=== PATIENT | female | born 1950 | race Caucasian/White ===

== ENCOUNTER → 2016-04-17 | Outpatient (CLI) | payer OTHER ==
[~2016-04-17] MED LIST: AMLO-110 PO; ASPCH81X PO; ATOR-26 PO; CHOL400T PO; CLOP1TAB15 PO; CLR10 PO; FRS/40 PO; GEMF600T3 PO; GLC500 PO; ISOS120T5 PO; METO-551 PO; NITR0.4S UT; PARO30TA6 PO; POTA20TA16 PO; XNX25 PO; ZTA10 PO; [UNRECOGNIZED DRUG - OTHER] PO
[2016-04-17 13:01] LABS: HEMATOCRIT 36.9 % (37-47)
[2016-04-17 13:12] LABS: ALT/SGPT 14 U/L (12-78); BLOOD UREA NITROGEN 7 mg/dl (7-18); BUN/CREATININE RATIO 10.3 (10-20); CALCIUM 9.6 mg/dl (8.5-10.1); CARBON DIOXIDE 26 mmol/L (21-32); CHLORIDE 101 mmol/L (98-107); CHOLESTEROL 143 mg/dl (0-200); CREATININE 0.68 mg/dl (0.60-1.20); GLUCOSE 118 mg/dl (70-99); POTASSIUM 4.7 mmol/L (3.5-5.1); SODIUM 136 mmol/L (136-145); TRIGLYCERIDES 145 mg/dl (0-150); VERY LOW DENSITY LIPOPROT CALC 29 mg/dl
[2016-04-17 13:15] LABS: AST/SGOT 10 U/L (15-37); CHOLESTEROL/HDL RATIO 2.8; HDL CHOLESTEROL 52 mg/dl; LDL CHOLESTEROL CALCULATED 62 mg/dl
[2016-04-17 13:50] LABS: ESTIMATED AVERAGE GLUCOSE 146 mg/dl; HA1C FLAG Normal (Normal)
== END | disposition home or self-care (01) ==
LOC: C.LAB1850 11:44
PROVIDERS: ATTEND Internal Medicine
DX: E78.5 Hyperlipidemia, unspecified (principal); E11.9 Type 2 diabetes mellitus without complications; E55.9 Vitamin D deficiency, unspecified; D64.9 Anemia, unspecified

== ENCOUNTER → 2016-12-17 | Outpatient (CLI) | payer OTHER ==
[2016-12-17 10:17] LABS: BASO % 0.8 %; BASO ABS # 0.04 K/uL (0-0.2); COMPLETE YES; EOS % 3.4 %; HEMATOCRIT 38.8 % (37-47); IG% 0.2 %; LYMPH % 39.5 %; LYMPH ABS # 2.06 K/uL (1.2-3.4); MEAN CELL VOLUME 91.7 fL (80-100); MEAN CORPUSCULAR HGB CONC 33.8 g/dl (32-36); MEAN PLATELET VOLUME 9.8 fL (7.4-10.4); MONO % 8.4 %; NEUT % 47.7 %; PLATELET COUNT 223 K/uL (130-400); RED BLOOD COUNT 4.23 M/uL (4.2-5.4); WHITE BLOOD COUNT 5.22 K/uL (4.8-10.8)
[2016-12-17 10:32] LABS: ALT/SGPT 25 U/L (12-78); AST/SGOT 11 U/L (15-37); BLOOD UREA NITROGEN 8 mg/dl (7-18); BUN/CREATININE RATIO 13.4 (10-20); CALCIUM 9.5 mg/dl (8.5-10.1); CARBON DIOXIDE 25 mmol/L (21-32); CHLORIDE 102 mmol/L (98-107); CHOLESTEROL 99 mg/dl (0-200); CREATININE 0.59 mg/dl (0.60-1.20); GLUCOSE 156 mg/dl (70-99); POTASSIUM 4.3 mmol/L (3.5-5.1); SODIUM 135 mmol/L (136-145)
[2016-12-17 10:34] LABS: CREATININE RANDOM URINE < 13.0 mg/dl
[2016-12-17 10:37] LABS: CHOLESTEROL/HDL RATIO 2.4; HDL CHOLESTEROL 42 mg/dl; LDL CHOLESTEROL CALCULATED 26 mg/dl; TRIGLYCERIDES 155 mg/dl (0-150); VERY LOW DENSITY LIPOPROT CALC 31 mg/dl
== END | disposition home or self-care (01) ==
LOC: C.LAB1850 09:11
PROVIDERS: ATTEND Internal Medicine
DX: E78.1 Pure hyperglyceridemia (principal); D64.9 Anemia, unspecified; E11.9 Type 2 diabetes mellitus without complications; E78.5 Hyperlipidemia, unspecified

== ENCOUNTER → 2016-12-30 | Outpatient (CLI) | payer OTHER ==
[~2016-12-30] MED LIST changes: +REGADENOSON 0.4 MG/5 ML SYR ONE
--- NOTE | 2016-12-30 14:33 | MYOCARDIAL PERFUSION SCAN ---
ONE-DAY NUCLEAR MEDICINE TECHNETIUM-99M CARDIOLITE MYOCARDIAL PERFUSION SCAN CLINICAL HISTORY: The patient has known coronary artery disease having undergone bypass surgery and several intracoronary stents. She presents with a chest pain syndrome and exertional dyspnea. TECHNIQUE: For the stress portion of the study, 32.5 mCi of Technetium-99m Cardiolite IV was injected at 11:30 a.m. on 12/30/2016. Thirty minutes following the injection, imaging of the heart was performed in multiple projections. For the rest portion of the study, 10.8 mCi of Technetium-99m Cardiolite was injected IV at 9:45 a.m. One hour following the injection, imaging of the heart was performed in the same projections. For the stress portion of the study, 0.4 mg of Lexiscan was injected intravenously as per protocol. The patient did develop chest discomfort. Baseline EKG noted anterolateral ST and T-wave changes which became more pronounced with Lexiscan infusion. The patient's symptoms resolved after approximately 3 minutes. Following the study, the patient was hemodynamically stable without complaints. FINDINGS: The short axis, vertical long axis, and horizontal long axis images were reviewed in detail. There is a small fixed defect in the mid and distal anterior septum present at both stress and rest. This likely represents an old myocardial infarction versus breast attenuation. However, the gated images suggest akinesis in the same segment favoring a prior myocardial infarction. There is no evidence of stress induced myocardial ischemia. Left ventricle demonstrates normal systolic function with an ejection fraction of 60%. There is an area of akinesis involving the mid and distal anteroseptal. Other henriquez function normally. CONCLUSIONS: 1. Scintigraphic evidence of an old anteroseptal myocardial infarction. 2. No evidence of stress induced myocardial ischemia. 3. Lexiscan induced chest discomfort. 4. Normal left ventricular systolic function with an ejection fraction of 60%, but akinesis involving the mid and distal anteroseptal.
== END | disposition home or self-care (01) ==
LOC: C.NUCL 09:01
PROVIDERS: ATTEND Internal Medicine Cardiovascular Disease
DX: I25.10 Atherosclerotic heart disease of native coronary artery without angina pectoris (principal); I25.5 Ischemic cardiomyopathy; Z95.1 Presence of aortocoronary bypass graft; Z95.5 Presence of coronary angioplasty implant and graft; I25.2 Old myocardial infarction

== ENCOUNTER 2019-05-09 11:06 | Inpatient (IN) ==
[2019-05-09] MEDS ORDERED: SODIUM CHLORIDE 0.9% 1000ML 1,000 ML IV ONE ×2 (11:24→12:46)
[2019-05-09] MEDS ORDERED: METOPROLOL TARTRATE 1 MG/ML VIAL IV ONE (11:24)
[2019-05-09] MEDS ORDERED: METOPROLOL TARTRATE 1 MG/ML VIAL IV PRN (11:26)
[2019-05-09 11:43] LABS: Base Excess VBG -13.8 mEq/L; pH VBG 7.24 (7.36-7.41)
[2019-05-09 11:44] LABS: Hematocrit (blood only) 42.4 % (37-47); Hemoglobin 15.2 g/dL (12.0-16.0); Mean Corpuscular Hemoglobin 30.8 pg (25-34); Mean Corpuscular Hgb Conc 35.8 g/dL (32-36); Mean Corpuscular Volume 85.8 fL (80-100); Mean Platelet Volume 10.9 fL (7.4-10.4); Platelet Count 159 K/uL (130-400); RDW Coefficient of Variation 13.6 % (11.5-14.5); RDW Standard Deviation 42.9 fL (36.4-46.3); Red Blood Count 4.94 M/uL (4.2-5.4); White Blood Count 12.44 K/uL (4.8-10.8)
--- NOTE | 2019-05-09 11:45 | XRay Report ---
XR chest 1V portable CLINICAL HISTORY: SEPSIS dyspnea COMPARISON STUDY: 03/08/2016 FINDINGS: Parenchymal infiltrate right base. Lungs otherwise appear clear. Mild cardiomegaly post med morenita sternotomy. IMPRESSION: Infiltrate right base. ACT 112: Negative or not required by law. The above report was generated using voice recognition software. It may contain grammatical, syntax or spelling errors. Electronically signed by: Rosendo Regalado M.D. 05/09/2019 11:43 AM
[2019-05-09 11:56] LABS: INR 1.3 (0.9-1.1); Partial Thromboplastin Ratio 1.2; Partial Thromboplastin Time 32.6 Seconds (21.0-31.0); Prothrombin Time 13.2 Seconds (9.0-12.0)
--- NOTE | 2019-05-09 11:58 | CT Scan Report ---
CT head/brain wo con CLINICAL HISTORY: 68 years-old Female with syncope. Acute syncope TECHNIQUE: Multiple axial CT images of the head were obtained without contrast. A dose lowering tech nique was utilized adhering to the principles of ALARA. CT DOSE: 638.56 mGycm COMPARISON: None. FINDINGS: No acute intracranial hemorrhage, midline shift, intracranial mass, hydrocephalus, territorial ischem ia or abnormal extra-axial collection. Age-related involutional changes. Patchy white matter hypodens ities suggest chronic microvascular ischemic disease. Cerebral vascular calcifications are noted. The calvarium is intact. Mild mucosal thickening with aerated secretions of the right maxillary and sphenoid sinuses. Mild mucosal thickening of the left maxillary sinus also noted. The mastoid air jennifer ls and middle ear cavities are clear. There are least 4 subcutaneous lesions of the posterior scalp m easuring up to 1.3 cm, possibly reflective of complex sebaceous cyst. IMPRESSION: No acute intracranial abnormality or calvarial fracture. ACT 112: Negative or not required by law. The above report was generated using voice recognition software. It may contain grammatical, syntax o r spelling errors. Electronically signed by: Cruzito Mccurdy M.D. 05/09/2019 11:57 AM
[2019-05-09 12:03] LABS: Basophils # (auto) 0.08 K/uL (0-0.2); Basophils % (auto) 0.6 %; Immature Granulocytes # (auto) 0.06 K/uL (0.00-0.02); Immature Granulocytes % (auto) 0.5 %; Lymphocytes # (auto) 1.02 K/uL (1.2-3.4); Lymphocytes % (auto) 8.2 %; Monocytes # (auto) 1.71 K/uL (0.11-0.59); Monocytes % (auto) 13.7 %; Neutrophils # (auto) 9.57 K/uL (1.4-6.5)
[2019-05-09] MEDS ORDERED: PIPERACILL/TAZOBAC CONSULT ACTIVE PRN ×2 (12:04→15:11)
[2019-05-09] MEDS ORDERED: PIPERACILLIN/TAZOBACTAM 4.5 GM/120 ML BAG IV ONE (12:04)
[2019-05-09 12:11] LABS: Alanine Aminotransferase 15 U/L (12-78); Albumin Globulin Ratio 0.6 (0.9-2); Albumin Level 3.2 gm/dl (3.4-5.0); Alkaline Phosphatase 103 U/L (45-117); Aspartate Aminotransferase 15 U/L (15-37); BUN Creatinine Ratio 10.9 (10-20); Bilirubin,Total 0.8 mg/dl (0.2-1); Blood Urea Nitrogen 8 mg/dl (7-18); Calcium 9.4 mg/dl (8.5-10.1); Carbon Dioxide 13 mmol/L (21-32); Chloride 95 mmol/L (98-107); Creatinine Clr Calc Pharmacy 54.9 ml/min; Est GFR (African American) 95.6; Est GFR (Non-African American) 82.5; Globulin 5.4 gm/dl (2.5-4.0); Glucose 323 mg/dl (70-99); Magnesium 1.8 mg/dl (1.8-2.4); Sodium 129 mmol/L (136-145); Total Protein 8.6 gm/dl (6.4-8.2); Troponin I < 0.015 ng/ml (0-0.045)
[2019-05-09] MEDS ORDERED: LEVOFLOXACIN/D5W 750 MG/150 ML BAG IV SCH (12:15)
[2019-05-09] MEDS ORDERED: SODIUM CHLORIDE 0.9% 1000ML 2,000 ML IV ONE (12:24)
[2019-05-09] MEDS ORDERED: GLUCOSE 10 TABS/TUBE PO PRN (12:46)
[2019-05-09] MEDS ORDERED: GLUCOSE 40% GEL 15 GM TUBE PO PRN (12:46)
[2019-05-09] MEDS ORDERED: DKA GOAL RANGE 150-250 mg/dl ONE (12:46)
[2019-05-09] MEDS ORDERED: GLUCAGON FOR INJ 1 MG VIAL SQ PRN (12:46)
[2019-05-09] MEDS ORDERED: ED DKA INSULIN DRIP ONE (12:46)
[2019-05-09] MEDS ORDERED: CARBOHYDRATES FOR HYPOGLYCEMIA PO PRN (12:46)
[2019-05-09] MEDS ORDERED: NovoLIN-R BOLUS FROM BAG IV ONE (12:50)
[2019-05-09] MEDS ORDERED: LORazepam 1 MG/2 ML VIAL IV STA (12:55)
[2019-05-09] MEDS ORDERED: INSULIN REGULAR 250 UNITS in SODIUM CHLORIDE 0.9% 247.5 ML IV SCH ×2 (13:00→15:30)
--- NOTE | 2019-05-09 13:06 | History & Physical Report ---
Date of Service May 09, 2019 Assessment & Plan (1) Sepsis: Patient has an elevated lactic acid level and apparent right lower lobe infiltrate on chest x-ray. Patient will be admitted to the ICU. I will start broad-spectrum antibiotics. Patient was already given Levaquin in the emergency room, will change to Zosyn and vancomycin. Blood and sputum cultures as able. O2 support with BiPAP for now. I did briefly discuss CODE STATUS and the family would like the patient to be full code with intubation if necessary. Will track lactic acid levels. (2) Acute respiratory failure: As noted above, likely secondary to pneumonia. BiPAP support as ordered. I can try to titrate down FiO2 when able. (3) DKA (diabetic ketoacidoses): Will initiate a insulin drip. Monitor anion gap. Check acetone level. Hemoglobin A1c when improved. (4) Rapid atrial fibrillation: Patient currently hypotensive with pulse 179. Will initiate amiodarone drip. Patient is on her third liter of normal saline, can continue this for now. Will consult cardiology for further recommendations. If patient's blood pressure degrades further, consideration to emergent cardioversion. We will also need heparin drip for now. Will check 2D echo. History of Present Illness Primary Care Provider: Roscoe Cano MD This is a 68-year-old female with past medical history of coronary artery disease, type 2 diabetes, triglyceridemia, cardiomyopathy presents today with acute shortness of breath. Patient is an extremely poor historian. Granddaughter is at bedside is able to fill in some of the blanks. Patient apparently lives in a split-level house with some other people. Patient states that they take care of her but is unclear what that consists of. Granddaughter found that the patient had stopped her medication sometime ago. There may have been 1 or 2 events with the patient had lost consciousness and explained a seizure-like activity although the history on this is unclear. Patient herself presented to the emergency room after she woke up with significant shortness of breath earlier this morning at time of presentation to the emergency room, her blood pressure was elevated along with her heart rate into the 170s. She was given some Lopressor. She is respiratory distress with significant tachypnea. She was on oxygen as with sats in the low 90s. When I arrived, patient was at 87-88% on oxygen mask. She was more tachypneic and was complaining of anxiety. BiPAP was ordered at 12/18 at 70% FiO2. Repeat sats are at 95%. Patient seems to be more calm and comfortable with this. At this time, patient will be admitted to the ICU for further treatment of rapid atrial fibrillation along with possible diabetic ketoacidosis. Allergies Allergy/AdvReac Type Severity Reaction Status Date / Time GEORGE Inhibitors Allergy Mild COUGH TO Verified 05/09/19 11:38 LISINOPRIL losartan Allergy Unknown URTICARIA Verified 05/09/19 11:38 Home Medications Home Medications Medication Instructions Recorded Confirmed Type clopidogrel 75 mg tablet 75 mg PO DAILY 09/20/18 05/09/19 History metoprolol tartrate 50 mg tablet 50 mg PO BID #270 tab 09/20/18 05/09/19 History omeprazole 20 mg capsule,delayed 20 mg PO BID PRN #90 cap 10/22/18 05/09/19 Rx release albuterol sulfate 90 mcg/actuation 2 puffs INHALATION Q4H #1 gm 10/29/18 05/09/19 History aerosol inhaler blood sugar diagnostic #10 ea 10/29/18 12/20/18 History cholecalciferol (vitamin D3) 10 400 units PO DAILY 10/29/18 05/09/19 History mcg (400 unit) tablet ezetimibe 10 mg tablet 10 mg PO HS #90 tab 10/29/18 05/09/19 History lancets 33 gauge #100 ea 10/29/18 10/29/18 History loratadine 10 mg tablet 10 mg PO DAILY #90 tab 10/29/18 05/09/19 History nitroglycerin 0.4 mg sublingual 0.4 mg SL UD #25 tab 10/29/18 05/09/19 History tablet atorvastatin 80 mg tablet 80 mg PO QPM #90 tab 11/16/18 05/09/19 Rx gemfibrozil 600 mg tablet 600 mg PO BID #180 tab 11/23/18 05/09/19 Rx paroxetine HCl 30 mg tablet 30 mg PO BID #180 tab 12/07/18 05/09/19 Rx glimepiride 1 mg tablet 1 mg PO BID #180 tab 01/04/19 05/09/19 Rx amlodipine 5 mg tablet 5 mg PO BID #180 tab 01/11/19 05/09/19 Rx potassium chloride 20 mEq See Rx Instructions .ROUTE 02/08/19 05/09/19 Rx tablet,extended release(part/cryst) .COMPLEX #270 tablet alprazolam 0.25 mg tablet 0.25 mg PO TID PRN #90 tab 03/14/19 05/09/19 Rx furosemide 40 mg tablet 60 mg PO DAILY #135 tab 04/27/19 05/09/19 Rx isosorbide mononitrate 120 mg 120 mg PO DAILY #180 tab 04/27/19 05/09/19 Rx tablet,extended release 24 hr metformin 500 mg tablet 500 mg PO BID #180 tab 04/27/19 05/09/19 Rx aspirin [Aspir-81] 81 mg PO DAILY 05/09/19 05/09/19 History Past Med/Surg History Medical History Acid reflux (Acute) Anemia (Acute) Anxiety disorder (Acute) Arteriosclerosis of carotid artery (Acute) Arteriosclerotic cardiovascular disease (ASCVD) (Acute) CAD (coronary artery disease) (Acute) Cardiomyopathy, ischemic (Acute) Essential hypertriglyceridemia (Acute) Hyperlipidemia (Acute) Stenosis of right carotid artery (Acute) Type 2 diabetes mellitus (Acute) Vitamin D deficiency (Acute) Surgical History Hx of CABG S/P hysterectomy Family History Mother Coronary heart disease Social History marital status: / current occupational status: retired Feels Safe at Home: Yes Smoking Status: Current every day smoker Hx Alcohol Use: No Hx Substance Use: No Dental Care, Regularly: Yes Seatbelt Use: always Review of Systems Review of Systems: Unobtainable due to cognitive status Physical Exam Constitutional: cooperative and + in distress (Tachypneic) Very limited historian Neck: trachea midline, no thyromegaly Respiratory: + uses accessory muscles Auscultation: + crackles and + rales; no rhonchi and no wheezes Cardiovascular: Rate/Rhythm: + tachycardic and + irregularly irregular Heart Sounds: normal S1 and normal S2 Vessels: + JVD Gastrointestinal (Abdomen): Inspection/Auscultation: abdomen normal to inspection Percussion/Palpation: abdomen soft; abdomen nontender, no guarding, abdomen not rigid and no hepatosplenomegaly Skin: no rashes, warm and dry Results & Data Vital Signs (Past 12 Hours) Vital Signs Temp Pulse Pulse Resp BP BP Pulse Ox 05/09/19 12:41 174 H 38 H 95/77 L 87 L 05/09/19 12:31 137 H 118/44 L 93 05/09/19 12:30 133 H 91 05/09/19 12:24 157 H 135/96 92 05/09/19 12:20 163 H 92 05/09/19 12:10 146 H 27 H 124/77 92 05/09/19 12:00 159 H 33 H 92 05/09/19 11:56 168 H 30 H 93/65 L 93 05/09/19 11:40 31 H 142/100 H 05/09/19 11:33 85 L 05/09/19 11:32 36.7 C 122 H 29 H 93 05/09/19 11:31 142 H 33 H 164/108 H 93 05/09/19 11:30 169 H 30 H 147/85 H 93 05/09/19 11:28 173 H 147/85 H 05/09/19 11:22 194 H 147/85 H 93 05/09/19 11:21 172 H 86 L 05/09/19 11:19 182 H 136/65 85 L 05/09/19 11:07 36.7 C 175 H 28 H 93/57 L 86 L Laboratory Results White count of 12.4. Hemoglobin is normal. Platelets at 159. INR is 1.3. VBG is 7.24. Sodium is 129, potassium is 3, chloride is 95, carbon dioxide is 13. At this represents an anion gap of 21 per computer. Blood sugar is 348. Lactate is 3.2. Diagnostic Findings XR chest 1V portable CLINICAL HISTORY: SEPSIS dyspnea COMPARISON STUDY: 03/08/2016 FINDINGS: Parenchymal infiltrate right base. Lungs otherwise appear clear. Mild cardiomegaly post median sternotomy. IMPRESSION: Infiltrate right base. --- CT head/brain wo con CLINICAL HISTORY: 68 years-old Female with syncope. Acute syncope TECHNIQUE: Multiple axial CT images of the head were obtained without contrast. A dose lowering technique was utilized adhering to the principles of ALARA. CT DOSE: 638.56 mGycm COMPARISON: None. FINDINGS: No acute intracranial hemorrhage, midline shift, intracranial mass, hydrocephalus, territorial ischemia or abnormal extra-axial collection. Age- related involutional changes. Patchy white matter hypodensities suggest chronic microvascular ischemic disease. Cerebral vascular calcifications are noted. The calvarium is intact. Mild mucosal thickening with aerated secretions of the right maxillary and sphenoid sinuses. Mild mucosal thickening of the left maxillary sinus also noted. The mastoid air cells and middle ear cavities are c lear. There are least 4 subcutaneous lesions of the posterior scalp measuring up to 1.3 cm, possibly reflective of complex sebaceous cyst. IMPRESSION: No acute intracranial abnormality or calvarial fracture. PG Care Time/CCT Total # of Minutes Spent Total Time Spent with Patient: Total time spent is greater than 50% in coordination of care (as documented) at patient's floor/unit and/or counseling patient: Coding Level of Care Code 89409 Initial Inpt Care Lvl 3 Diagnoses Sepsis A41.9 Acute respiratory failure J96.00 DKA (diabetic ketoacidoses) E11.10 Rapid atrial fibrillation I48.91
[2019-05-09] MEDS ORDERED: POTASSIUM CHLORIDE 20 MEQ TABCR PO STA (13:07)
[2019-05-09] MEDS ORDERED: LACTATED RINGER'S 1,000 ML IV ONE (13:20)
[2019-05-09] MEDS: POTASSIUM CHLORIDE / WTR 10 MEQ/100 ML PLCT IV SCH ×4 (13:22→19:09)
[2019-05-09 13:23] LABS: Estimated Average Glucose 332 mg/dl; Hemoglobin A1C 13.2 % (4.5-5.6)
[2019-05-09] MEDS ORDERED: SUCCINYLCHOLINE CHLORIDE 20 MG/ML 10 ML VIAL IV ONE (14:00)
[2019-05-09] MEDS ORDERED: ETOMIDATE 2 MG/ML 20 ML VIAL IV ONE (14:00)
[2019-05-09 14:04] LABS: iSTAT Arterial Blood Gas HCO3 9 meg/L (19-24); iSTAT Arterial Blood Gas pCO2 32 mmHg (35-46); iSTAT Arterial Blood Gas pH 7.08 (7.35-7.45); iSTAT Arterial Blood Gas pO2 104 mmHg (80-95); iSTAT Carbon Dioxide 10 mmol/L (24-31); iSTAT Hematocrit 38 % (37-47); iSTAT Hemoglobin 12.9 g/dl (12.0-16.0); iSTAT Potassium 3.2 mmol/L (3.3-5.0); iSTAT Sodium 136 mmol/L (135-144)
[2019-05-09] MEDS ORDERED: RAPID SEQUENCE INDUCTION BAG ONE (14:05)
[2019-05-09] MEDS ORDERED: MIDAZOLAM HCL 1 MG/ML 2ML VIAL IV PRN (14:17)
[2019-05-09] MEDS ORDERED: STAT IV Infusion **Titration per Protocol STA ×4 (14:17→15:49)
[2019-05-09] MEDS: fentaNYL DRIP 1,250 MCG/250 ML BAG IV SCH (14:25)
--- NOTE | 2019-05-09 14:26 | XRay Report ---
XR chest 1V portable CLINICAL HISTORY: Respiratory failure COMPARISON STUDY: May 09, 2019 FINDINGS: There are postsurgical changes of a midline sternotomy. The heart is mildly enlarged. There is an endotracheal tube 3.5 cm above the jaime. There are progressive right lower lung zone airspac e opacity suspicious for pneumonia.[ IMPRESSION: 1. Interval placement of an endotracheal tube 3.5 cm above the jaime 2. Progressive right lower lung zone airspace opacities ACT 112: Negative or not required by law. Electronically signed by: Ciaran Gaffney M.D. 05/09/2019 2:25 PM
[2019-05-09] MEDS: MIDAZOLAM HCL 125 MG/250 ML BAG IV SCH (14:29)
[2019-05-09] MEDS ORDERED: SODIUM BICARBONATE 8.4% INJ 50 MEQ/50 ML VIAL IV STA (15:10)
[2019-05-09] MEDS ORDERED: SODIUM BICARB 8.4% INJ 50 MEQ/50 ML SYR ONE (15:10)
[2019-05-09] MEDS ORDERED: SODIUM BICARB 8.4% INJ 50 MEQ/50 ML SYR IV STA (15:10)
[2019-05-09] MEDS ORDERED: AMIODARONE IV BOLUS & DRIP IV STA ×2 (15:11→15:49)
[2019-05-09] MEDS ORDERED: NORMOSOL-R 1,000 ML IV SCH ×2 (15:11→15:30)
[2019-05-09] MEDS ORDERED: SODIUM CHLORIDE 0.9% 1000ML 1,000 ML IV SCH (15:11)
[2019-05-09] MEDS ORDERED: ICU PROTOCOL FOR HYPERGLYCEMIA PRN (15:11)
[2019-05-09] MEDS ORDERED: dilTIAZem HCl 5 MG/ML 5 ML VIAL IV STA (15:11)
[2019-05-09] MEDS ORDERED: VANCOMYCIN CONSULT ACTIVE PRN (15:11)
[2019-05-09] MEDS ORDERED: HEPARIN SODIUM/DEXTROSE 25,000 UNITS/500 ML BAG IV SCH (15:15)
[2019-05-09] MEDS ORDERED: DEXTROSE 5% IV STA (15:21)
[2019-05-09] MEDS ORDERED: VANCOMYCIN HCL IV STA (15:21)
[2019-05-09] MEDS: dilTIAZem HCL 125 MG in DEXTROSE 5% 100 ML IV SCH (15:40)
[2019-05-09] MEDS ORDERED: HEPARIN IV BOLUS 4,000 UNITS in SYRINGE 0 ML IV ONE (15:45)
[2019-05-09] MEDS: HEPARIN SODIUM/DEXTROSE 25,000 UNITS/500 ML BAG IV SCH (15:48)
[2019-05-09] MEDS ORDERED: VECURONIUM BROMIDE 10 MG VIAL ONE (16:06)
[2019-05-09] MEDS ORDERED: AMIODARONE / D5W 150 MG/100 ML BAG IV ONE (16:15)
[2019-05-09 16:27] LABS: Appearance Urine Clear (Clear); Bacteria Urine Automated Negative (Negative); Bilirubin Urine Negative (Negative); Blood Urine 1+ (Negative); Color Urine Yellow; Glucose Urine UA 3+ (Negative); Leukocyte Esterase Urine Negative (Negative); Nitrite Urine Negative (Negative); Protein Urine 2+ (Negative); RBC Urine Automated 0-4 /hpf (0-4); Specific Gravity Urine 1.028 (1.000-1.030); Urobilinogen Urine Negative (Negative)
[2019-05-09] MEDS ORDERED: INSULIN ASPART 100 UNITS/ML 3 ML PEN SC SCH ×3 (16:30)
[2019-05-09] MEDS ORDERED: AMIODARONE / D5W 360 MG/200 ML BAG IV SCH ×2 (16:30→22:30)
[2019-05-09 16:31] LABS: Ketones Urine 4+ (Negative)
--- NOTE | 2019-05-09 16:33 | Pharmacy Report ---
Pharmacy Abx Initial Consult - Date of Service May 09, 2019 - Pharmacy Dosing Scope Date of Consult: 05/09/19 Consultation requested by: Dr. Kunz Pharmacy is consulted to initiate Vancomycin IV dosing therapy and continue Zosyn, order appropriate labs and adjust drug dose/frequency. - Subjective The patient is a 68 year old F admitted on 05/09/19 13:28 Septic with respiratory failure and afib who required intubation in the ED. Dr. Kunz added Vancomycin to inital abx of Zosyn and Levquin given in the ED. Pharmacy will continue to dose and monitor both Zosyn and Vancomycin ordered by Dr. Kunz - Objective Height: 5 ft 1 in Weight: 52.2 kg Vital Signs (Past 12hrs): Vital Signs Temp Pulse Pulse Resp BP BP Pulse Ox 05/09/19 14:31 165 H 139/97 92 05/09/19 14:30 164 H 89 L 05/09/19 14:20 167 H 168/99 H 92 05/09/19 14:15 164 H 20 94 05/09/19 14:10 164 H 149/122 H 92 05/09/19 14:01 164 H 159/88 H 93 05/09/19 14:00 176 H 94 05/09/19 13:51 173 H 154/90 H 93 05/09/19 13:50 180 H 95 05/09/19 13:42 170 H 118/67 96 05/09/19 13:40 168 H 96 05/09/19 13:32 165 H 154/75 H 93 05/09/19 13:31 181 H 154/75 H 93 05/09/19 13:30 181 H 96 05/09/19 13:21 180 H 118/84 93 05/09/19 13:20 180 H 91 05/09/19 13:19 189 H 89/69 L 89 L 05/09/19 13:17 196 H 133/102 H 86 L 05/09/19 13:16 188 H 162/79 H 85 L 05/09/19 13:14 191 H 54/33 L 86 L 05/09/19 13:12 186 H 162/133 H 93 05/09/19 13:10 181 H 145/114 H 93 05/09/19 13:02 178 H 145/104 H 90 05/09/19 13:00 179 H 29 H 91 05/09/19 12:56 179 H 93 05/09/19 12:51 188 H 122/76 93 05/09/19 12:50 180 H 95 05/09/19 12:47 163 H 32 H 123/96 96 05/09/19 12:46 163 H 34 H 96 05/09/19 12:41 174 H 174 H 31 H 95/77 L 95/77 L 86 L 05/09/19 12:40 180 H 35 H 88 L 05/09/19 12:32 176 H 91 05/09/19 12:31 137 H 118/44 L 93 05/09/19 12:30 133 H 91 05/09/19 12:24 157 H 135/96 92 05/09/19 12:20 163 H 92 05/09/19 12:10 146 H 27 H 124/77 92 05/09/19 12:00 159 H 33 H 92 05/09/19 11:56 168 H 30 H 93/65 L 93 05/09/19 11:40 31 H 142/100 H 05/09/19 11:33 85 L 05/09/19 11:32 36.7 C 122 H 29 H 93 05/09/19 11:31 142 H 33 H 164/108 H 93 05/09/19 11:30 169 H 30 H 147/85 H 93 05/09/19 11:28 173 H 147/85 H 05/09/19 11:22 194 H 147/85 H 93 05/09/19 11:21 172 H 86 L 05/09/19 11:19 182 H 136/65 85 L 05/09/19 11:07 36.7 C 175 H 28 H 93/57 L 86 L Lab Results (24hrs): Laboratory Tests (24 Hours) 05/09/19 05/09/19 11:30 11:30 WBC 12.44 H Neut # (Auto) 9.57 H Creatinine 0.75 Est Cr Clr Drug Dosing 54.9 Micro Results: 05/09/19 12:17 Aerobic Blood Culture - Pending Blood Anaerobic Blood Culture - Pending 05/09/19 11:30 Aerobic Blood Culture - Pending Blood Anaerobic Blood Culture - Pending - Assessment & Plan Assessment 68 year old F with Sepsis/Pulm Source Plan Vancomycin IV * Estimated PK Parameters: Vd 0.70 L/kg, Darius 0.05 hr-1, t1/2 ~14 hr * Loading dose: 1250 mg (~24mg/kg) * Maintenance dose: 750 mg IV (14 mg/kg) every 16 hours * Goal trough level: 15 to 20 mcg/mL * Trough level ordered for prior to 1600 dose on 05/11/19 Piperacillin/tazobactam * 4.5 g bolus administered over 30 minutes, then 3.375 g IV extended infusion every 8 hours for CrCl greater than 20 mL/min Pharmacy will continue to follow and will adjust dose/frequency as necessary. Thank you.
--- NOTE | 2019-05-09 16:46 | Emergency Department Note ---
Entered by Emily Wasserman acting as a scribe for History of Present Illness General Chief complaint: Illness Stated complaint: dehydrated, seizures, no blood sugar meds x4 days Source: patient History of Present Illness Onset (ago): week(s) 1 Location: head (weakness) Pain Consistency: + other (worsening) Maximum Pain Intensity: 0 Quality: + other (weakness) Exacerbated By: + eating (drinking) Associated symptoms: + loss of appetite, + nausea/vomiting (Positive nausea. Negative vomiting.), + weakness and + other (Positive dizziness, heart racing, diarrhea. Negative abdominal pain. ) The patient is a 68 year old female presenting to the Emergency Department complaining of worsening weakness starting 1 week ago. The patient reports that she is nauseous and hasnt had an appetite for 1 week. She states that her nausea worsens when she drinks water and eats food so she hasnt been able to eat or drink much. She explains that she experienced 2 seizures 5 days ago and that she has no history of seizures. She notes that she has been experiencing 2 episodes of diarrhea per day for the past week. She adds that for the past 2 d ays she has been short of breath and has felt her heart racing. The patient reports that she is a diabetic and hasnt taken her Metformin for the past 4 days. She states that she sometimes gets dizzy and has bene experiencing this for the past 5 days. She explains that she doesnt normally use oxygen at home. 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 The patient denies abdominal pain and vomiting. Home Medications Home Medications Medication Instructions Recorded Confirmed Type clopidogrel 75 mg tablet 75 mg PO DAILY 09/20/18 05/09/19 History metoprolol tartrate 50 mg tablet 50 mg PO BID #270 tab 09/20/18 05/09/19 History omeprazole 20 mg capsule,delayed 20 mg PO BID PRN #90 cap 10/22/18 05/09/19 Rx release albuterol sulfate 90 mcg/actuation 2 puffs INHALATION Q4H #1 gm 10/29/18 0 History aerosol inhaler blood sugar diagnostic #10 ea 10/29/18 12/20/18 History cholecalciferol (vitamin D3) 10 400 units PO DAILY 10/29/18 05/09/19 History mcg (400 unit) tablet ezetimibe 10 mg tablet 10 mg PO HS #90 tab 10/29/18 05/09/19 History lancets 33 gauge #100 ea 10/29/18 10/29/18 History loratadine 10 mg tablet 10 mg PO DAILY #90 tab 10/29/18 05/09/19 History nitroglycerin 0.4 mg sublingual 0.4 mg SL UD #25 tab 10/29/18 05/09/19 History tablet atorvastatin 80 mg tablet 80 mg PO QPM #90 tab 11/16/18 05/09/19 Rx gemfibrozil 600 mg tablet 600 mg PO BID #180 tab 11/23/18 05/09/19 Rx paroxetine HCl 30 mg tablet 30 mg PO BID #180 tab 12/07/18 05/09/19 Rx glimepiride 1 mg tablet 1 mg PO BID #180 tab 01/04/19 05/09/19 Rx amlodipine 5 mg tablet 5 mg PO BID #180 tab 01/11/19 05/09/19 Rx potassium chloride 20 mEq See Rx Instructions .ROUTE 02/08/19 05/09/19 Rx tablet,extended release(part/cryst) .COMPLEX #270 tablet alprazolam 0.25 mg tablet 0.25 mg PO TID PRN #90 tab 03/14/19 05/09/19 Rx furosemide 40 mg tablet 60 mg PO DAILY #135 tab 04/27/19 05/09/19 Rx isosorbide mononitrate 120 mg 120 mg PO DAILY #180 tab 04/27/19 05/09/19 Rx tablet,extended release 24 hr metformin 500 mg tablet 500 mg PO BID #180 tab 04/27/19 05/09/19 Rx aspirin [Aspir-81] 81 mg PO DAILY 05/09/19 05/09/19 History Allergies Allergy/AdvReac Type Severity Reaction Status Date / Time GEORGE Inhibitors Allergy Mild COUGH TO Verified 05/09/19 11:38 LISINOPRIL losartan Allergy Unknown URTICARIA Verified 05/09/19 11:38 Past Med/Surg History Medical History Acid reflux (Acute) Anemia (Acute) Anxiety disorder (Acute) Arteriosclerosis of carotid artery (Acute) Arteriosclerotic cardiovascular disease (ASCVD) (Acute) CAD (coronary artery disease) (Acute) Cardiomyopathy, ischemic (Acute) Essential hypertriglyceridemia (Acute) Hyperlipidemia (Acute) Stenosis of right carotid artery (Acute) Type 2 diabetes mellitus (Acute) Vitamin D deficiency (Acute) Surgical History Hx of CABG S/P hysterectomy Family History Mother Coronary heart disease Social History Preferred Language: Bulgarian Communication Ability: Effective Kosher Dietary Service Manager Required: No Beliefs That Will Affect Care: None marital status: / Current Living Situation: Other Current Living Situation Comment: a non-related family lives in her basement current occupational status: retired Other Information That Helps Us Care for You: No Feels Safe at Home: Yes Safety Concerns: Feels Safe At This Time Smoking Status: Current every day smoker Tobacco Type: cigarettes ; Cigarettes Per Day: unknown ; Do You Dip or Chew Tobacco: No ; Second Hand Exposure: Yes ; Tobacco Cessation Education Requested by Patient: No Hx Alcohol Use: Yes (quit past few years) Hx Substance Use: No Dental Care, Regularly: Yes Seatbelt Use: always Review of Systems See HPI for pertinent positives & negatives. and A total of 10 systems reviewed and were otherwise negative Physical Exam Vital Signs Vital Signs - 24 hr 05/09/19 11:07 05/09/19 11:19 05/09/19 11:21 Temperature 36.7 C Temperature Source Oral Pulse Rate 175 H 182 H 172 H Pulse Rate [Right Finger] Pulse Rate from SpO2 Sensor 187 H 178 H Respiratory Rate 28 H Respiratory Effort / Characteristics Labored Respiratory Depth Normal Respiratory Pattern Blood Pressure 93/57 L 136/65 Blood Pressure [Right Arm] Blood Pressure Mean 69 85 Blood Pressure Mean [Right Arm] Pulse Oximetry 86 L 85 L 86 L Oxygen Delivery Method Room Air Room Air Room Air Oxygen Flow Rate Fraction of Inspired Oxygen Sepsis Recent Fever Within 48 Hours Yes Sepsis New/Unexplained Change in Mental Status No Sepsis Action Taken by Nursing No Action Required 05/09/19 11:22 05/09/19 11:28 05/09/19 11:30 Temperature Temperature Source Pulse Rate 194 H 173 H 169 H Pulse Rate [Right Finger] Pulse Rate from SpO2 Sensor 186 H 160 H Respiratory Rate 30 H Respiratory Effort / Characteristics Respiratory Depth Respiratory Pattern Blood Pressure 147/85 H 147/85 H 147/85 H Blood Pressure [Right Arm] Blood Pressure Mean 106 Blood Pressure Mean [Right Arm] Pulse Oximetry 93 93 Oxygen Delivery Method Non-rebreather Non-rebreather Oxygen Flow Rate 15 15 Fraction of Inspired Oxygen Sepsis Recent Fever Within 48 Hours Sepsis New/Unexplained Change in Mental Status Sepsis Action Taken by Nursing 05/09/19 11:31 05/09/19 11:32 05/09/19 11:33 Temperature 36.7 C Temperature Source Pulse Rate 142 H 122 H Pulse Rate [Right Finger] Pulse Rate from SpO2 Sensor 145 H 136 H Respiratory Rate 33 H 29 H Respiratory Effort / Characteristics Respiratory Depth Respiratory Pattern Blood Pressure 164/108 H Blood Pressure [Right Arm] Blood Pressure Mean 114 Blood Pressure Mean [Right Arm] Pulse Oximetry 93 93 85 L Oxygen Delivery Method Non-rebreather Oxymask Room Air Oxygen Flow Rate 15 15 Fraction of Inspired Oxygen Sepsis Recent Fever Within 48 Hours Sepsis New/Unexplained Change in Mental Status Sepsis Action Taken by Nursing 05/09/19 11:40 05/09/19 11:56 05/09/19 12:00 Temperature Temperature Source Pulse Rate 168 H 159 H Pulse Rate [Right Finger] Pulse Rate from SpO2 Sensor 151 H 136 H Respiratory Rate 31 H 30 H 33 H Respiratory Effort / Characteristics Respiratory Depth Respiratory Pattern Blood Pressure 142/100 H 93/65 L Blood Pressure [Right Arm] Blood Pressure Mean 114 75 Blood Pressure Mean [Right Arm] Pulse Oximetry 93 92 Oxygen Delivery Method Oxymask Oxymask Oxygen Flow Rate 15 15 Fraction of Inspired Oxygen Sepsis Recent Fever Within 48 Hours Sepsis New/Unexplained Change in Mental Status Sepsis Action Taken by Nursing 05/09/19 12:10 05/09/19 12:20 05/09/19 12:24 Temperature Temperature Source Pulse Rate 146 H 163 H 157 H Pulse Rate [Right Finger] Pulse Rate from SpO2 Sensor 148 H 165 H 157 H Respiratory Rate 27 H Respiratory Effort / Characteristics Respiratory Depth Respiratory Pattern Blood Pressure 124/77 135/96 Blood Pressure [Right Arm] Blood Pressure Mean 85 106 Blood Pressure Mean [Right Arm] Pulse Oximetry 92 92 92 Oxygen Delivery Method Oxymask Oxymask Oxymask Oxygen Flow Rate 15 15 15 Fraction of Inspired Oxygen Sepsis Recent Fever Within 48 Hours Sepsis New/Unexplained Change in Mental Status Sepsis Action Taken by Nursing 05/09/19 12:30 05/09/19 12:31 05/09/19 12:32 Temperature Temperature Source Pulse Rate 133 H 137 H 176 H Pulse Rate [Right Finger] Pulse Rate from SpO2 Sensor 141 H 154 H 175 H Respiratory Rate Respiratory Effort / Characteristics Respiratory Depth Respiratory Pattern Blood Pressure 118/44 L Blood Pressure [Right Arm] Blood Pressure Mean 50 Blood Pressure Mean [Right Arm] Pulse Oximetry 91 93 91 Oxygen Delivery Method Oxymask Oxymask Oxymask Oxygen Flow Rate 15 15 15 Fraction of Inspired Oxygen Sepsis Recent Fever Within 48 Hours Sepsis New/Unexplained Change in Mental Status Sepsis Action Taken by Nursing 05/09/19 12:40 05/09/19 12:41 05/09/19 12:46 Temperature Temperature Source Pulse Rate 180 H 174 H 163 H Pulse Rate [Right Finger] 174 H Pulse Rate from SpO2 Sensor 182 H 186 H Respiratory Rate 35 H 31 H 34 H Respiratory Effort / Characteristics Spontaneous Short of Breath Respiratory Depth Respiratory Pattern Tachypnea Blood Pressure 95/77 L Blood Pressure [Right Arm] 95/77 L Blood Pressure Mean 85 Blood Pressure Mean [Right Arm] 83 Pulse Oximetry 88 L 86 L 96 Oxygen Delivery Method Oxymask Oxymask Oxygen Flow Rate 15 15 Fraction of Inspired Oxygen 70 Sepsis Recent Fever Within 48 Hours Sepsis New/Unexplained Change in Mental Status Sepsis Action Taken by Nursing 05/09/19 12:47 05/09/19 12:50 05/09/19 12:51 Temperature Temperature Source Pulse Rate 163 H 180 H 188 H Pulse Rate [Right Finger] Pulse Rate from SpO2 Sensor 167 H 163 H 174 H Respiratory Rate 32 H Respiratory Effort / Characteristics Respiratory Depth Respiratory Pattern Blood Pressure 123/96 122/76 Blood Pressure [Right Arm] Blood Pressure Mean 109 101 Blood Pressure Mean [Right Arm] Pulse Oximetry 96 95 93 Oxygen Delivery Method BiPAP Oxygen Flow Rate Fraction of Inspired Oxygen Sepsis Recent Fever Within 48 Hours Sepsis New/Unexplained Change in Mental Status Sepsis Action Taken by Nursing 05/09/19 12:56 05/09/19 13:00 05/09/19 13:02 Temperature Temperature Source Pulse Rate 179 H 179 H 178 H Pulse Rate [Right Finger] Pulse Rate from SpO2 Sensor 186 H 185 H Respiratory Rate 29 H Respiratory Effort / Characteristics Respiratory Depth Respiratory Pattern Blood Pressure 145/104 H Blood Pressure [Right Arm] Blood Pressure Mean 119 Blood Pressure Mean [Right Arm] Pulse Oximetry 93 91 90 Oxygen Delivery Method BiPAP Oxygen Flow Rate Fraction of Inspired Oxygen 60 Sepsis Recent Fever Within 48 Hours Sepsis New/Unexplained Change in Mental Status Sepsis Action Taken by Nursing 05/09/19 13:10 05/09/19 13:12 05/09/19 13:14 Temperature Temperature Source Pulse Rate 181 H 186 H 191 H Pulse Rate [Right Finger] Pulse Rate from SpO2 Sensor 181 H 169 H 189 H Respiratory Rate Respiratory Effort / Characteristics Respiratory Depth Respiratory Pattern Blood Pressure 145/114 H 162/133 H 54/33 L Blood Pressure [Right Arm] Blood Pressure Mean 125 135 34 Blood Pressure Mean [Right Arm] Pulse Oximetry 93 93 86 L Oxygen Delivery Method BiPAP BiPAP Non-rebreather Oxygen Flow Rate 15 Fraction of Inspired Oxygen Sepsis Recent Fever Within 48 Hours Sepsis New/Unexplained Change in Mental Status Sepsis Action Taken by Nursing 05/09/19 13:16 05/09/19 13:17 05/09/19 13:19 Temperature Temperature Source Pulse Rate 188 H 196 H 189 H Pulse Rate [Right Finger] Pulse Rate from SpO2 Sensor 177 H 188 H 178 H Respiratory Rate Respiratory Effort / Characteristics Respiratory Depth Respiratory Pattern Blood Pressure 162/79 H 133/102 H 89/69 L Blood Pressure [Right Arm] Blood Pressure Mean 124 115 76 Blood Pressure Mean [Right Arm] Pulse Oximetry 85 L 86 L 89 L Oxygen Delivery Method Non-rebreather Non-rebreather Non-rebreather Oxygen Flow Rate 15 15 15 Fraction of Inspired Oxygen 100 Sepsis Recent Fever Within 48 Hours Sepsis New/Unexplained Change in Mental Status Sepsis Action Taken by Nursing 05/09/19 13:20 05/09/19 13:21 Temperature Temperature Source Pulse Rate 180 H 180 H Pulse Rate [Right Finger] Pulse Rate from SpO2 Sensor 150 H 166 H Respiratory Rate Respiratory Effort / Characteristics Respiratory Depth Respiratory Pattern Blood Pressure 118/84 Blood Pressure [Right Arm] Blood Pressure Mean 99 Blood Pressure Mean [Right Arm] Pulse Oximetry 91 93 Oxygen Delivery Method BiPAP BiPAP Oxygen Flow Rate Fraction of Inspired Oxygen Sepsis Recent Fever Within 48 Hours Sepsis New/Unexplained Change in Mental Status Sepsis Action Taken by Nursing GENERAL: Patient is ill appearing, lying on bed, disheveled. EYE EXAM: normal conjunctiva. OROPHARYNX: no exudate, no erythema, lips, buccal mucosa, and tongue normal and mucous membranes are moist NECK: supple, no nuchal rigidity, no adenopathy, non-tender LUNGS: Diminished breath sounds at the bases bilaterally. HEART: Tachycardic rate. Irregular rhythm. ABDOMEN: abdomen soft, non-tender, normo-active bowel sounds, no masses, no rebound or guarding. BACK: Back is symmetrical on inspection and there is no deformity, no midline tenderness, no CVA tenderness. SKIN: no rashes and no bruising UPPER EXTREMITIES: upper extremities are grossly normal. LOWER EXTREMITIES: Calves are equal bilaterally. No pitting edema. NEURO EXAM: Normal sensorium, cranial nerves II-XII grossly intact, normal spee ch, no gross weakness of arms, no gross weakness of legs. Procedures Intubation Time out performed: Yes sedative: Etomidate (Versed and Fentanyl) paralytic: Succinylcholine Laryngoscope: fiber optic video scope Assist Device Used: fiber optic device ET Tube Size: 7.5 ET Tube Uncuffed: Yes Tube Secured Depth (cm): 21 Tube Secured Location: lips Tube Placement Confirmation: visualized tube passing through cords, equal breath sounds bilaterally, no breath sounds over epigastrium and confirmation by capnometry Patient Tolerated Procedure: well Intubation Complications: none Course Course ED COURSE: Vital signs were reviewed and showed hypotension and tachycardia. The patients medical record was reviewed The above diagnostic studies were performed and reviewed. ED treatments and interventions as stated above. 1114: The patient was evaluated in room B1. A complete history and physical examination was performed. 1122: EMR reviewed. EF 45% 50% per cardiologists note. 1129: 5 mg Lopressor IV was administered. 1230: I discussed the patients case with Dr. Ze FOSS hospitalist. He will evaluate the patient for further management. 1250: The hospitalist is at the patients bedside and put the patient on Bi-PAP. 1255: The patients nurse reports that the patient is anxious at this time. She is requesting diazepam which she said she normally takes. 1305: I reevaluated the patient at this time who is still tachycardic. 1315: I reevaluated the patient at this time. The patient will be taken off Bi- PAP for a short period of time to administer potassium. Lopressor will be given. BP is stable. HR is back up to 180s. ICU will be paged. 1316: I discussed the patients case with Dr. Cuong FOSS Printed Circuit Board Drafter. He will come and evaluate the patient. 1320: The patients nurse sat the patient up and her blood pressure dropped into the 70s. 1326: I checked on the patient at this time. She is receiving fluids at this time. 1346: I checked on the patient at this time. IVC collapsed wall on inspiration. 1401: I reevaluated the patient. She has become more confused and is pulling at her IV lines. 1412: I intubated the patient at this time. See procedure note. 1430: Based on the patients age, coexisting illnesses, exam and lab findings the decision to treat as an inpatient was made. The patient remained stable while under my care. The patient will be evaluated for further management. Administered Medications Fentanyl Citrate (Fentanyl Drip) 1,250 mcg in 250 mls @ 20 mls/hr IV .[id number] JUSTIN; Protocol Stop: 05/23/19 14:29 Last Titration: 05/09/19 15:47 Dose: 100 mcg/hr, 20 mls/hr Documented by: [id number] Admin: 05/09/19 14:25 Dose: 25 mcg/hr, 5 mls/hr Documented by: [id number] Cosigned by: [id number] Midazolam HCl (Versed) 125 mg in 250 mls @ 6 mls/hr IV .Q24H JUSTIN; Protocol Stop: 06/08/19 14:29 Last Titration: 05/09/19 15:47 Dose: 3 mg/hr, 6 mls/hr Documented by: [id number] Admin: 05/09/19 14:29 Dose: 1 mg/hr, 2 mls/hr Documented by: [id number] Cosigned by: [id number] Heparin Sodium/Dextrose (Heparin Sodium/Dextrose) 25,000 units in 500 mls @ 18 mls/hr IV .Q24H JUSTIN; Protocol Stop: 06/08/19 15:10 Last Admin: 05/09/19 15:48 Dose: 900 units/hr, 18 mls/hr Documented by: [id number] Cosigned by: [id number] Vancomycin HCl 1,250 mg/ (Dextrose) 295 mls @ 125 mls/hr IV ONE STA; Protocol Stop: 05/09/19 17:42 Last Admin: 05/09/19 16:00 Dose: 125 mls/hr Documented by: [id number] Diltiazem HCl 125 mg/ Dextrose 125 mls @ 5 mls/hr IV .Q24H JUSTIN; Protocol Stop: 06/08/19 15:14 Last Admin: 05/09/19 15:40 Dose: 5 mg/hr, 5 mls/hr Documented by: [id number] Cosigned by: [id number] Metoprolol Tartrate (Lopressor) 5 mg IV Q5M PRN PRN Reason: Tachycardia Stop: 06/08/19 11:25 Last Admin: 05/09/19 11:28 Dose: 5 mg Documented by: [id number] Discontinued Medications Diltiazem HCl (Cardizem) 5 mg IV NOW STA Stop: 05/09/19 15:12 Last Admin: 05/09/19 15:55 Dose: 5 mg Documented by: [id number] Cosigned by: [id number] Sodium Chloride (Nss 1000ml) 1,000 mls @ 999 mls/hr IV .Q1H1M ONE Stop: 05/09/19 12:24 Last Infusion: 05/09/19 12:37 Dose: 0 mls/hr Documented by: [id number] Admin: 05/09/19 11:28 Dose: 999 mls/hr Documented by: [id number] Piperacillin Sod/Tazobactam Sod (Zosyn) 4.5 gm in 120 mls @ 240 mls/hr IV NOW ONE Stop: 05/09/19 12:33 Last Infusion: 05/09/19 12:52 Dose: 0 mls/hr Documented by: [id number] Admin: 05/09/19 12:13 Dose: 240 mls/hr Documented by: [id number] Levofloxacin/Dextrose (Levaquin/D5w) 750 mg in 150 mls @ 100 mls/hr IV Q24H JUSTIN Stop: 05/23/19 12:14 Last Infusion: 05/09/19 13:57 Dose: 0 mls/hr Documented by: [id number] Admin: 05/09/19 12:23 Dose: 100 mls/hr Documented by: [id number] Sodium Chloride (Nss 1000ml) 2,000 mls @ 999 mls/hr IV .Q2H1M ONE Stop: 05/09/19 14:24 Last Infusion: 05/09/19 15:30 Dose: 0 mls/hr Documented by: [id number] Admin: 05/09/19 12:37 Dose: 999 mls/hr Documented by: [id number] Sodium Chloride (Nss 1000ml) 1,000 mls @ 999 mls/hr IV .Q1H1M ONE Stop: 05/09/19 13:46 Last Admin: 05/09/19 13:46 Dose: Not Given Documented by: [id number] Lorazepam (Ativan) 1 mg in 2 mls @ 2 mls/min IV NOW STA Stop: 05/09/19 12:56 Last Admin: 05/09/19 13:01 Dose: 2 mls/min Documented by: [id number] Potassium Chloride (K Primitivo / Wtr) 10 meq in 100 mls @ 100 mls/hr IV Q1H JUSTIN Stop: 05/09/19 15:14 Last Infusion: 05/09/19 15:30 Dose: 0 mls/hr Documented by: [id number] Admin: 05/09/19 14:15 Dose: 100 mls/hr Documented by: [id number] Infusion: 05/09/19 14:14 Dose: 0 mls/hr Documented by: [id number] Admin: 05/09/19 13:22 Dose: 100 mls/hr Documented by: [id number] Lactated Ringer's (Lr) 1,000 mls @ 999 mls/hr IV .Q1H1M ONE Stop: 05/09/19 14:20 Last Infusion: 05/09/19 15:30 Dose: 0 mls/hr Documented by: [id number] Admin: 05/09/19 13:47 Dose: 999 mls/hr Documented by: [id number] Parenteral Electrolytes (Normosol-R) 1,000 mls @ 200 mls/hr IV .Q5H JUSTIN Stop: 06/08/19 15:10 Last Admin: 05/09/19 15:53 Dose: 200 mls/hr Documented by: [id number] Heparin Sodium (Porcine) 4,000 (units/ Syringe) 4 mls @ 10 mls/min IV NOW ONE Stop: 05/09/19 15:46 Last Admin: 05/09/19 16:36 Dose: 10 mls/min Documented by: [id number] Cosigned by: [id number] Metoprolol Tartrate (Lopressor) Confirm Administered Dose 5 mg IV .STK-MED ONE Stop: 05/09/19 11:25 Last Admin: 05/09/19 11:30 Dose: Not Given Documented by: [id number] Miscellaneous () Confirm Administered Dose 1 ea .ROUTE .STK-MED ONE Stop: 05/09/19 14:06 Last Admin: 05/09/19 14:19 Dose: 1 ea Documented by: [id number] Miscellaneous () 1 ea N/A NOW STA Stop: 05/09/19 14:18 Last Admin: 05/09/19 15:59 Dose: 1 ea Documented by: [id number] Potassium Chloride (Klor-Con M20) 40 meq PO NOW STA Stop: 05/09/19 13:08 Last Admin: 05/09/19 13:11 Dose: 40 meq Documented by: [id number] Sodium Bicarbonate (Sodium Bicarbonate 8.4%) Confirm Administered Dose 100 meq .ROUTE .STK-MED ONE Stop: 05/09/19 15:11 Last Admin: 05/09/19 15:20 Dose: 100 meq Documented by: [id number] Sodium Bicarbonate (Sodium Bicarbonate 8.4%) 50 meq IV ONCE STA Stop: 05/09/19 15:11 Last Admin: 05/09/19 15:22 Dose: Not Given Documented by: [id number] Sodium Bicarbonate (Sodium Bicarbonate 8.4%) 50 meq IV NOW STA Stop: 05/09/19 15:11 Last Admin: 05/09/19 15:22 Dose: Not Given Documented by: [id number] Vecuronium [place] (Norcuron) Confirm Administered Dose 10 mg .ROUTE .STK-MED ONE Stop: 05/09/19 16:07 Last Admin: 05/09/19 16:10 Dose: 5 mg Documented by: [id number] Cosigned by: [id number] Critical Care Time Critical Care Time: Yes Total Critical Care Time: 130 I have personally spent 130 minutes of critical care time in the direct management of this patient. This includes bedside care, interpretation of diagnostic studies, and testing, discussion with consultants, patient, and family members, and other required patient management activities. This 130 minutes is in excess of all separately billable procedures. Medical Decision Making Differential Diagnosis Differential diagnosis includes etiologies such as sepsis, UTI, pneumonia, metabolic, electrolyte abnormalities, cardiac sources, intracerebral event, toxicologic, neurologic, as well as others were entertained. Medical Records Attestation: I reviewed the patient's medical records. Home Medications Current Medication List: was personally reviewed by me Laboratory Data Attestation: I reviewed the patient's lab results. Result diagrams: 05/09/19 11:30 05/09/19 11:30 Lab Results 05/09/19 05/09/19 05/09/19 Range/Units 11:09 11:30 11:30 WBC 12.44 H (4.8-10.8) K/uL RBC 4.94 (4.2-5.4) M/uL Hgb 15.2 (12.0-16.0) g/dL Hct 42.4 (37-47) % MCV 85.8 (80-100) fL MCH 30.8 (25-34) pg MCHC 35.8 (32-36) g/dL RDW Std Deviation 42.9 (36.4-46.3) fL RDW Coeff of Kelly 13.6 (11.5-14.5) % Plt Count 159 (130-400) K/uL MPV 10.9 H (7.4-10.4) fL Immature Gran % (Auto) 0.5 % Neut % (Auto) 77.0 % Lymph % (Auto) 8.2 % [place] % (Auto) 13.7 % Eos % (Auto) 0.0 % Baso % (Auto) 0.6 % Immature Gran # (Auto) 0.06 H (0.00-0.02) K/uL Neut # (Auto) 9.57 H (1.4-6.5) K/uL Lymph # (Auto) 1.02 L (1.2-3.4) K/uL [place] # (Auto) 1.71 H (0.11-0.59) K/uL Eos # (Auto) 0.00 (0-0.5) K/uL Baso # (Auto) 0.08 (0-0.2) K/uL PT 13.2 H (9.0-12.0) Seconds INR 1.3 H (0.9-1.1) APTT 32.6 H (21.0-31.0) Seconds PTT Ratio 1.2 VBG pH (7.36-7.41) VBG pCO2 (38-50) mmHg VBG pO2 mmHg VBG HCO3 mmol/L VBG O2 Saturation % VBG Base Excess mEq/L Barometric Pressure mm/Hg Sodium (136-145) mmol/L Potassium (3.5-5.1) mmol/L Chloride (98-107) mmol/L Carbon Dioxide (21-32) mmol/L Anion Gap (3-11) BUN (7-18) mg/dl Creatinine (0.6-1.2) mg/dl Est Cr Clr Drug Dosing ml/min Est GFR ( Amer) Est GFR (Non-Af Amer) BUN/Creatinine Ratio (10-20) Glucose (70-99) mg/dl POC Glucose 348 H* (70-99) mg/dl Estimat Average Glucose mg/dl Hemoglobin A1c (4.5-5.6) % Lactate (0.4-2.0) mmol/L Calcium (8.5-10.1) mg/dl Magnesium (1.8-2.4) mg/dl Total Bilirubin (0.2-1) mg/dl AST (15-37) U/L ALT (12-78) U/L Alkaline Phosphatase (45-117) U/L Troponin I (0-0.045) ng/ml Total Protein (6.4-8.2) gm/dl Albumin (3.4-5.0) gm/dl Globulin (2.5-4.0) gm/dl Albumin/Globulin Ratio (0.9-2) Beta-Hydroxybutyric Acd (0.2-2.81) mg/dl Urine Color Urine Appearance (Clear) Urine pH (4.5-7.5) Ur Specific [place] (1.000-1.030) Urine Protein (Negative) Urine Glucose (UA) (Negative) Urine Ketones (Negative) Urine Blood (Negative) Urine Nitrite (Negative) Urine Bilirubin (Negative) Urine Urobilinogen (Negative) Ur Leukocyte Esterase (Negative) Urine WBC (Auto) (0-5) /hpf Urine RBC (Auto) (0-4) /hpf U Hyaline Cast (Auto) (0-5) /lpf U Epithel Cells (Auto) (0-5) /lpf Urine Bacteria (Auto) (Negative) Granular Casts (0) /lpf Urine Yeast (None Prsent) 05/09/19 05/09/19 05/09/19 Range/Units 11:30 11:30 11:30 WBC (4.8-10.8) K/uL RBC (4.2-5.4) M/uL Hgb (12.0-16.0) g/dL Hct (37-47) % MCV (80-100) fL MCH (25-34) pg MCHC (32-36) g/dL RDW Std Deviation (36.4-46.3) fL RDW Coeff of Kelly (11.5-14.5) % Plt Count (130-400) K/uL MPV (7.4-10.4) fL Immature Gran % (Auto) % Neut % (Auto) % Lymph % (Auto) % [place] % (Auto) % Eos % (Auto) % Baso % (Auto) % Immature Gran # (Auto) (0.00-0.02) K/uL Neut # (Auto) (1.4-6.5) K/uL Lymph # (Auto) (1.2-3.4) K/uL [place] # (Auto) (0.11-0.59) K/uL Eos # (Auto) (0-0.5) K/uL Baso # (Auto) (0-0.2) K/uL PT (9.0-12.0) Seconds INR (0.9-1.1) APTT (21.0-31.0) Seconds PTT Ratio VBG pH 7.24 L (7.36-7.41) VBG pCO2 28 L (38-50) mmHg VBG pO2 33 mmHg VBG HCO3 12 mmol/L VBG O2 Saturation 60.0 % VBG Base Excess -13.8 mEq/L Barometric Pressure 731.9 mm/Hg Sodium 129 L (136-145) mmol/L Potassium 3.0 L (3.5-5.1) mmol/L Chloride 95 L (98-107) mmol/L Carbon Dioxide 13 L (21-32) mmol/L Anion Gap 21.0 H (3-11) BUN 8 (7-18) mg/dl Creatinine 0.75 (0.6-1.2) mg/dl Est Cr Clr Drug Dosing 54.9 ml/min Est GFR ( Amer) 95.6 Est GFR (Non-Af Amer) 82.5 BUN/Creatinine Ratio 10.9 (10-20) Glucose 323 H* (70-99) mg/dl POC Glucose (70-99) mg/dl Estimat Average Glucose mg/dl Hemoglobin A1c (4.5-5.6) % Lactate 3.2 H* (0.4-2.0) mmol/L Calcium 9.4 (8.5-10.1) mg/dl Magnesium 1.8 (1.8-2.4) mg/dl Total Bilirubin 0.8 (0.2-1) mg/dl AST 15 (15-37) U/L ALT 15 (12-78) U/L Alkaline Phosphatase 103 (45-117) U/L Troponin I < 0.015 (0-0.045) ng/ml Total Protein 8.6 H (6.4-8.2) gm/dl Albumin 3.2 L (3.4-5.0) gm/dl Globulin 5.4 H (2.5-4.0) gm/dl Albumin/Globulin Ratio 0.6 L (0.9-2) Beta-Hydroxybutyric Acd (0.2-2.81) mg/dl Urine Color Urine Appearance (Clear) Urine pH (4.5-7.5) Ur Specific [place] (1.000-1.030) Urine Protein (Negative) Urine Glucose (UA) (Negative) Urine Ketones (Negative) Urine Blood (Negative) Urine Nitrite (Negative) Urine Bilirubin (Negative) Urine Urobilinogen (Negative) Ur Leukocyte Esterase (Negative) Urine WBC (Auto) (0-5) /hpf Urine RBC (Auto) (0-4) /hpf U Hyaline Cast (Auto) (0-5) /lpf U Epithel Cells (Auto) (0-5) /lpf Urine Bacteria (Auto) (Negative) Granular Casts (0) /lpf Urine Yeast (None Prsent) 05/09/19 05/09/19 Range/Units 11:30 13:25 WBC (4.8-10.8) K/uL RBC (4.2-5.4) M/uL Hgb (12.0-16.0) g/dL Hct (37-47) % MCV (80-100) fL MCH (25-34) pg MCHC (32-36) g/dL RDW Std Deviation (36.4-46.3) fL RDW Coeff of Kelly (11.5-14.5) % Plt Count (130-400) K/uL MPV (7.4-10.4) fL Immature Gran % (Auto) % Neut % (Auto) % Lymph % (Auto) % [place] % (Auto) % Eos % (Auto) % Baso % (Auto) % Immature Gran # (Auto) (0.00-0.02) K/uL Neut # (Auto) (1.4-6.5) K/uL Lymph # (Auto) (1.2-3.4) K/uL [place] # (Auto) (0.11-0.59) K/uL Eos # (Auto) (0-0.5) K/uL Baso # (Auto) (0-0.2) K/uL PT (9.0-12.0) Seconds INR (0.9-1.1) APTT (21.0-31.0) Seconds PTT Ratio VBG pH (7.36-7.41) VBG pCO2 (38-50) mmHg VBG pO2 mmHg VBG HCO3 mmol/L VBG O2 Saturation % VBG Base Excess mEq/L Barometric Pressure mm/Hg Sodium (136-145) mmol/L Potassium (3.5-5.1) mmol/L Chloride (98-107) mmol/L Carbon Dioxide (21-32) mmol/L Anion Gap (3-11) BUN (7-18) mg/dl Creatinine (0.6-1.2) mg/dl Est Cr Clr Drug Dosing ml/min Est GFR ( Amer) Est GFR (Non-Af Amer) BUN/Creatinine Ratio (10-20) Glucose (70-99) mg/dl POC Glucose (70-99) mg/dl Estimat Average Glucose 332 mg/dl Hemoglobin A1c 13.2 H (4.5-5.6) % Lactate (0.4-2.0) mmol/L Calcium (8.5-10.1) mg/dl Magnesium (1.8-2.4) mg/dl Total Bilirubin (0.2-1) mg/dl AST (15-37) U/L ALT (12-78) U/L Alkaline Phosphatase (45-117) U/L Troponin I (0-0.045) ng/ml Total Protein (6.4-8.2) gm/dl Albumin (3.4-5.0) gm/dl Globulin (2.5-4.0) gm/dl Albumin/Globulin Ratio (0.9-2) Beta-Hydroxybutyric Acd (0.2-2.81) mg/dl Urine Color Yellow Urine Appearance Clear (Clear) Urine pH 5.0 (4.5-7.5) Ur Specific [place] 1.028 (1.000-1.030) Urine Protein 2+ H (Negative) Urine Glucose (UA) 3+ H (Negative) Urine Ketones 4+ H (Negative) Urine Blood 1+ H (Negative) Urine Nitrite Negative (Negative) Urine Bilirubin Negative (Negative) Urine Urobilinogen Negative (Negative) Ur Leukocyte Esterase Negative (Negative) Urine WBC (Auto) 1-5 (0-5) /hpf Urine RBC (Auto) 0-4 (0-4) /hpf U Hyaline Cast (Auto) 1-5 (0-5) /lpf U Epithel Cells (Auto) 10-20 H (0-5) /lpf Urine Bacteria (Auto) Negative (Negative) Granular Casts 1-5 H (0) /lpf Urine Yeast Present A (None Prsent) Imaging Data Radiologist's Impression: Radiology results as stated below per my review and the radiologist's interpretation: CT head/brain wo con CLINICAL HISTORY: 68 years-old Female with syncope. Acute syncope TECHNIQUE: Multiple axial CT images of the head were obtained without contrast. A dose lowering technique was utilized adhering to the principles of ALARA. CT DOSE: 638.56 mGycm COMPARISON: None. FINDINGS: No acute intracranial hemorrhage, midline shift, intracranial mass, hydrocephalus, territorial ischemia or abnormal extra-axial collection. Age- related involutional changes. Patchy white matter hypodensities suggest chronic microvascular ischemic disease. Cerebral vascular calcifications are noted. The calvarium is intact. Mild mucosal thickening with aerated secretions of the right maxillary and sphenoid sinuses. Mild mucosal thickening of the left ma xillary sinus also noted. The mastoid air cells and middle ear cavities are clear. There are least 4 subcutaneous lesions of the posterior scalp measuring up to 1.3 cm, possibly reflective of complex sebaceous cyst. IMPRESSION: No acute intracranial abnormality or calvarial fracture. ACT 112: Negative or not required by law. The above report was generated using voice recognition software. It may contain grammatical, syntax or spelling errors. Electronically signed by: Cruzito Mccurdy M.D. 05/09/2019 11:57 AM XR chest 1V portable CLINICAL HISTORY: SEPSIS dyspnea COMPARISON STUDY: 03/08/2016 FINDINGS: Parenchymal infiltrate right base. Lungs otherwise appear clear. Mild cardiomegaly post median sternotomy. IMPRESSION: Infiltrate right base. ACT 112: Negative or not required by law. The above report was generated using voice recognition software. It may contain grammatical, syntax or spelling errors. Electronically signed by: Rosendo Regalado M.D. 05/09/2019 11:43 AM ECG Data Attestation: I personally reviewed and interpreted this ECG as follows: Indication: + weakness Rate (beats per minute): 180 Rhythm: + atrial fibrillation (A-fib with RVR) ECG [place]: + Normal ECG ST segments: + ST depression (ST depression in inferior leads. Old lateral S T depressions. ) ECG Findings: + PVCs Comparison ECG Date: from (03/08/16) Change: the following changes noted (PVC is new. ST depression inferiorly are new. Old lateral ST depression are worsened. ) Additional Comments: 1135: Repeat EKG per my interpretation: Atrial fibrillation with RVR at 151 bpm. Normal axis. Inferior Q waves. ST depression and TWI in anterior and lateral leads. 1228: Repeat EKG per my interpretation. Atrial fibrillation with RVR at 160 bpm. Normal axis. Inferior Q waves. Non-specific ST changes in the inferior leads. ST depressions in anterior and lateral leads. Blood Pressure Blood Pressure Findings: Low blood pressure Blood Pressure Disposition: further management by hospitalist VIRAL Narrative Patient is a 68-year-old female who presents the ER he was extremely difficult historian for weakness. I was called emergently to b1 as patient was tachycardic with a heart rate in the 200s and in triage was found to be hypotensive and hypoxic. Repeat blood pressure showed systolics in the 130s. Based on this, sepsis work-up was initiated while she was placed on the monitor and pads were placed. I initial planned to cardiovert her however with her blood pressure which improved to the 140s systolics on repeat, we held off and placed her on nonrebreather and obtain a chest x-ray which showed a right lower lobe infiltrate consistent with the sepsis. Family eventually presented and does note that she has had a cough for the past week as well as some syncopal episodes/seizures. Patient was afebrile but tachypneic. She was given a total of 2 L normal saline and 1 L of lactated Ringer's. After initial bolus, I did give her some Lopressor which slowed her down to the 130s. She maintained her blood pressures with this. Patient was switched to BiPAP but she became very anxious and requested benzos as she does take these. She was given a short dose of benzodiazepine. Labs were remarkable for leukocytosis 12,000. No significant anemia. INR was unremarkable. VBG with a pH initially of 7.2. BMP with a potassium of 3 and a CO2 of 13. Glucose was elevated at 323 with a gap and clear acidosis along with an elevated lactate. Based on this combination with a chest x-ray I do favor that she is septic secondary to pneumonia and that she has not been taking her blood sugar medications at home is also in DKA. Her heart rate trended back up to the 180s. She did drop her pressures with sitting up. Bedside ultrasound performed myself showed collapse of the IVC and consequently she was given the total of 3 L IV. Repeat ABG showed a pH of 7.0 which was trending down from the VBG and she did appear to be getting slightly more restless and confused. Discussed with family and they note that she is a full code. She was intubated and transferred to the ICU on a Versed and fentanyl drips. She did receive IV Levaquin and Zosyn while in the ER. Cardiac Monitoring: An order was placed for continuous cardiac monitoring. The monitor shows a rate of 130 with an irregular rhythm. Impression & Plan Sepsis, DKA (diabetic ketoacidoses), Pneumonia, Elevated lactic acid level, Acute respiratory failure, Rapid atrial fibrillation Discharge Plan Visit Data *Final* Discharge Date/Time: 05/09/19 15:37 Chief Complaint: Illness Stated Complaint: dehydrated, seizures, no blood sugar meds x4 days ED Provider: Vishal Stuart Discharge Problem: Sepsis, DKA (diabetic ketoacidoses), Pneumonia, Elevated lactic acid level, Acute respiratory failure, Rapid atrial fibrillation Patient Disposition: Admitted As Inpatient Discharge Instructions Interventions: ED Discharge Assessment Last Done: 05/09/19 15:37 Discharge Problem: Sepsis Qualifiers: Sepsis type: sepsis due to unspecified organism Sepsis acute organ dysfunction status: unspecified Qualified Code(s): A41.9 - Sepsis, unspecified organism DKA (diabetic ketoacidoses) Qualifiers: Diabetes mellitus type: other specified (including JOSESITO) Diabetes mellitus complication detail: without coma Qualified Code(s): E13.10 - Other specified diabetes mellitus with ketoacidosis without coma Pneumonia Qualifiers: Pneumonia type: due to unspecified organism Laterality: right Lung location: lower lobe of lung Qualified Code(s): J18.9 - Pneumonia, unspecified organism Acute respiratory failure Qualifiers: Respiratory failure complication: hypoxia Qualified Code(s): J96.01 - Acute respiratory failure with hypoxia The scribe's documentation has been prepared under my direction and personally reviewed by me in its entirety. I confirm that the note above accurately re flects all work, treatment, procedures, and medical decision making performed by me.
[2019-05-09] MEDS: INSULIN REGULAR 250 UNITS in SODIUM CHLORIDE 0.9% 247.5 ML IV SCH ×2 (16:58→21:22)
[2019-05-09 17:03] LABS: iSTAT Art Bld Gas pCO2 Correct 41 mmHg (35-46); iSTAT Art Bld Gas pH Corrected 7.159 (7.35-7.45); iSTAT Arterial Blood Gas HCO3 15 meg/L (19-24); iSTAT Arterial Blood Gas pCO2 41 mmHg (35-46); iSTAT Arterial Blood Gas pH 7.16 (7.35-7.45); iSTAT Arterial Blood Gas pO2 99 mmHg (80-95); iSTAT Arterial Blood Gas pO2 C 99; iSTAT Carbon Dioxide 16 mmol/L (24-31); iSTAT FiO2 100 %; iSTAT Hematocrit 37 % (37-47); iSTAT Hemoglobin 12.6 g/dl (12.0-16.0); iSTAT Site Art Line; iSTAT Sodium 137 mmol/L (135-144)
[2019-05-09 17:15] LABS: Magnesium 1.4 mg/dl (1.8-2.4); Phosphorus 3.1 mg/dl (2.5-4.9); Thyroid Stimulating Hormone 0.217 uIu/ml (0.300-4.500)
[2019-05-09 17:28] LABS: Beta-Hydroxybutyrate 50.32 mg/dl (0.2-2.81); T4 Free Thyroxine 1.52 ng/dl (0.8-1.6)
--- NOTE | 2019-05-09 17:28 | Procedure Note ---
Procedure Note Date of Service May 09, 2019 Note ARTERIAL LINE PROCEDURE NOTE: Procedure: Arterial Line Placement Attending: Dr. Fred Hutchins Provider: Jovana Skaggs MD PGY-1 Indication: Monitoring on Pressors Anesthesia: Lidocaine 1% Line placed emergently post intubation, patient unable to cognitively give consent, but POA (son) provided verbal and written. A time-out was performed. Patient's name, procedure, indication, site, and equipment were verified. Patient's left wrist was prepped and draped in the usual sterile fashion. Providers were sterile throughout procedure. Ultrasound guidance was used to aid needle placement. A 20g Arrow arterial line was introduced into the left radial artery. After a flash was observed, the catheter was threaded and the needle was removed with appropriate blood return. Good waveform was observed on monitor. The patient tolerated the procedure well. Blood Loss: Minimal Complications: None Procedural Ultrasound Guidance Procedure Date: 05/09/2019 Indication: Arterial line insertion Attending: Dr. Fred Hutchins Provider: Jovana Skaggs MD PGY-1 Artery Identified: Yes Line confirmed in Artery with ultrasound: Yes Complications: none Patient tolerated procedure: well Supervising Physician Co-Signing Physician Notes I was present and assisted with the entire procedure Coding Resident Activity Tracking Resident Involvement: Resident Care Provided Care Provided: Adult [facility] Medicine
[2019-05-09] MEDS: PIPERACILLIN/TAZOBACTAM 3.375 GM in DEXTROSE 5% 100 ML IV SCH ×2 (18:27→23:37)
[2019-05-09] MEDS ORDERED: POTASSIUM PHOS 3 MMOL/1 ML INFUSION IV STA (18:29)
[2019-05-09] MEDS ORDERED: FIBERSOURCE HN 1.2 CAL 1000 ML BAG OG SCH (18:30)
[2019-05-09] MEDS ORDERED: INSULIN ASPART 100 UNITS/ML 3 ML PEN SC ONE (18:30)
--- NOTE | 2019-05-09 18:35 | Billing Data ---
Date of Service May 09, 2019 Coding Level of Care Code Critical Care ea addt'l 30 min
[2019-05-09] MEDS ORDERED: POTASSIUM PHOSPHATE 30 MMOL in SODIUM CHLORIDE 0.9% 500 ML IV ONE (18:45)
--- NOTE | 2019-05-09 18:59 | Critical Care Consultation ---
Date of Consultation May 09, 2019 Assessment & Plan (1) Sepsis: Reason Critically Ill: 68 yo F with PMHx of type I diabetes and tobacco abuse admitted to hospital 05/09 with sepsis secondary to a pulmonary source, diabetic ketoacidosis and A-fib with RVR. Patient was intubated and placed on mechanical ventilation. Cardiac rhythm required 2 shocks via defibrillator, the first at 225 joules, the second at 350 joules with improvement in heart rate. Bedside thoracic US showing consolidation in R lower lung, concerning for malignancy Neuro: [facility] ICU: Negative -currently sedated on Fentnyl drip and Versed Cardiac: * A-fib with RVR - patient required electrical cardioversion x2. Rate improved at 110s. Rhythm still irregular. Currently on amiodarone and Cardizem drips. Metoprolol 5mg, IV ordered prn for additional rate control. - troponin negative * bilateral venous duplexes ordered; patient with likely need CT of Chest once medically stable. * Hx ASCVD - continue ASA and plavix Respiratory: * currently on mechanical ventilation. Vent on assist control. 22/450/12/100%. * suspected PNA: continue IV vancomyin and zosyn. GI: * liver enzymes WNL * NPO RENAL/LYTES: * Anion Gapped Lactic Metabolic Acidosis secondary to Diabetic Ketoacidosis. Respiratory Acidosis. Concomitant Metabolic Acidosis. * AG at 21 * K low at 3.0; IV replacement ordered; mag low at 1.4. check phos level. * Cr WNL : * Gallegos -strict Is/Os * UA +4 for ketones, no signs of infection; culture pending ENDO: * Hx of Type I diabetes mellitus, currently in DKA. Blood Sugar 300s. K low at 3.2. +4 ketones in urine. Beta hydroxybutyrate elevated to 50.32. will treated with IV hydration, IV K replacement, insulin drip. will continue regimen until gap closes. continue to trend with ABGs/CMPs. - A1c on admission at 13.2 * TSH 0.2 HEME: * hgb and platelets stable. continue to monitor ID: * Sepsis: patient meet SIRS criteria on admission, suspected pulmonary source. WBC mildly elevated at 12. Lactate elevated to 3.2, trending down. CXR showing infiltrate in R lower lobe. blood cultures pending. continue IV Vancomycin and Zosyn; deescalate as appropriate. no evidence of multi-organ dysfunction at present. * Nasal MRSA swab pending LINES/IV ACCESS: * L subclavian CVC * L radial Arterial line * Gallegos * OG tube * 3 PIVs CODE STATUS: Full DVT PROPHYLAXIS: heparin drip Thank you for allowing us to participate in the care of this patient. Please refer to my attending physician's documentation for any further recommendations. (2) DKA (diabetic ketoacidoses): (3) Pneumonia: (4) Elevated lactic acid level: (5) Rapid atrial fibrillation: Supervising Physician Co-Signing Physician Notes Dr. Skaggs was resident physician during care of patient. I separately evaluated patient for osborne portions of the history and the exam. I was present during the critical portion of medical decision making, and I discussed the case with the resident. I generally agree with the findings and plan. Patient critically ill due to presumptive pneumonia versus infiltrate (significant cancer history greater than 50+ pack years), DKA and atrial fibrillation with rapid ventricular response. When I saw the patient she was diffusely mottled and hypoperfusing with her heart rate greater than 160, we cardioverted the patient x2 to restore a better perfusing rhythm as she was clearly in extremis. She was started on a heparin infusion for possibility of pulmonary embolism as well as needing for paroxysmal atrial fibrillation. Patient had rather profound hypoxia and has obvious VQ mismatch. A bedside limited ultrasound did not demonstrate conclusive evidence for PE, will proceed with a formal venous duplex and obtain a CT scan of the chest once her acidosis is improved. I have personally spent 105 minutes of critical care time in the direct management of this patient. This is a life/limb threatening event. This includes time spent evaluating patient, direct bedside care, chart review, placing orders, interpretation of diagnostic studies, discussion with consultants, patient, and/or family members regarding treatment decisions, as well as other required patient management activities. This time is exclusive of all separately billable procedures, and teaching time and separate from and in addition to any other critical care service time. History of Present Illness Reason for Consultation: Patient is a 68 yo F with a PMHx of type I diabetes and tobacco abuse who was brought into the ED for evaluation of SOB. 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 On arrival to the ED she was febrile, tachycardic, and tachypneic in the 40s. EKG showed A-fib with RVR. She was given 3 liters of IV normal saline and 5mg of Lopressor without improvement in her heart rate. CXR showed R lower lobar infiltrate. WBC mildly elevated to 12. She was given one dose of IV Levaquin. Lactate was elevated to 3.2 and blood sugars in the 300s, +4 ketones in her urine, found to be in DKA. Insulin drip was delayed as her potassium was being repleted. Due to worsening respiratory status, patient was emergently intubated by ED provider. She was transferred to the ICU for mechanical ventilation. Attending Physician: Ochoa Kunz DO Allergies Allergy/AdvReac Type Severity Reaction Status Date / Time GEORGE Inhibitors Allergy Mild COUGH TO Verified 05/09/19 11:38 LISINOPRIL losartan Allergy Unknown URTICARIA Verified 05/09/19 11:38 Home Medications Home Medications Medication Instructions Recorded Confirmed Type clopidogrel 75 mg tablet 75 mg PO DAILY 09/20/18 05/09/19 History metoprolol tartrate 50 mg tablet 50 mg PO BID #270 tab 09/20/18 05/09/19 History omeprazole 20 mg capsule,delayed 20 mg PO BID PRN #90 cap 10/22/18 05/09/19 Rx release albuterol sulfate 90 mcg/actuation 2 puffs INHALATION Q4H #1 gm 10/29/18 05/09/19 History aerosol inhaler blood sugar diagnostic #10 ea 10/29/18 12/20/18 History cholecalciferol (vitamin D3) 10 400 units PO DAILY 10/29/18 05/09/19 History mcg (400 unit) tablet ezetimibe 10 mg tablet 10 mg PO HS #90 tab 10/29/18 05/09/19 History lancets 33 gauge #100 ea 10/29/18 10/29/18 History loratadine 10 mg tablet 10 mg PO DAILY #90 tab 10/29/18 05/09/19 History nitroglycerin 0.4 mg sublingual 0.4 mg SL UD #25 tab 10/29/18 05/09/19 History tablet atorvastatin 80 mg tablet 80 mg PO QPM #90 tab 11/16/18 05/09/19 Rx gemfibrozil 600 mg tablet 600 mg PO BID #180 tab 11/23/18 05/09/19 Rx paroxetine HCl 30 mg tablet 30 mg PO BID #180 tab 12/07/18 05/09/19 Rx glimepiride 1 mg tablet 1 mg PO BID #180 tab 01/04/19 05/09/19 Rx amlodipine 5 mg tablet 5 mg PO BID #180 tab 01/11/19 05/09/19 Rx potassium chloride 20 mEq See Rx Instructions .ROUTE 02/08/19 05/09/19 Rx tablet,extended release(part/cryst) .COMPLEX #270 tablet alprazolam 0.25 mg tablet 0.25 mg PO TID PRN #90 tab 03/14/19 05/09/19 Rx furosemide 40 mg tablet 60 mg PO DAILY #135 tab 04/27/19 05/09/19 Rx isosorbide mononitrate 120 mg 120 mg PO DAILY #180 tab 04/27/19 05/09/19 Rx tablet,extended release 24 hr metformin 500 mg tablet 500 mg PO BID #180 tab 04/27/19 05/09/19 Rx aspirin [Aspir-81] 81 mg PO DAILY 05/09/19 05/09/19 History Patient History Medical History Acid reflux (Acute) Anemia (Acute) Anxiety disorder (Acute) Arteriosclerosis of carotid artery (Acute) Arteriosclerotic cardiovascular disease (ASCVD) (Acute) CAD (coronary artery disease) (Acute) Cardiomyopathy, ischemic (Acute) Essential hypertriglyceridemia (Acute) Hyperlipidemia (Acute) Stenosis of right carotid artery (Acute) Type 2 diabetes mellitus (Acute) Vitamin D deficiency (Acute) Surgical History Hx of CABG S/P hysterectomy Family History Mother Coronary heart disease Social History Preferred Language: Thai Communication Ability: Effective 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 Beliefs That Will Affect Care: None marital status: / Current Living Situation: Other Current Living Situation Comment: a non-related family lives in her basement current occupational status: retired Other Information That Helps Us Care for You: No Feels Safe at Home: Yes Safety Concerns: Feels Safe At This Time Smoking Status: Current every day smoker Tobacco Type: cigarettes ; Cigarettes Per Day: unknown ; Do You Dip or Chew Tobacco: No ; Second Hand Exposure: Yes ; Tobacco Cessation Education Requested by Patient: No Hx Alcohol Use: Yes (quit past few years) Hx Substance Use: No Dental Care, Regularly: Yes Seatbelt Use: always Review of Systems Review of Systems: Unobtainable due to endotracheal tube Physical Exam Constitutional: WD/WN, vitals as above + mechanically ventilated Eyes: + anicteric sclerae ENMT: external ear and nose normal, oropharynx normal Neck: trachea midline Endotracheal tube placed Respiratory: + respiratory distress and + labored breathing Auscultation: + diminished lung sounds (R lower lobe) and + rhonchi (bilateral lung darby) Cardiovascular: Rate/Rhythm: regular rhythm and + tachycardic Heart Sounds: normal S1 and normal S2 Gastrointestinal (Abdomen): Percussion/Palpation: abdomen soft +belly breathing Skin: + mottling (torso and b/l lower extremities) Results & Data Vital Signs (Past 12 Hours) Vital Signs Temp Pulse Pulse Pulse Resp BP BP 05/09/19 18:10 109 H 05/09/19 18:00 114 H 05/09/19 17:53 111 H 123/75 05/09/19 17:50 109 H 05/09/19 17:48 108 H 21 05/09/19 17:40 115 H 05/09/19 17:30 110 H 05/09/19 17:20 116 H 05/09/19 17:10 116 H 05/09/19 17:00 117 H 05/09/19 16:53 118 H 118/68 05/09/19 16:50 120 H 05/09/19 16:43 117 H 22 126/67 05/09/19 16:40 125 H 17 05/09/19 16:32 116 H 20 126/75 05/09/19 16:30 121 H 21 05/09/19 16:23 115 H 22 138/71 05/09/19 16:20 123 H 16 05/09/19 16:13 121 H 20 165/88 H 05/09/19 16:10 97 H 29 H 05/09/19 16:03 108 H 29 H 129/63 05/09/19 16:00 108 H 29 H 05/09/19 15:53 107 H 30 H 126/63 05/09/19 15:51 110 H 30 H 128/62 05/09/19 15:50 113 H 29 H 05/09/19 15:49 37.8 C H 165 H 29 H 125/77 05/09/19 15:40 108 H 31 H 05/09/19 15:38 109 H 30 H 128/62 05/09/19 15:33 112 H 32 H 129/63 05/09/19 15:30 119 H 31 H 05/09/19 15:26 114 H 31 H 134/67 05/09/19 15:24 116 H 31 H 123/73 05/09/19 15:21 117 H 30 H 125/77 05/09/19 15:19 117 H 30 H 141/69 H 05/09/19 15:16 122 H 29 H 148/80 H 05/09/19 15:14 117 H 37 H 130/56 L 05/09/19 15:11 37.6 C H 118 H 178 H 30 H 128/83 05/09/19 15:09 118 H 29 H 119/68 05/09/19 14:32 163 H 05/09/19 14:31 165 H 139/97 05/09/19 14:30 164 H 05/09/19 14:20 167 H 168/99 H 05/09/19 14:15 164 H 20 05/09/19 14:10 164 H 149/122 H 05/09/19 14:01 164 H 159/88 H 05/09/19 14:00 176 H 05/09/19 13:51 173 H 154/90 H 05/09/19 13:50 180 H 05/09/19 13:42 170 H 118/67 05/09/19 13:40 168 H 05/09/19 13:32 165 H 154/75 H 05/09/19 13:31 181 H 154/75 H 05/09/19 13:30 181 H 05/09/19 13:21 180 H 118/84 05/09/19 13:20 180 H 05/09/19 13:19 189 H 89/69 L 05/09/19 13:17 196 H 133/102 H 05/09/19 13:16 188 H 162/79 H 05/09/19 13:14 191 H 54/33 L 05/09/19 13:12 186 H 162/133 H 05/09/19 13:10 181 H 145/114 H 05/09/19 13:02 178 H 145/104 H 05/09/19 13:00 179 H 29 H 05/09/19 12:56 179 H 05/09/19 12:51 188 H 122/76 05/09/19 12:50 180 H 05/09/19 12:47 163 H 32 H 123/96 05/09/19 12:46 163 H 34 H 05/09/19 12:41 174 H 174 H 31 H 95/77 L 95/77 L 05/09/19 12:40 180 H 35 H 05/09/19 12:32 176 H 05/09/19 12:31 137 H 118/44 L 05/09/19 12:30 133 H 05/09/19 12:24 157 H 135/96 05/09/19 12:20 163 H 05/09/19 12:10 146 H 27 H 124/77 05/09/19 12:00 159 H 33 H 05/09/19 11:56 168 H 30 H 93/65 L 05/09/19 11:40 31 H 142/100 H 05/09/19 11:33 05/09/19 11:32 36.7 C 122 H 29 H 05/09/19 11:31 142 H 33 H 164/108 H 05/09/19 11:30 169 H 30 H 147/85 H 05/09/19 11:28 173 H 147/85 H 05/09/19 11:22 194 H 147/85 H 05/09/19 11:21 172 H 05/09/19 11:19 182 H 136/65 05/09/19 11:07 36.7 C 175 H 28 H 93/57 L Pulse Ox 05/09/19 18:10 95 05/09/19 18:00 95 05/09/19 17:53 95 05/09/19 17:50 95 05/09/19 17:48 93 05/09/19 17:40 92 05/09/19 17:30 92 05/09/19 17:20 92 05/09/19 17:10 91 05/09/19 17:00 91 05/09/19 16:53 92 05/09/19 16:50 92 05/09/19 16:43 93 05/09/19 16:40 93 05/09/19 16:32 93 05/09/19 16:30 94 05/09/19 16:23 94 05/09/19 16:20 94 05/09/19 16:13 85 L 05/09/19 16:10 83 L 05/09/19 16:03 85 L 05/09/19 16:00 85 L 05/09/19 15:53 85 L 05/09/19 15:51 85 L 05/09/19 15:50 86 L 05/09/19 15:49 90 05/09/19 15:40 87 L 05/09/19 15:38 87 L 05/09/19 15:33 86 L 05/09/19 15:30 86 L 05/09/19 15:26 87 L 05/09/19 15:24 88 L 05/09/19 15:21 89 L 05/09/19 15:19 89 L 05/09/19 15:16 90 05/09/19 15:14 89 L 05/09/19 15:11 90 05/09/19 15:09 89 L 05/09/19 14:32 92 05/09/19 14:31 92 05/09/19 14:30 89 L 05/09/19 14:20 92 05/09/19 14:15 94 05/09/19 14:10 92 05/09/19 14:01 93 05/09/19 14:00 94 05/09/19 13:51 93 05/09/19 13:50 95 05/09/19 13:42 96 05/09/19 13:40 96 05/09/19 13:32 93 05/09/19 13:31 93 05/09/19 13:30 96 05/09/19 13:21 93 05/09/19 13:20 91 05/09/19 13:19 89 L 05/09/19 13:17 86 L 05/09/19 13:16 85 L 05/09/19 13:14 86 L 05/09/19 13:12 93 05/09/19 13:10 93 05/09/19 13:02 90 05/09/19 13:00 91 05/09/19 12:56 93 05/09/19 12:51 93 05/09/19 12:50 95 05/09/19 12:47 96 05/09/19 12:46 96 05/09/19 12:41 86 L 05/09/19 12:40 88 L 05/09/19 12:32 91 05/09/19 12:31 93 05/09/19 12:30 91 05/09/19 12:24 92 05/09/19 12:20 92 05/09/19 12:10 92 05/09/19 12:00 92 05/09/19 11:56 93 05/09/19 11:40 05/09/19 11:33 85 L 05/09/19 11:32 93 05/09/19 11:31 93 05/09/19 11:30 93 05/09/19 11:28 05/09/19 11:22 93 05/09/19 11:21 86 L 05/09/19 11:19 85 L 05/09/19 11:07 86 L Resident Activity Tracking Resident Involvement: Resident Care Provided Care Provided: Adult Hospital Medicine (1) DKA (diabetic ketoacidoses) Diabetes mellitus complication detail: without coma Diabetes mellitus type: other specified (including JOSESITO) Qualified Code(s): E13.10 - Other specified diabetes mellitus with ketoacidosis without coma (2) Sepsis Sepsis acute organ dysfunction status: unspecified Sepsis type: sepsis due to unspecified organism Qualified Code(s): A41.9 - Sepsis, unspecified organism (3) Pneumonia Laterality: right Lung location: lower lobe of lung Pneumonia type: due to unspecified organism Qualified Code(s): J18.9 - Pneumonia, unspecified organism
--- NOTE | 2019-05-09 19:06 | XRay Report ---
XR chest 1V portable HISTORY: central line placed COMPARISON: Chest 05/09/2019. FINDINGS: Endotracheal tube terminates 2.7 cm from the jaime. Nasogastric tube terminates below the diaphragm. The tip is not included on this study. Right jugular central venous catheter terminates at the expected location of the proximal SVC. No pneumothorax. No pleural effusions. The left lung is c lear. Right mid to lower lung zone airspace opacity persists. IMPRESSION: 1. Satisfactory support line placement. 2. No pneumothorax. 3. Right mid to lower lung zone airspace opacity, unchanged. ACT 112: Negative or not required by law. Electronically signed by: Bhavesh Veras M.D. 05/09/2019 7:05 PM
[2019-05-09] MEDS: POTASSIUM CHLORIDE 20 MEQ/15 ML UDC PO SCH (19:36)
[2019-05-09] MEDS: MAGNESIUM SULFATE / D5W 1 GM/100 ML BAG IV SCH ×2 (20:06→20:58)
[2019-05-09 20:27] LABS: BUN Creatinine Ratio 17.8 (10-20); Calcium 8.1 mg/dl (8.5-10.1); Creatinine Clr Calc Pharmacy 86.1 ml/min; Est GFR (African American) 115.3; Est GFR (Non-African American) 99.5; Magnesium 1.6 mg/dl (1.8-2.4); Potassium 3.4 mmol/L (3.5-5.1)
[2019-05-09] MEDS: MAGNESIUM OXIDE 400 MG TAB PO SCH (20:27)
--- NOTE | 2019-05-09 21:26 | Ultrasound Report ---
BILATERAL LOWER EXTREMITY VENOUS DOPPLER CLINICAL HISTORY: Syncope. Evaluate for deep venous thrombus. COMPARISON STUDY: No previous studies for comparison. TECHNIQUE: Sonography of the deep venous system of the bilateral lower extremities was performed. Co mpression and augmentation were evaluated. FINDINGS: The bilateral common femoral, superficial femoral and popliteal veins were compressible. A ugmentation was normal. Flow was shown within the deep calf vessels. IMPRESSION: No evidence of deep venous thrombus within the bilateral lower extremities. ACT 112: Negative or not required by law. Electronically signed by: Gabriele Britton M.D. 05/09/2019 9:25 PM
[2019-05-09 21:30] LABS: Beta-Hydroxybutyrate 51.32 mg/dl (0.2-2.81)
[2019-05-09 23:23] LABS: Base Excess ABG -10.3 mEq/L (-9-1.8); HCO3 ABG 15 mmol/L (19-24); Oxygen Saturation ABG 95.3 % (90-95); PCO2 ABG 30 mmHg (35-46); PO2 ABG 76 mmHg (80-95); pH ABG 7.31 (7.35-7.45)
[2019-05-09 23:24] LABS: Allen Test POS (Pos)
[2019-05-09 23:37] LABS: Partial Thromboplastin Ratio 3.1
[2019-05-09 23:40] LABS: Partial Thromboplastin Time 84.8 Seconds (21.0-31.0)
[2019-05-10 00:49] LABS: BUN Creatinine Ratio 13.4 (10-20); Blood Urea Nitrogen 9 mg/dl (7-18); Calcium 7.7 mg/dl (8.5-10.1); Chloride 111 mmol/L (98-107); Creatinine Clr Calc Pharmacy 68.6 ml/min; Est GFR (Non-African American) 92.3; Glucose 268 mg/dl (70-99); Magnesium 2.4 mg/dl (1.8-2.4); Phosphorus 2.5 mg/dl (2.5-4.9); Potassium 4.3 mmol/L (3.5-5.1); Sodium 139 mmol/L (136-145)
[2019-05-10] MEDS: NORMOSOL-R 1,000 ML IV SCH ×3 (01:53→16:53)
[2019-05-10 03:35] LABS: Hemoglobin 12.2 g/dL (12.0-16.0); Mean Corpuscular Hemoglobin 30.1 pg (25-34); Mean Corpuscular Hgb Conc 35.9 g/dL (32-36); Mean Platelet Volume 9.9 fL (7.4-10.4); Platelet Count 138 K/uL (130-400); RDW Coefficient of Variation 13.8 % (11.5-14.5); RDW Standard Deviation 42.6 fL (36.4-46.3); Red Blood Count 4.05 M/uL (4.2-5.4); White Blood Count 6.74 K/uL (4.8-10.8)
[2019-05-10 03:40] LABS: Base Excess ABG -4.7 mEq/L (-9-1.8); HCO3 ABG 19 mmol/L (19-24); Oxygen Saturation ABG 96.2 % (90-95); PCO2 ABG 32 mmHg (35-46); PO2 ABG 79 mmHg (80-95)
[2019-05-10 03:41] LABS: Allen Test Pos (Pos)
[2019-05-10] MEDS: dilTIAZem HCL 125 MG in DEXTROSE 5% 100 ML IV SCH (03:44)
[2019-05-10 03:49] LABS: BUN Creatinine Ratio 13.3 (10-20); Basophils # (auto) 0.06 K/uL (0-0.2); Basophils % (auto) 0.9 %; Calcium 7.5 mg/dl (8.5-10.1); Creatinine Clr Calc Pharmacy 59.3 ml/min; Echinocytes 1+; Est GFR (African American) 97.2; Est GFR (Non-African American) 83.8; Immature Granulocytes # (auto) 0.02 K/uL (0.00-0.02); Immature Granulocytes % (auto) 0.3 %; Lymphocytes # (auto) 1.22 K/uL (1.2-3.4); Lymphocytes % (auto) 18.1 %; Magnesium 2.4 mg/dl (1.8-2.4); Monocytes # (auto) 0.93 K/uL (0.11-0.59); Monocytes % (auto) 13.8 %; Neutrophils # (auto) 4.51 K/uL (1.4-6.5); Neutrophils % (auto) 66.9 %; Potassium 3.7 mmol/L (3.5-5.1)
[2019-05-10 03:52] LABS: Phosphorus 1.6 mg/dl (2.5-4.9)
[2019-05-10] MEDS ORDERED: POTASSIUM PHOS 3 MMOL/1 ML INFUSION IV STA ×2 (04:03→14:20)
[2019-05-10] MEDS ORDERED: OPTIRAY 320 125ml IV PRN (04:53)
[2019-05-10] MEDS ORDERED: POTASSIUM PHOSPHATE 21 MMOL in SODIUM CHLORIDE 0.9% 500 ML IV ONE (05:00)
[2019-05-10] MEDS: fentaNYL DRIP 1,250 MCG/250 ML BAG IV SCH (05:00)
[2019-05-10 05:06] LABS: Appearance Urine Turbid (Clear); Blood Urine 1+ (Negative); Color Urine Yellow; Glucose Urine UA Negative (Negative); Ketones Urine Trace (Negative); Leukocyte Esterase Urine Negative (Negative); Nitrite Urine Negative (Negative); Protein Urine 2+ (Negative); Specific Gravity Urine >= 1.030 (1.000-1.030); Urobilinogen Urine Negative (Negative); pH Urine 5.5 (4.5-7.5)
[2019-05-10 05:16] LABS: Bilirubin Urine Negative (Negative); Ictotest Urine Negative (Negative)
[2019-05-10 05:19] LABS: Bacteria Urine 4+ (Negative); RBC Urine 0-4 /hpf (0-4); Uric Acid Crystals Urine Present (None Prsent)
--- NOTE | 2019-05-10 06:19 | Critical Care Progress Note ---
Date of Service May 10, 2019 Assessment & Plan (1) Sepsis: Reason Critically Ill: 68 yo F with PMHx of type I diabetes and tobacco abuse admitted to hospital 05/09 with sepsis secondary to a pulmonary source, diabetic ketoacidosis and A-fib with RVR. Patient was intubated and placed on m echanical ventilation. Cardiac rhythm required 2 shocks via defibrillator, the first at 225 joules, the second at 350 joules with improvement in heart rate but not rhythm conversion. Bedside thoracic US showing consolidation in R lower lung, concerning for malignancy. 24 hour events: Bedside bronchoscopy on 05/09 revealed healthy-appearing airways. Converted to sinus rhythm at 11pm last night on Cardizem drip, rates 80-90s. Breathing has improved, allowing for lower of FiO2 and PEEP. Chest CTA showed no evidence of pulmonary embolism, but confirmed consolidation consistent with multifocal PNA. Bilateral venous duplex showing no evidence of DVT. 1 of 2 blood cultures obtained on admission grew gram + cocci in clusters. Blood sugars have improved with insulin drip, anion gap has closed. Neuro: [facility] ICU: Negative -currently sedated on Fentanyl drip 50mcg/hr and Versed 4mg/hr Cardiac: * A-fib with RVR - patient required electrical cardioversion x2, which resulted in rate improvement but not rhythm conversion. Converted to sinus rhythm overnight while on Cardizem drip; Rate currently in the 80s. will d/c drip at this time. Amiodarone drip was ordered on 05/09 but we held off on admini stration; d/c now that patient has returned to sinus. We will restart home Metoprolol Tartrate 50mg PO BID for continued rate control. - troponin negative on admission * Chest CTA negative for PE; bilateral venous duplexes ordered negative for DVT. * Hx ASCVD - continue ASA and plavix Respiratory: * currently on mechanical ventilation. Vent on assist control. 22/450/10/70%. Patient with significant V/Q mismatch, P/F ratio at 132 today * Bilateral lung consolidation: CXR on admission showing infiltrate in R lower lobe. Chest CTA 05/10 showing consolidation of right lower and middle lobes, and left lower lobe. Differential consists of multi-focal PNA vs malignancy (possible given history of significant tobacco abuse). will treat for possible PNA with IV vancomycin and zosyn. - Lactate trending down. WBC elevated on admission, now normal. Patient afebrile. will check procal today. - Repeat bronchoscopy with brush today. GI: * liver enzymes WNL * NPO; tube feeds currently at 10cc/hr; will increase today. RENAL/LYTES: * maintenance fluids with Normosol 125mls/hr * AG now normal * K normal at 3.7; mag normal at 2.4. Phos low at 1.6. calcium corrects to 8.1. IV replacement ordered. continue to monitor. * Cr WNL : * Gallegos -strict Is/Os. >375ml output overnight. * UA on admission +4 for ketones, repeat UA showing reduction in ketones; urine culture pending. ENDO: * Hx of Type I diabetes mellitus, in DKA on admission. Anion gap has closed. Patient currently on insulin drip at 2.5 - continue until 05/10 - A1c on admission at 13.2 * TSH 0.2 HEME: * hgb and platelets stable. continue to monitor ID: * Sepsis: patient meet SIRS criteria on admission, suspected pulmonary source. no evidence of multi-organ dysfunction at present. - WBC mildly elevated at 12 on admission, normal today. Lactate elevated to 3.2, reduced to 2.9. continue to trend. will check procal today. CXR on admission showing infiltrate in R lower lobe. Chest CTA 05/10 showing consolidation of right lower and middle lobes, and left lower lobe. Differential consists of multi-focal PNA vs malignancy - 2 of 2 blood cultures showing gram + cocci in clusters. will order surveillance cultures today. - continue IV Vancomycin and Zosyn; deescalate/esclate as appropriate. * Nasal MRSA swab negative LINES/IV ACCESS: * L subclavian CVC * L radial Arterial line * Gallegos * OG tube * 3 PIVs CODE STATUS: Full DVT PROPHYLAXIS: heparin drip Thank you for allowing us to participate in the care of this patient. Please refer to my attending physician's documentation for any further recommendations. (2) Pneumonia: (3) Elevated lactic acid level: (4) Rapid atrial fibrillation: Admission and Anticipated Discharge Date Admission Date: May 09, 2019 Supervising Physician Co-Signing Physician Notes Dr. Skaggs was resident physician during care of patient. I separately evaluated patient for osborne portions of the history and the exam. I was present during the critical portion of medical decision making, and I discussed the case with the resident. I generally agree with the findings and plan. Patient critically ill due to presumptive pneumonia, obtained brushings today, there was evidence of purulence. Reports of staph aureus unclear if this is MRSA or MSSA. Continue mechanical ventilation as there is still seems to be fairly significant VQ mismatch and higher oxygenation requirements. There is a lifelong smoking history and the patient does appear to have significant tracheomalacia and excessive dynamic airway collapse. Subjective Patient in ICU. Sedated on mechanical ventilation Review of Systems Review of Systems: Unobtainable due to endotracheal tube Physical Exam Constitutional: WD/WN, vitals as above + mechanically ventilated ENMT: external ear and nose normal, oropharynx normal Neck: trachea midline Respiratory: Auscultation: + diminished lung sounds (R lower lobe) and + rhonchi (bilateral lung darby) Cardiovascular: Rate/Rhythm: regular rhythm and + tachycardic Heart Sounds: normal S1 and normal S2 Extremities: no pedal edema Gastrointestinal (Abdomen): Inspection/Auscultation: normal bowel sounds Pe rcussion/Palpation: abdomen soft Skin: no rashes, warm and dry + mottling (torso and b/l lower extremities) no longer with mottled appearance Genitourinary: Gallegos catheter in place draining pale yellow colored urine without visible blood clots Results & Data ([facility]) Vital Signs (Past 12 Hours) Vital Signs Temp Pulse Pulse Resp BP BP Pulse Ox 05/10/19 06:00 81 22 96/55 L 95 05/10/19 05:42 81 99/55 L 95 05/10/19 05:30 82 94 05/10/19 05:00 80 99/55 L 93 05/10/19 04:00 37.2 C 87 22 107/51 L 94 05/10/19 03:30 92 H 93 05/10/19 03:00 87 22 101/63 94 05/10/19 02:10 93 H 22 95 05/10/19 02:00 93 H 22 111/59 L 95 05/10/19 01:00 93 H 22 100/63 94 05/10/19 00:55 22 05/10/19 00:00 37.6 C H 94 H 105/55 L 93 05/09/19 23:30 93 H 93 05/09/19 23:23 93 H 22 94 05/09/19 23:00 94 H 104/59 L 94 05/09/19 22:30 97 H 104/61 93 05/09/19 22:00 99 H 93 05/09/19 21:30 98 H 92 05/09/19 21:00 101 H 121/66 92 05/09/19 20:31 100 H 22 94 05/09/19 20:30 97 H 95 05/09/19 20:00 37.7 C H 112 H 126/69 94 05/09/19 19:30 109 H 93 05/09/19 19:00 119 H 132/66 93 Critical Care Time Critical Care Time: Yes Total Critical Care Time: 50 I have personally spent 50 minutes of critical care time in the direct management of this patient. This is a life/limb threatening event. This includes time spent evaluating patient, direct bedside care, chart review, placing orders, interpretation of diagnostic studies, discussion with consultants, patient, and/or family members regarding treatment decisions, as well as other required patient management activities. This time is exclusive of all separately billable procedures, and teaching time and separate from and in addition to any other critical care service time. Resident Activity Tracking Resident Involvement: Resident Care Provided Care Provided: Adult Hospital Medicine (1) Sepsis Sepsis acute organ dysfunction status: unspecified Sepsis type: sepsis due to unspecified organism Qualified Code(s): A41.9 - Sepsis, unspecified organism (2) Pneumonia Laterality: right Lung location: lower lobe of lung Pneumonia type: due to unspecified organism Qualified Code(s): J18.9 - Pneumonia, unspecified organism
[2019-05-10 06:58] LABS: Partial Thromboplastin Ratio 2.3
[2019-05-10 07:01] LABS: Partial Thromboplastin Time 62.6 Seconds (21.0-31.0)
--- NOTE | 2019-05-10 07:01 | XRay Report ---
XR chest 1V portable CLINICAL HISTORY: f/u dyspnea COMPARISON STUDY: 05/09/2019 FINDINGS: Endotracheal tube 2.5 cm above the jaime. Mild improvement of a right basilar parenchymal infiltrate. Unchanged small left perihilar parenchymal infiltrate. Pulmonary apices are clear. IMPRESSION: 1. Improving right basilar parenchymal infiltrate. Otherwise unchanged exam. ACT 112: Negative or not required by law. The above report was generated using voice recognition software. It may contain grammatical, syntax or spelling errors. Electronically signed by: Rosendo Regalado M.D. 05/10/2019 7:00 AM
--- NOTE | 2019-05-10 07:27 | CT Scan Report ---
CHEST CTA for PULMONARY ARTERIES CT DOSE: 498.31 mGycm HISTORY: Hypoxia. Assess for pulmonary embolus. TECHNIQUE: Multiaxial CT images of the chest were performed following the intravenous administration of contrast to evaluate the pulmonary arteries. Maximal intensity projection images were also obtaine d. A dose lowering technique was utilized adhering to the principles of ALARA. COMPARISON STUDY: Chest CTA 03/08/2016. FINDINGS: Endotracheal tube terminates 2.5 cm from the jaime. The nasogastric tube terminates below the diaphragm. The tip is not included on this study. The visualized liver and spleen are unremarkabl e. Periportal and. Adrenal fat stranding/edema is partially visualized on this study. Trace right ple ural effusion. Mediastinal and bilateral hilar lymphadenopathy. Dominant subcarinal lymph node measur es 1.6 cm. A few mildly enlarged AP window lymph nodes are noted. Dominant right hilar lymph node joo sures 1.3 cm. No pericardial effusion. The heart is normal in size. Moderate atherosclerotic plaque w ithin the normal caliber thoracic aorta. No evidence for an aortic dissection. No filling defects wit hin the pulmonary arteries to suggest pulmonary embolus. No pneumothorax. A few patchy groundglass an d nodular airspace opacities within the bilateral upper lobes and right middle lobe. Dense consolidat ion involving the majority of the right lower lobe with associated air bronchograms. Small focus of d ense consolidation within the left lower lobe posteriorly. IMPRESSION: 1. No evidence for pulmonary embolus. 2. Satisfactory support line placement. 3. Bilateral airspace opacities with dense consolidation within the right lower lobe with associated air bronchograms. This likely represents a multifocal pneumonia. 4. Mediastinal and bilateral hilar lymphadenopathy. This may be reactive. 5. Trace right pleural effusion. ACT 112: Negative or not required by law. Electronically signed by: Bhavesh Veras M.D. 05/10/2019 7:26 AM
[2019-05-10] MEDS ORDERED: PNEUMOCOCCAL ADMINISTRATION CHARGE ONE (08:00)
[2019-05-10] MEDS ORDERED: INFLUENZA VACCINE HIGH DOSE 65+ 0.5 ML SYR IM ONE (08:00)
[2019-05-10] MEDS ORDERED: PNEUMOCOCCAL POLYSACCHARIDES 25 MCG/0.5 ML VIAL/SYR IM ONE (08:00)
[2019-05-10] MEDS ORDERED: INFLUENZA ADMINISTRATION CHARGE ONE (08:00)
[2019-05-10] MEDS: VANCOMYCIN HCL 750 MG in SODIUM CHLORIDE 0.9% 250 ML IV SCH ×2 (08:05→23:56)
[2019-05-10] MEDS: PIPERACILLIN/TAZOBACTAM 3.375 GM in DEXTROSE 5% 100 ML IV SCH ×3 (08:06→23:55)
[2019-05-10] MEDS: CLOPIDOGREL BISULFATE 75 MG TAB PO SCH (08:07)
[2019-05-10] MEDS: POTASSIUM CHLORIDE 20 MEQ/15 ML UDC PO SCH (08:07)
[2019-05-10 08:50] LABS: Base Excess ABG -7.9 mEq/L (-9-1.8); HCO3 ABG 16 mmol/L (19-24); Oxygen Saturation ABG 97.2 % (90-95); PCO2 ABG 29 mmHg (35-46); PO2 ABG 93 mmHg (80-95); pH ABG 7.36 (7.35-7.45)
[2019-05-10 08:51] LABS: Allen Test Pos (Pos)
[2019-05-10] MEDS ORDERED: ASPIRIN 81 MG ECTAB PO SCH (09:00)
[2019-05-10 09:30] LABS: BUN Creatinine Ratio 15.4 (10-20); Calcium 7.6 mg/dl (8.5-10.1); Creatinine Clr Calc Pharmacy 66.6 ml/min; Est GFR (African American) 106.5; Est GFR (Non-African American) 91.9; Magnesium 2.2 mg/dl (1.8-2.4); Phosphorus 3.3 mg/dl (2.5-4.9); Potassium 5.2 mmol/L (3.5-5.1)
[2019-05-10] MEDS ORDERED: PHARMACY GLYCEMIC MGMT CONSULT PRN (09:53)
[2019-05-10] MEDS ORDERED: INSULIN GLARGINE SOLOSTAR 100 UNITS/ML 3 ML PEN SC ONE ×2 (10:30→21:00)
[2019-05-10 10:45] LABS: iSTAT Hematocrit 38 % (37-47); iSTAT Hemoglobin 12.9 g/dl (12.0-16.0); iSTAT Potassium 3.5 mmol/L (3.3-5.0); iSTAT Sodium 138 mmol/L (135-144)
[2019-05-10 10:46] LABS: iSTAT Arterial Blood Gas HCO3 13 meg/L (19-24); iSTAT Arterial Blood Gas pCO2 36 mmHg (35-46); iSTAT Arterial Blood Gas pH 7.18 (7.35-7.45); iSTAT Arterial Blood Gas pO2 89 mmHg (80-95); iSTAT Carbon Dioxide 14 mmol/L (24-31)
[2019-05-10] MEDS: FAMOTIDINE 20 MG in SYRINGE 3 ML IV SCH ×2 (10:46→23:50)
[2019-05-10] MEDS: METOPROLOL TARTRATE 50 MG TAB PO SCH ×2 (10:46→19:46)
[2019-05-10 10:47] LABS: Patient Temperature 37.9; iSTAT Allen Test Not Performed; iSTAT Sample Type Arterial
[2019-05-10] MEDS: IMPACT LIQD 1.0 CAL 1,000 ML BAG OG SCH (10:56)
--- NOTE | 2019-05-10 11:18 | Pharmacy Report ---
Glycemic Control Consultation - Date of Service May 10, 2019 - Scope Scope: Glycemic Pharmacist consulted by Dr Hutchins on 05/10/2019 for glycemic control and to write orders per [facility] inpatient glycemic control protocol - Objective Weight: 57.3 kg Accuchecks BSG (last 24hrs): 05/09/19 05/09/19 05/09/19 11:09 11:30 13:36 Glucose 323 H* POC Glucose 348 H* 317 H* 05/09/19 05/09/19 05/09/19 15:57 19:16 19:23 Glucose 315 H* POC Glucose 346 H* 323 H* 05/09/19 05/09/19 05/09/19 19:24 22:35 23:05 Glucose 268 H POC Glucose 343 H* 277 H 05/09/19 05/10/19 05/10/19 23:59 01:01 01:54 Glucose POC Glucose 216 H 179 H 160 H 05/10/19 05/10/19 05/10/19 03:02 03:23 04:04 Glucose 148 H POC Glucose 155 H 140 H 05/10/19 05/10/19 05/10/19 05:07 06:06 07:03 Glucose POC Glucose 115 H 135 H 208 H 05/10/19 05/10/19 05/10/19 08:02 08:41 08:56 Glucose 228 H POC Glucose 245 H 237 H 05/10/19 10:01 Glucose POC Glucose 223 H Laboratory Data (last 24hrs): 05/09/19 05/09/19 05/09/19 11:30 15:23 19:16 Potassium 3.0 L 3.4 L Carbon Dioxide 13 L 15 L Anion Gap 21.0 H 15.0 H Creatinine 0.75 0.51 L Est Cr Clr Drug Dosing 54.9 86.1 Beta-Hydroxybutyric Acd 50.32 H 51.32 H 05/09/19 05/10/19 05/10/19 23:05 03:23 08:41 Potassium 4.3 D 3.7 5.2 H D Carbon Dioxide TNP 23 17 L Anion Gap Not Reportable 5.0 10.0 Creatinine 0.64 0.74 0.65 Est Cr Clr Drug Dosing 68.6 59.3 66.6 Beta-Hydroxybutyric Acd HbA1c: Hemoglobin A1c 13.2 % (4.5-5.6) H 05/09/19 11:30 - Recent Pertinent Medications Outpatient Anti-diabetic Regimen: * glimepiride 1 mg BID, metformin 500 mg BID * A1c = 13.2 % 05/10/2019 The patient is currently receiving: * Insulin infusion @ 2.5 ml/hr Risk Factors for Insulin Resistance: * Infection: Vanc/Zosyn, 3/4 Blood cultures GPC in clusters * IVF: Normosol @125 * Diet: NPO, TF @ 10 ml/hr, recently switched to Impact 1.0 @15 ml/hr, will be titrating up * Mechanical Ventilation: 05/09/2019 - Assessment & Plan Assessment & Plan: ASSESSMENT: * Ms. Delaney is a 68 yo female with past medical history including type II diabetes, CAD w/ history of CABG, HLD, hypertriglyceridemia, anxiety * Presented with DKA, anion gap 21, CO2 13, ABG 7.159, A. Fib with RVR and septic. Patient was intubated and transferred to ICU. Insulin gtt was delayed until potassium repleted. * Patient is currently intubated, amiodarone/diltiazem drips turned off this morning, continuing on heparin gtt @ 16 ml/hr, currently in normal sinus, blood cultures growing GPC in clusters, possible pulmonary source being treated with vancomycin/zosyn * Insulin gtt @ 2.5 units/hr, gap has closed, CO2 23, ABG 7.40, BSGs in the low 200s after drip hold period. TF to be initiated and titrated up. Per physician will start to transition off of insulin drip. PLAN FOR INPATIENT GLYCEMIC CONTROL: * Continue IV insulin infusion, will begin to transition off, however may be complicated due to TF uptitration, adjust goal range to 140-180 mg/dL * Will give one time lantus dose of 20 units, this is full day stress of 2, insulin drip currently running @ 2.5 units/hr, conservative with initial dose as uncertain patient will tolerate tube feed, will set scale for this evening. * Plan to discontinue insulin infusion when 2 consecutive BSGs within goal range and drip rate running < 1.5 units/hr * Novolog scheduled q4 to cover tube feeds with carb ratio of 1 unit per 10 grams of CHO (~weight based stress of 3). * If patient able to be transitioned off of drip, add correction factor, would start with weight based stress of 3 parameters 30 mg/dl/unit. * Holding outpatient oral diabetes medications * Please note that the plan above was derived based on current level of insulin resistance and hospital stress. These recommendations are appropriate for inpatient admission only. Plan of care upon discharge will need to be reassessed to avoid potential outpatient hypo/hyperglycemia. Thank you.
[2019-05-10] MEDS: INSULIN ASPART 100 UNITS/ML 3 ML PEN SC SCH ×3 (11:53→19:50)
--- NOTE | 2019-05-10 12:53 | Billing Data ---
Date of Service May 09, 2019 Arterial line: Left sided procedure GC modifier, no procedural ultrasound coding Coding Level of Care Code Critical Care 04 14- mins
--- NOTE | 2019-05-10 12:55 | Procedure Note ---
Procedure Note Date of Service May 09, 2019 Procedure date: Noted above Procedure: Central venous access Pre-procedure indication: Need for aggressive electrolyte repletion in the setting of DKA Post-procedure Diagnosis: same as above Prior to Procedure: Informed Consent: The risks, benefits, indications, potential complications, and alternatives were explained to the patient's family and informed consent obtained. Attending Staff: Luke Hutchins DO Resident/APC: Giles Skin Prep: Chlorhexidine Anesthesia: 4 mL 1% lidocaine without epinephrine The identity of the patient was confirmed and a bedside time out was performed. Description of Procedure: After sterile prep and sterile drape utilizing standard sterile technique the superficial skin of the right internal jugular area was anesthetized. The target vessel was identified and entered with an 18- gauge needle. Dark venous blood return was noted. A guidewire was inserted through the needle and into the vessel. The needle was withdrawn and a skin claus was made. A tissue dilator was advanced via Seldinger technique and removed. A triple lumen catheter was inserted via Seldinger technique and the guidewire removed. All ports brittney and flushed easily. A Biopatch was placed, and the catheter was secured via silk suture. A sterile dressing was then applied. Complications: None Estimated blood loss: Trace Patient tolerated the procedure well. Procedure Date: Noted Above Procedure: Procedural Ultrasound Indication: Central venous access Attending: Luke Hutchins DO Resident/Physician Horticulture Teacher: Giles Artery visualized: Yes Vein visualized: Yes Compressible Vein: Yes Vein patent: Yes Guidewire or Short Catheter seen in vein prior to dilation: Yes Line confirmed in Vein with ultrasound: Yes Lung Sliding on side of attempt (if applicable): NA If no lung sliding or not obtained has CXR been ordered: Yes Impression: Successful central venous access placement Images obtained are saved for permanent record Coding CPT Codes Tubes, Drains, and Vasc Access - Tubes, Drains, and Vasc Access: [id number] Ultrasound Guidance For Vascular ([id number]) Tubes, Drains, and Vasc Access - Tubes, Drains, and Vasc Access: [id number] Insertion Tunneled Catheter w/o port or pump 5 Yrs> ([id number]) [facility] [place] Codes (Charges) Tubes, Drains, and Vasc Access Procedure 1: Tubes, Drains, and Vasc Access: [id number] Ultrasound Guidance For Vascular Procedure 2: Tubes, Drains, and Vasc Access: [id number] Insertion Tunneled Catheter w/o port or pump 5 Yrs>
--- NOTE | 2019-05-10 12:58 | Procedure Note ---
Procedure Note: Bronchoscopy Procedure Procedure date: Noted above Procedure: fiberoptic bronchoscopy Pre-procedure indication: Pulmonary infiltrate with extensive smoking history Post-procedure Diagnosis: same as above Prior to Procedure: Informed Consent: The risks, benefits, indications, potential complications, and alternatives were explained to the patient's family and informed consent obtained. Attending Staff: Luke Hutchins DO Resident/APC: Not applicable Skin Prep: Not applicable Anesthesia: Continuous infusion The identity of the patient was confirmed and a bedside time out was performed. Description of Procedure: Fiberoptic bronchoscopy was performed via endotracheal tube. Bronchioalveolar brushings for cytology of the right lower lobe as well as brushings for microbiology of the right lower lobe was performed. Findings included: Significant excessive dynamic airway collapse greater than 80%, trace thick white mucopurulent secretions in the right lower and right middle lobes as well as trace secretions in the right lower lobes these were lavaged and suctioned out as well. Complications: None Specimens: Bronchial washings sent for culture and Gram stain, cytology, fungal elements, and AFB stain and culture, cytology Estimated blood loss: Zero
[2019-05-10 12:59] LABS: Base Excess ABG -6.4 mEq/L (-9-1.8); HCO3 ABG 18 mmol/L (19-24); Oxygen Saturation ABG 96.1 % (90-95); PCO2 ABG 32 mmHg (35-46); PO2 ABG 80 mmHg (80-95); pH ABG 7.37 (7.35-7.45)
--- NOTE | 2019-05-10 13:06 | Billing Data ---
Date of Service May 09, 2019 Coding Level of Care Code Critical Care ea addt'l 30 min Time Spent (min) 105 Comment I have personally spent 105 minutes of critical care time in the direct management of this patient. This is a life/limb threatening event. This includes time spent evaluating patient, direct bedside care, chart review, placing orders, interpretation of diagnostic studies, discussion with consultants, patient, and/or family members regarding treatment decisions, as well as other required patient management activities. This time is exclusive of all separately billable procedures, and teaching time and separate from and in addition to any other critical care service time.
--- NOTE | 2019-05-10 13:09 | Procedure Note ---
Procedure Note Date of Service May 09, 2019 Procedure Date: Noted above Critical Care Medicine Point of Care Bedside Ultrasound Procedure: Limited Bedside Lung Ultrasound Indication: Hypoxic respiratory failure Attending: Luke Hutchins DO Resident/Physician Sales Account Specialist: Giles Organs Examined: Lung BLUE point (upper), BLUE point (lower), Phrenic Point (axillary), PLAPS point (posterior) A lines visualized: Absent, Hemithorax: Bilateral B lines visualized: Present, Hemithorax: B1 lines and first blue point Lung Sliding: Present, Hemithorax: Bilateral Tissue-like Sign: Present, Hemithorax: Right lower lobe Shred Sign: Absent, Hemithorax: Bilateral Quad Sign: Absent, Hemithorax: Bilateral Sinusoid Sign: Absent, Hemithorax: Bilateral Type of effusions: No appearance of significant effusion, Hemithorax: Not applicable Interpleural distance: Not applicable Impression: Dense consolidation in the right lower lobe area, B-1 lines bilaterally in the first blue point. Images obtained are saved for permanent record Coding CPT Codes Pulmonary/Thoracic - Pulmonary and Thoracic: 24462 US, Chest, real time with imaging documentation ([id number]) [facility] [place] Procedure Codes (Charges) Pulmonary/Thoracic Procedure 1: Pulmonary and Thoracic: [id number] US, Chest, real time with imaging documentation (26 modifier)
--- NOTE | 2019-05-10 13:11 | Procedure Note ---
Procedure Note Date of Service May 09, 2019 Procedure Date: Noted above Critical Care Medicine Point of Care Bedside Ultrasound Procedure: Limited Bedside Venous Duplex Indication: Concern for deep venous thrombosis, hypoxia, greater than 50-year pack history Attending: Luke Hutchins DO Resident/Physician Manager Statistics: Giles Organs Examined: Femoral vein, tibial vein Right femoral vein compressible: Yes Right tibial vein compressible: Yes Thrombus present: No Left femoral vein compressible: Yes Left tibial vein compressible: Yes Thrombus present: No Impression: Normal limited lower extremity two-point compression venous duplex Images obtained are saved for permanent record Coding CPT Codes Tubes, Drains, and Vasc Access - Tubes, Drains, and Vasc Access: [id number] Ultrasound Guidance For Vascular ([id number]) [facility] Procedure Codes (Charges) Tubes, Drains, and Vasc Access Procedure 1: Tubes, Drains, and Vasc Access: [id number] Ultrasound Guidance For Vascular (Limited venous duplex: 26 modifier)
--- NOTE | 2019-05-10 13:13 | Billing Data ---
Date of Service May 10, 2019 Coding Level of Care Code Critical Care 1st - mins
[2019-05-10 13:49] LABS: Allen Test Pos (Pos)
[2019-05-10 13:50] LABS: BUN Creatinine Ratio 13.8 (10-20); Calcium 7.8 mg/dl (8.5-10.1); Creatinine Clr Calc Pharmacy 62.7 ml/min; Est GFR (African American) 104.4; Est GFR (Non-African American) 90.1; Magnesium 2.4 mg/dl (1.8-2.4); Phosphorus 2.2 mg/dl (2.5-4.9)
--- NOTE | 2019-05-10 14:25 | Electrocardiogram Report ---
Test Reason : Blood Pressure : / mmHG Vent. Rate : 151 BPM Atrial Rate : 163 BPM P-R Int : 140 ms QRS Dur : 090 ms QT Int : 318 ms P-R-T Axes : 074 056 264 degrees QTc Int : 504 ms SVT, likley atrial flutter. 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
--- NOTE | 2019-05-10 14:27 | Electrocardiogram Report ---
Test Reason : Blood Pressure : / mmHG Vent. 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
--- NOTE | 2019-05-10 14:29 | Electrocardiogram Report ---
Test Reason : Blood Pressure : / mmHG Vent. 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
--- NOTE | 2019-05-10 14:37 | Electrocardiogram Report ---
Test Reason : Blood Pressure : / mmHG Vent. 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
[2019-05-10] MEDS ORDERED: POTASSIUM PHOSPHATE 9 MMOL in SODIUM CHLORIDE 0.9% 250 ML IV ONE (14:45)
[2019-05-10] MEDS: HEPARIN SODIUM/DEXTROSE 25,000 UNITS/500 ML BAG IV SCH (15:58)
[2019-05-10] MEDS: MIDAZOLAM HCL 125 MG/250 ML BAG IV SCH (16:08)
--- NOTE | 2019-05-10 19:08 | Hospitalist Progress Note ---
Date of Service May 10, 2019 Assessment & Plan (1) Sepsis: Patient has an elevated lactic acid level and apparent right lower lobe infiltrate on chest x-ray. 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 Ventilator management as per pulverizer mill operator (3) DKA (diabetic ketoacidoses): Severely acidotic upon admission which has now resolved Anion gap is closed Was on insulin drip and stop and titrated off to basal bolus insulin Electrolytes will continue to be checked and repleted as needed Hemoglobin A1c up to 13.2% from previous of 8.1% last year (4) Rapid atrial fibrillation: Patient presented hypotensive with pulse 179 and rapid atrial fibrillation. She received copious IV fluids and was DC cardioverted in the ICU Now remains in sinus rhythm Is receiving metoprolol 50 mg twice daily through OG tube -Is on heparin drip Echocardiogram with mildly reduced EF at 45-50%, mild LVH, positive wall motion abnormalities which are stable from previous with hypokinesis in the inferior wall from base to the mid ventricle (5) Pneumonia: Dense consolidation right lower lobe as above Had bronchoscopy on 05/10 -Follow cultures (6) Elevated lactic acid level: As above Improving (7) Dyslipidemia: Holding home gemfibrozil and Zetia Holding home atorvastatin (8) Acid reflux: -Continue Pepcid 20 mg IV twice daily -On tube feeds -Holding home Prilosec (9) CAD (coronary artery disease): With a history of CABG -Continue home aspirin, Plavix, metoprolol -Holding lipid drugs as above -Holding home isosorbide (10) Cardiomyopathy, ischemic: As noted in echo above (11) Stenosis of right carotid artery: With known moderate stenosis Follow as an outpatient On antiplatelet and statin as an outpatient (12) Type 2 diabetes mellitus: Uncontrolled as above Holding home metformin and glimepiride -Should continue on insulin after discharge given severely uncontrolled hemoglobin A1c (13) Chronic obstructive pulmonary disease: With long history of smoking -Currently on the ventilator and oxygenating well Holding home albuterol (14) Bacteremia: As above, growing gram-positive cocci in clusters -Follow repeat blood cultures -Continue on vancomycin (15) Hypophosphatemia: Replaced in the ICU -Follow phosphorus levels in the morning, BMP (16) DVT prophylaxis: Heparin drip Disposition-remain in the ICU Full code Lines: Right IJ, right peripheral IV, left radial arterial line, Gallegos catheter, OG tube Admission and Anticipated Discharge Date Admission Date: May 09, 2019 Subjective Patient remains sedated and intubated. She remains in sinus rhythm today after being DC cardioverted urgently last night for hypotension and hypoperfusion. She had a bronchoscopy today with cultures collected. Remains off vasopressors. Is started on trickle tube feeds today. No bowel movement noted today. Review of Systems Review of Systems: All systems reviewed & are unremarkable except as noted in HPI & below Physical Exam Constitutional: average body habitus; no acute distress (Sedated, unresponsive) ENMT: external ear and nose normal, oropharynx normal (ET tube in place) Neck: trachea midline, no thyromegaly Respiratory: normal respiratory effort (On ventilator) Auscultation: + rhonchi (Right lower lung field); no wheezes Cardiovascular: RRR, no murmur, no edema Chest (Breasts): Chest: normal inspection of chest Gastrointestinal (Abdomen): normal bowel sounds, soft, nontender, no hepatosp lenomegaly Musculoskeletal: Extremities: extremities normal to inspection; no cyanosis and no clubbing Skin: no rashes, warm and dry Genitourinary: Gallegos catheter in place draining clear yellow urine Results & Data ([facility]) Vital Signs (Past 12 Hours) Vital Signs Temp Pulse Pulse Resp BP BP BP 05/10/19 18:00 81 05/10/19 17:51 85 22 05/10/19 17:44 83 05/10/19 17:43 80 128/70 05/10/19 17:30 87 05/10/19 17:00 84 05/10/19 16:43 90 134/64 05/10/19 16:30 86 05/10/19 16:20 05/10/19 16:00 37.8 C H 86 76 22 05/10/19 15:43 77 119/57 L 05/10/19 15:30 79 05/10/19 15:00 75 22 05/10/19 14:43 75 125/64 05/10/19 14:30 76 05/10/19 14:00 37.6 C H 73 05/10/19 13:51 73 120/61 05/10/19 13:43 74 05/10/19 13:30 74 05/10/19 13:00 71 05/10/19 12:47 73 24 05/10/19 12:42 79 103/59 L 05/10/19 12:30 79 05/10/19 12:00 37.2 C 68 05/10/19 11:43 68 93/55 L 05/10/19 11:30 69 05/10/19 11:24 05/10/19 11:00 90 05/10/19 10:42 90 124/73 05/10/19 10:30 88 05/10/19 10:00 37.4 C 85 05/10/19 09:42 84 109/62 05/10/19 09:30 82 05/10/19 09:00 82 05/10/19 08:42 81 113/55 L 05/10/19 08:31 83 22 05/10/19 08:30 84 05/10/19 08:00 37.4 C 85 88 22 155/57 H 119/61 05/10/19 07:43 86 121/59 L 05/10/19 07:32 88 154/67 H 05/10/19 07:30 93 H Pulse Ox Pulse Ox 05/10/19 18:00 94 05/10/19 17:51 97 05/10/19 17:44 96 05/10/19 17:43 96 05/10/19 17:30 96 05/10/19 17:00 96 05/10/19 16:43 95 05/10/19 16:30 96 05/10/19 16:20 97 05/10/19 16:00 97 97 05/10/19 15:43 96 05/10/19 15:30 97 05/10/19 15:00 98 05/10/19 14:43 98 05/10/19 14:30 98 05/10/19 14:00 97 05/10/19 13:51 97 05/10/19 13:43 96 05/10/19 13:30 96 0225/20 13:00 94 05/10/19 12:47 95 05/10/19 12:42 96 05/10/19 12:30 98 05/10/19 12:00 98 05/10/19 11:43 98 05/10/19 11:30 97 05/10/19 11:24 97 05/10/19 11:00 98 05/10/19 10:42 98 05/10/19 10:30 98 05/10/19 10:00 98 05/10/19 09:42 97 05/10/19 09:30 97 05/10/19 09:00 95 05/10/19 08:42 95 05/10/19 08:31 95 05/10/19 08:30 94 05/10/19 08:00 95 05/10/19 07:43 94 05/10/19 07:32 95 05/10/19 07:30 93 Laboratory Results 05/10/19 05/10/19 05/10/19 Range/Units 19:43 15:56 15:00 WBC (4.8-10.8) K/uL RBC (4.2-5.4) M/uL Hgb (12.0-16.0) g/dL POC Hgb (12.0-16.0) g/dl Hct (37-47) % POC Hct (37-47) % MCV (80-100) fL MCH (25-34) pg MCHC (32-36) g/dL RDW Std Deviation (36.4-46.3) fL RDW Coeff of Kelly (11.5-14.5) % Plt Count (130-400) K/uL MPV (7.4-10.4) fL Immature Gran % (Auto) % Neut % (Auto) % Lymph % (Auto) % [place] % (Auto) % Eos % (Auto) % Baso % (Auto) % Immature Gran # (Auto) (0.00-0.02) K/uL Neut # (Auto) (1.4-6.5) K/uL Lymph # (Auto) (1.2-3.4) K/uL [place] # (Auto) (0.11-0.59) K/uL Eos # (Auto) (0-0.5) K/uL Baso # (Auto) (0-0.2) K/uL Echinocytes APTT (21.0-31.0) Seconds PTT Ratio Specimen Type Patient Temperature POC pH (7.35-7.45) POC pCO2 (35-46) mmHg POC pO2 (80-95) mmHg POC HCO3 (19-24) akira/L POC Total CO2 (24-31) mmol/L POC Base Excess (-9-1.8) akira/L ABG pH (7.35-7.45) ABG pCO2 (35-46) mmHg ABG pO2 (80-95) mmHg ABG HCO3 (19-24) mmol/L ABG O2 Saturation (90-95) % ABG Base Excess (-9-1.8) mEq/L Jero Test VBG pH (7.36-7.41) Barometric Pressure mm/Hg Oxygen Given O2 Delivery Device POC O2 Rate Minute Ventilation Tidal Volume PEEP POC Sodium (135-144) mmol/L Sodium (136-145) mmol/L POC Potassium (3.3-5.0) mmol/L Potassium (3.5-5.1) mmol/L Chloride (98-107) mmol/L Carbon Dioxide (21-32) mmol/L Anion Gap (3-11) BUN (7-18) mg/dl Creatinine (0.6-1.2) mg/dl Est Cr Clr Drug Dosing ml/min Est GFR ( Amer) Est GFR (Non-Af Amer) BUN/Creatinine Ratio (10-20) Glucose (70-99) mg/dl POC Glucose 224 H 167 H 143 H (70-99) mg/dl Lactate (0.4-2.0) mmol/L Calcium (8.5-10.1) mg/dl Phosphorus (2.5-4.9) mg/dl Magnesium (1.8-2.4) mg/dl Beta-Hydroxybutyric Acd (0.2-2.81) mg/dl Procalcitonin (0-0.5) ng/ml Urine Color Urine Appearance (Clear) Urine pH (4.5-7.5) Ur Specific [place] (1.000-1.030) Urine Protein (Negative) Urine Glucose (UA) (Negative) Urine Ketones (Negative) Urine Blood (Negative) Urine Nitrite (Negative) Urine Bilirubin (Negative) Urine Urobilinogen (Negative) Ur Leukocyte Esterase (Negative) Urine RBC (0-4) /hpf Urine WBC (0-5) /hpf Ur Epithelial Cells (0-5) /lpf Uric Acid Crystals (None Prsent) Urine Bacteria (Negative) Granular Casts (0) /lpf 05/10/19 05/10/19 05/10/19 Range/Units 13:53 12:46 12:46 WBC (4.8-10.8) K/uL RBC (4.2-5.4) M/uL Hgb (12.0-16.0) g/dL POC Hgb (12.0-16.0) g/dl Hct (37-47) % POC Hct (37-47) % MCV (80-100) fL MCH (25-34) pg MCHC (32-36) g/dL RDW Std Deviation (36.4-46.3) fL RDW Coeff of Kelly (11.5-14.5) % Plt Count (130-400) K/uL MPV (7.4-10.4) fL Immature Gran % (Auto) % Neut % (Auto) % Lymph % (Auto) % [place] % (Auto) % Eos % (Auto) % Baso % (Auto) % Immature Gran # (Auto) (0.00-0.02) K/uL Neut # (Auto) (1.4-6.5) K/uL Lymph # (Auto) (1.2-3.4) K/uL [place] # (Auto) (0.11-0.59) K/uL Eos # (Auto) (0-0.5) K/uL Baso # (Auto) (0-0.2) K/uL Echinocytes APTT (21.0-31.0) Seconds PTT Ratio Specimen Type Patient Temperature POC pH (7.35-7.45) POC pCO2 (35-46) mmHg POC pO2 (80-95) mmHg POC HCO3 (19-24) akira/L POC Total CO2 (24-31) mmol/L POC Base Excess (-9-1.8) akira/L ABG pH 7.37 (7.35-7.45) ABG pCO2 32 L (35-46) mmHg ABG pO2 80 (80-95) mmHg ABG HCO3 18 L (19-24) mmol/L ABG O2 Saturation 96.1 H (90-95) % ABG Base Excess -6.4 (-9-1.8) mEq/L Jero Test Pos VBG pH (7.36-7.41) Barometric Pressure 726.6 mm/Hg Oxygen Given 15 O2 Delivery Device POC O2 Rate Minute Ventilation Tidal Volume PEEP POC Sodium (135-144) mmol/L Sodium 139 (136-145) mmol/L POC Potassium (3.3-5.0) mmol/L Potassium 4.0 D (3.5-5.1) mmol/L Chloride 114 H (98-107) mmol/L Carbon Dioxide 18 L (21-32) mmol/L Anion Gap 7.0 (3-11) BUN 10 (7-18) mg/dl Creatinine 0.69 (0.6-1.2) mg/dl Est Cr Clr Drug Dosing 62.7 ml/min Est GFR ( Amer) 104.4 Est GFR (Non-Af Amer) 90.1 BUN/Creatinine Ratio 13.8 (10-20) Glucose 177 H (70-99) mg/dl POC Glucose 150 H (70-99) mg/dl Lactate (0.4-2.0) mmol/L Calcium 7.8 L (8.5-10.1) mg/dl Phosphorus 2.2 L D (2.5-4.9) mg/dl Magnesium 2.4 (1.8-2.4) mg/dl Beta-Hydroxybutyric Acd (0.2-2.81) mg/dl Procalcitonin (0-0.5) ng/ml Urine Color Urine Appearance (Clear) Urine pH (4.5-7.5) Ur Specific [place] (1.000-1.030) Urine Protein (Negative) Urine Glucose (UA) (Negative) Urine Ketones (Negative) Urine Blood (Negative) Urine Nitrite (Negative) Urine Bilirubin (Negative) Urine Urobilinogen (Negative) Ur Leukocyte Esterase (Negative) Urine RBC (0-4) /hpf Urine WBC (0-5) /hpf Ur Epithelial Cells (0-5) /lpf Uric Acid Crystals (None Prsent) Urine Bacteria (Negative) Granular Casts (0) /lpf 05/10/19 05/10/19 05/10/19 Range/Units 11:50 10:01 10:00 WBC (4.8-10.8) K/uL RBC (4.2-5.4) M/uL Hgb (12.0-16.0) g/dL POC Hgb (12.0-16.0) g/dl Hct (37-47) % POC Hct (37-47) % MCV (80-100) fL MCH (25-34) pg MCHC (32-36) g/dL RDW Std Deviation (36.4-46.3) fL RDW Coeff of Kelly (11.5-14.5) % Plt Count (130-400) K/uL MPV (7.4-10.4) fL Immature Gran % (Auto) % Neut % (Auto) % Lymph % (Auto) % [place] % (Auto) % Eos % (Auto) % Baso % (Auto) % Immature Gran # (Auto) (0.00-0.02) K/uL Neut # (Auto) (1.4-6.5) K/uL Lymph # (Auto) (1.2-3.4) K/uL [place] # (Auto) (0.11-0.59) K/uL Eos # (Auto) (0-0.5) K/uL Baso # (Auto) (0-0.2) K/uL Echinocytes APTT (21.0-31.0) Seconds PTT Ratio Specimen Type Patient Temperature POC pH (7.35-7.45) POC pCO2 (35-46) mmHg POC pO2 (80-95) mmHg POC HCO3 (19-24) akira/L POC Total CO2 (24-31) mmol/L POC Base Excess (-9-1.8) akira/L ABG pH (7.35-7.45) ABG pCO2 (35-46) mmHg ABG pO2 (80-95) mmHg ABG HCO3 (19-24) mmol/L ABG O2 Saturation (90-95) % ABG Base Excess (-9-1.8) mEq/L Ejro Test VBG pH (7.36-7.41) Barometric Pressure mm/Hg Oxygen Given O2 Delivery Device POC O2 Rate Minute Ventilation Tidal Volume PEEP POC Sodium (135-144) mmol/L Sodium (136-145) mmol/L POC Potassium (3.3-5.0) mmol/L Potassium (3.5-5.1) mmol/L Chloride (98-107) mmol/L Carbon Dioxide (21-32) mmol/L Anion Gap (3-11) BUN (7-18) mg/dl Creatinine (0.6-1.2) mg/dl Est Cr Clr Drug Dosing ml/min Est GFR ( Amer) Est GFR (Non-Af Amer) BUN/Creatinine Ratio (10-20) Glucose (70-99) mg/dl POC Glucose 219 H 223 H (70-99) mg/dl Lactate 2.2 H* (0.4-2.0) mmol/L Calcium (8.5-10.1) mg/dl Phosphorus (2.5-4.9) mg/dl Magnesium (1.8-2.4) mg/dl Beta-Hydroxybutyric Acd (0.2-2.81) mg/dl Procalcitonin (0-0.5) ng/ml Urine Color Urine Appearance (Clear) Urine pH (4.5-7.5) Ur Specific [place] (1.000-1.030) Urine Protein (Negative) Urine Glucose (UA) (Negative) Urine Ketones (Negative) Urine Blood (Negative) Urine Nitrite (Negative) Urine Bilirubin (Negative) Urine Urobilinogen (Negative) Ur Leukocyte Esterase (Negative) Urine RBC (0-4) /hpf Urine WBC (0-5) /hpf Ur Epithelial Cells (0-5) /lpf Uric Acid Crystals (None Prsent) Urine Bacteria (Negative) Granular Casts (0) /lpf 05/10/19 05/10/19 05/10/19 Range/Units 08:56 08:41 08:41 WBC (4.8-10.8) K/uL RBC (4.2-5.4) M/uL Hgb (12.0-16.0) g/dL POC Hgb (12.0-16.0) g/dl Hct (37-47) % POC Hct (37-47) % MCV (80-100) fL MCH (25-34) pg MCHC (32-36) g/dL RDW Std Deviation (36.4-46.3) fL RDW Coeff of Kelly (11.5-14.5) % Plt Count (130-400) K/uL MPV (7.4-10.4) fL Immature Gran % (Auto) % Neut % (Auto) % Lymph % (Auto) % [place] % (Auto) % Eos % (Auto) % Baso % (Auto) % Immature Gran # (Auto) (0.00-0.02) K/uL Neut # (Auto) (1.4-6.5) K/uL Lymph # (Auto) (1.2-3.4) K/uL [place] # (Auto) (0.11-0.59) K/uL Eos # (Auto) (0-0.5) K/uL Baso # (Auto) (0-0.2) K/uL Echinocytes APTT (21.0-31.0) Seconds PTT Ratio Specimen Type Patient Temperature POC pH (7.35-7.45) POC pCO2 (35-46) mmHg POC pO2 (80-95) mmHg POC HCO3 (19-24) akira/L POC Total CO2 (24-31) mmol/L POC Base Excess (-9-1.8) akira/L ABG pH 7.36 (7.35-7.45) ABG pCO2 29 L (35-46) mmHg ABG pO2 93 (80-95) mmHg ABG HCO3 16 L (19-24) mmol/L ABG O2 Saturation 97.2 H (90-95) % ABG Base Excess -7.9 (-9-1.8) mEq/L Jero Test Pos VBG pH (7.36-7.41) Barometric Pressure 727.3 mm/Hg Oxygen Given 15L O2 Delivery Device POC O2 Rate Minute Ventilation Tidal Volume PEEP POC Sodium (135-144) mmol/L Sodium 139 (136-145) mmol/L POC Potassium (3.3-5.0) mmol/L Potassium 5.2 H D (3.5-5.1) mmol/L Chloride 112 H (98-107) mmol/L Carbon Dioxide 17 L (21-32) mmol/L Anion Gap 10.0 (3-11) BUN 10 (7-18) mg/dl Creatinine 0.65 (0.6-1.2) mg/dl Est Cr Clr Drug Dosing 66.6 ml/min Est GFR ( Amer) 106.5 Est GFR (Non-Af Amer) 91.9 BUN/Creatinine Ratio 15.4 (10-20) Glucose 228 H (70-99) mg/dl POC Glucose 237 H (70-99) mg/dl Lactate (0.4-2.0) mmol/L Calcium 7.6 L (8.5-10.1) mg/dl Phosphorus 3.3 D (2.5-4.9) mg/dl Magnesium 2.2 (1.8-2.4) mg/dl Beta-Hydroxybutyric Acd (0.2-2.81) mg/dl Procalcitonin (0-0.5) ng/ml Urine Color Urine Appearance (Clear) Urine pH (4.5-7.5) Ur Specific [place] (1.000-1.030) Urine Protein (Negative) Urine Glucose (UA) (Negative) Urine Ketones (Negative) Urine Blood (Negative) Urine Nitrite (Negative) Urine Bilirubin (Negative) Urine Urobilinogen (Negative) Ur Leukocyte Esterase (Negative) Urine RBC (0-4) /hpf Urine WBC (0-5) /hpf Ur Epithelial Cells (0-5) /lpf Uric Acid Crystals (None Prsent) Urine Bacteria (Negative) Granular Casts (0) /lpf 05/10/19 05/10/19 05/10/19 Range/Units 08:37 08:02 07:03 WBC (4.8-10.8) K/uL RBC (4.2-5.4) M/uL Hgb (12.0-16.0) g/dL POC Hgb (12.0-16.0) g/dl Hct (37-47) % POC Hct (37-47) % MCV (80-100) fL MCH (25-34) pg MCHC (32-36) g/dL RDW Std Deviation (36.4-46.3) fL RDW Coeff of Kelly (11.5-14.5) % Plt Count (130-400) K/uL MPV (7.4-10.4) fL Immature Gran % (Auto) % Neut % (Auto) % Lymph % (Auto) % [place] % (Auto) % Eos % (Auto) % Baso % (Auto) % Immature Gran # (Auto) (0.00-0.02) K/uL Neut # (Auto) (1.4-6.5) K/uL Lymph # (Auto) (1.2-3.4) K/uL [place] # (Auto) (0.11-0.59) K/uL Eos # (Auto) (0-0.5) K/uL Baso # (Auto) (0-0.2) K/uL Echinocytes APTT (21.0-31.0) Seconds PTT Ratio Specimen Type Patient Temperature POC pH (7.35-7.45) POC pCO2 (35-46) mmHg POC pO2 (80-95) mmHg POC HCO3 (19-24) akira/L POC Total CO2 (24-31) mmol/L POC Base Excess (-9-1.8) akira/L ABG pH (7.35-7.45) ABG pCO2 (35-46) mmHg ABG pO2 (80-95) mmHg ABG HCO3 (19-24) mmol/L ABG O2 Saturation (90-95) % ABG Base Excess (-9-1.8) mEq/L Jero Test VBG pH (7.36-7.41) Barometric Pressure mm/Hg Oxygen Given O2 Delivery Device POC O2 Rate Minute Ventilation Tidal Volume PEEP POC Sodium (135-144) mmol/L Sodium (136-145) mmol/L POC Potassium (3.3-5.0) mmol/L Potassium (3.5-5.1) mmol/L Chloride (98-107) mmol/L Carbon Dioxide (21-32) mmol/L Anion Gap (3-11) BUN (7-18) mg/dl Creatinine (0.6-1.2) mg/dl Est Cr Clr Drug Dosing ml/min Est GFR ( Amer) Est GFR (Non-Af Amer) BUN/Creatinine Ratio (10-20) Glucose (70-99) mg/dl POC Glucose 245 H 208 H (70-99) mg/dl Lactate (0.4-2.0) mmol/L Calcium (8.5-10.1) mg/dl Phosphorus (2.5-4.9) mg/dl Magnesium (1.8-2.4) mg/dl Beta-Hydroxybutyric Acd (0.2-2.81) mg/dl Procalcitonin 6.72 H (0-0.5) ng/ml Urine Color Urine Appearance (Clear) Urine pH (4.5-7.5) Ur Specific [place] (1.000-1.030) Urine Protein (Negative) Urine Glucose (UA) (Negative) Urine Ketones (Negative) Urine Blood (Negative) Urine Nitrite (Negative) Urine Bilirubin (Negative) Urine Urobilinogen (Negative) Ur Leukocyte Esterase (Negative) Urine RBC (0-4) /hpf Urine WBC (0-5) /hpf Ur Epithelial Cells (0-5) /lpf Uric Acid Crystals (None Prsent) Urine Bacteria (Negative) Granular Casts (0) /lpf 05/10/19 05/10/19 05/10/19 Range/Units 06:22 06:06 05:07 WBC (4.8-10.8) K/uL RBC (4.2-5.4) M/uL Hgb (12.0-16.0) g/dL POC Hgb (12.0-16.0) g/dl Hct (37-47) % POC Hct (37-47) % MCV (80-100) fL MCH (25-34) pg MCHC (32-36) g/dL RDW Std Deviation (36.4-46.3) fL RDW Coeff of Kelly (11.5-14.5) % Plt Count (130-400) K/uL MPV (7.4-10.4) fL Immature Gran % (Auto) % Neut % (Auto) % Lymph % (Auto) % [place] % (Auto) % Eos % (Auto) % Baso % (Auto) % Immature Gran # (Auto) (0.00-0.02) K/uL Neut # (Auto) (1.4-6.5) K/uL Lymph # (Auto) (1.2-3.4) K/uL [place] # (Auto) (0.11-0.59) K/uL Eos # (Auto) (0-0.5) K/uL Baso # (Auto) (0-0.2) K/uL Echinocytes APTT 62.6 H* (21.0-31.0) Seconds PTT Ratio 2.3 Specimen Type Patient Temperature POC pH (7.35-7.45) POC pCO2 (35-46) mmHg POC pO2 (80-95) mmHg POC HCO3 (19-24) akira/L POC Total CO2 (24-31) mmol/L POC Base Excess (-9-1.8) akira/L ABG pH (7.35-7.45) ABG pCO2 (35-46) mmHg ABG pO2 (80-95) mmHg ABG HCO3 (19-24) mmol/L ABG O2 Saturation (90-95) % ABG Base Excess (-9-1.8) mEq/L Jero Test VBG pH (7.36-7.41) Barometric Pressure mm/Hg Oxygen Given O2 Delivery Device POC O2 Rate Minute Ventilation Tidal Volume PEEP POC Sodium (135-144) mmol/L Sodium (136-145) mmol/L POC Potassium (3.3-5.0) mmol/L Potassium (3.5-5.1) mmol/L Chloride (98-107) mmol/L Carbon Dioxide (21-32) mmol/L Anion Gap (3-11) BUN (7-18) mg/dl Creatinine (0.6-1.2) mg/dl Est Cr Clr Drug Dosing ml/min Est GFR ( Amer) Est GFR (Non-Af Amer) BUN/Creatinine Ratio (10-20) Glucose (70-99) mg/dl POC Glucose 135 H 115 H (70-99) mg/dl Lactate (0.4-2.0) mmol/L Calcium (8.5-10.1) mg/dl Phosphorus (2.5-4.9) mg/dl Magnesium (1.8-2.4) mg/dl Beta-Hydroxybutyric Acd (0.2-2.81) mg/dl Procalcitonin (0-0.5) ng/ml Urine Color Urine Appearance (Clear) Urine pH (4.5-7.5) Ur Specific [place] (1.000-1.030) Urine Protein (Negative) Urine Glucose (UA) (Negative) Urine Ketones (Negative) Urine Blood (Negative) Urine Nitrite (Negative) Urine Bilirubin (Negative) Urine Urobilinogen (Negative) Ur Leukocyte Esterase (Negative) Urine RBC (0-4) /hpf Urine WBC (0-5) /hpf Ur Epithelial Cells (0-5) /lpf Uric Acid Crystals (None Prsent) Urine Bacteria (Negative) Granular Casts (0) /lpf 05/10/19 05/10/19 05/10/19 Range/Units 04:04 04:00 03:23 WBC (4.8-10.8) K/uL RBC (4.2-5.4) M/uL Hgb (12.0-16.0) g/dL POC Hgb (12.0-16.0) g/dl Hct (37-47) % POC Hct (37-47) % MCV (80-100) fL MCH (25-34) pg MCHC (32-36) g/dL RDW Std Deviation (36.4-46.3) fL RDW Coeff of Kelly (11.5-14.5) % Plt Count (130-400) K/uL MPV (7.4-10.4) fL Immature Gran % (Auto) % Neut % (Auto) % Lymph % (Auto) % [place] % (Auto) % Eos % (Auto) % Baso % (Auto) % Immature Gran # (Auto) (0.00-0.02) K/uL Neut # (Auto) (1.4-6.5) K/uL Lymph # (Auto) (1.2-3.4) K/uL [place] # (Auto) (0.11-0.59) K/uL Eos # (Auto) (0-0.5) K/uL Baso # (Auto) (0-0.2) K/uL Echinocytes APTT (21.0-31.0) Seconds PTT Ratio Specimen Type Patient Temperature POC pH (7.35-7.45) POC pCO2 (35-46) mmHg POC pO2 (80-95) mmHg POC HCO3 (19-24) akira/L POC Total CO2 (24-31) mmol/L POC Base Excess (-9-1.8) akira/L ABG pH 7.40 (7.35-7.45) ABG pCO2 32 L (35-46) mmHg ABG pO2 79 L (80-95) mmHg ABG HCO3 19 (19-24) mmol/L ABG O2 Saturation 96.2 H (90-95) % ABG Base Excess -4.7 (-9-1.8) mEq/L Jero Test Pos VBG pH (7.36-7.41) Barometric Pressure mm/Hg Oxygen Given 70% O2 Delivery Device POC O2 Rate Minute Ventilation Tidal Volume PEEP POC Sodium (135-144) mmol/L Sodium (136-145) mmol/L POC Potassium (3.3-5.0) mmol/L Potassium (3.5-5.1) mmol/L Chloride (98-107) mmol/L Carbon Dioxide (21-32) mmol/L Anion Gap (3-11) BUN (7-18) mg/dl Creatinine (0.6-1.2) mg/dl Est Cr Clr Drug Dosing ml/min Est GFR ( Amer) Est GFR (Non-Af Amer) BUN/Creatinine Ratio (10-20) Glucose (70-99) mg/dl POC Glucose 140 H (70-99) mg/dl Lactate (0.4-2.0) mmol/L Calcium (8.5-10.1) mg/dl Phosphorus (2.5-4.9) mg/dl Magnesium (1.8-2.4) mg/dl Beta-Hydroxybutyric Acd (0.2-2.81) mg/dl Procalcitonin (0-0.5) ng/ml Urine Color Yellow Urine Appearance Turbid A (Clear) Urine pH 5.5 (4.5-7.5) Ur Specific [place] >= 1.030 (1.000-1.030) Urine Protein 2+ H (Negative) Urine Glucose (UA) Negative (Negative) Urine Ketones Trace H (Negative) Urine Blood 1+ H (Negative) Urine Nitrite Negative (Negative) Urine Bilirubin Negative (Negative) Urine Urobilinogen Negative (Negative) Ur Leukocyte Esterase Negative (Negative) Urine RBC 0-4 (0-4) /hpf Urine WBC 5-10 H (0-5) /hpf Ur Epithelial Cells 5-10 H (0-5) /lpf Uric Acid Crystals Present A (None Prsent) Urine Bacteria 4+ H (Negative) Granular Casts 1-5 H (0) /lpf 05/10/19 05/10/19 05/10/19 Range/Units 03:23 03:23 03:02 WBC 6.74 (4.8-10.8) K/uL RBC 4.05 L (4.2-5.4) M/uL Hgb 12.2 D (12.0-16.0) g/dL POC Hgb (12.0-16.0) g/dl Hct 34.0 L (37-47) % POC Hct (37-47) % MCV 84.0 (80-100) fL MCH 30.1 (25-34) pg MCHC 35.9 (32-36) g/dL RDW Std Deviation 42.6 (36.4-46.3) fL RDW Coeff of Kelly 13.8 (11.5-14.5) % Plt Count 138 (130-400) K/uL MPV 9.9 (7.4-10.4) fL Immature Gran % (Auto) 0.3 % Neut % (Auto) 66.9 % Lymph % (Auto) 18.1 % [place] % (Auto) 13.8 % Eos % (Auto) 0.0 % Baso % (Auto) 0.9 % Immature Gran # (Auto) 0.02 (0.00-0.02) K/uL Neut # (Auto) 4.51 (1.4-6.5) K/uL Lymph # (Auto) 1.22 (1.2-3.4) K/uL [place] # (Auto) 0.93 H (0.11-0.59) K/uL Eos # (Auto) 0.00 (0-0.5) K/uL Baso # (Auto) 0.06 (0-0.2) K/uL Echinocytes 1+ APTT (21.0-31.0) Seconds PTT Ratio Specimen Type Patient Temperature POC pH (7.35-7.45) POC pCO2 (35-46) mmHg POC pO2 (80-95) mmHg POC HCO3 (19-24) akira/L POC Total CO2 (24-31) mmol/L POC Base Excess (-9-1.8) akira/L ABG pH (7.35-7.45) ABG pCO2 (35-46) mmHg ABG pO2 (80-95) mmHg ABG HCO3 (19-24) mmol/L ABG O2 Saturation (90-95) % ABG Base Excess (-9-1.8) mEq/L Jero Test VBG pH (7.36-7.41) Barometric Pressure mm/Hg Oxygen Given O2 Delivery Device POC O2 Rate Minute Ventilation Tidal Volume PEEP POC Sodium (135-144) mmol/L Sodium 140 (136-145) mmol/L POC Potassium (3.3-5.0) mmol/L Potassium 3.7 (3.5-5.1) mmol/L Chloride 112 H (98-107) mmol/L Carbon Dioxide 23 (21-32) mmol/L Anion Gap 5.0 (3-11) BUN 10 (7-18) mg/dl Creatinine 0.74 (0.6-1.2) mg/dl Est Cr Clr Drug Dosing 59.3 ml/min Est GFR ( Amer) 97.2 Est GFR (Non-Af Amer) 83.8 BUN/Creatinine Ratio 13.3 (10-20) Glucose 148 H (70-99) mg/dl POC Glucose 155 H (70-99) mg/dl Lactate (0.4-2.0) mmol/L Calcium 7.5 L (8.5-10.1) mg/dl Phosphorus 1.6 L (2.5-4.9) mg/dl Magnesium 2.4 (1.8-2.4) mg/dl Beta-Hydroxybutyric Acd (0.2-2.81) mg/dl Procalcitonin (0-0.5) ng/ml Urine Color Urine Appearance (Clear) Urine pH (4.5-7.5) Ur Specific [place] (1.000-1.030) Urine Protein (Negative) Urine Glucose (UA) (Negative) Urine Ketones (Negative) Urine Blood (Negative) Urine Nitrite (Negative) Urine Bilirubin (Negative) Urine Urobilinogen (Negative) Ur Leukocyte Esterase (Negative) Urine RBC (0-4) /hpf Urine WBC (0-5) /hpf Ur Epithelial Cells (0-5) /lpf Uric Acid Crystals (None Prsent) Urine Bacteria (Negative) Granular Casts (0) /lpf 05/10/19 05/10/19 05/09/19 Range/Units 01:54 01:01 23:59 WBC (4.8-10.8) K/uL RBC (4.2-5.4) M/uL Hgb (12.0-16.0) g/dL POC Hgb (12.0-16.0) g/dl Hct (37-47) % POC Hct (37-47) % MCV (80-100) fL MCH (25-34) pg MCHC (32-36) g/dL RDW Std Deviation (36.4-46.3) fL RDW Coeff of Kelly (11.5-14.5) % Plt Count (130-400) K/uL MPV (7.4-10.4) fL Immature Gran % (Auto) % Neut % (Auto) % Lymph % (Auto) % [place] % (Auto) % Eos % (Auto) % Baso % (Auto) % Immature Gran # (Auto) (0.00-0.02) K/uL Neut # (Auto) (1.4-6.5) K/uL Lymph # (Auto) (1.2-3.4) K/uL [place] # (Auto) (0.11-0.59) K/uL Eos # (Auto) (0-0.5) K/uL Baso # (Auto) (0-0.2) K/uL Echinocytes APTT (21.0-31.0) Seconds PTT Ratio Specimen Type Patient Temperature POC pH (7.35-7.45) POC pCO2 (35-46) mmHg POC pO2 (80-95) mmHg POC HCO3 (19-24) akira/L POC Total CO2 (24-31) mmol/L POC Base Excess (-9-1.8) akira/L ABG pH (7.35-7.45) ABG pCO2 (35-46) mmHg ABG pO2 (80-95) mmHg ABG HCO3 (19-24) mmol/L ABG O2 Saturation (90-95) % ABG Base Excess (-9-1.8) mEq/L Jero Test VBG pH (7.36-7.41) Barometric Pressure mm/Hg Oxygen Given O2 Delivery Device POC O2 Rate Minute Ventilation Tidal Volume PEEP POC Sodium (135-144) mmol/L Sodium (136-145) mmol/L POC Potassium (3.3-5.0) mmol/L Potassium (3.5-5.1) mmol/L Chloride (98-107) mmol/L Carbon Dioxide (21-32) mmol/L Anion Gap (3-11) BUN (7-18) mg/dl Creatinine (0.6-1.2) mg/dl Est Cr Clr Drug Dosing ml/min Est GFR ( Amer) Est GFR (Non-Af Amer) BUN/Creatinine Ratio (10-20) Glucose (70-99) mg/dl POC Glucose 160 H 179 H 216 H (70-99) mg/dl Lactate (0.4-2.0) mmol/L Calcium (8.5-10.1) mg/dl Phosphorus (2.5-4.9) mg/dl Magnesium (1.8-2.4) mg/dl Beta-Hydroxybutyric Acd (0.2-2.81) mg/dl Procalcitonin (0-0.5) ng/ml Urine Color Urine Appearance (Clear) Urine pH (4.5-7.5) Ur Specific [place] (1.000-1.030) Urine Protein (Negative) Urine Glucose (UA) (Negative) Urine Ketones (Negative) Urine Blood (Negative) Urine Nitrite (Negative) Urine Bilirubin (Negative) Urine Urobilinogen (Negative) Ur Leukocyte Esterase (Negative) Urine RBC (0-4) /hpf Urine WBC (0-5) /hpf Ur Epithelial Cells (0-5) /lpf Uric Acid Crystals (None Prsent) Urine Bacteria (Negative) Granular Casts (0) /lpf 05/09/19 05/09/19 05/09/19 Range/Units 23:05 23:05 23:05 WBC (4.8-10.8) K/uL RBC (4.2-5.4) M/uL Hgb (12.0-16.0) g/dL POC Hgb (12.0-16.0) g/dl Hct (37-47) % POC Hct (37-47) % MCV (80-100) fL MCH (25-34) pg MCHC (32-36) g/dL RDW Std Deviation (36.4-46.3) fL RDW Coeff of Kelly (11.5-14.5) % Plt Count (130-400) K/uL MPV (7.4-10.4) fL Immature Gran % (Auto) % Neut % (Auto) % Lymph % (Auto) % [place] % (Auto) % Eos % (Auto) % Baso % (Auto) % Immature Gran # (Auto) (0.00-0.02) K/uL Neut # (Auto) (1.4-6.5) K/uL Lymph # (Auto) (1.2-3.4) K/uL [place] # (Auto) (0.11-0.59) K/uL Eos # (Auto) (0-0.5) K/uL Baso # (Auto) (0-0.2) K/uL Echinocytes APTT 84.8 H* (21.0-31.0) Seconds PTT Ratio 3.1 Specimen Type Patient Temperature POC pH (7.35-7.45) POC pCO2 (35-46) mmHg POC pO2 (80-95) mmHg POC HCO3 (19-24) akira/L POC Total CO2 (24-31) mmol/L POC Base Excess (-9-1.8) akira/L ABG pH 7.31 L (7.35-7.45) ABG pCO2 30 L (35-46) mmHg ABG pO2 76 L (80-95) mmHg ABG HCO3 15 L (19-24) mmol/L ABG O2 Saturation 95.3 H (90-95) % ABG Base Excess -10.3 L (-9-1.8) mEq/L Jero Test POS VBG pH (7.36-7.41) Barometric Pressure 728.0 mm/Hg Oxygen Given 80% O2 Delivery Device POC O2 Rate Minute Ventilation Tidal Volume PEEP POC Sodium (135-144) mmol/L Sodium 139 (136-145) mmol/L POC Potassium (3.3-5.0) mmol/L Potassium 4.3 D (3.5-5.1) mmol/L Chloride 111 H (98-107) mmol/L Carbon Dioxide TNP (21-32) mmol/L Anion Gap Not Reportable (3-11) BUN 9 (7-18) mg/dl Creatinine 0.64 (0.6-1.2) mg/dl Est Cr Clr Drug Dosing 68.6 ml/min Est GFR ( Amer) 107.0 Est GFR (Non-Af Amer) 92.3 BUN/Creatinine Ratio 13.4 (10-20) Glucose 268 H (70-99) mg/dl POC Glucose (70-99) mg/dl Lactate (0.4-2.0) mmol/L Calcium 7.7 L (8.5-10.1) mg/dl Phosphorus 2.5 (2.5-4.9) mg/dl Magnesium 2.4 (1.8-2.4) mg/dl Beta-Hydroxybutyric Acd (0.2-2.81) mg/dl Procalcitonin (0-0.5) ng/ml Urine Color Urine Appearance (Clear) Urine pH (4.5-7.5) Ur Specific [place] (1.000-1.030) Urine Protein (Negative) Urine Glucose (UA) (Negative) Urine Ketones (Negative) Urine Blood (Negative) Urine Nitrite (Negative) Urine Bilirubin (Negative) Urine Urobilinogen (Negative) Ur Leukocyte Esterase (Negative) Urine RBC (0-4) /hpf Urine WBC (0-5) /hpf Ur Epithelial Cells (0-5) /lpf Uric Acid Crystals (None Prsent) Urine Bacteria (Negative) Granular Casts (0) /lpf 05/09/19 05/09/19 05/09/19 Range/Units 22:35 19:16 19:16 WBC (4.8-10.8) K/uL RBC (4.2-5.4) M/uL Hgb (12.0-16.0) g/dL POC Hgb (12.0-16.0) g/dl Hct (37-47) % POC Hct (37-47) % MCV (80-100) fL MCH (25-34) pg MCHC (32-36) g/dL RDW Std Deviation (36.4-46.3) fL RDW Coeff of Kelly (11.5-14.5) % Plt Count (130-400) K/uL MPV (7.4-10.4) fL Immature Gran % (Auto) % Neut % (Auto) % Lymph % (Auto) % [place] % (Auto) % Eos % (Auto) % Baso % (Auto) % Immature Gran # (Auto) (0.00-0.02) K/uL Neut # (Auto) (1.4-6.5) K/uL Lymph # (Auto) (1.2-3.4) K/uL [place] # (Auto) (0.11-0.59) K/uL Eos # (Auto) (0-0.5) K/uL Baso # (Auto) (0-0.2) K/uL Echinocytes APTT (21.0-31.0) Seconds PTT Ratio Specimen Type Patient Temperature POC pH (7.35-7.45) POC pCO2 (35-46) mmHg POC pO2 (80-95) mmHg POC HCO3 (19-24) akira/L POC Total CO2 (24-31) mmol/L POC Base Excess (-9-1.8) akira/L ABG pH (7.35-7.45) ABG pCO2 (35-46) mmHg ABG pO2 (80-95) mmHg ABG HCO3 (19-24) mmol/L ABG O2 Saturation (90-95) % ABG Base Excess (-9-1.8) mEq/L Jero Test VBG pH 7.23 L (7.36-7.41) Barometric Pressure mm/Hg Oxygen Given O2 Delivery Device POC O2 Rate Minute Ventilation Tidal Volume PEEP POC Sodium (135-144) mmol/L Sodium 138 D (136-145) mmol/L POC Potassium (3.3-5.0) mmol/L Potassium 3.4 L (3.5-5.1) mmol/L Chloride 108 H (98-107) mmol/L Carbon Dioxide 15 L (21-32) mmol/L Anion Gap 15.0 H (3-11) BUN 9 (7-18) mg/dl Creatinine 0.51 L (0.6-1.2) mg/dl Est Cr Clr Drug Dosing 86.1 ml/min Est GFR ( Amer) 115.3 Est GFR (Non-Af Amer) 99.5 BUN/Creatinine Ratio 17.8 (10-20) Glucose 315 H* (70-99) mg/dl POC Glucose 277 H (70-99) mg/dl Lactate (0.4-2.0) mmol/L Calcium 8.1 L (8.5-10.1) mg/dl Phosphorus 2.0 L D (2.5-4.9) mg/dl Magnesium 1.6 L (1.8-2.4) mg/dl Beta-Hydroxybutyric Acd 51.32 H (0.2-2.81) mg/dl Procalcitonin (0-0.5) ng/ml Urine Color Urine Appearance (Clear) Urine pH (4.5-7.5) Ur Specific [place] (1.000-1.030) Urine Protein (Negative) Urine Glucose (UA) (Negative) Urine Ketones (Negative) Urine Blood (Negative) Urine Nitrite (Negative) Urine Bilirubin (Negative) Urine Urobilinogen (Negative) Ur Leukocyte Esterase (Negative) Urine RBC (0-4) /hpf Urine WBC (0-5) /hpf Ur Epithelial Cells (0-5) /lpf Uric Acid Crystals (None Prsent) Urine Bacteria (Negative) Granular Casts (0) /lpf 05/09/19 Range/Units 19:03 WBC (4.8-10.8) K/uL RBC (4.2-5.4) M/uL Hgb (12.0-16.0) g/dL POC Hgb 12.9 (12.0-16.0) g/dl Hct (37-47) % POC Hct 38 (37-47) % MCV (80-100) fL MCH (25-34) pg MCHC (32-36) g/dL RDW Std Deviation (36.4-46.3) fL RDW Coeff of Kelly (11.5-14.5) % Plt Count (130-400) K/uL MPV (7.4-10.4) fL Immature Gran % (Auto) % Neut % (Auto) % Lymph % (Auto) % [place] % (Auto) % Eos % (Auto) % Baso % (Auto) % Immature Gran # (Auto) (0.00-0.02) K/uL Neut # (Auto) (1.4-6.5) K/uL Lymph # (Auto) (1.2-3.4) K/uL [place] # (Auto) (0.11-0.59) K/uL Eos # (Auto) (0-0.5) K/uL Baso # (Auto) (0-0.2) K/uL Echinocytes APTT (21.0-31.0) Seconds PTT Ratio Specimen Type Arterial Patient Temperature 37.9 POC pH 7.18 L* (7.35-7.45) POC pCO2 36 (35-46) mmHg POC pO2 89 (80-95) mmHg POC HCO3 13 L (19-24) akira/L POC Total CO2 14 L (24-31) mmol/L POC Base Excess -15.0 L (-9-1.8) akira/L ABG pH (7.35-7.45) ABG pCO2 (35-46) mmHg ABG pO2 (80-95) mmHg ABG HCO3 (19-24) mmol/L ABG O2 Saturation (90-95) % ABG Base Excess (-9-1.8) mEq/L Jero Test Not Performed VBG pH (7.36-7.41) Barometric Pressure mm/Hg Oxygen Given O2 Delivery Device Ventilator POC O2 Rate 22 Minute Ventilation 10.1 Tidal Volume 450 PEEP 12 POC Sodium 138 (135-144) mmol/L Sodium (136-145) mmol/L POC Potassium 3.5 (3.3-5.0) mmol/L Potassium (3.5-5.1) mmol/L Chloride (98-107) mmol/L Carbon Dioxide (21-32) mmol/L Anion Gap (3-11) BUN (7-18) mg/dl Creatinine (0.6-1.2) mg/dl Est Cr Clr Drug Dosing ml/min Est GFR ( Amer) Est GFR (Non-Af Amer) BUN/Creatinine Ratio (10-20) Glucose (70-99) mg/dl POC Glucose (70-99) mg/dl Lactate (0.4-2.0) mmol/L Calcium (8.5-10.1) mg/dl Phosphorus (2.5-4.9) mg/dl Magnesium (1.8-2.4) mg/dl Beta-Hydroxybutyric Acd (0.2-2.81) mg/dl Procalcitonin (0-0.5) ng/ml Urine Color Urine Appearance (Clear) Urine pH (4.5-7.5) Ur Specific [place] (1.000-1.030) Urine Protein (Negative) Urine Glucose (UA) (Negative) Urine Ketones (Negative) Urine Blood (Negative) Urine Nitrite (Negative) Urine Bilirubin (Negative) Urine Urobilinogen (Negative) Ur Leukocyte Esterase (Negative) Urine RBC (0-4) /hpf Urine WBC (0-5) /hpf Ur Epithelial Cells (0-5) /lpf Uric Acid Crystals (None Prsent) Urine Bacteria (Negative) Granular Casts (0) /lpf PG Care Time/CCT Total # of Minutes Spent Total Time Spent with Patient: Total time spent is greater than 50% in coordination of care (as documented) at patient's floor/unit and/or counseling patient: Coding Level of Care Code 00548 Subseq Hosp Care Lvl 3 Diagnoses Sepsis A41.9 Acute respiratory failure J96.01 Respiratory failure complication: hypoxia DKA (diabetic ketoacidoses) E11.10 Rapid atrial fibrillation I48.91 Pneumonia J18.9 Laterality: right Lung location: lower lobe of lung Pneumonia type: due to unspecified organism Elevated lactic acid level R79.89 Dyslipidemia E78.5 Acid reflux K21.9 CAD (coronary artery disease) I25.10 Cardiomyopathy, ischemic I25.5 Stenosis of right carotid artery I65.21 Type 2 diabetes mellitus E11.9 Chronic obstructive pulmonary disease J44.9 Bacteremia R78.81 Hypophosphatemia E83.39 DVT prophylaxis Z29.9 (1) Acute respiratory failure Respiratory failure complication: hypoxia Qualified Code(s): J96.01 - Acute respiratory failure with hypoxia (2) Pneumonia Laterality: right Lung location: lower lobe of lung Pneumonia type: due to unspecified organism Qualified Code(s): J18.9 - Pneumonia, unspecified organism
[2019-05-10] MEDS: MAGNESIUM OXIDE 400 MG TAB PO SCH (19:46)
[2019-05-11 04:24] LABS: Base Excess ABG -4.5 mEq/L (-9-1.8); HCO3 ABG 18 mmol/L (19-24); Oxygen Saturation ABG 97.2 % (90-95); PCO2 ABG 23 mmHg (35-46); PO2 ABG 85 mmHg (80-95)
[2019-05-11 04:26] LABS: Allen Test Pos (Pos)
[2019-05-11 04:27] LABS: pH ABG 7.51 (7.35-7.45)
[2019-05-11] MEDS: INSULIN ASPART 100 UNITS/ML 3 ML PEN SC SCH ×6 (04:32→20:12)
[2019-05-11 05:14] LABS: Hematocrit (blood only) 32.1 % (37-47); Hemoglobin 11.2 g/dL (12.0-16.0); Mean Corpuscular Hemoglobin 29.6 pg (25-34); Mean Corpuscular Volume 84.7 fL (80-100); Mean Platelet Volume 10.4 fL (7.4-10.4); Platelet Count 185 K/uL (130-400); RDW Coefficient of Variation 14.3 % (11.5-14.5); RDW Standard Deviation 44.4 fL (36.4-46.3); Red Blood Count 3.79 M/uL (4.2-5.4); White Blood Count 6.79 K/uL (4.8-10.8)
[2019-05-11 05:18] LABS: Mean Corpuscular Hgb Conc 34.9 g/dL (32-36)
[2019-05-11 05:36] LABS: Basophils # (auto) 0.04 K/uL (0-0.2); Basophils % (auto) 0.6 %; Dohle Bodies 1+; Echinocytes 2+; Immature Granulocytes # (auto) 0.03 K/uL (0.00-0.02); Immature Granulocytes % (auto) 0.4 %; Lymphocytes # (auto) 1.49 K/uL (1.2-3.4); Lymphocytes % (auto) 21.9 %; Monocytes # (auto) 0.91 K/uL (0.11-0.59); Monocytes % (auto) 13.4 %; Neutrophils # (auto) 4.32 K/uL (1.4-6.5); Neutrophils % (auto) 63.7 %; Toxic Granulation 1+
[2019-05-11 05:37] LABS: Partial Thromboplastin Time 54.4 Seconds (21.0-31.0)
[2019-05-11 05:39] LABS: Albumin Level 1.5 gm/dl (3.4-5.0); Bilirubin Direct 0.2 mg/dl (0-0.2); Bilirubin,Total 0.4 mg/dl (0.2-1); Calcium 7.6 mg/dl (8.5-10.1); Creatinine Clr Calc Pharmacy 62.7 ml/min; Est GFR (African American) 104.4; Est GFR (Non-African American) 90.1; Magnesium 2.2 mg/dl (1.8-2.4); Phosphorus 1.6 mg/dl (2.5-4.9); Potassium 3.4 mmol/L (3.5-5.1); Total Protein 5.4 gm/dl (6.4-8.2)
--- NOTE | 2019-05-11 06:04 | Critical Care Progress Note ---
Date of Service May 11, 2019 Assessment & Plan (1) Sepsis: Reason Critically Ill: 68 yo F with PMHx of type I diabetes and tobacco abuse admitted to hospital 05/09 with sepsis secondary to a pulmonary source, diabetic ketoacidosis and A-fib with RVR. Patient was intubated and placed on m echanical ventilation. Required electrical cardioversion x 2. Bedside thoracic US showing consolidation in R lower lung, concerning for malignancy vs. PNA 24 hour events: Patient continues to be sedated while on mechanical ventilation. Anion gap has closed. Insulin drip turned off, transitioned to Lantus and NovoLog. Sugars in 200s. Maintenance fluids discontinued. Remains in sinus rhythm in the 70s on home metoprolol. 04/17 initial blood cultures + for gram positive cocci in clusters. Surveillance cultures drawn 05/10 showing no growth to date. Bronch cultures obtained 05/10 pending, gram stain showing few gram + cocci. Neuro: [facility] ICU: Negative -currently sedated on Fentanyl drip 50mcg/hr and Versed 5 mg/hr Cardiac: * A-fib with RVR - resolved, converted back to sinus rhythm, rate currently in the 70s. Patient required electrical cardioversion x2 on admission which resulted in rate improvement but not rhythm conversion. Rhythm conversion achieved with Cardizem drip, which has since been d/c. currently on home Metoprolol Tartrate 50mg PO BID for continued rate control. - troponin negative on admission - EHCO 05/09 showed mild reduced systolic function and various wall motion ab normalities, without significant change from study in 2013 - Heparin drip was started on admission with concern for PE. Chest CTA and bilateral venous duplexes were both negative. will continue drip in setting of recent A-fib. * Hx ASCVD - continue ASA and plavix Respiratory: * currently on mechanical ventilation. Vent on assist control. 22/450/10/40%. Patient with significant V/Q mismatch, P/F ratio slightly improved at 212 today * Bilateral lung consolidation: CXR on admission showing infiltrate in R lower lobe. Chest CTA 05/10 showing consolidation of right lower and middle lobes, and left lower lobe. Differential consists of multi-focal PNA vs malignancy (possible given history of significant tobacco abuse). will treat for possible PNA with IV vancomycin and zosyn, currently on day 3. - Lactate trending down. Procal trending down. WBC elevated on admission, now normal. Patient afebrile. - Repeat bronchoscopy with brush 05/10. Cultures pending. Gram stain showing few gram + cocci. Fungal smear neg, culture pending. AFB pending. continue to follow cultures. GI: * liver enzymes WNL * NPO; tube feeds currently at rate of 35; goal is 65. will increase today. RENAL/LYTES: * Acute Respiratory Alkalosis. * K low at 3.4; mag normal at 2.2. Phos low at 1.6. calcium corrects to 9.6. IV replacement ordered. continue to monitor. * Cr WNL : * Gallegos -strict Is/Os. >1.3 ml output in past 24 hrs. * UA on admission +4 for ketones, repeat UA showing reduction in ketones; urine culture with pin-point growth, re-incubating. Low suspicion for infection ENDO: * Hx of Type I diabetes mellitus, in DKA on admission. Anion gap has closed. Insulin drip d/c transitioned to Lantus and Novolog. Sugars running in the 200s. - A1c on admission at 13.2 * TSH 0.2 HEME: * hgb slightly low today at 11.2, platelets stable. continue to monitor ID: * Sepsis: patient meet SIRS criteria on admission, suspected pulmonary source. no evidence of multi-organ dysfunction at present. - WBC mildly elevated at 12 on admission, has been normal since. Lactate elevated to 3.2, reduced to 2.2. procal elevated to 6.7 on admission, down to 3.2. CXR on admission showing infiltrate in R lower lobe. Chest CTA 05/10 showing consolidation of right lower and middle lobes, and left lower lobe. Differential consists of multi-focal PNA vs malignancy - 2 of 2 blood cultures showing gram + cocci in clusters. surveillance cultures drawn 05/10 showing no growth to date - continue IV Vancomycin (day 3) and Zosyn (day 3); deescalate/escalate as appropriate. * Nasal MRSA swab negative LINES/IV ACCESS: * L subclavian CVC * L radial Arterial line * Gallegos * OG tube * 3 PIVs CODE STATUS: Full DVT PROPHYLAXIS: heparin drip Thank you for allowing us to participate in the care of this patient. Please refer to my attending physician's documentation for any further recommendations. (2) Pneumonia: (3) Elevated lactic acid level: (4) Rapid atrial fibrillation: Admission and Anticipated Discharge Date Admission Date: May 09, 2019 Supervising Physician Co-Signing Physician Notes Dr. Skaggs was resident physician during care of patient. I separately evaluated patient for osborne portions of the history and the exam. I was present during the critical portion of medical decision making, and I discussed the case with the resident. I generally agree with the findings and plan. Patient critically ill due to influenza B and con commitment staph aureus pneumonia and associated bacteremia. Patient still has significant infiltrates and secretion burden, not candidate for extubation at this time. Repeat blood cultures remain negative, 4 days of prednisone for severe pneumonia. Vancomycin trough pending. Patient was discussed on multidisciplinary rounds. Subjective Patient in ICU. Sedated and mechanically ventilated. Review of Systems Review of Systems: Unobtainable due to endotracheal tube Physical Exam Constitutional: WD/WN, vitals as above + mechanically ventilated ENMT: external ear and nose normal, oropharynx normal ETT and OG tubes in place Neck: normal visual inspection and trachea midline Respiratory: Auscultation: + diminished lung sounds (R lower lobe) and + rhonchi (bilateral lung darby) Cardiovascular: Rate/Rhythm: regular rhythm and + tachycardic Heart Sounds: normal S1 and normal S2 Extremities: no pedal edema Gastrointestinal (Abdomen): Inspection/Auscultation: normal bowel sounds Percussion/Palpation: abdomen soft Skin: no rashes, warm and dry Genitourinary: Gallegos in place draining pale yellow colored urine without visible clots Results & Data ([facility]) Vital Signs (Past 12 Hours) Vital Signs Temp Pulse Pulse Resp BP BP Pulse Ox 05/11/19 05:24 76 22 90 05/11/19 05:00 76 22 132/56 L 92 05/11/19 04:00 36.9 C 66 22 116/53 L 95 05/11/19 03:33 71 22 95 05/11/19 03:00 70 120/49 L 95 05/11/19 02:30 70 95 05/11/19 02:00 72 127/61 95 05/11/19 01:00 74 22 121/59 L 96 05/11/19 00:01 72 22 95 05/11/19 00:00 37.2 C 70 22 125/63 95 05/10/19 23:00 71 22 116/58 L 95 05/10/19 22:00 70 22 121/57 L 95 05/10/19 21:30 67 95 05/10/19 21:00 69 101/52 L 95 05/10/19 20:30 72 95 05/10/19 20:10 82 22 90 05/10/19 20:00 37 C 80 108/54 L 92 05/10/19 19:30 85 94 05/10/19 19:00 93 H 95 Critical Care Time Critical Care Time: Yes Total Critical Care Time: 40 I have personally spent 40 minutes of critical care time in the direct management of this patient. This is a life/limb threatening event. This includes time spent evaluating patient, direct bedside care, chart review, placing orders, interpretation of diagnostic studies, discussion with consultants, patient, and/or family members regarding treatment decisions, as well as other required patient management activities. This time is exclusive of all separately billable procedures, and teaching time and separate from and in addition to any other critical care service time. Resident Activity Tracking Resident Involvement: Resident Care Provided Care Provided: Adult Hospital Medicine (1) Sepsis Sepsis acute organ dysfunction status: unspecified Sepsis type: sepsis due to unspecified organism Qualified Code(s): A41.9 - Sepsis, unspecified organism (2) Pneumonia Laterality: right Lung location: lower lobe of lung Pneumonia type: due to unspecified organism Qualified Code(s): J18.9 - Pneumonia, unspecified organism
--- NOTE | 2019-05-11 07:09 | XRay Report ---
XR chest 1V portable HISTORY: 68 years-old Female f/u acute respiratory failure COMPARISON: Chest radiograph and CTA chest 05/10/2019 TECHNIQUE: Portable AP view of the chest FINDINGS: Cardiac silhouette is enlarged. Prior median sternotomy. Endotracheal tube overlies the midline, 2.9 cm superior to the jaime. Enteric tube courses below the diaphragm distal tip outside the field-of-v iew. Right IJ central venous catheter is unchanged. Calcified plaque of the thoracic aorta. Coronary arterial stent is noted. Operative changes suggestive of prior CABG. No pneumothorax. Trace right ple ural effusion. Progressively worsened right basilar consolidation. Minimal consolidation of the left lung base redemonstrated. Unchanged ill-defined alveolar opacities of the right greater than left upp er lung zones. Bones appear grossly intact. IMPRESSION: 1. Progressively worsened right lung base consolidation. 2. Lines and tubes as above. 3. Cardiomegaly without overt pulmonary edema. 4. Trace right pleural effusion. ACT 112: Negative or not required by law. The above report was generated using voice recognition software. It may contain grammatical, syntax o r spelling errors. Electronically signed by: Cruzito Mccurdy M.D. 05/11/2019 7:08 AM
[2019-05-11] MEDS ORDERED: INSULIN GLARGINE SOLOSTAR 100 UNITS/ML 3 ML PEN SC ONE ×2 (08:00→21:00)
[2019-05-11] MEDS: PIPERACILLIN/TAZOBACTAM 3.375 GM in DEXTROSE 5% 100 ML IV SCH ×2 (08:37→16:25)
[2019-05-11] MEDS: FAMOTIDINE 20 MG in SYRINGE 3 ML IV SCH ×2 (08:37→21:11)
[2019-05-11] MEDS: CLOPIDOGREL BISULFATE 75 MG TAB PO SCH (08:38)
[2019-05-11] MEDS: METOPROLOL TARTRATE 50 MG TAB PO SCH ×2 (08:38→21:11)
[2019-05-11] MEDS: ASPIRIN 81 MG CHEW PO SCH (10:39)
[2019-05-11] MEDS ORDERED: POTASSIUM PHOSPHATE 30 MMOL in SODIUM CHLORIDE 0.9% 500 ML IV ONE (11:00)
[2019-05-11] MEDS ORDERED: POTASSIUM CHLORIDE 20 MEQ/15 ML UDC PO ONE (11:00)
[2019-05-11] MEDS ORDERED: NovoLIN-N (NPH) PER UNIT CHARGE SQ SCH (12:15)
[2019-05-11] MEDS: predniSONE 20 MG TAB PO SCH (12:21)
--- NOTE | 2019-05-11 13:23 | Pharmacy Report ---
Pharmacy Glycemic Short Note 2 - Date of Service May 11, 2019 - Glycemic Short BSG Results (Last 24 hours): 05/10/19 05/10/19 05/10/19 12:46 13:53 15:00 Glucose 177 H POC Glucose 150 H 143 H 05/10/19 05/10/19 05/10/19 15:56 19:43 23:48 Glucose POC Glucose 167 H 224 H 240 H 05/11/19 05/11/19 05/11/19 04:11 04:12 04:59 Glucose Cancelled 273 H POC Glucose 247 H 05/11/19 05/11/19 08:29 12:11 Glucose POC Glucose 306 H* 209 H OUTPATIENT ANTIDIABETIC REGIMEN: * glimepiride 1 mg BID, metformin 500 mg BID * A1c 13.2% 05/09 ASSESSMENT: * Successfully transitioned off of insulin infusion yesterday, however BSGs trending back up with tube feed increase * Uncertain plan for extubation today/tube feed holds, therefore tightened carb ratio and increased AM lantus dose * Per discussion at rounds, will wean towards extubation today, although anticipating tomorrow, plan to start insulin infusion if lunch BSG was >250. 209 at lunch with adjusted parameters, therefore will continue to utilize basal/bolus * Lantus scale for up to 8 additional units this evening (maximum overall 20% increase in basal from yesterday) * Starting prednisone 40 mg daily x 4 days, NPH insulin is used to counteract the hyperglycemic effect of intermediate acting steroids. The rationale for this approach is that the pharmacodynamics profile of NPH mirrors the pharmacodynamics of steroids. NPH should be dosed at the same time that prednisone is given but will give it now since BSGs critical high. * The dose of NPH given is dependent on the steroid dose given * For doses of prednisone 40mg/day equivalent or above NPH dose should be 0.4 units/kg (in this case utilized ~.3 units/kg) * NPH dosing above is given in addition to patients basal insulin needs * Typically, patients will also need rapid-acting insulin with meals Will continue to reassess need to restart insulin infusion. PLAN FOR INPATIENT GLYCEMIC CONTROL: * Hold outpatient oral diabetes medications * Basal insulin * Lantus 25 units sq x 1 this morning * 0/4/8 this evening per scale * Bolus insulin * NovoLog per scale ACHS or Q6hrs while NPO * Goal Range: Low 120 mg/dL - High 160 mg/dL * Correction Factor: 25 mg/dL/unit * Nutritional / Prandial insulin per carb ratio of 1 unit per 8 grams CHO consumed
[2019-05-11 13:53] LABS: Influenza A virus by PCR Neg for Influ A (Neg)
--- NOTE | 2019-05-11 14:35 | Billing Data ---
Date of Service May 11, 2019 Coding Level of Care Code Critical Care 1st - mins
[2019-05-11] MEDS: ACETAMINOPHEN SOLN 500 MG/15.62 ML UDP PO PRN (14:52)
[2019-05-11] MEDS: fentaNYL DRIP 1,250 MCG/250 ML BAG IV SCH (15:00)
[2019-05-11] MEDS: MIDAZOLAM HCL 125 MG/250 ML BAG IV SCH ×2 (15:00→16:15)
[2019-05-11] MEDS ORDERED: VANCOMYCIN TROUGH ONE (15:30)
[2019-05-11] MEDS: OSELTAMIVIR PHOSPHATE SUSP 75 MG/12.5 ML UDP PO SCH ×2 (16:20→21:11)
[2019-05-11] MEDS: HEPARIN SODIUM/DEXTROSE 25,000 UNITS/500 ML BAG IV SCH (16:22)
[2019-05-11] MEDS: VANCOMYCIN HCL 750 MG in SODIUM CHLORIDE 0.9% 250 ML IV SCH (16:25)
--- NOTE | 2019-05-11 17:31 | Pharmacy Report ---
Pharmacy Abx Dose Short Note - Date of Service May 11, 2019 - Assessment & Plan Assessment 68 year old F receiving vancomycin and Zosyn for treatment of sepsis secondary to pulmonary source Day # 3 of antimicrobial therapy. Blood cultures (05/09): S. aureus (awaiting susceptibilities) Bronch brush (05/10): S. aureus (awaiting susceptibilities) Plan Vancomycin * Trough level of 6.2 mcg/mL is subtherapeutic * Change to 1000 mg IV every 12 hours * Goal trough level for bacteremia/pneumonia : 15 to 20 mcg/mL * Trough level ordered for: 05/13/19 Zosyn * 3.375 g IV q8h appropriate at this time Pharmacy will continue to follow and will adjust dose/frequency as necessary. Thank you.
[2019-05-11 17:36] LABS: iSTAT Art Bld Gas pCO2 Correct 25 mmHg (35-46); iSTAT Art Bld Gas pH Corrected 7.472 (7.35-7.45); iSTAT Arterial Blood Gas HCO3 18 meg/L (19-24); iSTAT Arterial Blood Gas pCO2 24 mmHg (35-46); iSTAT Arterial Blood Gas pH 7.48 (7.35-7.45); iSTAT Arterial Blood Gas pO2 82 mmHg (80-95); iSTAT Arterial Blood Gas pO2 C 84; iSTAT Carbon Dioxide 19 mmol/L (24-31); iSTAT Hematocrit 27 % (37-47); iSTAT Hemoglobin 9.2 g/dl (12.0-16.0); iSTAT Potassium 4.8 mmol/L (3.3-5.0); iSTAT Site Art Line; iSTAT Sodium 138 mmol/L (135-144)
--- NOTE | 2019-05-11 17:43 | CT Scan Report ---
CT head/brain wo con CT DOSE: 1637.46 mGy.cm HISTORY: Mental status change decreased responsivness, theraputic on heparin dri TECHNIQUE: Multiaxial CT images of the head were performed without the use of intravenous contrast. A dose lowering technique was utilized adhering to the principles of ALARA. Comparison: 05/09/2019 Findings: The paranasal sinuses and mastoid air cells are clear. The calvarium and skull base are int act. The ventricles and sulci are within normal limits. There is no mass, hematoma, midline shift, or acute infarct. No acute process. Age-related chronic small vessel change. Impression: No acute intracranial abnormality. No change from the prior study. ACT 112: Negative or not required by law. The above report was generated using voice recognition software. It may contain grammatical, syntax or spelling errors. Electronically signed by: Rosendo Regalado M.D. 05/11/2019 5:41 PM
[2019-05-11] MEDS ORDERED: VANCOMYCIN HCL 250 MG in SODIUM CHLORIDE 0.9% 50 ML IV ONE (18:30)
[2019-05-11] MEDS ORDERED: OSELTAMIVIR PHOSPHATE SUSP 75 MG/12.5 ML UDP PO SCH (21:00)
[2019-05-11] MEDS: MAGNESIUM OXIDE 400 MG TAB PO SCH (21:11)
[2019-05-11] MEDS: fentaNYL citrate 100 MCG/2 ML VIAL IV PRN (22:40)
[2019-05-12] MEDS: INSULIN REGULAR 250 UNITS in SODIUM CHLORIDE 0.9% 247.5 ML IV SCH (00:22)
[2019-05-12] MEDS: INSULIN ASPART 100 UNITS/ML 3 ML PEN SC SCH ×6 (00:42→17:18)
[2019-05-12] MEDS: PIPERACILLIN/TAZOBACTAM 3.375 GM in DEXTROSE 5% 100 ML IV SCH ×2 (00:44→08:15)
[2019-05-12] MEDS: fentaNYL citrate 100 MCG/2 ML VIAL IV PRN ×8 (02:49→23:00)
[2019-05-12] MEDS ORDERED: VANCOMYCIN HCL 1,000 MG in SODIUM CHLORIDE 0.9% 250 ML IV SCH (05:00)
[2019-05-12 05:10] LABS: Basophils # (auto) 0.03 K/uL (0-0.2); Basophils % (auto) 0.3 %; Hemoglobin 11.2 g/dL (12.0-16.0); Immature Granulocytes # (auto) 0.07 K/uL (0.00-0.02); Immature Granulocytes % (auto) 0.8 %; Lymphocytes # (auto) 1.32 K/uL (1.2-3.4); Lymphocytes % (auto) 15.2 %; Mean Corpuscular Hemoglobin 29.7 pg (25-34); Mean Corpuscular Volume 84.9 fL (80-100); Mean Platelet Volume 10.3 fL (7.4-10.4); Monocytes # (auto) 1.27 K/uL (0.11-0.59); Monocytes % (auto) 14.6 %; Neutrophils # (auto) 6.01 K/uL (1.4-6.5); Neutrophils % (auto) 69.1 %; Platelet Count 243 K/uL (130-400); RDW Coefficient of Variation 14.6 % (11.5-14.5); RDW Standard Deviation 45.5 fL (36.4-46.3); Red Blood Count 3.77 M/uL (4.2-5.4)
[2019-05-12 05:15] LABS: Allen Test Pos (Pos); Base Excess ABG -2.4 mEq/L (-9-1.8); HCO3 ABG 20 mmol/L (19-24); Oxygen Saturation ABG 93.7 % (90-95); PCO2 ABG 26 mmHg (35-46); PO2 ABG 67 mmHg (80-95)
[2019-05-12 05:18] LABS: Partial Thromboplastin Ratio 1.6; Partial Thromboplastin Time 42.9 Seconds (21.0-31.0)
[2019-05-12 06:03] LABS: Albumin Level 1.5 gm/dl (3.4-5.0); BUN Creatinine Ratio 28.5 (10-20); Bilirubin Direct 0.2 mg/dl (0-0.2); Bilirubin,Total 0.4 mg/dl (0.2-1); Calcium 7.6 mg/dl (8.5-10.1); Est GFR (African American) 108.1; Est GFR (Non-African American) 93.3; Magnesium 2.2 mg/dl (1.8-2.4); Phosphorus 2.7 mg/dl (2.5-4.9); Potassium 3.8 mmol/L (3.5-5.1); Total Protein 5.9 gm/dl (6.4-8.2)
--- NOTE | 2019-05-12 06:10 | Critical Care Progress Note ---
Date of Service May 12, 2019 Assessment & Plan (1) Sepsis: Reason Critically Ill: 68 yo F with PMHx of type I diabetes and tobacco abuse admitted to hospital 05/09 with sepsis secondary to a pulmonary source, diabetic ketoacidosis and A-fib with RVR. Patient was intubated and placed on m echanical ventilation. Required electrical cardioversion x 2. Bedside thoracic US showing consolidation in R lower lung, concerning for malignancy vs. PNA 24 hour events: Patient on mechanical ventilation, unresponsive despite being totally weaned off sedation. Head CT was obtained showing no hemorrhage or acute intracranial abnormality. Ammonia level only mildly elevated to 38. Will obtain brain MRI today. Patient tested positive for influenza B, started on Tamiflu. Bronch cultures obtained 05/10 growing staph aureas. 04/17 initial blood cultures growing staph aureas. Surveillance cultures drawn 05/10 showing no growth to date. Due to increasing blood sugars, insulin drip was restarted. Remains in sinus rhythm in the 70-80s on home metoprolol. Will consider SBT pending mental status evaluation after patient returns form MRI. Neuro: * unresponsiveness - despite sedation being totally weaned by > 14 hours. [place]co score 10, RAAS -3, CAM not applicable (patient does not follow commands) - Head CT 05/11 negative for intracranial bleed - ammonia level mildly elevated to 38 - will obtain brain MRI today. Cardiac: * A-fib with RVR - resolved, converted back to sinus rhythm. Patient required electrical cardioversion x2 on admission which resulted in rate improvement, ultimately converting back to sinus rhythm on Cardizem drip. - Cardizem Drip which has since been d/c. currently on home Metoprolol Tartrate 50mg PO BID for continued rate control. - troponin negative on admission - EHCO 05/09 showed mild reduced systolic function and various wall motion abnormalities, without significant change from study in 2013 - Heparin drip was started on admission with concern for PE. Chest CTA and bilateral venous duplexes were both negative. will continue drip in setting of recent A-fib. * Hx ASCVD - continue ASA and plavix Respiratory: * currently on mechanical ventilation. Vent on PRVC. 16/450/8/40%. Patient continues to have significant V/Q mismatch, P/F ratio at 167.5. * Influenza B with superimposed bacterial PNA - CXR on admission showing infiltrate in R lower lobe. Chest CTA 05/10 showing consolidation of right lower and middle lobes, and left lower lobe. - Differential consists of multi-focal PNA vs malignancy (possible given history of significant tobacco abuse) vs. multifactorial. - will treat for possible PNA with IV vancomycin and zosyn, currently on day 4. - Lactate trending down. Procal trending down. WBC elevated on admission, now normal. Patient afebrile. - Repeat bronchoscopy with brush 05/10. Cultures growing staph aureas. Fungal smear neg, culture pending. AFB pending. continue to follow cultures. Pathology showing atypical epithelial cells, which may be reactive atypia in the setting of inflammation versus a non-small cell carcinoma. Consider repeat imaging after infectious course is completed and/or lung biopsy to differentiate. - positive for flu B on 05/11, currently on day 2 of tamiflu - currently on day 2/ of Prednisone 40mg. GI: * liver enzymes WNL; ammonia level mildly elevated at 38 * NPO; tube feeds at goal rate 65. RENAL/LYTES: * Respiratory Alkalosis. * electrolytes within normal limits * Cr WNL : * Gallegos -strict Is/Os. >1.3 ml output in past 24 hrs. * UA on admission +4 for ketones, repeat UA showing reduction in ketones; urine culture with pin-point growth, re-incubating. Low suspicion for infection ENDO: * Hx of Type I diabetes mellitus, in DKA on admission. Anion gap has closed. Beta-hydroxybutyric acid > 50 on admission, down to 0.59. Insulin drip restarted due to sugars ranging in 300s; currently at rate of 5.9. - tube feed rate was increased on 05/11 and steroids were ordered. continue to follow sugars. - A1c on admission at 13.2. Prior to being intubated patient reported non- compliance with meds * TSH 0.2 HEME: * hgb stable at 11. platelets stable. ID: * Sepsis: patient meet SIRS criteria on admission, suspected Influenza B with superimposed MRSA pneumonia and bacteremia. no evidence of multi-organ dysfunction at present. - WBC mildly elevated at 12 on admission, has been normal since. Lactate elevated to 3.2, reduced to 2.2. procal elevated to 6.7 on admission, down to 3.2. - CXR on admission showing infiltrate in R lower lobe. Chest CTA 05/10 showing consolidation of right lower and middle lobes, and left lower lobe. Differential consists of multi-focal PNA vs malignancy - 2 of 2 blood cultures showing gram + cocci in clusters. surveillance cultures drawn 05/10 showing no growth to date - bronch cultures 05/10 growing staph aureas - continue IV Vancomycin (day 4) and Zosyn (day 4); deescalate/escalate as appropriate. - continue Tamiflu (day 2 of 5) * Nasal MRSA swab negative LINES/IV ACCESS: * L subclavian CVC * L radial Arterial line * Gallegos * OG tube * 3 PIVs CODE STATUS: Full DVT PROPHYLAXIS: heparin drip Thank you for allowing us to participate in the care of this patient. Please refer to my attending physician's documentation for any further recommendations. (2) Pneumonia: (3) Elevated lactic acid level: (4) Rapid atrial fibrillation: Admission and Anticipated Discharge Date Admission Date: May 09, 2019 Supervising Physician Co-Signing Physician Notes Dr. Skaggs was resident physician during care of patient. I separately evaluated patient for osborne portions of the history and the exam. I was present during the critical portion of medical decision making, and I discussed the case with the resident. I generally agree with the findings and plan. Patient critically ill due to influenza B and con commitment staph aureus pneumonia and associated bacteremia. Patient still has significant infiltrates and secretion burden, not candidate for extubation at this time. Repeat blood cultures remain negative, 4 days of prednisone for severe pneumonia. Patient was discussed on multidisciplinary rounds. Subjective Patient in ICU. Sedated and mechanically ventilated. Review of Systems Review of Systems: Unobtainable due to endotracheal tube Physical Exam Constitutional: WD/WN, vitals as above + mechanically ventilated ENMT: external ear and nose normal, oropharynx normal Neck: normal visual inspection and trachea midline Respiratory: Auscultation: + rhonchi (bilateral lung darby); no crackles, no rales and no pleural rub Increased breath sounds appreciated on exam today relative to 05/11 Cardiovascular: Rate/Rhythm: regular rhythm and + tachycardic Heart Sounds: normal S1 and normal S2 Extremities: no pedal edema Gastrointestinal (Abdomen): Inspection/Auscultation: normal bowel sounds Percussion/Palpation: abdomen soft Skin: no rashes, warm and dry Neurologic: Some purposeful movements. When aroused patient will open eye but does not tract examiner. does not follow 1 step commands. Genitourinary: Gallegos catheter in place draining pale yellow colored urine without visible blood clots Results & Data ([facility]) Vital Signs (Past 12 Hours) Vital Signs Temp Pulse Resp BP Pulse Ox 05/12/19 05:53 101 H 30 H 93 05/12/19 04:45 87 24 120/74 93 05/12/19 03:45 82 24 125/69 93 05/12/19 02:45 112 H 16 94 05/12/19 02:40 111 H 35 H 161/112 H 94 05/12/19 01:43 98 H 26 H 138/83 95 05/12/19 01:00 86 05/12/19 00:44 37.4 C 93 H 136/81 95 05/12/19 00:00 100 H 158/94 H 05/11/19 23:43 78 102/63 94 05/11/19 23:28 80 24 92 05/11/19 22:43 90 142/93 H 96 05/11/19 21:43 102 H 156/106 H 97 05/11/19 20:44 110 H 137/99 96 05/11/19 20:19 101 H 27 H 96 05/11/19 20:00 82 111/56 L 05/11/19 19:43 37.5 C 78 122/69 94 05/11/19 19:39 93 H 147/107 H 95 05/11/19 19:36 93 H 170/109 H 96 05/11/19 19:32 93 H 167/105 H 96 05/11/19 18:17 90 102/66 Critical Care Time Critical Care Time: Yes Total Critical Care Time: 40 I have personally spent 40 minutes of critical care time in the direct management of this patient. This is a life/limb threatening event. This includes time spent evaluating patient, direct bedside care, chart review, placing orders, interpretation of diagnostic studies, discussion with consultants, patient, and/or family members regarding treatment decisions, as well as other required patient management activities. This time is exclusive of all separately billable procedures, and teaching time and separate from and in addition to any other critical care service time. Resident Activity Tracking Resident Involvement: Resident Care Provided Care Provided: Adult [facility] Medicine (1) Sepsis Sepsis acute organ dysfunction status: unspecified Sepsis type: sepsis due to unspecified organism Qualified Code(s): A41.9 - Sepsis, unspecified organism (2) Pneumonia Laterality: right Lung location: lower lobe of lung Pneumonia type: due to unspecified organism Qualified Code(s): J18.9 - Pneumonia, unspecified organism
[2019-05-12] MEDS ORDERED: HEPARIN IV BOLUS 2,000 UNITS in SYRINGE 0 ML IV ONE (06:15)
--- NOTE | 2019-05-12 06:16 | Hospitalist Progress Note ---
Date of Service May 11, 2019 Assessment & Plan (1) Sepsis: Patient has an elevated lactic acid level and apparent right lower lobe infiltrate on chest x-ray. She was admitted to the ICU and intubated-remains on the ventilator after having significant respiratory distress with tachypnea, hypotension Management as per instructional design specialist Treating for pneumonia as below Growing Staphylococcus aureus, sensitivities pending in 2 out of 2 blood cultures and in bronchoalveolar lavage culture Repeat blood cultures no growth to date Influenza B positive on 05/11-added Tamiflu -Continue Zosyn and vancomycin -Continue to follow blood and sputum cultures from bronchoscopy -Received copious IV fluids which have now been discontinued Blood pressures are stable and did not require vasopressors after DC cardioversion for rapid atrial fibrillation (2) Influenza B: With influenza B, sepsis, and Staphylococcus aureus pneumonia and septicemia -Added Tamiflu 75 mg twice daily on 05/11 for 5-day course (3) Acute respiratory failure: As noted above, secondary to pneumonia and DKA. Ventilator management as per instructional design specialist (4) DKA (diabetic ketoacidoses): Severely acidotic upon admission which has now resolved Anion gap is closed Was on insulin drip and stop and titrated off to basal bolus insulin Electrolytes will continue to be checked and repleted as needed Hemoglobin A1c up to 13.2% from previous of 8.1% last year (5) Rapid atrial fibrillation: Patient presented hypotensive with pulse 179 and rapid atrial fibrillat ion. She received copious IV fluids and was DC cardioverted in the ICU Now remains in sinus rhythm Is receiving metoprolol 50 mg twice daily through OG tube -Is on heparin drip Echocardiogram with mildly reduced EF at 45-50%, mild LVH, positive wall motion abnormalities which are stable from previous with hypokinesis in the inferior wall from base to the mid ventricle (6) Pneumonia: Dense consolidation right lower lobe as above Had bronchoscopy on 05/10 Chest x-ray on 05/11 with persistent dense consolidation Procalcitonin is trending downward from 6 down to 3.2 today On ventilator as above -Follow cultures-growing Staphylococcus aureus, sensitivities pending -Continue antibiotics as above (7) Elevated lactic acid level: As above Improving (8) Dyslipidemia: Holding home gemfibrozil and Zetia Holding home atorvastatin -Continue aspirin 81 mg daily (9) Acid reflux: -Continue Pepcid 20 mg IV twice daily -On tube feeds -Holding home Prilosec (10) CAD (coronary artery disease): With a history of CABG -Continue home aspirin, Plavix, metoprolol -Holding lipid drugs as above -Holding home isosorbide (11) Cardiomyopathy, ischemic: As noted in echo above -Continues on metoprolol tartrate 50 mg twice daily (12) Stenosis of right carotid artery: With known moderate stenosis Follow as an outpatient On antiplatelet and statin as an outpatient (13) Type 2 diabetes mellitus: Uncontrolled as above Holding home metformin and glimepiride -Should continue on insulin after discharge given severely uncontrolled hemoglobin A1c (14) Chronic obstructive pulmonary disease: With long history of smoking -Currently on the ventilator and oxygenating well Holding home albuterol -Started on prednisone by instructional design specialist (15) Bacteremia: As above, growing Staphylococcus aureus, sensitivities pending -Follow repeat blood cultures -Continue on vancomycin (16) Hypophosphatemia: Replaced in the ICU -Follow phosphorus levels in the morning, BMP (17) DVT prophylaxis: Heparin drip Disposition-remain in the ICU Full code Lines: Right IJ, right peripheral IV, left radial arterial line, Gallegos catheter, OG tube Admission and Anticipated Discharge Date Admission Date: May 09, 2019 Subjective Patient remains mechanically ventilated and sedated. She is off sedation when I saw her in the evening and did briefly open her eyes and move her left arm but and fall back asleep. Tested positive for influenza B today Otherwise no events overnight. Was not ready for extubation today. Review of Systems Review of Systems: Unobtainable due to endotracheal tube and Unobtainable due to reduced consciousness Physical Exam Constitutional: average body habitus; no acute distress (Sedated) ENMT: external ear and nose normal, oropharynx normal (ET tube in place) Neck: trachea midline, no thyromegaly Respiratory: normal respiratory effort (On ventilator) Auscultation: + rhonchi (Right lower lung field); no wheezes Cardiovascular: RRR, no murmur, no edema Chest (Breasts): Chest: normal inspection of chest Gastrointestinal (Abdomen): normal bowel sounds, soft, nontender, no hepatosplenomegaly Musculoskeletal: Extremities: extremities normal to inspection; no cyanosis and no clubbing Skin: no rashes, warm and dry Genitourinary: normal external appearance (With Gallegos catheter in place draining clear yellow urine) Lymphatic: no lymphedema Results & Data ([facility]) Vital Signs (Past 12 Hours) Vital Signs Temp Pulse Resp BP Pulse Ox 05/12/19 05:53 101 H 30 H 93 05/12/19 04:45 87 24 120/74 93 05/12/19 03:45 82 24 125/69 93 05/12/19 02:45 112 H 16 94 05/12/19 02:40 111 H 35 H 161/112 H 94 05/12/19 01:43 98 H 26 H 138/83 95 05/12/19 01:00 86 05/12/19 00:44 37.4 C 93 H 136/81 95 05/12/19 00:00 100 H 158/94 H 05/11/19 23:43 78 102/63 94 05/11/19 23:28 80 24 92 05/11/19 22:43 90 142/93 H 96 05/11/19 21:43 102 H 156/106 H 97 05/11/19 20:44 110 H 137/99 96 05/11/19 20:19 101 H 27 H 96 05/11/19 20:00 82 111/56 L 05/11/19 19:43 37.5 C 78 122/69 94 05/11/19 19:39 93 H 147/107 H 95 05/11/19 19:36 93 H 170/109 H 96 05/11/19 19:32 93 H 167/105 H 96 05/11/19 18:17 90 102/66 Laboratory Results Labs reviewed Influenza B positive Blood cultures with Staphylococcus aureus, sensitivities pending Urine culture with pinpoint growth Cytology from bronchoscopy pending Procalcitonin down to 3.25 Diagnostic Findings Chest x-ray image personally reviewed and agree with increased right lower lobe opacity PG Care Time/CCT Total # of Minutes Spent Total Time Spent with Patient: Total time spent is greater than 50% in coordination of care (as documented) at patient's floor/unit and/or counseling patient: Coding Level of Care Code 29961 Subseq Hosp Care Lvl 2 Diagnoses Sepsis A41.9 Influenza B J10.1 Acute respiratory failure J96.01 Respiratory failure complication: hypoxia DKA (diabetic ketoacidoses) E11.10 Rapid atrial fibrillation I48.91 Pneumonia J18.9 Laterality: right Lung location: lower lobe of lung Pneumonia type: due to unspecified organism Elevated lactic acid level R79.89 Dyslipidemia E78.5 Acid reflux K21.9 CAD (coronary artery disease) I25.10 Cardiomyopathy, ischemic I25.5 Stenosis of right carotid artery I65.21 Type 2 diabetes mellitus E11.9 Chronic obstructive pulmonary disease J44.9 Bacteremia R78.81 Hypophosphatemia E83.39 DVT prophylaxis Z29.9 (1) Acute respiratory failure Respiratory failure complication: hypoxia Qualified Code(s): J96.01 - Acute respiratory failure with hypoxia (2) Pneumonia Laterality: right Lung location: lower lobe of lung Pneumonia type: due to unspecified organism Qualified Code(s): J18.9 - Pneumonia, unspecified organism
[2019-05-12 06:18] LABS: Beta-Hydroxybutyrate 0.59 mg/dl (0.2-2.81)
--- NOTE | 2019-05-12 07:34 | XRay Report ---
XR chest 1V portable HISTORY: Acute respiratory failure. Abnormal chest x-ray. Follow-up. COMPARISON: Chest 05/11/2019. FINDINGS: The endotracheal tube terminates 2.6 cm from the jaime. Nasogastric tube terminates below the diaphragm. The tip is not included on this study. Right jugular central venous catheter terminate s at the proximal SVC. No pneumothorax. Right lung base airspace opacity has slightly improved. There may be a trace right pleural effusion. The heart is borderline enlarged. There is mild central pulmo nary vascular congestion without overt edema. IMPRESSION: 1. Satisfactory support line placement. 2. Slight improved aeration within the right lung base consolidation. 3. Trace right pleural effusion persists. 4. Mild central pulmonary vascular congestion without overt edema. ACT 112: Negative or not required by law. Electronically signed by: Bhavesh Veras M.D. 05/12/2019 7:33 AM
[2019-05-12] MEDS: predniSONE 20 MG TAB PO SCH (08:12)
[2019-05-12] MEDS: METOPROLOL TARTRATE 50 MG TAB PO SCH ×2 (08:12→20:50)
[2019-05-12] MEDS: CLOPIDOGREL BISULFATE 75 MG TAB PO SCH (08:13)
[2019-05-12] MEDS: OSELTAMIVIR PHOSPHATE SUSP 75 MG/12.5 ML UDP PO SCH ×2 (08:15→20:50)
[2019-05-12] MEDS: FAMOTIDINE 20 MG in SYRINGE 3 ML IV SCH ×2 (08:15→20:51)
[2019-05-12] MEDS: ASPIRIN 81 MG CHEW PO SCH (08:23)
[2019-05-12] MEDS ORDERED: NovoLIN-N (NPH) PER UNIT CHARGE SQ SCH (09:00)
[2019-05-12] MEDS ORDERED: INSULIN GLARGINE SOLOSTAR 100 UNITS/ML 3 ML PEN SC ONE (11:15)
[2019-05-12 13:00] LABS: Partial Thromboplastin Ratio 1.6; Partial Thromboplastin Time 43.6 Seconds (21.0-31.0)
[2019-05-12] MEDS ORDERED: HEPARIN IV BOLUS 2,000 UNITS in SYRINGE 0 ML IV STA (13:43)
--- NOTE | 2019-05-12 14:51 | Pharmacy Report ---
Pharmacy Glycemic Short Note 2 - Date of Service May 12, 2019 - Glycemic Short BSG Results (Last 24 hours): 05/11/19 05/11/19 05/11/19 16:35 20:09 21:05 Glucose POC Glucose 262 H 292 H 258 H 05/11/19 05/11/19 05/12/19 23:53 23:54 01:15 Glucose POC Glucose 371 H* 412 H* 362 H* 05/12/19 05/12/19 05/12/19 02:06 03:41 04:42 Glucose POC Glucose 303 H* 314 H* 308 H* 05/12/19 05/12/19 05/12/19 04:56 05:49 06:45 Glucose 312 H* POC Glucose 300 H 264 H 05/12/19 05/12/19 05/12/19 08:07 09:03 10:02 Glucose POC Glucose 234 H 229 H 238 H 05/12/19 05/12/19 05/12/19 11:23 12:14 13:29 Glucose POC Glucose 204 H 200 H 218 H 05/12/19 14:16 Glucose POC Glucose 210 H OUTPATIENT ANTIDIABETIC REGIMEN: * glimepiride 1 mg BID, metformin 500 mg BID * A1c 13.2% 05/09 ASSESSMENT: 05/12 * Patient restarted on insulin infusion overnight as BSGs went back into the 300s, currently running at 8.5 units/hr, with BSGs in low 200s * Gave 25 units of NPH with prednisone today, tube feeds up to goal, will tighten CR, continues on heparin gtt * Plan to keep patient on insulin infusion today, will give supplemental lantus dose without intention of turning drip off * S. aureus identified as MSSA- antibiotics changed to ceftriaxone 05/11 * Successfully transitioned off of insulin infusion yesterday, however BSGs trending back up with tube feed increase * Uncertain plan for extubation today/tube feed holds, therefore tightened carb ratio and increased AM lantus dose * Per discussion at rounds, will wean towards extubation today, although anticipating tomorrow, plan to start insulin infusion if lunch BSG was >250. 209 at lunch with adjusted parameters, therefore will continue to utilize ba rubi/bolus * Lantus scale for up to 8 additional units this evening (maximum overall 20% increase in basal from yesterday) * Starting prednisone 40 mg daily x 4 days, NPH insulin is used to counteract th e hyperglycemic effect of intermediate acting steroids. The rationale for this approach is that the pharmacodynamics profile of NPH mirrors the pharmacodynamics of steroids. NPH should be dosed at the same time that prednisone is given but will give it now since BSGs critical high. * The dose of NPH given is dependent on the steroid dose given * For doses of prednisone 40mg/day equivalent or above NPH dose should be 0.4 units/kg (in this case utilized ~.3 units/kg) * NPH dosing above is given in addition to patients basal insulin needs * Typically, patients will also need rapid-acting insulin with meals Will continue to reassess need to restart insulin infusion. PLAN FOR INPATIENT GLYCEMIC CONTROL: * Hold outpatient oral diabetes medications * Insulin infusion currently @8.5 units/hr- continue today * Basal insulin * NPH 25 units x 1, * 20 units x 1 * Bolus insulin * NovoLog per scale ACHS or Q6hrs while NPO * Goal Range: Low 110 mg/dL - High 180 mg/dL * Nutritional / Prandial insulin per carb ratio of 1 unit per 5 grams CHO consumed
[2019-05-12] MEDS ORDERED: METOPROLOL TARTRATE 1 MG/ML VIAL IV ONE ×2 (16:03→16:11)
[2019-05-12] MEDS: ACETAMINOPHEN SOLN 500 MG/15.62 ML UDP PO PRN (17:27)
[2019-05-12] MEDS ORDERED: METOPROLOL TARTRATE 1 MG/ML VIAL IV STA ×2 (18:13→18:14)
[2019-05-12] MEDS: cefTRIAXone SODIUM 2,000 MG in DEXTROSE 5% 50 ML IV SCH (18:46)
--- NOTE | 2019-05-12 19:44 | Hospitalist Progress Note ---
Date of Service May 12, 2019 Assessment & Plan (1) Sepsis: Sepsis and septicemia secondary to Staphylococcus aureus pneumonia and influenza B Patient has an elevated lactic acid level and with right lower lobe infiltrate on chest imaging She was admitted to the ICU and intubated-remains on the ventilator after having significant respiratory distress with tachypnea, hypotension Management as per salon/spa manager Treating for pneumonia as below Growing Staphylococcus aureus, MSSA 2 out of 2 blood cultures and in bronchoalveolar lavage culture Repeat blood cultures no growth to date Influenza B positive on 05/11-added Tamiflu -Changed Zosyn and vancomycin to ceftriaxone only on 05/12 -Continue to follow blood cultures -Received copious IV fluids which have now been discontinued Blood pressures are stable and did not require vasopressors after DC cardioversion for rapid atrial fibrillation (2) Influenza B: With influenza B, sepsis, and Staphylococcus aureus pneumonia and septicemia -Added Tamiflu 75 mg twice daily on 05/11 for 5-day course (3) Acute respiratory failure: As noted above, secondary to pneumonia and DKA. Ventilator management as per salon/spa manager-remains on the ventilator, not ready for extubation yet, no purposeful movement when sedation removed -Going for brain MRI (4) DKA (diabetic ketoacidoses): Severely acidotic upon admission which has now resolved Anion gap is closed but having continued hyperglycemia Now back on insulin drip Electrolytes will continue to be checked and repleted as needed Hemoglobin A1c up to 13.2% from previous of 8.1% last year (5) Rapid atrial fibrillation: Patient presented hypotensive with pulse 179 and rapid atrial fibrillation. She received copious IV fluids and was DC cardioverted in the ICU Now remains in sinus rhythm with some sinus tachycardia Is receiving metoprolol 50 mg twice daily through OG tube and was given IV Lopressor today for tachycardia in the 130s -Remains on heparin drip Echocardiogram with mildly reduced EF at 45-50%, mild LVH, positive wall motion abnormalities which are stable from previous with hypokinesis in the inferior wall from base to the mid ventricle (6) Pneumonia: Staph aureus Pneumonia Dense consolidation right lower lobe as above Had bronchoscopy on 05/10 Chest x-ray on 05/11 with persistent dense consolidation Procalcitonin is trending downward from 6 down to 3.2 On ventilator as above -Follow cultures-growing methicillin sensitive Staphylococcus aureus -Continue antibiotics as above (7) Elevated lactic acid level: As above Improving (8) Dyslipidemia: Holding home gemfibrozil and Zetia Holding home atorvastatin -Continue aspirin 81 mg daily and Plavix (9) Acid reflux: -Continue Pepcid 20 mg IV twice daily -On tube feeds -Holding home Prilosec (10) CAD (coronary artery disease): With a history of CABG -Continue home aspirin, Plavix, metoprolol -Holding lipid drugs as above -Holding home isosorbide (11) Cardiomyopathy, ischemic: As noted in echo above with wall motion abnormalities -Continues on metoprolol tartrate 50 mg twice daily (12) Stenosis of right carotid artery: With known moderate stenosis Follow as an outpatient On antiplatelet and statin as an outpatient (13) Type 2 diabetes mellitus: Uncontrolled as above Holding home metformin and glimepiride -Should continue on insulin after discharge given severely uncontrolled hemogl obin A1c (14) Chronic obstructive pulmonary disease: With long history of smoking -Currently on the ventilator and oxygenating well Holding home albuterol -Started on prednisone by salon/spa manager-continue burst for 5 to 7 days (15) Bacteremia: As above, growing MSSA -Follow repeat blood cultures -Converted now to ceftriaxone only (16) Hypophosphatemia: Replaced in the ICU -Follow phosphorus levels in the morning, BMP (17) Fever: Started having fevers again on 05/12 Could be secondary to medications, atelectasis Management as per salon/spa manager No evidence of skin infections or rashes -Consider repeat UA with culture, blood cultures (18) Encephalopathy: Was off sedation most of the day and did not have any purposeful movement CT of the head negative on 05/11 Suspect secondary to continued illness and being on fentanyl and Versed drips for several days -Checking brain MRI (19) DVT prophylaxis: Heparin drip Disposition-remain in the ICU Full code Lines: Right IJ, right peripheral IV, left radial arterial line, Gallegos catheter, OG tube Admission and Anticipated Discharge Date Admission Date: May 09, 2019 Subjective Patient remains sedated and intubated. She was off sedation all day and had very minimal purposeful movement as per nursing. A brain MRI is now pending. For me, she was back on a later sedation and would not wake up. She remains off pressors, she has been febrile today. Review of Systems Review of Systems: Unobtainable due to endotracheal tube and Unobtainable due to reduced consciousness Physical Exam Constitutional: average body habitus; no acute distress (Sedated) Eyes: + anicteric sclerae and PERRL; no anisocoria and normal pupil size (Bilateral pupils 2 mm) ENMT: external ear and nose normal, oropharynx normal (ET tube in place) Neck: trachea midline, no thyromegaly Respiratory: normal respiratory effort, lungs clear to auscultation normal respiratory effort (On ventilator) Auscultation: no wheezes Cardiovascular: Rate/Rhythm: regular rate and regular rhythm Extremities: normal capillary refill and + edema (Trace pitting edema of the feet and distal legs bilaterally) Chest (Breasts): Chest: normal inspection of chest Gastrointestinal (Abdomen): normal bowel sounds, soft, nontender, no hepatosplenomegaly Musculoskeletal: Extremities: extremities normal to inspection; no cyanosis and no clubbing Skin: no rashes, warm and dry Genitourinary: normal external appearance (With Gallegos catheter in place draining clear orange-yellow urine) Lymphatic: no lymphedema Results & Data ([facility]) Vital Signs (Past 12 Hours) Vital Signs Pulse Resp BP Pulse Ox 05/12/19 18:47 150 H 05/12/19 16:30 16 05/12/19 15:55 135 H 34 H 91 05/12/19 13:45 87 19 93 05/12/19 13:44 88 107/70 94 05/12/19 13:00 125 H 84 L 05/12/19 12:44 139 H 176/122 H 91 05/12/19 11:43 98 H 146/91 H 85 L 05/12/19 11:18 78 22 95 05/12/19 10:43 77 122/59 L 92 05/12/19 09:44 74 113/67 93 05/12/19 09:00 77 05/12/19 08:44 105 H 154/106 H 92 05/12/19 08:25 134 H 36 H 93 Laboratory Results Labs reviewed Diagnostic Findings Chest x-ray reviewed PG Care Time/CCT Total # of Minutes Spent Total Time Spent with Patient: Total time spent is greater than 50% in coordinat ion of care (as documented) at patient's floor/unit and/or counseling patient: Coding Level of Care Code 05884 Subseq Hosp Care Lvl 2 Diagnoses Sepsis A41.9 Influenza B J10.1 Acute respiratory failure J96.01 Respiratory failure complication: hypoxia DKA (diabetic ketoacidoses) E11.10 Rapid atrial fibrillation I48.91 Pneumonia J18.9 Laterality: right Lung location: lower lobe of lung Pneumonia type: due to unspecified organism Elevated lactic acid level R79.89 Dyslipidemia E78.5 Acid reflux K21.9 CAD (coronary artery disease) I25.10 Cardiomyopathy, ischemic I25.5 Stenosis of right carotid artery I65.21 Type 2 diabetes mellitus E11.9 Chronic obstructive pulmonary disease J44.9 Bacteremia R78.81 Hypophosphatemia E83.39 Fever R50.9 Encephalopathy G93.40 DVT prophylaxis Z29.9 (1) Acute respiratory failure Respiratory failure complication: hypoxia Qualified Code(s): J96.01 - Acute respiratory failure with hypoxia (2) Pneumonia Laterality: right Lung location: lower lobe of lung Pneumonia type: due to unspecified organism Qualified Code(s): J18.9 - Pneumonia, unspecified organism
[2019-05-12 20:08] LABS: Partial Thromboplastin Ratio 1.8
[2019-05-12 20:30] LABS: Partial Thromboplastin Time 48.7 Seconds (21.0-31.0)
[2019-05-12] MEDS: MAGNESIUM OXIDE 400 MG TAB PO SCH (20:50)
[2019-05-12] MEDS: ATORVASTATIN 40 MG TAB PO SCH (20:50)
[2019-05-12] MEDS: HEPARIN SODIUM/DEXTROSE 25,000 UNITS/500 ML BAG IV SCH (21:02)
[2019-05-12] MEDS ORDERED: GADOBUTROL 65ML VIAL IV PRN (22:22)
--- NOTE | 2019-05-12 22:33 | Magnetic Resonance Report ---
MR angio head wo con HISTORY: 68 years-old Female altered mental status acutely altered mental status COMPARISON: Brain MRI of same day, head CT 05/11/2019 TECHNIQUE: MRA of the head was obtained without the use of IV contrast utilizing 3-D [id number] s equencing. 3-D coronal and sagittal MIPS were obtained from the axial data set and submitted for revi ew. All measurements were obtained according to NASCET criteria. FINDINGS: The imaged bilateral internal carotid arteries are patent. The middle and anterior cerebral arteries also appear unremarkable and are widely patent. Dominant right vertebral artery. Vertebral arteries, basilar and posterior cerebral arteries also appear patent. There is no aneurysm, dissection, high-gr hailey stenosis or proximal branch occlusion identified. Mucosal thickening of the right maxillary sinus incidentally noted. IMPRESSION: Unremarkable MRA of the head. ACT 112: Negative or not required by law. The above report was generated using voice recognition software. It may contain grammatical, syntax o r spelling errors. Electronically signed by: Cruzito Mccurdy M.D. 05/12/2019 10:32 PM
--- NOTE | 2019-05-12 23:07 | Magnetic Resonance Report ---
MR brain wo/w con HISTORY: 68 years-old Female altered mental status acutely altered mental status COMPARISON: MRA of the head of same day, CT head 05/11/2019 TECHNIQUE: Multiplanar multisequence MRI of the brain was obtained both with and without the use of 6 .0 mL Gadavist FINDINGS: Gang Miner localizer images demonstrate no gross extracranial abnormality. There is no restricted diffusio n to suggest acute or subacute infarct. Midline structures including the corpus callosum, brainstem, optic chiasm, pituitary and pineal glands appear unremarkable. Degenerative changes of the cervical s pine. Study is motion degraded. Age-related involutional changes. Moderate T2/FLAIR hyperintensities about the white matter are nonsp ecific however suggest chronic microvascular ischemic disease. No acute intracranial hemorrhage, midl ine shift, abnormal extra axial collection, hydrocephalus or intracranial mass. Multiple punctate rem ote lacunar infarctions of the cerebellum. No pathologic blooming artifact on the T2 star series. The re is no abnormal intra-axial or extra-axial intracranial enhancement. There are multiple complex subcutaneous lesions of the scalp measuring up to approximately 1.4 cm sug gestive of probable sebaceous cysts. The major flow voids appear patent and unremarkable. Moderate le ft and large right mastoid effusions. Moderate to severe mucosal thickening of the right maxillary si nus with aerated secretions. Additional mucosal thickening of the right sphenoid sinus. Skull and orb its are unremarkable. Endotracheal tube is partially imaged. IMPRESSION: 1. Motion degraded exam without acute intracranial abnormality. Specifically, there is no evidence of acute or subacute infarct. 2. Age-related involutional changes with moderate degree of nonspecific T2/FLAIR hyperintensities thr oughout the white matter suggestive of probable chronic microvascular ischemic disease. 3. Paranasal sinus disease as above. 4. No abnormal enhancement. ACT 112: Negative or not required by law. The above report was generated using voice recognition software. It may contain grammatical, syntax o r spelling errors. Electronically signed by: Cruzito Mccurdy M.D. 05/12/2019 11:06 PM
[2019-05-13] MEDS ORDERED: FENTANYL BOLUS FROM BAG IV ONE (01:38)
[2019-05-13] MEDS ORDERED: VANCOMYCIN TROUGH ONE (04:30)
[2019-05-13 04:33] LABS: Hemoglobin 10.5 g/dL (12.0-16.0); Mean Corpuscular Hemoglobin 30.1 pg (25-34); Platelet Count 276 K/uL (130-400); RDW Coefficient of Variation 14.8 % (11.5-14.5); RDW Standard Deviation 46.5 fL (36.4-46.3); Red Blood Count 3.49 M/uL (4.2-5.4); White Blood Count 12.62 K/uL (4.8-10.8)
[2019-05-13 04:43] LABS: Partial Thromboplastin Ratio 1.6; Partial Thromboplastin Time 42.7 Seconds (21.0-31.0)
[2019-05-13 04:53] LABS: Basophils # (auto) 0.03 K/uL (0-0.2); Basophils % (auto) 0.2 %; Echinocytes 1+; Immature Granulocytes # (auto) 0.11 K/uL (0.00-0.02); Immature Granulocytes % (auto) 0.9 %; Lymphocytes # (auto) 2.43 K/uL (1.2-3.4); Lymphocytes % (auto) 19.3 %; Monocytes # (auto) 1.88 K/uL (0.11-0.59); Monocytes % (auto) 14.9 %; Neutrophils # (auto) 8.17 K/uL (1.4-6.5); Neutrophils % (auto) 64.7 %; Toxic Granulation 2+
[2019-05-13 04:56] LABS: Albumin Level 1.4 gm/dl (3.4-5.0); BUN Creatinine Ratio 36.6 (10-20); Calcium 7.4 mg/dl (8.5-10.1); Creatinine Clr Calc Pharmacy 98.4 ml/min; Est GFR (African American) 119.3; Est GFR (Non-African American) 102.9; Magnesium 1.9 mg/dl (1.8-2.4); Phosphorus 2.2 mg/dl (2.5-4.9); Potassium 3.4 mmol/L (3.5-5.1)
[2019-05-13 04:58] LABS: Albumin Globulin Ratio 0.3 (0.9-2); Bilirubin,Total 0.4 mg/dl (0.2-1); Globulin 4.1 gm/dl (2.5-4.0); Total Protein 5.5 gm/dl (6.4-8.2)
[2019-05-13 05:29] LABS: iSTAT Art Bld Gas pCO2 Correct 30 mmHg (35-46); iSTAT Art Bld Gas pH Corrected 7.452 (7.35-7.45); iSTAT Arterial Blood Gas HCO3 21 meg/L (19-24); iSTAT Arterial Blood Gas pCO2 30 mmHg (35-46); iSTAT Arterial Blood Gas pH 7.45 (7.35-7.45); iSTAT Arterial Blood Gas pO2 67 mmHg (80-95); iSTAT Arterial Blood Gas pO2 C 66; iSTAT Carbon Dioxide 22 mmol/L (24-31); iSTAT Hematocrit 28 % (37-47); iSTAT Hemoglobin 9.5 g/dl (12.0-16.0); iSTAT Potassium 3.4 mmol/L (3.3-5.0); iSTAT Site Art Line; iSTAT Sodium 142 mmol/L (135-144)
[2019-05-13] MEDS: INSULIN ASPART 100 UNITS/ML 3 ML PEN SC SCH ×4 (05:39→16:59)
[2019-05-13] MEDS ORDERED: HEPARIN IV BOLUS 2,000 UNITS in SYRINGE 0 ML IV STA (05:41)
[2019-05-13] MEDS ORDERED: POTASSIUM PHOS 3 MMOL/1 ML INFUSION IV STA (05:56)
--- NOTE | 2019-05-13 06:16 | Critical Care Progress Note ---
Date of Service May 13, 2019 Assessment & Plan (1) Sepsis: Reason Critically Ill: 68 yo F with PMHx of type I diabetes and tobacco abuse admitted to hospital 05/09 with sepsis secondary to a pulmonary source, diabetic ketoacidosis and A-fib with RVR. Patient was intubated and placed on m echanical ventilation. Required electrical cardioversion x 2. Bedside thoracic US showing consolidation in R lower lung, concerning for malignancy vs. PNA 24 hour events: Continues on mechanical ventilation. With trials off sedation, patient becomes tachycardiac, tachypneic, hypertensive. She is unresponsive, does not follow commands or respond to painful stimuli. SBT not attempted given unresponsiveness. Brain MRI, head and neck MRA showing no signs of acute or subacute ischemic stroke. Bronchoscopy performed today with washings. Insulin drip and heparin drip are continued. Patient did slip into A-fib with RVR last night, but was able to be converted via IV metoprolol. Currently in sinus rhythm in the 70-80s. blood culture sensitivities return as + for MSSA. Antibiotics deescalated to Rocephin. Neuro: * unresponsiveness - Elli score 10, RAAS -3, CAM not applicable (patient does not follow commands). Etiology does not seem to be intracerebral per recent imaging. likely etiology is ICU delirium vs. metabolic encephalopathy. - Head CT 05/11 negative for intracranial bleed - ammonia level mildly elevated to 38 - brain MRI and Head and Neck CTAs negative for acute or subacute ischemic stroke - currently sedated on versed 1 and fentanyl 100. Cardiac: * A-fib with RVR - resolved, converted back to sinus rhythm. Patient required electrical cardioversion x2 on admission which resulted in rate improvement, ultimately converting back to sinus rhythm on Cardizem drip. Recurrent episode on 05/12 converted with IV metoprolol. - troponin negative on admission - EHCO 05/09 showed mild reduced systolic function and various wall motion abnormalities, without significant change from study in 2012 - continue home dose Metoprolol 50mg BID - Heparin drip was started on admission with concern for PE. Chest CTA and bilateral venous duplexes were both negative. will continue drip in setting of recent A-fib. * Hx ASCVD - continue ASA, plavix and statin Respiratory: * currently on mechanical ventilation. Vent on PRVC. 16/450/10/50%. Patient continues to have significant V/Q mismatch * Influenza B with superimposed bacterial PNA - CXR on admission showing infiltrate in R lower lobe. Chest CTA 05/10 showing consolidation of right lower and middle lobes, and left lower lobe. - Differential consists of multi-focal PNA vs malignancy (possible given history of significant tobacco abuse) vs. multifactorial. - will treat for possible PNA: patient received 4 days of IV vancomycin, deescalated to IV Rocephin 05/12. currently on day 5 of IV zosyn. - Lactate trending down. Procal trending down. WBC elevated on admission, now normal. Patient febrile on admission, defervesced, now febrile to 39.5. - Repeat bronchoscopy with brush 05/10. Cultures growing staph aureas, sensitives resulted. Fungal smear neg, culture neg. AFB culture pending. continue to follow cultures. Pathology showing atypical epithelial cells, which may be reactive atypia in the setting of inflammation versus a non-small cell carcinoma. Consider repeat imaging after infectious course is completed and/or lung biopsy to differentiate. - patient bronched again today 05/13 with washings. - positive for flu B on 05/11, currently on day 3 of tamiflu - currently on day 3/4 of Prednisone 40mg. GI: * liver enzymes WNL; ammonia level mildly elevated at 38 * NPO; tube feeds at goal rate 65. RENAL/LYTES: * Respiratory Alkalosis. * potassium low at 3.4, phos low at 2.2. Calcium corrects to 9.5. replacement ordered * Cr WNL : * Gallegos -strict Is/Os. >1.3 ml output in past 24 hrs. * UA on admission +4 for ketones, repeat UA showing reduction in ketones; urine culture with pin-point growth, re-incubating. Low suspicion for infection ENDO: * Hx of Type I diabetes mellitus, in DKA on admission. Anion gap has closed. Beta-hydroxybutyric acid > 50 on admission, down to 0.59. Insulin drip restarted, currently at 3.7 - sugars 150s-200 continue to follow sugars. - A1c on admission at 13.2. Prior to being intubated patient reported non- compliance with meds * TSH 0.2 HEME: * hgb stable at 11. platelets stable. ID: * Sepsis: patient meet SIRS criteria on admission, suspected Influenza B with superimposed MRSA pneumonia and MSSA bacteremia. no evidence of multi-organ dysfunction at present. - WBC mildly elevated at 12 on admission, has been normal since. Lactate elevated to 3.2, reduced to 2.2. procal elevated to 6.7 on admission, down to 3.2. - CXR on admission showing infiltrate in R lower lobe. Chest CTA 05/10 showing consolidation of right lower and middle lobes, and left lower lobe. Differential consists of multi-focal PNA vs malignancy - 2 of 2 blood cultures showing gram + cocci in clusters. surveillance cultures drawn 05/10 showing no growth to date - bronch cultures 05/10 growing staph aureas. - continue IV Vancomycin (day 4) and Zosyn (day 4); deescalate/escalate as appropriate. - continue Tamiflu (day ) * Nasal MRSA swab negative LINES/IV ACCESS: * L subclavian CVC * L radial Arterial line * Gallegos * OG tube * 3 PIVs CODE STATUS: Full DVT PROPHYLAXIS: heparin drip Thank you for allowing us to participate in the care of this patient. Please refer to my attending physician's documentation for any further recommendations. (2) Pneumonia: (3) Elevated lactic acid level: (4) Rapid atrial fibrillation: Admission and Anticipated Discharge Date Admission Date: May 09, 2019 Supervising Physician Co-Signing Physician Notes Dr. Skaggs was resident physician during care of patient. I separately evaluated patient for osborne portions of the history and the exam. I was present during the critical portion of medical decision making, and I discussed the case with the resident. I generally agree with the findings and plan. Patient critically ill due to influenza B and con commitment staph aureus pneumonia and associated bacteremia. Patient still has significant infiltrates and secretion burden, completed bronchoscopy for re-clearance of airways. Reviewed MRI results as well as CT scan results continued dense encephalopathy, difficulty finding right sedation combination as patient becomes very tachypneic and hypertensive and agitated however I believe some of the encephalopathy is medication induced. Patient remains critically ill, she was discussed in multidisciplinary rounds Subjective Patient in ICU. Review of Systems Review of Systems: Unobtainable due to endotracheal tube Physical Exam Constitutional: WD/WN, vitals as above + mechanically ventilated Eyes: + anicteric sclerae ENMT: external ear and nose normal, oropharynx normal Neck: normal visual inspection and trachea midline Respiratory: Auscultation: + diminished lung sounds (bilateral lower lobes) and + rhonchi Cardiovascular: Rate/Rhythm: regular rhythm and + tachycardic Heart Sounds: normal S1 and normal S2 Extremities: no pedal edema Gastrointestinal (Abdomen): Inspection/Auscultation: normal bowel sounds Percussion/Palpation: abdomen soft Skin: no rashes, warm and dry Psychiatric: A+Ox3, euthymic affect Results & Data ([facility]) Vital Signs (Past 12 Hours) Vital Signs Temp Pulse Resp BP Pulse Ox Pulse Ox 05/13/19 06:00 36.8 C 112 H 93 05/13/19 05:44 78 116/67 94 05/13/19 05:05 84 19 93 05/13/19 05:00 88 94 05/13/19 04:43 88 115/77 95 05/13/19 04:00 37.2 C 81 93 05/13/19 03:44 85 113/72 91 05/13/19 03:00 103 H 91 05/13/19 02:43 87 118/73 91 05/13/19 02:00 37 C 95 H 92 05/13/19 01:47 89 19 93 05/13/19 01:44 85 115/74 94 05/13/19 01:02 106 H 149/103 H 88 L 05/13/19 01:00 109 H 89 L 05/13/19 00:44 103 H 143/90 H 89 L 05/13/19 00:00 37.3 C 86 89 L 05/12/19 23:43 86 107/65 88 L 05/12/19 23:28 91 H 124/77 85 L 05/12/19 23:16 125 H 22 90 05/12/19 21:00 83 94 05/12/19 20:43 87 121/77 94 05/12/19 20:15 90 20 95 05/12/19 20:13 95 05/12/19 20:00 90 95 05/12/19 19:43 91 H 119/80 96 05/12/19 19:00 90 96 05/12/19 18:47 150 H 05/12/19 18:43 94 H 129/87 96 Critical Care Time Critical Care Time: Yes Total Critical Care Time: 40 I have personally spent 40 minutes of critical care time in the direct management of this patient. This is a life/limb threatening event. This includes time spent evaluating patient, direct bedside care, chart review, placing orders, interpretation of diagnostic studies, discussion with consultants, patient, and/or family members regarding treatment decisions, as well as other required patient management activities. This time is exclusive of all separately billable procedures, and teaching time and separate from and in addition to any other critical care service time. Resident Activity Tracking Resident Involvement: Resident Care Provided Care Provided: Adult Hospital Medicine (1) Sepsis Sepsis acute organ dysfunction status: unspecified Sepsis type: sepsis due to unspecified organism Qualified Code(s): A41.9 - Sepsis, unspecified organism (2) Pneumonia Laterality: right Lung location: lower lobe of lung Pneumonia type: due to unspecified organism Qualified Code(s): J18.9 - Pneumonia, unspecified organism
[2019-05-13] MEDS ORDERED: POTASSIUM PHOSPHATE 21 MMOL in SODIUM CHLORIDE 0.9% 500 ML IV ONE (06:30)
--- NOTE | 2019-05-13 06:47 | Magnetic Resonance Report ---
NECK MRA HISTORY: Possible stroke altered mental status TECHNIQUE: [id number] and gadolinium-enhanced MRA of the neck was performed both before and after the intravenous administration of contrast. All measurements were calculated based on NASCET criteri a. The patient received 6 cc of intravenous Gadavist COMPARISON STUDY: None. FINDINGS: The aortic arch and proximal great vessels are widely patent. There is a 60% diameter sten osis of the right internal carotid origin. There is no evidence of hemodynamically significant left i nternal carotid artery stenosis. There is no evidence of vertebral artery stenosis. The study is somewhat limited from a technical standpoint. There is mild dilatation of the main pulmonary artery trunk. IMPRESSION: 60% diameter stenosis of the right internal carotid artery origin. ACT 112: Negative or not required by law. Electronically signed by: Ciaran Gaffney M.D. 05/13/2019 6:45 AM
[2019-05-13] MEDS: fentaNYL DRIP 1,250 MCG/250 ML BAG IV SCH ×2 (07:12→23:29)
--- NOTE | 2019-05-13 07:33 | XRay Report ---
XR chest 1V portable CLINICAL HISTORY: Respiratory failure COMPARISON STUDY: 05/12/2019 FINDINGS: There are postsurgical changes of a midline sternotomy. There is an endotracheal tube 26 mm above the jaime. There is a right internal jugular central venous catheter. There is a nasogastric tube which passes into the stomach. There are progressive bilateral pulmonary airspace opacities, mos t pronounced within the right lower lung zone.[Small right pleural effusion is suspected. IMPRESSION: 1. Progressive bilateral pulmonary airspace opacities, likely representing worsening congestive failu re/fluid overload. In addition there is a more focal airspace opacity within the right lower lung zon e likely representing a pneumonia. ACT 112: Negative or not required by law. Electronically signed by: Ciaran Gaffney M.D. 05/13/2019 7:31 AM
[2019-05-13] MEDS: OSELTAMIVIR PHOSPHATE SUSP 75 MG/12.5 ML UDP PO SCH (08:45)
[2019-05-13] MEDS: FAMOTIDINE 20 MG in SYRINGE 3 ML IV SCH (08:45)
[2019-05-13] MEDS: METOPROLOL TARTRATE 50 MG TAB PO SCH (08:45)
[2019-05-13] MEDS: CLOPIDOGREL BISULFATE 75 MG TAB PO SCH (08:46)
[2019-05-13] MEDS: ASPIRIN 81 MG CHEW PO SCH (08:47)
[2019-05-13] MEDS ORDERED: STAT IV Infusion **Titration per Protocol STA (09:10)
--- NOTE | 2019-05-13 09:24 | Billing Data ---
Date of Service May 12, 2019 Coding Level of Care Code Critical Care 1st - mins
--- NOTE | 2019-05-13 09:28 | Billing Data ---
Date of Service May 13, 2019 Coding Level of Care Code Critical Care 1st - mins
[2019-05-13] MEDS: DEXMEDETOMIDINE HCL 200 MCG in SODIUM CHLORIDE 0.9% 48 ML IV SCH ×4 (09:45→20:39)
[2019-05-13] MEDS ORDERED: NovoLIN-N (NPH) PER UNIT CHARGE SQ ONE (10:15)
[2019-05-13] MEDS ORDERED: INSULIN GLARGINE SOLOSTAR 100 UNITS/ML 3 ML PEN SC ONE (10:15)
[2019-05-13] MEDS: predniSONE 20 MG TAB PO SCH (10:36)
[2019-05-13 12:05] LABS: Partial Thromboplastin Ratio 1.9
[2019-05-13 12:06] LABS: Partial Thromboplastin Time 50.4 Seconds (21.0-31.0)
[2019-05-13] MEDS: ACETAMINOPHEN SOLN 160 MG/5 ML BTL PO PRN (13:08)
--- NOTE | 2019-05-13 14:32 | Pharmacy Report ---
Pharmacy Glycemic Short Note 2 - Date of Service May 13, 2019 - Glycemic Short BSG Results (Last 24 hours): 05/12/19 05/12/19 05/12/19 15:26 16:16 17:20 Glucose POC Glucose 161 H 258 H 200 H 05/12/19 05/12/19 05/12/19 18:36 19:04 20:03 Glucose POC Glucose 139 H 99 114 H 05/12/19 05/12/19 05/12/19 20:36 21:12 23:16 Glucose POC Glucose 130 H 146 H 182 H 05/13/19 05/13/19 05/13/19 00:28 02:18 03:14 Glucose POC Glucose 122 H 118 H 123 H 05/13/19 05/13/19 05/13/19 04:18 04:51 05:53 Glucose 109 H POC Glucose 127 H 157 H 05/13/19 05/13/19 05/13/19 07:57 09:53 11:00 Glucose POC Glucose 152 H 200 H 195 H 05/13/19 05/13/19 05/13/19 11:47 12:55 13:55 Glucose POC Glucose 190 H 199 H 213 H OUTPATIENT ANTIDIABETIC REGIMEN: * glimepiride 1 mg BID, metformin 500 mg BID * A1c 13.2% 05/09 ASSESSMENT: 05/13 * Patient continues to be ventilated, adjusting sedation to precedex, with hopeful extubation later today * Per discussion with provider, will attempt to transition off of insulin drip today, running @ 1.8 units/hr steadily overnight * 25 units of NPH (.4 units/kg) given with prednisone dose today, additional 30 units of lantus to transition off * Will give additional dose of lantus this evening if drip not able to be transitioned off * If transitioned off, would start novolog parameters 02/08 05/12 * Patient restarted on insulin infusion overnight as BSGs went back into the 300s, currently running at 8.5 units/hr, with BSGs in low 200s * Gave 25 units of NPH with prednisone today, tube feeds up to goal, will tighten CR, continues on heparin gtt * Plan to keep patient on insulin infusion today, will give supplemental lantus dose without intention of turning drip off * S. aureus identified as MSSA- antibiotics changed to ceftriaxone 05/11 * Successfully transitioned off of insulin infusion yesterday, however BSGs trending back up with tube feed increase * Uncertain plan for extubation today/tube feed holds, therefore tightened carb ratio and increased AM lantus dose * Per discussion at rounds, will wean towards extubation today, although anticipating tomorrow, plan to start insulin infusion if lunch BSG was >250. 209 at lunch with adjusted parameters, therefore will continue to utilize basal/bolus * Lantus scale for up to 8 additional units this evening (maximum overall 20% increase in basal from yesterday) * Starting prednisone 40 mg daily x 4 days, NPH insulin is used to counteract the hyperglycemic effect of intermediate acting steroids. The rationale for this approach is that the pharmacodynamics profile of NPH mirrors the pharmacodynamics of steroids. NPH should be dosed at the same time that prednisone is given but will give it now since BSGs critical high. * The dose of NPH given is dependent on the steroid dose given * For doses of prednisone 40mg/day equivalent or above NPH dose should be 0.4 units/kg (in this case utilized ~.3 units/kg) * NPH dosing above is given in addition to patients basal insulin needs * Typically, patients will also need rapid-acting insulin with meals Will continue to reassess need to restart insulin infusion. PLAN FOR INPATIENT GLYCEMIC CONTROL: * Hold outpatient oral diabetes medications * Insulin infusion currently @3.1 units/hr- transitioning * Basal insulin * NPH 25 units x 1, * 30 units x 1 * Bolus insulin * NovoLog per scale ACHS or Q6hrs while NPO * Goal Range: Low 110 mg/dL - High 180 mg/dL * Nutritional / Prandial insulin per carb ratio of 1 unit per 5 grams CHO consumed
[2019-05-13] MEDS: cefTRIAXone SODIUM 2,000 MG in DEXTROSE 5% 50 ML IV SCH (15:01)
[2019-05-13] MEDS ORDERED: ACETAMINOPHEN 1,000 MG/100 ML VIAL IV STA (15:35)
--- NOTE | 2019-05-13 16:06 | Procedure Note ---
Procedure Note: Bronchoscopy Procedure Procedure date: May 13, 2019 Procedure: fiberoptic bronchoscopy Pre-procedure indication: Pulmonary infiltrate Post-procedure Diagnosis: same as above Prior to Procedure: Informed Consent: The risks, benefits, indications, potential complications, and alternatives were explained to the patient's family and informed consent obtained. Attending Staff: Luke Hutchins DO Resident/APC: Not applicable Skin Prep: Not applicable Anesthesia: Continuous infusion The identity of the patient was confirmed and a bedside time out was performed. Description of Procedure: Fiberoptic bronchoscopy was performed via endotracheal tube. Bronchioalveolar lavage of the right lower lobe was performed. Findings included: Significant excessive dynamic airway collapse is again noted. There is slightly decreased in purulent secretions, they do appear slightly thinner in consistency. These were suctioned from the right lower lobe, the rest of the airways appeared slightly hyperemic and mildly inflamed, this is decreased compared to previous bronchoscopy performed by myself. Complications: None Specimens: None Estimated blood loss: Zero
[2019-05-13] MEDS: HEPARIN SODIUM/DEXTROSE 25,000 UNITS/500 ML BAG IV SCH (17:42)
--- NOTE | 2019-05-13 18:23 | Electrocardiogram Report ---
Test Reason : Blood Pressure : / mmHG Vent. 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
--- NOTE | 2019-05-13 18:32 | Hospitalist Progress Note ---
Date of Service May 13, 2019 Assessment & Plan (1) Sepsis: Sepsis and septicemia secondary to Staphylococcus aureus pneumonia and influenza B Patient has an elevated lactic acid level and with right lower lobe infiltrate on chest imaging She was admitted to the ICU and intubated-remains on the ventilator after having significant respiratory distress with tachypnea, hypotension Management as per ambulance driver paramedic Treating for pneumonia as below Growing Staphylococcus aureus, MSSA 2 out of 2 blood cultures and in bronchoalveolar lavage culture Repeat blood cultures no growth to date Influenza B positive on 05/11-added Tamiflu Changed Zosyn and vancomycin to ceftriaxone only on 05/12 -Continue to follow blood cultures -Received copious IV fluids which have now been discontinued Blood pressures are stable and did not require vasopressors after DC cardioversion for rapid atrial fibrillation Developed fevers again on 05/12, no clear source (2) Influenza B: With influenza B, sepsis, and Staphylococcus aureus pneumonia and septicemia -Added Tamiflu 75 mg twice daily on 05/11 for 5-day course (3) Acute respiratory failure: As noted above, secondary to pneumonia and DKA. Ventilator management as per ambulance driver paramedic-remains on the ventilator, not ready for extubation yet, no purposeful movement when sedation removed but becomes agitated s/p bronchoscopy x 2 now Continues with PNA (4) DKA (diabetic ketoacidoses): Severely acidotic upon admission which has now resolved Anion gap is closed but having continued hyperglycemia Now back on insulin drip Electrolytes will continue to be checked and repleted as needed Hemoglobin A1c up to 13.2% from previous of 8.1% last year (5) Rapid atrial fibrillation: Patient presented hypotensive with pulse 179 and rapid atrial fibrillation. She received copious IV fluids and was DC cardioverted in the ICU Now remains in sinus rhythm with some sinus tachycardia Is receiving metoprolol 50 mg twice daily through OG tube -Remains on heparin drip Echocardiogram with mildly reduced EF at 45-50%, mild LVH, positive wall motion abnormalities which are stable from previous with hypokinesis in the inferior wall from base to the mid ventricle (6) Pneumonia: Staph aureus Pneumonia Dense consolidation right lower lobe as above Had bronchoscopy on 05/10 and again 05/13 Chest x-ray on 05/11 with persistent dense consolidation, 05/13 CXR slightly progressed infiltrate and vol overload Procalcitonin is trending downward from 6 down to 3.2 On ventilator as above -Follow cultures-growing methicillin sensitive Staphylococcus aureus -Continue antibiotics as above (7) Elevated lactic acid level: As above Improving (8) Dyslipidemia: Holding home gemfibrozil and Zetia Holding home atorvastatin -Continue aspirin 81 mg daily and Plavix (9) Acid reflux: -Continue Pepcid 20 mg IV twice daily -On tube feeds -Holding home Prilosec (10) CAD (coronary artery disease): With a history of CABG -Continue home aspirin, Plavix, metoprolol -Holding lipid drugs as above -Holding home isosorbide (11) Cardiomyopathy, ischemic: As noted in echo above with wall motion abnormalities -Continues on metoprolol tartrate 50 mg twice daily (12) Stenosis of right carotid artery: With known moderate stenosis Follow as an outpatient On antiplatelet and statin as an outpatient (13) Type 2 diabetes mellitus: Uncontrolled as above Holding home metformin and glimepiride -Should continue on insulin after discharge given severely uncontrolled hemoglobin A1c (14) Chronic obstructive pulmonary disease: With long history of smoking -Currently on the ventilator and oxygenating well Holding home albuterol -Started on prednisone by ambulance driver paramedic-continue burst for 5 to 7 days (15) Bacteremia: As above, growing MSSA -Follow repeat blood cultures -Converted now to ceftriaxone only (16) Hypophosphatemia: Replaced in the ICU -Follow phosphorus levels in the morning, BMP (17) Fever: Started having fevers again on 05/12 Could be secondary to medications, atelectasis Management as per ambulance driver paramedic No evidence of skin infections or rashes -Consider repeat UA with culture, blood cultures (18) Encephalopathy: continues to get agitated off sedation but slight improvement today CT of the head negative on 05/11 MRI/MRA brain/Head negative 05/12 Suspect secondary to continued illness and being on fentanyl and Versed drips for several days Now on Precedex gtt (19) DVT prophylaxis: Heparin drip Disposition-remain in the ICU Full code Lines: Right IJ, right peripheral IV, left radial arterial line, Gallegos catheter, OG tube Admission and Anticipated Discharge Date Admission Date: May 09, 2019 Subjective Pt remains sedated and on vent. Discussed case with Composition Floor Setter today. She was off sedation and became agitated again. Was switched to Precedex for sedation and had brain MRI which was negative for stroke. Had fever again today Also had repeat bronchoscopy today Review of Systems Review of Systems: Unobtainable due to endotracheal tube and Unobtainable due to reduced consciousness Physical Exam Constitutional: average body habitus; no acute distress (Sedated) ENMT: external ear and nose normal, oropharynx normal (ET tube in place) Neck: trachea midline, no thyromegaly Respiratory: normal respiratory effort, lungs clear to auscultation normal respiratory effort (On ventilator) Auscultation: no wheezes Cardiovascular: Rate/Rhythm: regular rate and regular rhythm Extremities: normal capillary refill and + edema (Trace pitting edema of the feet and distal legs bilaterally) Chest (Breasts): Chest: normal inspection of chest Gastrointestinal (Abdomen): normal bowel sounds, soft, nontender, no hepatosplenomegaly Musculoskeletal: Extremities: extremities normal to inspection; no cyanosis and no clubbing Skin: no rashes, warm and dry Genitourinary: normal external appearance (With Gallegos catheter in place draining clear orange-yellow urine) Lymphatic: no lymphedema Results & Data ([facility]) Vital Signs (Past 12 Hours) Vital Signs Pulse Resp BP Pulse Ox 05/13/19 17:30 68 22 97 05/13/19 16:00 77 95 05/13/19 15:44 79 125/70 96 05/13/19 15:00 116 H 95 05/13/19 14:44 75 140/75 96 05/13/19 14:23 80 95/57 L 93 05/13/19 14:00 75 91 05/13/19 13:50 76 30 H 92 05/13/19 13:44 73 95/57 L 90 05/13/19 13:31 74 101/56 L 88 L 05/13/19 13:00 83 90 05/13/19 12:46 114 H 94 05/13/19 12:45 119 H 156/107 H 94 05/13/19 12:00 85 156/107 H 88 L 05/13/19 11:46 114 H 91 05/13/19 11:45 121 H 187/127 H 91 05/13/19 11:00 104 H 90 05/13/19 10:44 93 H 144/90 H 89 L 05/13/19 10:30 108 H 28 H 90 05/13/19 10:00 71 91 05/13/19 09:44 75 114/60 88 L 05/13/19 09:00 118 H 94 05/13/19 08:44 81 110/70 94 05/13/19 08:00 83 94 05/13/19 07:44 83 118/69 92 05/13/19 07:10 82 18 94 05/13/19 07:00 83 94 05/13/19 06:44 81 121/74 96 Laboratory Results 05/13/19 05/13/19 05/13/19 Range/Units 17:47 17:05 15:49 WBC (4.8-10.8) K/uL RBC (4.2-5.4) M/uL Hgb (12.0-16.0) g/dL POC Hgb (12.0-16.0) g/dl Hct (37-47) % POC Hct (37-47) % MCV (80-100) fL MCH (25-34) pg MCHC (32-36) g/dL RDW Std Deviation (36.4-46.3) fL RDW Coeff of Kelly (11.5-14.5) % Plt Count (130-400) K/uL MPV (7.4-10.4) fL Immature Gran % (Auto) % Neut % (Auto) % Lymph % (Auto) % Green % (Auto) % Eos % (Auto) % Baso % (Auto) % Immature Gran # (Auto) (0.00-0.02) K/uL Neut # (Auto) (1.4-6.5) K/uL Lymph # (Auto) (1.2-3.4) K/uL Green # (Auto) (0.11-0.59) K/uL Eos # (Auto) (0-0.5) K/uL Baso # (Auto) (0-0.2) K/uL Toxic Granulation Echinocytes APTT (21.0-31.0) Seconds PTT Ratio Sample Site POC pH (7.35-7.45) POC pCO2 (35-46) mmHg POC pO2 (80-95) mmHg POC HCO3 (19-24) akira/L POC Total CO2 (24-31) mmol/L POC Base Excess (-9-1.8) akira/L ABG pH (Temp Correct) (7.35-7.45) ABG pCO2 (Temp Corrct (35-46) mmHg POC ABG pO2 at Pt Temp Jero Test O2 Delivery Device POC O2 Rate Minute Ventilation Tidal Volume PEEP POC Sodium (135-144) mmol/L Sodium (136-145) mmol/L POC Potassium (3.3-5.0) mmol/L Potassium (3.5-5.1) mmol/L Chloride (98-107) mmol/L Carbon Dioxide (21-32) mmol/L Anion Gap (3-11) BUN (7-18) mg/dl Creatinine (0.6-1.2) mg/dl Est Cr Clr Drug Dosing ml/min Est GFR ( Amer) Est GFR (Non-Af Amer) BUN/Creatinine Ratio (10-20) Glucose (70-99) mg/dl POC Glucose 142 H 170 H 204 H (70-99) mg/dl Calcium (8.5-10.1) mg/dl Phosphorus (2.5-4.9) mg/dl Magnesium (1.8-2.4) mg/dl Total Bilirubin (0.2-1) mg/dl AST (15-37) U/L ALT (12-78) U/L Alkaline Phosphatase (45-117) U/L Total Protein (6.4-8.2) gm/dl Albumin (3.4-5.0) gm/dl Globulin (2.5-4.0) gm/dl Albumin/Globulin Ratio (0.9-2) 05/13/19 05/13/19 05/13/19 Range/Units 14:49 13:55 12:55 WBC (4.8-10.8) K/uL RBC (4.2-5.4) M/uL Hgb (12.0-16.0) g/dL POC Hgb (12.0-16.0) g/dl Hct (37-47) % POC Hct (37-47) % MCV (80-100) fL MCH (25-34) pg MCHC (32-36) g/dL RDW Std Deviation (36.4-46.3) fL RDW Coeff of Kelly (11.5-14.5) % Plt Count (130-400) K/uL MPV (7.4-10.4) fL Immature Gran % (Auto) % Neut % (Auto) % Lymph % (Auto) % Green % (Auto) % Eos % (Auto) % Baso % (Auto) % Immature Gran # (Auto) (0.00-0.02) K/uL Neut # (Auto) (1.4-6.5) K/uL Lymph # (Auto) (1.2-3.4) K/uL Green # (Auto) (0.11-0.59) K/uL Eos # (Auto) (0-0.5) K/uL Baso # (Auto) (0-0.2) K/uL Toxic Granulation Echinocytes APTT (21.0-31.0) Seconds PTT Ratio Sample Site POC pH (7.35-7.45) POC pCO2 (35-46) mmHg POC pO2 (80-95) mmHg POC HCO3 (19-24) akira/L POC Total CO2 (24-31) mmol/L POC Base Excess (-9-1.8) akira/L ABG pH (Temp Correct) (7.35-7.45) ABG pCO2 (Temp Corrct (35-46) mmHg POC ABG pO2 at Pt Temp Jero Test O2 Delivery Device POC O2 Rate Minute Ventilation Tidal Volume PEEP POC Sodium (135-144) mmol/L Sodium (136-145) mmol/L POC Potassium (3.3-5.0) mmol/L Potassium (3.5-5.1) mmol/L Chloride (98-107) mmol/L Carbon Dioxide (21-32) mmol/L Anion Gap (3-11) BUN (7-18) mg/dl Creatinine (0.6-1.2) mg/dl Est Cr Clr Drug Dosing ml/min Est GFR ( Amer) Est GFR (Non-Af Amer) BUN/Creatinine Ratio (10-20) Glucose (70-99) mg/dl POC Glucose 187 H 213 H 199 H (70-99) mg/dl Calcium (8.5-10.1) mg/dl Phosphorus (2.5-4.9) mg/dl Magnesium (1.8-2.4) mg/dl Total Bilirubin (0.2-1) mg/dl AST (15-37) U/L ALT (12-78) U/L Alkaline Phosphatase (45-117) U/L Total Protein (6.4-8.2) gm/dl Albumin (3.4-5.0) gm/dl Globulin (2.5-4.0) gm/dl Albumin/Globulin Ratio (0.9-2) 05/13/19 05/13/19 05/13/19 Range/Units 11:47 11:29 11:00 WBC (4.8-10.8) K/uL RBC (4.2-5.4) M/uL Hgb (12.0-16.0) g/dL POC Hgb (12.0-16.0) g/dl Hct (37-47) % POC Hct (37-47) % MCV (80-100) fL MCH (25-34) pg MCHC (32-36) g/dL RDW Std Deviation (36.4-46.3) fL RDW Coeff of Kelly (11.5-14.5) % Plt Count (130-400) K/uL MPV (7.4-10.4) fL Immature Gran % (Auto) % Neut % (Auto) % Lymph % (Auto) % Green % (Auto) % Eos % (Auto) % Baso % (Auto) % Immature Gran # (Auto) (0.00-0.02) K/uL Neut # (Auto) (1.4-6.5) K/uL Lymph # (Auto) (1.2-3.4) K/uL Green # (Auto) (0.11-0.59) K/uL Eos # (Auto) (0-0.5) K/uL Baso # (Auto) (0-0.2) K/uL Toxic Granulation Echinocytes APTT 50.4 H* (21.0-31.0) Seconds PTT Ratio 1.9 Sample Site POC pH (7.35-7.45) POC pCO2 (35-46) mmHg POC pO2 (80-95) mmHg POC HCO3 (19-24) akira/L POC Total CO2 (24-31) mmol/L POC Base Excess (-9-1.8) akira/L ABG pH (Temp Correct) (7.35-7.45) ABG pCO2 (Temp Corrct (35-46) mmHg POC ABG pO2 at Pt Temp Jero Test O2 Delivery Device POC O2 Rate Minute Ventilation Tidal Volume PEEP POC Sodium (135-144) mmol/L Sodium (136-145) mmol/L POC Potassium (3.3-5.0) mmol/L Potassium (3.5-5.1) mmol/L Chloride (98-107) mmol/L Carbon Dioxide (21-32) mmol/L Anion Gap (3-11) BUN (7-18) mg/dl Creatinine (0.6-1.2) mg/dl Est Cr Clr Drug Dosing ml/min Est GFR ( Amer) Est GFR (Non-Af Amer) BUN/Creatinine Ratio (10-20) Glucose (70-99) mg/dl POC Glucose 190 H 195 H (70-99) mg/dl Calcium (8.5-10.1) mg/dl Phosphorus (2.5-4.9) mg/dl Magnesium (1.8-2.4) mg/dl Total Bilirubin (0.2-1) mg/dl AST (15-37) U/L ALT (12-78) U/L Alkaline Phosphatase (45-117) U/L Total Protein (6.4-8.2) gm/dl Albumin (3.4-5.0) gm/dl Globulin (2.5-4.0) gm/dl Albumin/Globulin Ratio (0.9-2) 05/13/19 05/13/19 05/13/19 Range/Units 09:53 07:57 05:53 WBC (4.8-10.8) K/uL RBC (4.2-5.4) M/uL Hgb (12.0-16.0) g/dL POC Hgb (12.0-16.0) g/dl Hct (37-47) % POC Hct (37-47) % MCV (80-100) fL MCH (25-34) pg MCHC (32-36) g/dL RDW Std Deviation (36.4-46.3) fL RDW Coeff of Kelly (11.5-14.5) % Plt Count (130-400) K/uL MPV (7.4-10.4) fL Immature Gran % (Auto) % Neut % (Auto) % Lymph % (Auto) % Green % (Auto) % Eos % (Auto) % Baso % (Auto) % Immature Gran # (Auto) (0.00-0.02) K/uL Neut # (Auto) (1.4-6.5) K/uL Lymph # (Auto) (1.2-3.4) K/uL Green # (Auto) (0.11-0.59) K/uL Eos # (Auto) (0-0.5) K/uL Baso # (Auto) (0-0.2) K/uL Toxic Granulation Echinocytes APTT (21.0-31.0) Seconds PTT Ratio Sample Site POC pH (7.35-7.45) POC pCO2 (35-46) mmHg POC pO2 (80-95) mmHg POC HCO3 (19-24) akira/L POC Total CO2 (24-31) mmol/L POC Base Excess (-9-1.8) akira/L ABG pH (Temp Correct) (7.35-7.45) ABG pCO2 (Temp Corrct (35-46) mmHg POC ABG pO2 at Pt Temp Jero Test O2 Delivery Device POC O2 Rate Minute Ventilation Tidal Volume PEEP POC Sodium (135-144) mmol/L Sodium (136-145) mmol/L POC Potassium (3.3-5.0) mmol/L Potassium (3.5-5.1) mmol/L Chloride (98-107) mmol/L Carbon Dioxide (21-32) mmol/L Anion Gap (3-11) BUN (7-18) mg/dl Creatinine (0.6-1.2) mg/dl Est Cr Clr Drug Dosing ml/min Est GFR ( Amer) Est GFR (Non-Af Amer) BUN/Creatinine Ratio (10-20) Glucose (70-99) mg/dl POC Glucose 200 H 152 H 157 H (70-99) mg/dl Calcium (8.5-10.1) mg/dl Phosphorus (2.5-4.9) mg/dl Magnesium (1.8-2.4) mg/dl Total Bilirubin (0.2-1) mg/dl AST (15-37) U/L ALT (12-78) U/L Alkaline Phosphatase (45-117) U/L Total Protein (6.4-8.2) gm/dl Albumin (3.4-5.0) gm/dl Globulin (2.5-4.0) gm/dl Albumin/Globulin Ratio (0.9-2) 05/13/19 05/13/19 05/13/19 Range/Units 05:14 04:51 04:18 WBC 12.62 H (4.8-10.8) K/uL RBC 3.49 L (4.2-5.4) M/uL Hgb 10.5 L (12.0-16.0) g/dL POC Hgb 9.5 L (12.0-16.0) g/dl Hct 30.0 L (37-47) % POC Hct 28 L (37-47) % MCV 86.0 (80-100) fL MCH 30.1 (25-34) pg MCHC 35.0 (32-36) g/dL RDW Std Deviation 46.5 H (36.4-46.3) fL RDW Coeff of Kelly 14.8 H (11.5-14.5) % Plt Count 276 (130-400) K/uL MPV 10.0 (7.4-10.4) fL Immature Gran % (Auto) 0.9 % Neut % (Auto) 64.7 % Lymph % (Auto) 19.3 % Green % (Auto) 14.9 % Eos % (Auto) 0.0 % Baso % (Auto) 0.2 % Immature Gran # (Auto) 0.11 H (0.00-0.02) K/uL Neut # (Auto) 8.17 H (1.4-6.5) K/uL Lymph # (Auto) 2.43 (1.2-3.4) K/uL Green # (Auto) 1.88 H (0.11-0.59) K/uL Eos # (Auto) 0.00 (0-0.5) K/uL Baso # (Auto) 0.03 (0-0.2) K/uL Toxic Granulation 2+ Echinocytes 1+ APTT (21.0-31.0) Seconds PTT Ratio Sample Site Art Line POC pH 7.45 (7.35-7.45) POC pCO2 30 L (35-46) mmHg POC pO2 67 L (80-95) mmHg POC HCO3 21 (19-24) akira/L POC Total CO2 22 L (24-31) mmol/L POC Base Excess -3.0 (-9-1.8) akira/L ABG pH (Temp Correct) 7.452 H (7.35-7.45) ABG pCO2 (Temp Corrct 30 L (35-46) mmHg POC ABG pO2 at Pt Temp 66 Jero Test NA O2 Delivery Device Ventilator POC O2 Rate 16 Minute Ventilation 9.6 Tidal Volume 450 PEEP 8 POC Sodium 142 (135-144) mmol/L Sodium (136-145) mmol/L POC Potassium 3.4 (3.3-5.0) mmol/L Potassium (3.5-5.1) mmol/L Chloride (98-107) mmol/L Carbon Dioxide (21-32) mmol/L Anion Gap (3-11) BUN (7-18) mg/dl Creatinine (0.6-1.2) mg/dl Est Cr Clr Drug Dosing ml/min Est GFR ( Amer) Est GFR (Non-Af Amer) BUN/Creatinine Ratio (10-20) Glucose (70-99) mg/dl POC Glucose 127 H (70-99) mg/dl Calcium (8.5-10.1) mg/dl Phosphorus (2.5-4.9) mg/dl Magnesium (1.8-2.4) mg/dl Total Bilirubin (0.2-1) mg/dl AST (15-37) U/L ALT (12-78) U/L Alkaline Phosphatase (45-117) U/L Total Protein (6.4-8.2) gm/dl Albumin (3.4-5.0) gm/dl Globulin (2.5-4.0) gm/dl Albumin/Globulin Ratio (0.9-2) 05/13/19 05/13/19 05/13/19 Range/Units 04:18 04:18 03:14 WBC (4.8-10.8) K/uL RBC (4.2-5.4) M/uL Hgb (12.0-16.0) g/dL POC Hgb (12.0-16.0) g/dl Hct (37-47) % POC Hct (37-47) % MCV (80-100) fL MCH (25-34) pg MCHC (32-36) g/dL RDW Std Deviation (36.4-46.3) fL RDW Coeff of Kelly (11.5-14.5) % Plt Count (130-400) K/uL MPV (7.4-10.4) fL Immature Gran % (Auto) % Neut % (Auto) % Lymph % (Auto) % Green % (Auto) % Eos % (Auto) % Baso % (Auto) % Immature Gran # (Auto) (0.00-0.02) K/uL Neut # (Auto) (1.4-6.5) K/uL Lymph # (Auto) (1.2-3.4) K/uL Green # (Auto) (0.11-0.59) K/uL Eos # (Auto) (0-0.5) K/uL Baso # (Auto) (0-0.2) K/uL Toxic Granulation Echinocytes APTT 42.7 H (21.0-31.0) Seconds PTT Ratio 1.6 Sample Site POC pH (7.35-7.45) POC pCO2 (35-46) mmHg POC pO2 (80-95) mmHg POC HCO3 (19-24) akira/L POC Total CO2 (24-31) mmol/L POC Base Excess (-9-1.8) akira/L ABG pH (Temp Correct) (7.35-7.45) ABG pCO2 (Temp Corrct (35-46) mmHg POC ABG pO2 at Pt Temp Jero Test O2 Delivery Device POC O2 Rate Minute Ventilation Tidal Volume PEEP POC Sodium (135-144) mmol/L Sodium 142 (136-145) mmol/L POC Potassium (3.3-5.0) mmol/L Potassium 3.4 L (3.5-5.1) mmol/L Chloride 114 H (98-107) mmol/L Carbon Dioxide 24 (21-32) mmol/L Anion Gap 4.0 (3-11) BUN 17 (7-18) mg/dl Creatinine 0.46 L (0.6-1.2) mg/dl Est Cr Clr Drug Dosing 98.4 ml/min Est GFR ( Amer) 119.3 Est GFR (Non-Af Amer) 102.9 BUN/Creatinine Ratio 36.6 H (10-20) Glucose 109 H (70-99) mg/dl POC Glucose 123 H (70-99) mg/dl Calcium 7.4 L (8.5-10.1) mg/dl Phosphorus 2.2 L (2.5-4.9) mg/dl Magnesium 1.9 (1.8-2.4) mg/dl Total Bilirubin 0.4 (0.2-1) mg/dl AST 28 (15-37) U/L ALT 31 (12-78) U/L Alkaline Phosphatase 197 H (45-117) U/L Total Protein 5.5 L (6.4-8.2) gm/dl Albumin 1.4 L (3.4-5.0) gm/dl Globulin 4.1 H (2.5-4.0) gm/dl Albumin/Globulin Ratio 0.3 L (0.9-2) 05/13/19 05/13/19 05/12/19 Range/Units 02:18 00:28 23:16 WBC (4.8-10.8) K/uL RBC (4.2-5.4) M/uL Hgb (12.0-16.0) g/dL POC Hgb (12.0-16.0) g/dl Hct (37-47) % POC Hct (37-47) % MCV (80-100) fL MCH (25-34) pg MCHC (32-36) g/dL RDW Std Deviation (36.4-46.3) fL RDW Coeff of Kelly (11.5-14.5) % Plt Count (130-400) K/uL MPV (7.4-10.4) fL Immature Gran % (Auto) % Neut % (Auto) % Lymph % (Auto) % Green % (Auto) % Eos % (Auto) % Baso % (Auto) % Immature Gran # (Auto) (0.00-0.02) K/uL Neut # (Auto) (1.4-6.5) K/uL Lymph # (Auto) (1.2-3.4) K/uL Green # (Auto) (0.11-0.59) K/uL Eos # (Auto) (0-0.5) K/uL Baso # (Auto) (0-0.2) K/uL Toxic Granulation Echinocytes APTT (21.0-31.0) Seconds PTT Ratio Sample Site POC pH (7.35-7.45) POC pCO2 (35-46) mmHg POC pO2 (80-95) mmHg POC HCO3 (19-24) akira/L POC Total CO2 (24-31) mmol/L POC Base Excess (-9-1.8) akira/L ABG pH (Temp Correct) (7.35-7.45) ABG pCO2 (Temp Corrct (35-46) mmHg POC ABG pO2 at Pt Temp Jero Test O2 Delivery Device POC O2 Rate Minute Ventilation Tidal Volume PEEP POC Sodium (135-144) mmol/L Sodium (136-145) mmol/L POC Potassium (3.3-5.0) mmol/L Potassium (3.5-5.1) mmol/L Chloride (98-107) mmol/L Carbon Dioxide (21-32) mmol/L Anion Gap (3-11) BUN (7-18) mg/dl Creatinine (0.6-1.2) mg/dl Est Cr Clr Drug Dosing ml/min Est GFR ( Amer) Est GFR (Non-Af Amer) BUN/Creatinine Ratio (10-20) Glucose (70-99) mg/dl POC Glucose 118 H 122 H 182 H (70-99) mg/dl Calcium (8.5-10.1) mg/dl Phosphorus (2.5-4.9) mg/dl Magnesium (1.8-2.4) mg/dl Total Bilirubin (0.2-1) mg/dl AST (15-37) U/L ALT (12-78) U/L Alkaline Phosphatase (45-117) U/L Total Protein (6.4-8.2) gm/dl Albumin (3.4-5.0) gm/dl Globulin (2.5-4.0) gm/dl Albumin/Globulin Ratio (0.9-2) 05/12/19 05/12/19 05/12/19 Range/Units 21:12 20:36 20:03 WBC (4.8-10.8) K/uL RBC (4.2-5.4) M/uL Hgb (12.0-16.0) g/dL POC Hgb (12.0-16.0) g/dl Hct (37-47) % POC Hct (37-47) % MCV (80-100) fL MCH (25-34) pg MCHC (32-36) g/dL RDW Std Deviation (36.4-46.3) fL RDW Coeff of Kelly (11.5-14.5) % Plt Count (130-400) K/uL MPV (7.4-10.4) fL Immature Gran % (Auto) % Neut % (Auto) % Lymph % (Auto) % Green % (Auto) % Eos % (Auto) % Baso % (Auto) % Immature Gran # (Auto) (0.00-0.02) K/uL Neut # (Auto) (1.4-6.5) K/uL Lymph # (Auto) (1.2-3.4) K/uL Green # (Auto) (0.11-0.59) K/uL Eos # (Auto) (0-0.5) K/uL Baso # (Auto) (0-0.2) K/uL Toxic Granulation Echinocytes APTT (21.0-31.0) Seconds PTT Ratio Sample Site POC pH (7.35-7.45) POC pCO2 (35-46) mmHg POC pO2 (80-95) mmHg POC HCO3 (19-24) akira/L POC Total CO2 (24-31) mmol/L POC Base Excess (-9-1.8) akira/L ABG pH (Temp Correct) (7.35-7.45) ABG pCO2 (Temp Corrct (35-46) mmHg POC ABG pO2 at Pt Temp Jero Test O2 Delivery Device POC O2 Rate Minute Ventilation Tidal Volume PEEP POC Sodium (135-144) mmol/L Sodium (136-145) mmol/L POC Potassium (3.3-5.0) mmol/L Potassium (3.5-5.1) mmol/L Chloride (98-107) mmol/L Carbon Dioxide (21-32) mmol/L Anion Gap (3-11) BUN (7-18) mg/dl Creatinine (0.6-1.2) mg/dl Est Cr Clr Drug Dosing ml/min Est GFR ( Amer) Est GFR (Non-Af Amer) BUN/Creatinine Ratio (10-20) Glucose (70-99) mg/dl POC Glucose 146 H 130 H 114 H (70-99) mg/dl Calcium (8.5-10.1) mg/dl Phosphorus (2.5-4.9) mg/dl Magnesium (1.8-2.4) mg/dl Total Bilirubin (0.2-1) mg/dl AST (15-37) U/L ALT (12-78) U/L Alkaline Phosphatase (45-117) U/L Total Protein (6.4-8.2) gm/dl Albumin (3.4-5.0) gm/dl Globulin (2.5-4.0) gm/dl Albumin/Globulin Ratio (0.9-2) 05/12/19 Range/Units 19:40 WBC (4.8-10.8) K/uL RBC (4.2-5.4) M/uL Hgb (12.0-16.0) g/dL POC Hgb (12.0-16.0) g/dl Hct (37-47) % POC Hct (37-47) % MCV (80-100) fL MCH (25-34) pg MCHC (32-36) g/dL RDW Std Deviation (36.4-46.3) fL RDW Coeff of Kelly (11.5-14.5) % Plt Count (130-400) K/uL MPV (7.4-10.4) fL Immature Gran % (Auto) % Neut % (Auto) % Lymph % (Auto) % Green % (Auto) % Eos % (Auto) % Baso % (Auto) % Immature Gran # (Auto) (0.00-0.02) K/uL Neut # (Auto) (1.4-6.5) K/uL Lymph # (Auto) (1.2-3.4) K/uL Green # (Auto) (0.11-0.59) K/uL Eos # (Auto) (0-0.5) K/uL Baso # (Auto) (0-0.2) K/uL Toxic Granulation Echinocytes APTT 48.7 H* (21.0-31.0) Seconds PTT Ratio 1.8 Sample Site POC pH (7.35-7.45) POC pCO2 (35-46) mmHg POC pO2 (80-95) mmHg POC HCO3 (19-24) akira/L POC Total CO2 (24-31) mmol/L POC Base Excess (-9-1.8) akira/L ABG pH (Temp Correct) (7.35-7.45) ABG pCO2 (Temp Corrct (35-46) mmHg POC ABG pO2 at Pt Temp Jero Test O2 Delivery Device POC O2 Rate Minute Ventilation Tidal Volume PEEP POC Sodium (135-144) mmol/L Sodium (136-145) mmol/L POC Potassium (3.3-5.0) mmol/L Potassium (3.5-5.1) mmol/L Chloride (98-107) mmol/L Carbon Dioxide (21-32) mmol/L Anion Gap (3-11) BUN (7-18) mg/dl Creatinine (0.6-1.2) mg/dl Est Cr Clr Drug Dosing ml/min Est GFR ( Amer) Est GFR (Non-Af Amer) BUN/Creatinine Ratio (10-20) Glucose (70-99) mg/dl POC Glucose (70-99) mg/dl Calcium (8.5-10.1) mg/dl Phosphorus (2.5-4.9) mg/dl Magnesium (1.8-2.4) mg/dl Total Bilirubin (0.2-1) mg/dl AST (15-37) U/L ALT (12-78) U/L Alkaline Phosphatase (45-117) U/L Total Protein (6.4-8.2) gm/dl Albumin (3.4-5.0) gm/dl Globulin (2.5-4.0) gm/dl Albumin/Globulin Ratio (0.9-2) PG Care Time/CCT Total # of Minutes Spent Total Time Spent with Patient: Total time spent is greater than 50% in coordination of care (as documented) at patient's floor/unit and/or counseling patient: Coding Level of Care Code 45203 Subseq Hosp Care Lvl 1 Diagnoses Sepsis A41.9 Influenza B J10.1 Acute respiratory failure J96.01 Respiratory failure complication: hypoxia DKA (diabetic ketoacidoses) E11.10 Rapid atrial fibrillation I48.91 Pneumonia J18.9 Laterality: right Lung location: lower lobe of lung Pneumonia type: due to unspecified organism Elevated lactic acid level R79.89 Dyslipidemia E78.5 Acid reflux K21.9 CAD (coronary artery disease) I25.10 Cardiomyopathy, ischemic I25.5 Stenosis of right carotid artery I65.21 Type 2 diabetes mellitus E11.9 Chronic obstructive pulmonary disease J44.9 Bacteremia R78.81 Hypophosphatemia E83.39 Fever R50.9 Encephalopathy G93.40 DVT prophylaxis Z29.9 (1) Acute respiratory failure Respiratory failure complication: hypoxia Qualified Code(s): J96.01 - Acute respiratory failure with hypoxia (2) Pneumonia Laterality: right Lung location: lower lobe of lung Pneumonia type: due to unspecified organism Qualified Code(s): J18.9 - Pneumonia, unspecified organism
[2019-05-14] MEDS: INSULIN ASPART 100 UNITS/ML 3 ML PEN SC SCH ×8 (00:03→20:31)
[2019-05-14] MEDS: DEXMEDETOMIDINE HCL 200 MCG in SODIUM CHLORIDE 0.9% 48 ML IV SCH ×3 (00:08→18:57)
[2019-05-14] MEDS ORDERED: FENTANYL BOLUS FROM BAG IV STA (02:27)
[2019-05-14] MEDS ORDERED: DEXMEDETOMIDINE HCL 400 MCG in SODIUM CHLORIDE 0.9% 96 ML IV SCH (03:00)
[2019-05-14] MEDS ORDERED: LABETALOL HCL IV 5 MG/ML 20ML IV STA (03:02)
[2019-05-14] MEDS: METOPROLOL TARTRATE 50 MG TAB PO SCH ×2 (03:06→08:07)
[2019-05-14] MEDS: MAGNESIUM OXIDE 400 MG TAB PO SCH ×2 (03:07→20:22)
[2019-05-14] MEDS: FAMOTIDINE 20 MG in SYRINGE 3 ML IV SCH ×3 (03:08→20:31)
[2019-05-14] MEDS: ATORVASTATIN 40 MG TAB PO SCH ×2 (03:18→03:20)
[2019-05-14] MEDS: OSELTAMIVIR PHOSPHATE SUSP 75 MG/12.5 ML UDP PO SCH ×2 (03:47→08:09)
[2019-05-14 04:21] LABS: Hematocrit (blood only) 30.1 % (37-47); Hemoglobin 10.3 g/dL (12.0-16.0); Mean Corpuscular Hemoglobin 29.6 pg (25-34); Mean Corpuscular Hgb Conc 34.2 g/dL (32-36); Mean Corpuscular Volume 86.5 fL (80-100); Mean Platelet Volume 10.2 fL (7.4-10.4); Platelet Count 260 K/uL (130-400); RDW Coefficient of Variation 14.7 % (11.5-14.5); RDW Standard Deviation 46.4 fL (36.4-46.3); Red Blood Count 3.48 M/uL (4.2-5.4); White Blood Count 11.19 K/uL (4.8-10.8)
[2019-05-14] MEDS ORDERED: HydrALAZINE HCL 20 MG/ML VIAL IV ONE (04:24)
[2019-05-14 04:25] LABS: Base Excess ABG -0.3 mEq/L (-9-1.8); HCO3 ABG 22 mmol/L (19-24); Oxygen Saturation ABG 97.6 % (90-95); PCO2 ABG 27 mmHg (35-46); PO2 ABG 87 mmHg (80-95)
[2019-05-14 04:27] LABS: Allen Test Pos (Pos)
[2019-05-14 04:28] LABS: pH ABG 7.53 (7.35-7.45)
[2019-05-14 04:32] LABS: Partial Thromboplastin Ratio 1.6; Partial Thromboplastin Time 44.7 Seconds (21.0-31.0)
[2019-05-14 04:39] LABS: Albumin Level 1.4 gm/dl (3.4-5.0); BUN Creatinine Ratio 50.5 (10-20); Calcium 7.7 mg/dl (8.5-10.1); Est GFR (Non-African American) 105.2; Magnesium 1.9 mg/dl (1.8-2.4); Potassium 3.5 mmol/L (3.5-5.1)
[2019-05-14 04:42] LABS: Albumin Globulin Ratio 0.3 (0.9-2); Bilirubin,Total 0.3 mg/dl (0.2-1); Globulin 4.3 gm/dl (2.5-4.0); Phosphorus 2.6 mg/dl (2.5-4.9); Total Protein 5.7 gm/dl (6.4-8.2)
[2019-05-14 04:54] LABS: Basophils # (auto) 0.03 K/uL (0-0.2); Basophils % (auto) 0.3 %; Echinocytes 1+; Immature Granulocytes # (auto) 0.14 K/uL (0.00-0.02); Immature Granulocytes % (auto) 1.3 %; Lymphocytes # (auto) 1.97 K/uL (1.2-3.4); Lymphocytes % (auto) 17.6 %; Monocytes # (auto) 1.59 K/uL (0.11-0.59); Monocytes % (auto) 14.2 %; Neutrophils # (auto) 7.46 K/uL (1.4-6.5); Neutrophils % (auto) 66.6 %; Toxic Granulation 1+
[2019-05-14] MEDS ORDERED: STAT IV Infusion **Titration per Protocol STA (05:05)
[2019-05-14] MEDS ORDERED: PROPOFOL IV EMULSION 10 MG/ML 100 ML VIAL IV ONE (05:07)
[2019-05-14] MEDS ORDERED: propofoL 1,000 MG/100 ML VIAL IV SCH (05:15)
[2019-05-14] MEDS ORDERED: POTASSIUM CHLORIDE / WTR 20 MEQ/100 ML PLCT IV ONE (06:05)
[2019-05-14] MEDS ORDERED: HEPARIN IV BOLUS 2,000 UNITS in SYRINGE 0 ML IV ONE (08:00)
[2019-05-14] MEDS: CLOPIDOGREL BISULFATE 75 MG TAB PO SCH (08:07)
[2019-05-14] MEDS: predniSONE 20 MG TAB PO SCH (08:07)
[2019-05-14] MEDS: ASPIRIN 81 MG CHEW PO SCH (08:09)
[2019-05-14] MEDS ORDERED: NovoLIN-N (NPH) PER UNIT CHARGE SQ SCH (09:00)
[2019-05-14] MEDS ORDERED: INSULIN GLARGINE SOLOSTAR 100 UNITS/ML 3 ML PEN SC ONE (09:00)
--- NOTE | 2019-05-14 09:26 | XRay Report ---
SINGLE VIEW CHEST CLINICAL HISTORY: Respiratory failure. FINDINGS: An AP, portable, upright chest radiograph is compared to study dated 05/13/2019 and correlat ed with chest CT dated 05/10/2019. The examination is degraded by portable technique and patient rotat ion. An endotracheal tube, an enteric tube, and the right internal jugular central venous catheter ar e unchanged in position. The patient is status post midline sternotomy. The heart is enlarged noting atherosclerotic calcification of the thoracic aorta. There is pulmonary vascular congestion. Bibasila r airspace consolidation is unchanged, right greater than left. Trace pleural effusions are noted. No pneumothorax is seen. The bony thorax is grossly intact. IMPRESSION: 1. Stable lines and tubes. 2. Right greater than left bibasilar airspace consolidation is unchanged and typical in appearance fo r pneumonia. 3. Cardiomegaly with pulmonary vascular congestion. 4. Trace pleural effusions. ACT 112: Negative or not required by law. Electronically signed by: Tucker Lantigua M.D. 05/14/2019 9:25 AM
--- NOTE | 2019-05-14 09:37 | Pharmacy Report ---
Pharmacy Glycemic Short Note 2 - Date of Service May 14, 2019 - Glycemic Short BSG Results (Last 24 hours): 05/13/19 05/13/19 05/13/19 09:53 11:00 11:47 Glucose POC Glucose 200 H 195 H 190 H 05/13/19 05/13/19 05/13/19 12:55 13:55 14:49 Glucose POC Glucose 199 H 213 H 187 H 05/13/19 05/13/19 05/13/19 15:49 17:05 17:47 Glucose POC Glucose 204 H 170 H 142 H 05/13/19 05/13/19 05/13/19 18:45 19:59 21:02 Glucose POC Glucose 164 H 141 H 124 H 05/13/19 05/13/19 05/14/19 22:09 23:07 00:04 Glucose POC Glucose 137 H 132 H 117 H 05/14/19 05/14/19 05/14/19 01:03 02:01 03:15 Glucose POC Glucose 132 H 155 H 184 H 05/14/19 05/14/19 05/14/19 04:06 04:14 05:05 Glucose 161 H POC Glucose 168 H 154 H 05/14/19 05/14/19 05/14/19 06:08 06:10 07:16 Glucose POC Glucose 202 H 172 H 197 H 05/14/19 05/14/19 08:00 08:55 Glucose POC Glucose 184 H 177 H OUTPATIENT ANTIDIABETIC REGIMEN: * glimepiride 1 mg BID, metformin 500 mg BID * A1c 13.2% 05/09 ASSESSMENT: * Insulin drip continued throughout the night - at 4.3 units/hr this AM * Continues to be ventilated and on tube feeds as of this AM -> extubated ~ 10 this AM so tube feeds have since been discontinued * Last dose of prednisone 40 mg today * Gave higher dose of Lantus this AM since drip rates had increased overnight. The same dose of NPH was also given to cover the 40 mg of prednisone. * Since extubation and tube feed discontinuation, BSGs have continued to drop. They seem to have leveled off now (105, 97, 91) and I have been following up with nurse re: each BSG check. * Patient unlikely to eat today s/p 5 days on vent. Will need to pass swallow eval first. 05/13 * Patient continues to be ventilated, adjusting sedation to precedex, with hopeful extubation later today * Per discussion with provider, will attempt to transition off of insulin drip today, running @ 1.8 units/hr steadily overnight * 25 units of NPH (.4 units/kg) given with prednisone dose today, additional 30 units of lantus to transition off * Will give additional dose of lantus this evening if drip not able to be transitioned off * If transitioned off, would start novolog parameters 02/08 05/12 * Patient restarted on insulin infusion overnight as BSGs went back into the 300s, currently running at 8.5 units/hr, with BSGs in low 200s * Gave 25 units of NPH with prednisone today, tube feeds up to goal, will tighten CR, continues on heparin gtt * Plan to keep patient on insulin infusion today, will give supplemental lantus dose without intention of turning drip off * S. aureus identified as MSSA- antibiotics changed to ceftriaxone 05/11 * Successfully transitioned off of insulin infusion yesterday, however BSGs trending back up with tube feed increase * Uncertain plan for extubation today/tube feed holds, therefore tightened carb ratio and increased AM lantus dose * Per discussion at rounds, will wean towards extubation today, although anticipating tomorrow, plan to start insulin infusion if lunch BSG was >250. 209 at lunch with adjusted parameters, therefore will continue to utilize basal/bolus * Lantus scale for up to 8 additional units this evening (maximum overall 20% increase in basal from yesterday) * Starting prednisone 40 mg daily x 4 days, NPH insulin is used to counteract the hyperglycemic effect of intermediate acting steroids. The rationale for this approach is that the pharmacodynamics profile of NPH mirrors the pharmacodynamics of steroids. NPH should be dosed at the same time that prednisone is given but will give it now since BSGs critical high. * The dose of NPH given is dependent on the steroid dose given * For doses of prednisone 40mg/day equivalent or above NPH dose should be 0.4 units/kg (in this case utilized ~.3 units/kg) * NPH dosing above is given in addition to patients basal insulin needs * Typically, patients will also need rapid-acting insulin with meals Will continue to reassess need to restart insulin infusion. PLAN FOR INPATIENT GLYCEMIC CONTROL: * Continue to hold outpatient oral diabetes medications * Discontinued insulin drip ~ 11 am * Basal insulin * NPH 25 units this AM (to cover once daily prednisone) * Lantus 40 units this AM * Will reassess basal doses tomorrow * Bolus insulin * NovoLog per scale change to ACHS + overnight checks in case BSG still running low * Goal Range: Low 110 mg/dL - High 140 mg/dL (120-160 mg/dL overnight) * Correctional insulin: 35 mg/dL/unit * Nutritional / Prandial insulin per carb ratio of 1 unit per 10 grams CHO consumed * If BSGs continue to drop and patient still unable to take PO, may need to consider dextrose IVF at a low rate to run overnight
[2019-05-14] MEDS ORDERED: HydrALAZINE HCL 20 MG/ML VIAL IV STA (11:33)
[2019-05-14 13:39] LABS: Partial Thromboplastin Ratio 1.9
[2019-05-14 13:45] LABS: Partial Thromboplastin Time 51.3 Seconds (21.0-31.0)
--- NOTE | 2019-05-14 14:59 | Critical Care Progress Note ---
Date of Service May 14, 2019 Assessment & Plan (1) Sepsis: Reason Critically Ill: 68 yo F with influenza pneumonia complicated by secondary bacterial infection: MSSA with MSSA bacteremia 24 hour events: Improved mental status, extubated today 05/14/2019 Neuro: * Encephalopathy: Improved to nearly resolved - Head CT 05/11 negative for intracranial bleed - brain MRI and Head and Neck CTAs negative for acute or subacute ischemic stroke -Sedation discontinued Cardiac: * A-fib with RVR - resolved, converted back to sinus rhythm. Patient required electrical cardioversion x2 on admission which resulted in rate improvement, ultimately converting back to sinus rhythm on - troponin negative on admission - EHCO 05/09 showed mild reduced systolic function and various wall motion abnormalities, without significant change from study in 2012 - continue home dose Metoprolol 50mg BID - Heparin drip for A-fib. * Hx ASCVD - continue ASA, plavix and statin Respiratory: * Patient extubated 05/14/2019 * Influenza B with superimposed bacterial PNA: Improving - CXR improving - Discontinuing Tamiflu given lack of oral access at this time -Reinstituting last doses of Tamiflu as she passed her swallow study -Ceftriaxone for MSSA -Bronchoscopy completed on to re-clear airways -Day 06/17 of prednisone burst GI: * Discontinuing tube feeds * Speech therapy ordered -Passed bedside swallow study will allow sips with meds * Hypoalbuminemia RENAL/LYTES: * Hyperchloremia -Patient has positive fluid balance is still receiving heparin and IV medications, holding additional IV fluids at this time : * Gallegos -strict Is/Os. >1.3 ml output in past 24 hrs. ENDO: * Hx of Type I diabetes mellitus, in DKA on admission -Transition to sliding scale * TSH 0.2 HEME: * Heparin infusion for atrial fibrillation ID: * Sepsis: patient meet SIRS criteria on admission, suspected Influenza B with superimposed MRSA pneumonia and MSSA bacteremia. no evidence of multi-organ dysfunction at present. * MSSA bacteremia -Patient has had persistent fevers until today, fevers can be attributed to bronchoscopy with lavage -Repeat blood cultures remain negative will add additional blood cultures for tomorrow morning -White count largely unreliable as she is on a steroid burst -We will discontinue all lines to minimize potential sources for infection LINES/IV ACCESS: * L subclavian CVC discontinue 05/14/2019 * L radial Arterial line discontinue 05/14/2019 * Gallegos, discontinue 05/14/2019 convert to pure wick * OG tube discontinue 05/14/2019 * 3 PIVs CODE STATUS: Full DVT PROPHYLAXIS: heparin drip (2) Pneumonia: (3) Elevated lactic acid level: (4) Rapid atrial fibrillation: (5) MSSA (methicillin susceptible Staphylococcus aureus) septicemia: (6) MSSA (methicillin susceptible Staphylococcus aureus) pneumonia: Subjective Patient following two-step commands, significant improvement in mental status Review of Systems Review of Systems: Unobtainable due to endotracheal tube Physical Exam Physical Exam: General: Alert. nontoxic. Following two-step commands Skin: Warm, dry, Head: Atraumatic Ears, nose, mouth and throat: airway patent, obscured by endotracheal tube Cardiovascular: Normal peripheral perfusion Respiratory: no respiratory distress, coarse sounds right greater than left Gastrointestinal: Non distended Musculoskeletal: No deformity Results & Data ([facility]) Vital Signs (Past 12 Hours) Vital Signs Temp Pulse Resp BP Pulse Ox 05/14/19 13:00 88 95 05/14/19 12:45 91 H 163/103 H 96 05/14/19 12:00 92 H 110/84 96 05/14/19 11:00 93 H 94 05/14/19 10:00 101 H 95 05/14/19 09:45 102 H 187/101 H 96 05/14/19 09:25 87 19 97 05/14/19 09:00 63 94 05/14/19 08:59 87 05/14/19 08:44 73 148/91 H 97 05/14/19 08:00 73 96 05/14/19 07:44 77 173/96 H 96 05/14/19 07:28 81 18 95 05/14/19 07:00 76 95 05/14/19 06:44 69 142/78 H 95 05/14/19 06:00 72 94 05/14/19 05:44 77 142/85 H 94 05/14/19 05:06 96 H 36 H 92 05/14/19 05:00 37.9 C H 114 H 92 05/14/19 04:44 76 169/100 H 96 05/14/19 04:00 37.9 C H 74 95 05/14/19 03:45 79 155/90 H 95 05/14/19 03:00 37.6 C H 86 93 Coding Level of Care Code Critical Care ea addt'l 30 min Diagnoses Sepsis A41.9 Sepsis acute organ dysfunction status: unspecified Sepsis type: sepsis due to unspecified organism Pneumonia J18.9 Laterality: right Lung location: lower lobe of lung Pneumonia type: due to unspecified organism Elevated lactic acid level R79.89 Rapid atrial fibrillation I48.91 MSSA (methicillin susceptible Staphylococcus aureus) septicemia A41.01 MSSA (methicillin susceptible Staphylococcus aureus) pneumonia J15.211 Time Spent (min) 85 Comment I have personally spent 85 minutes of critical care time in the direct management of this patient. This is a life/limb threatening event. This includes time spent evaluating patient, direct bedside care, chart review, placing orders, interpretation of diagnostic studies, discussion with consultants, patient, and/or family members regarding treatment decisions, as well as other required patient management activities. This time is exclusive of all separately billable procedures, and teaching time and separate from and in addition to any other critical care service time. (1) Sepsis Sepsis acute organ dysfunction status: unspecified Sepsis type: sepsis due to unspecified organism Qualified Code(s): A41.9 - Sepsis, unspecified organism (2) Pneumonia Laterality: right Lung location: lower lobe of lung Pneumonia type: due to unspecified organism Qualified Code(s): J18.9 - Pneumonia, unspecified organism
[2019-05-14] MEDS: cefTRIAXone SODIUM 2,000 MG in DEXTROSE 5% 50 ML IV SCH (15:39)
[2019-05-14] MEDS: METOPROLOL TARTRATE 1 MG/ML VIAL IV SCH ×3 (15:40→23:37)
[2019-05-14] MEDS: HEPARIN SODIUM/DEXTROSE 25,000 UNITS/500 ML BAG IV SCH ×2 (15:42→19:24)
[2019-05-14] MEDS: DEXTROSE 50% 50 ML SYRINGE IV PRN ×3 (16:10→23:34)
[2019-05-14] MEDS: fentaNYL DRIP 1,250 MCG/250 ML BAG IV SCH ×2 (16:21→18:58)
[2019-05-14] MEDS: MIDAZOLAM HCL 125 MG/250 ML BAG IV SCH (18:56)
[2019-05-14] MEDS: INSULIN REGULAR 250 UNITS in SODIUM CHLORIDE 0.9% 247.5 ML IV SCH ×2 (19:42→19:46)
[2019-05-14] MEDS ORDERED: LORazepam 1 MG TAB PO PRN (19:44)
--- NOTE | 2019-05-14 20:14 | Hospitalist Progress Note ---
Date of Service May 14, 2019 Assessment & Plan (1) Sepsis: Sepsis and septicemia secondary to Staphylococcus aureus pneumonia and influenza B Patient has an elevated lactic acid level and with right lower lobe infiltrate on chest imaging She was admitted to the ICU and intubated after having significant respiratory distress with tachypnea, hypotension immediately after admission Management as per jewel hole finish opener-extubated on Continue treating for pneumonia as below Growing Staphylococcus aureus, MSSA 2 out of 2 blood cultures and in bronchoalveolar lavage culture Repeat blood cultures no growth to date Influenza B positive on 05/11-added Tamiflu and will complete a course on 05/14 Changed Zosyn and vancomycin to ceftriaxone only on 05/12 and would complete a 14 day course on 05/22/19 -Continue to follow repeat blood cultures -Received copious IV fluids which have now been discontinued Blood pressures are stable and did not require vasopressors after DC cardioversion for rapid atrial fibrillation Developed fevers again on 05/12, no clear source. Fevers now resolved (2) Influenza B: With influenza B, sepsis, and Staphylococcus aureus pneumonia and septicemia -started Tamiflu 75 mg twice daily on 05/11 for 5-day course as above (3) Acute respiratory failure: As noted above, secondary to pneumonia and DKA. Also with COPD Ventilator management as per jewel hole finish opener-now extubated on s/p bronchoscopy x 2 now Improved, now on OxyMask -wean off O2 as able to -BAL cytology with atypical cells could be reactive but possibly malignant? Follow Chest imaging to resolution (4) DKA (diabetic ketoacidoses): Severely acidotic upon admission which has now resolved Anion gap is closed , glucose now controlled after many days on insulin gtt Now started on basal/bolus insulin as per Pharmacy Electrolytes will continue to be checked and repleted as needed Hemoglobin A1c up to 13.2% from previous of 8.1% last year (5) Rapid atrial fibrillation: Patient presented hypotensive with pulse 179 and rapid atrial fibrillation. This is a new diagnosis for her She received copious IV fluids and was DC cardioverted in the ICU x 2 Now remains in sinus rhythm with some sinus tachycardia at times -continue metoprolol 50 mg twice daily -now change to po after being extubated -Remains on heparin drip-will now need to consider converting to po anticoagulation as she is extubated--> would be good candidate for Xarelto or Eliquis Echocardiogram with mildly reduced EF at 45-50%, mild LVH, positive wall motion abnormalities which are stable from previous with hypokinesis in the inferior wall from base to the mid ventricle -follow on tele (6) Pneumonia: Staph aureus Pneumonia Dense consolidation right lower lobe as above Had bronchoscopy on 05/10 and again 05/13 to clear airways while on vent Chest x-ray on 05/11 with persistent dense consolidation, 05/13 CXR slightly progressed infiltrate and vol overload CXR with R>L lower lobe infiltrates, trace pleural effusions bilat Procalcitonin trended downward from 6 down to 3.2 Now extubated after 5 days on vent -Follow cultures-growing methicillin sensitive Staphylococcus aureus -Continue antibiotics as above with ceftriaxone -completed a 4 day burst of prednisone 40mg daily (7) Bacteremia: As above, growing MSSA -Follow repeat blood cultures -Converted now to ceftriaxone only and will need total of 14 days of IV therapy as above ECHO without valvular vegetation (8) Elevated lactic acid level: resolved, related to severe sepsis (9) Dyslipidemia: Holding home gemfibrozil and Zetia Holding home atorvastatin -Continue aspirin 81 mg daily and Plavix (10) Acid reflux: -Continue Pepcid 20 mg IV twice daily -was on tube feeds while intubated, now stopped Passed swallow study and has diet -Holding home Prilosec but can restart likely tomorrow (11) CAD (coronary artery disease): With a history of CABG, severe CAD with stents in the past also Follows with Dr. Richards of [facility] -Continue home aspirin, Plavix, metoprolol -Holding lipid drugs as above -Holding home isosorbide (12) Cardiomyopathy, ischemic: As noted in echo above with stable wall motion abnormalities, EF 45% -Continues on metoprolol tartrate but increased to 75mg bid today by ICU (13) Stenosis of right carotid artery: With known moderate stenosis Follow as an outpatient On antiplatelet and statin as an outpatient (14) Type 2 diabetes mellitus: Uncontrolled as above Holding home metformin and glimepiride -Should continue on insulin after discharge given severely uncontrolled hemoglobin A1c (15) Chronic obstructive pulmonary disease: With long history of smoking -now extubated and on OxyMask Holding home albuterol--> would recommend restarting prn albuterol nebs now that is off ventilator -completed prednisone burst 40mg daily x 4 days as per ICU (16) Hypophosphatemia: Replaced in the ICU -Follow phosphorus levels in the morning, BMP (17) Fever: Started having fevers again on 05/12 Could be secondary to medications, atelectasis Management as per jewel hole finish opener No evidence of skin infections or rashes -Consider repeat UA with culture, blood cultures if spikes again but now seems to be resolved (18) Encephalopathy: Was very agitated when off sedation but now improved on Precedex gtt and now extubated CT of the head negative on 05/11 MRI/MRA brain/Head negative 05/12 Pt reports a h/o anxiety and states she takes alprazolam at home-PDMP confirms she gets regular Rxs for alprazolam 0.25mg po tid -continue ativan prn for now that is off versed gtt, watch for benzo withdrawal (19) DVT prophylaxis: Heparin drip Disposition-remain in the ICU but now extubated and will likely transfer out to PCU tomorrow Full code Will need PT/OT consults Admission and Anticipated Discharge Date Admission Date: May 09, 2019 Subjective Pt was extubated today and passed her swallow eval, starting to take sips with pills. She is confused but awake and alert. Knows she is in the hospital but when asked the name of the hospital, she says "yeah, [place]." Still coughing and feels "gurgling" in her chest. Denies abd pain or nausea. Had her IJ and A_line removed, Gallegos removed Review of Systems Review of Systems: All systems reviewed & are unremarkable except as noted in HPI & below Physical Exam Constitutional: average body habitus; no acute distress Eyes: + anicteric sclerae Neck: trachea midline, no thyromegaly + abnormal visual inspection (rt neck with dressing in place c/d/i over RIJ site) Respiratory: normal respiratory effort (w/ OxyMask in place) Cardiovascular: Rate/Rhythm: regular rate and regular rhythm Extremities: normal capillary refill and + edema (Trace pitting edema of the feet and distal legs bilaterally) Chest (Breasts): Chest: normal inspection of chest Gastrointestinal (Abdomen): normal bowel sounds, soft, nontender, no hepatosplenomegaly Musculoskeletal: Extremities: extremities normal to inspection; no cyanosis and no clubbing Skin: no rashes, warm and dry Neurologic: moves all extremities and awake; no focal motor deficits Lymphatic: no lymphedema Results & Data ([facility]) Vital Signs (Past 12 Hours) Vital Signs Pulse Resp BP Pulse Ox 05/14/19 18:00 98 H 25 H 95 05/14/19 17:44 96 H 24 116/84 92 05/14/19 17:00 112 H 26 H 94 05/14/19 16:44 94 H 26 H 161/88 H 95 05/14/19 16:01 91 H 28 H 96 05/14/19 16:00 98 H 05/14/19 15:59 85 22 155/79 H 95 05/14/19 15:54 82 19 164/97 H 96 05/14/19 15:44 90 165/95 H 96 05/14/19 15:40 88 05/14/19 15:00 100 H 95 05/14/19 14:45 92 H 159/114 H 96 05/14/19 14:00 93 H 95 05/14/19 13:45 95 H 161/80 H 95 05/14/19 13:00 88 95 05/14/19 12:45 91 H 163/103 H 96 05/14/19 12:00 92 H 110/84 96 05/14/19 11:00 93 H 94 05/14/19 10:00 101 H 95 05/14/19 09:45 102 H 187/101 H 96 05/14/19 09:25 87 19 97 05/14/19 09:00 63 94 05/14/19 08:59 87 05/14/19 08:44 73 148/91 H 97 Laboratory Results 05/14/19 05/14/19 05/14/19 Range/Units 16:25 16:03 14:17 WBC (4.8-10.8) K/uL RBC (4.2-5.4) M/uL Hgb (12.0-16.0) g/dL Hct (37-47) % MCV (80-100) fL MCH (25-34) pg MCHC (32-36) g/dL RDW Std Deviation (36.4-46.3) fL RDW Coeff of Kelly (11.5-14.5) % Plt Count (130-400) K/uL MPV (7.4-10.4) fL Immature Gran % (Auto) % Neut % (Auto) % Lymph % (Auto) % [place] % (Auto) % Eos % (Auto) % Baso % (Auto) % Immature Gran # (Auto) (0.00-0.02) K/uL Neut # (Auto) (1.4-6.5) K/uL Lymph # (Auto) (1.2-3.4) K/uL [place] # (Auto) (0.11-0.59) K/uL Eos # (Auto) (0-0.5) K/uL Baso # (Auto) (0-0.2) K/uL Toxic Granulation Echinocytes APTT (21.0-31.0) Seconds PTT Ratio ABG pH (7.35-7.45) ABG pCO2 (35-46) mmHg ABG pO2 (80-95) mmHg ABG HCO3 (19-24) mmol/L ABG O2 Saturation (90-95) % ABG Base Excess (-9-1.8) mEq/L Jero Test (Pos) Oxygen Given Sodium (136-145) mmol/L Potassium (3.5-5.1) mmol/L Chloride (98-107) mmol/L Carbon Dioxide (21-32) mmol/L Anion Gap (3-11) BUN (7-18) mg/dl Creatinine (0.6-1.2) mg/dl Est Cr Clr Drug Dosing ml/min Est GFR ( Amer) Est GFR (Non-Af Amer) BUN/Creatinine Ratio (10-20) Glucose (70-99) mg/dl POC Glucose 128 H 65 L* 91 (70-99) mg/dl Calcium (8.5-10.1) mg/dl Phosphorus (2.5-4.9) mg/dl Magnesium (1.8-2.4) mg/dl Total Bilirubin (0.2-1) mg/dl AST (15-37) U/L ALT (12-78) U/L Alkaline Phosphatase (45-117) U/L Total Protein (6.4-8.2) gm/dl Albumin (3.4-5.0) gm/dl Globulin (2.5-4.0) gm/dl Albumin/Globulin Ratio (0.9-2) 05/14/19 05/14/19 05/14/19 Range/Units 13:09 12:50 11:52 WBC (4.8-10.8) K/uL RBC (4.2-5.4) M/uL Hgb (12.0-16.0) g/dL Hct (37-47) % MCV (80-100) fL MCH (25-34) pg MCHC (32-36) g/dL RDW Std Deviation (36.4-46.3) fL RDW Coeff of Kelly (11.5-14.5) % Plt Count (130-400) K/uL MPV (7.4-10.4) fL Immature Gran % (Auto) % Neut % (Auto) % Lymph % (Auto) % [place] % (Auto) % Eos % (Auto) % Baso % (Auto) % Immature Gran # (Auto) (0.00-0.02) K/uL Neut # (Auto) (1.4-6.5) K/uL Lymph # (Auto) (1.2-3.4) K/uL [place] # (Auto) (0.11-0.59) K/uL Eos # (Auto) (0-0.5) K/uL Baso # (Auto) (0-0.2) K/uL Toxic Granulation Echinocytes APTT 51.3 H* (21.0-31.0) Seconds PTT Ratio 1.9 ABG pH (7.35-7.45) ABG pCO2 (35-46) mmHg ABG pO2 (80-95) mmHg ABG HCO3 (19-24) mmol/L ABG O2 Saturation (90-95) % ABG Base Excess (-9-1.8) mEq/L Jero Test (Pos) Oxygen Given Sodium (136-145) mmol/L Potassium (3.5-5.1) mmol/L Chloride (98-107) mmol/L Carbon Dioxide (21-32) mmol/L Anion Gap (3-11) BUN (7-18) mg/dl Creatinine (0.6-1.2) mg/dl Est Cr Clr Drug Dosing ml/min Est GFR ( Amer) Est GFR (Non-Af Amer) BUN/Creatinine Ratio (10-20) Glucose (70-99) mg/dl POC Glucose 97 105 H (70-99) mg/dl Calcium (8.5-10.1) mg/dl Phosphorus (2.5-4.9) mg/dl Magnesium (1.8-2.4) mg/dl Total Bilirubin (0.2-1) mg/dl AST (15-37) U/L ALT (12-78) U/L Alkaline Phosphatase (45-117) U/L Total Protein (6.4-8.2) gm/dl Albumin (3.4-5.0) gm/dl Globulin (2.5-4.0) gm/dl Albumin/Globulin Ratio (0.9-2) 05/14/19 05/14/19 05/14/19 Range/Units 10:53 10:01 08:55 WBC (4.8-10.8) K/uL RBC (4.2-5.4) M/uL Hgb (12.0-16.0) g/dL Hct (37-47) % MCV (80-100) fL MCH (25-34) pg MCHC (32-36) g/dL RDW Std Deviation (36.4-46.3) fL RDW Coeff of Kelly (11.5-14.5) % Plt Count (130-400) K/uL MPV (7.4-10.4) fL Immature Gran % (Auto) % Neut % (Auto) % Lymph % (Auto) % [place] % (Auto) % Eos % (Auto) % Baso % (Auto) % Immature Gran # (Auto) (0.00-0.02) K/uL Neut # (Auto) (1.4-6.5) K/uL Lymph # (Auto) (1.2-3.4) K/uL [place] # (Auto) (0.11-0.59) K/uL Eos # (Auto) (0-0.5) K/uL Baso # (Auto) (0-0.2) K/uL Toxic Granulation Echinocytes APTT (21.0-31.0) Seconds PTT Ratio ABG pH (7.35-7.45) ABG pCO2 (35-46) mmHg ABG pO2 (80-95) mmHg ABG HCO3 (19-24) mmol/L ABG O2 Saturation (90-95) % ABG Base Excess (-9-1.8) mEq/L Jero Test (Pos) Oxygen Given Sodium (136-145) mmol/L Potassium (3.5-5.1) mmol/L Chloride (98-107) mmol/L Carbon Dioxide (21-32) mmol/L Anion Gap (3-11) BUN (7-18) mg/dl Creatinine (0.6-1.2) mg/dl Est Cr Clr Drug Dosing ml/min Est GFR ( Amer) Est GFR (Non-Af Amer) BUN/Creatinine Ratio (10-20) Glucose (70-99) mg/dl POC Glucose 139 H 183 H 177 H (70-99) mg/dl Calcium (8.5-10.1) mg/dl Phosphorus (2.5-4.9) mg/dl Magnesium (1.8-2.4) mg/dl Total Bilirubin (0.2-1) mg/dl AST (15-37) U/L ALT (12-78) U/L Alkaline Phosphatase (45-117) U/L Total Protein (6.4-8.2) gm/dl Albumin (3.4-5.0) gm/dl Globulin (2.5-4.0) gm/dl Albumin/Globulin Ratio (0.9-2) 05/14/19 05/14/19 05/14/19 Range/Units 08:00 07:16 06:10 WBC (4.8-10.8) K/uL RBC (4.2-5.4) M/uL Hgb (12.0-16.0) g/dL Hct (37-47) % MCV (80-100) fL MCH (25-34) pg MCHC (32-36) g/dL RDW Std Deviation (36.4-46.3) fL RDW Coeff of Kelly (11.5-14.5) % Plt Count (130-400) K/uL MPV (7.4-10.4) fL Immature Gran % (Auto) % Neut % (Auto) % Lymph % (Auto) % [place] % (Auto) % Eos % (Auto) % Baso % (Auto) % Immature Gran # (Auto) (0.00-0.02) K/uL Neut # (Auto) (1.4-6.5) K/uL Lymph # (Auto) (1.2-3.4) K/uL [place] # (Auto) (0.11-0.59) K/uL Eos # (Auto) (0-0.5) K/uL Baso # (Auto) (0-0.2) K/uL Toxic Granulation Echinocytes APTT (21.0-31.0) Seconds PTT Ratio ABG pH (7.35-7.45) ABG pCO2 (35-46) mmHg ABG pO2 (80-95) mmHg ABG HCO3 (19-24) mmol/L ABG O2 Saturation (90-95) % ABG Base Excess (-9-1.8) mEq/L Jero Test (Pos) Oxygen Given Sodium (136-145) mmol/L Potassium (3.5-5.1) mmol/L Chloride (98-107) mmol/L Carbon Dioxide (21-32) mmol/L Anion Gap (3-11) BUN (7-18) mg/dl Creatinine (0.6-1.2) mg/dl Est Cr Clr Drug Dosing ml/min Est GFR ( Amer) Est GFR (Non-Af Amer) BUN/Creatinine Ratio (10-20) Glucose (70-99) mg/dl POC Glucose 184 H 197 H 172 H (70-99) mg/dl Calcium (8.5-10.1) mg/dl Phosphorus (2.5-4.9) mg/dl Magnesium (1.8-2.4) mg/dl Total Bilirubin (0.2-1) mg/dl AST (15-37) U/L ALT (12-78) U/L Alkaline Phosphatase (45-117) U/L Total Protein (6.4-8.2) gm/dl Albumin (3.4-5.0) gm/dl Globulin (2.5-4.0) gm/dl Albumin/Globulin Ratio (0.9-2) 05/14/19 05/14/19 05/14/19 Range/Units 06:08 05:05 04:14 WBC (4.8-10.8) K/uL RBC (4.2-5.4) M/uL Hgb (12.0-16.0) g/dL Hct (37-47) % MCV (80-100) fL MCH (25-34) pg MCHC (32-36) g/dL RDW Std Deviation (36.4-46.3) fL RDW Coeff of Kelly (11.5-14.5) % Plt Count (130-400) K/uL MPV (7.4-10.4) fL Immature Gran % (Auto) % Neut % (Auto) % Lymph % (Auto) % [place] % (Auto) % Eos % (Auto) % Baso % (Auto) % Immature Gran # (Auto) (0.00-0.02) K/uL Neut # (Auto) (1.4-6.5) K/uL Lymph # (Auto) (1.2-3.4) K/uL [place] # (Auto) (0.11-0.59) K/uL Eos # (Auto) (0-0.5) K/uL Baso # (Auto) (0-0.2) K/uL Toxic Granulation Echinocytes APTT (21.0-31.0) Seconds PTT Ratio ABG pH (7.35-7.45) ABG pCO2 (35-46) mmHg ABG pO2 (80-95) mmHg ABG HCO3 (19-24) mmol/L ABG O2 Saturation (90-95) % ABG Base Excess (-9-1.8) mEq/L Jero Test (Pos) Oxygen Given Sodium (136-145) mmol/L Potassium (3.5-5.1) mmol/L Chloride (98-107) mmol/L Carbon Dioxide (21-32) mmol/L Anion Gap (3-11) BUN (7-18) mg/dl Creatinine (0.6-1.2) mg/dl Est Cr Clr Drug Dosing ml/min Est GFR ( Amer) Est GFR (Non-Af Amer) BUN/Creatinine Ratio (10-20) Glucose (70-99) mg/dl POC Glucose 202 H 154 H 168 H (70-99) mg/dl Calcium (8.5-10.1) mg/dl Phosphorus (2.5-4.9) mg/dl Magnesium (1.8-2.4) mg/dl Total Bilirubin (0.2-1) mg/dl AST (15-37) U/L ALT (12-78) U/L Alkaline Phosphatase (45-117) U/L Total Protein (6.4-8.2) gm/dl Albumin (3.4-5.0) gm/dl Globulin (2.5-4.0) gm/dl Albumin/Globulin Ratio (0.9-2) 05/14/19 05/14/19 05/14/19 Range/Units 04:12 04:06 04:06 WBC (4.8-10.8) K/uL RBC (4.2-5.4) M/uL Hgb (12.0-16.0) g/dL Hct (37-47) % MCV (80-100) fL MCH (25-34) pg MCHC (32-36) g/dL RDW Std Deviation (36.4-46.3) fL RDW Coeff of Kelly (11.5-14.5) % Plt Count (130-400) K/uL MPV (7.4-10.4) fL Immature Gran % (Auto) % Neut % (Auto) % Lymph % (Auto) % [place] % (Auto) % Eos % (Auto) % Baso % (Auto) % Immature Gran # (Auto) (0.00-0.02) K/uL Neut # (Auto) (1.4-6.5) K/uL Lymph # (Auto) (1.2-3.4) K/uL [place] # (Auto) (0.11-0.59) K/uL Eos # (Auto) (0-0.5) K/uL Baso # (Auto) (0-0.2) K/uL Toxic Granulation Echinocytes APTT 44.7 H (21.0-31.0) Seconds PTT Ratio 1.6 ABG pH 7.53 H* (7.35-7.45) ABG pCO2 27 L (35-46) mmHg ABG pO2 87 (80-95) mmHg ABG HCO3 22 (19-24) mmol/L ABG O2 Saturation 97.6 H (90-95) % ABG Base Excess -0.3 (-9-1.8) mEq/L Jero Test Pos (Pos) Oxygen Given 40% Sodium 140 (136-145) mmol/L Potassium 3.5 (3.5-5.1) mmol/L Chloride 113 H (98-107) mmol/L Carbon Dioxide 21 (21-32) mmol/L Anion Gap 6.0 (3-11) BUN 21 H (7-18) mg/dl Creatinine 0.43 L (0.6-1.2) mg/dl Est Cr Clr Drug Dosing 108.0 ml/min Est GFR ( Amer) 122.0 Est GFR (Non-Af Amer) 105.2 BUN/Creatinine Ratio 50.5 H (10-20) Glucose 161 H (70-99) mg/dl POC Glucose (70-99) mg/dl Calcium 7.7 L (8.5-10.1) mg/dl Phosphorus 2.6 (2.5-4.9) mg/dl Magnesium 1.9 (1.8-2.4) mg/dl Total Bilirubin 0.3 (0.2-1) mg/dl AST 22 (15-37) U/L ALT 29 (12-78) U/L Alkaline Phosphatase 181 H (45-117) U/L Total Protein 5.7 L (6.4-8.2) gm/dl Albumin 1.4 L (3.4-5.0) gm/dl Globulin 4.3 H (2.5-4.0) gm/dl Albumin/Globulin Ratio 0.3 L (0.9-2) 05/14/19 05/14/19 05/14/19 Range/Units 04:06 03:15 02:01 WBC 11.19 H (4.8-10.8) K/uL RBC 3.48 L (4.2-5.4) M/uL Hgb 10.3 L (12.0-16.0) g/dL Hct 30.1 L (37-47) % MCV 86.5 (80-100) fL MCH 29.6 (25-34) pg MCHC 34.2 (32-36) g/dL RDW Std Deviation 46.4 H (36.4-46.3) fL RDW Coeff of Kelly 14.7 H (11.5-14.5) % Plt Count 260 (130-400) K/uL MPV 10.2 (7.4-10.4) fL Immature Gran % (Auto) 1.3 % Neut % (Auto) 66.6 % Lymph % (Auto) 17.6 % [place] % (Auto) 14.2 % Eos % (Auto) 0.0 % Baso % (Auto) 0.3 % Immature Gran # (Auto) 0.14 H (0.00-0.02) K/uL Neut # (Auto) 7.46 H (1.4-6.5) K/uL Lymph # (Auto) 1.97 (1.2-3.4) K/uL [place] # (Auto) 1.59 H (0.11-0.59) K/uL Eos # (Auto) 0.00 (0-0.5) K/uL Baso # (Auto) 0.03 (0-0.2) K/uL Toxic Granulation 1+ Echinocytes 1+ APTT (21.0-31.0) Seconds PTT Ratio ABG pH (7.35-7.45) ABG pCO2 (35-46) mmHg ABG pO2 (80-95) mmHg ABG HCO3 (19-24) mmol/L ABG O2 Saturation (90-95) % ABG Base Excess (-9-1.8) mEq/L Jero Test (Pos) Oxygen Given Sodium (136-145) mmol/L Potassium (3.5-5.1) mmol/L Chloride (98-107) mmol/L Carbon Dioxide (21-32) mmol/L Anion Gap (3-11) BUN (7-18) mg/dl Creatinine (0.6-1.2) mg/dl Est Cr Clr Drug Dosing ml/min Est GFR ( Amer) Est GFR (Non-Af Amer) BUN/Creatinine Ratio (10-20) Glucose (70-99) mg/dl POC Glucose 184 H 155 H (70-99) mg/dl Calcium (8.5-10.1) mg/dl Phosphorus (2.5-4.9) mg/dl Magnesium (1.8-2.4) mg/dl Total Bilirubin (0.2-1) mg/dl AST (15-37) U/L ALT (12-78) U/L Alkaline Phosphatase (45-117) U/L Total Protein (6.4-8.2) gm/dl Albumin (3.4-5.0) gm/dl Globulin (2.5-4.0) gm/dl Albumin/Globulin Ratio (0.9-2) 05/14/19 05/14/19 05/13/19 Range/Units 01:03 00:04 23:07 WBC (4.8-10.8) K/uL RBC (4.2-5.4) M/uL Hgb (12.0-16.0) g/dL Hct (37-47) % MCV (80-100) fL MCH (25-34) pg MCHC (32-36) g/dL RDW Std Deviation (36.4-46.3) fL RDW Coeff of Kelly (11.5-14.5) % Plt Count (130-400) K/uL MPV (7.4-10.4) fL Immature Gran % (Auto) % Neut % (Auto) % Lymph % (Auto) % [place] % (Auto) % Eos % (Auto) % Baso % (Auto) % Immature Gran # (Auto) (0.00-0.02) K/uL Neut # (Auto) (1.4-6.5) K/uL Lymph # (Auto) (1.2-3.4) K/uL [place] # (Auto) (0.11-0.59) K/uL Eos # (Auto) (0-0.5) K/uL Baso # (Auto) (0-0.2) K/uL Toxic Granulation Echinocytes APTT (21.0-31.0) Seconds PTT Ratio ABG pH (7.35-7.45) ABG pCO2 (35-46) mmHg ABG pO2 (80-95) mmHg ABG HCO3 (19-24) mmol/L ABG O2 Saturation (90-95) % ABG Base Excess (-9-1.8) mEq/L Jreo Test (Pos) Oxygen Given Sodium (136-145) mmol/L Potassium (3.5-5.1) mmol/L Chloride (98-107) mmol/L Carbon Dioxide (21-32) mmol/L Anion Gap (3-11) BUN (7-18) mg/dl Creatinine (0.6-1.2) mg/dl Est Cr Clr Drug Dosing ml/min Est GFR ( Amer) Est GFR (Non-Af Amer) BUN/Creatinine Ratio (10-20) Glucose (70-99) mg/dl POC Glucose 132 H 117 H 132 H (70-99) mg/dl Calcium (8.5-10.1) mg/dl Phosphorus (2.5-4.9) mg/dl Magnesium (1.8-2.4) mg/dl Total Bilirubin (0.2-1) mg/dl AST (15-37) U/L ALT (12-78) U/L Alkaline Phosphatase (45-117) U/L Total Protein (6.4-8.2) gm/dl Albumin (3.4-5.0) gm/dl Globulin (2.5-4.0) gm/dl Albumin/Globulin Ratio (0.9-2) 05/13/19 05/13/19 Range/Units 22:09 21:02 WBC (4.8-10.8) K/uL RBC (4.2-5.4) M/uL Hgb (12.0-16.0) g/dL Hct (37-47) % MCV (80-100) fL MCH (25-34) pg MCHC (32-36) g/dL RDW Std Deviation (36.4-46.3) fL RDW Coeff of Kelly (11.5-14.5) % Plt Count (130-400) K/uL MPV (7.4-10.4) fL Immature Gran % (Auto) % Neut % (Auto) % Lymph % (Auto) % [place] % (Auto) % Eos % (Auto) % Baso % (Auto) % Immature Gran # (Auto) (0.00-0.02) K/uL Neut # (Auto) (1.4-6.5) K/uL Lymph # (Auto) (1.2-3.4) K/uL [place] # (Auto) (0.11-0.59) K/uL Eos # (Auto) (0-0.5) K/uL Baso # (Auto) (0-0.2) K/uL Toxic Granulation Echinocytes APTT (21.0-31.0) Seconds PTT Ratio ABG pH (7.35-7.45) ABG pCO2 (35-46) mmHg ABG pO2 (80-95) mmHg ABG HCO3 (19-24) mmol/L ABG O2 Saturation (90-95) % ABG Base Excess (-9-1.8) mEq/L Jero Test (Pos) Oxygen Given Sodium (136-145) mmol/L Potassium (3.5-5.1) mmol/L Chloride (98-107) mmol/L Carbon Dioxide (21-32) mmol/L Anion Gap (3-11) BUN (7-18) mg/dl Creatinine (0.6-1.2) mg/dl Est Cr Clr Drug Dosing ml/min Est GFR ( Amer) Est GFR (Non-Af Amer) BUN/Creatinine Ratio (10-20) Glucose (70-99) mg/dl POC Glucose 137 H 124 H (70-99) mg/dl Calcium (8.5-10.1) mg/dl Phosphorus (2.5-4.9) mg/dl Magnesium (1.8-2.4) mg/dl Total Bilirubin (0.2-1) mg/dl AST (15-37) U/L ALT (12-78) U/L Alkaline Phosphatase (45-117) U/L Total Protein (6.4-8.2) gm/dl Albumin (3.4-5.0) gm/dl Globulin (2.5-4.0) gm/dl Albumin/Globulin Ratio (0.9-2) PG Care Time/CCT Total # of Minutes Spent Total Time Spent with Patient: Total time spent is greater than 50% in coordination of care (as documented) at patient's floor/unit and/or counseling patient: Coding Level of Care Code 13708 Subseq Hosp Care Lvl 3 Diagnoses Sepsis A41.9 Influenza B J10.1 Acute respiratory failure J96.01 Respiratory failure complication: hypoxia DKA (diabetic ketoacidoses) E11.10 Rapid atrial fibrillation I48.91 Pneumonia J18.9 Laterality: right Lung location: lower lobe of lung Pneumonia type: due to unspecified organism Bacteremia R78.81 Elevated lactic acid level R79.89 Dyslipidemia E78.5 Acid reflux K21.9 CAD (coronary artery disease) I25.10 Cardiomyopathy, ischemic I25.5 Stenosis of right carotid artery I65.21 Type 2 diabetes mellitus E11.9 Chronic obstructive pulmonary disease J44.9 Hypophosphatemia E83.39 Fever R50.9 Encephalopathy G93.40 DVT prophylaxis Z29.9 (1) Acute respiratory failure Respiratory failure complication: hypoxia Qualified Code(s): J96.01 - Acute respiratory failure with hypoxia (2) Pneumonia Laterality: right Lung location: lower lobe of lung Pneumonia type: due to unspecified organism Qualified Code(s): J18.9 - Pneumonia, unspecified organism
[2019-05-14] MEDS: OSELTAMIVIR PHOSPHATE 75 MG CAP PO SCH (20:21)
[2019-05-14] MEDS: METOPROLOL TARTRATE 25 MG TAB PO SCH (20:22)
[2019-05-15] MEDS: DEXTROSE 10% 1,000 ML IV SCH ×2 (00:15→11:29)
[2019-05-15] MEDS: INSULIN ASPART 100 UNITS/ML 3 ML PEN SC SCH ×5 (00:28→21:35)
[2019-05-15] MEDS ORDERED: LORazepam 1 MG/2 ML VIAL IV STA (03:40)
[2019-05-15] MEDS ORDERED: LORazepam 2 MG/4 ML VIAL ONE (03:42)
[2019-05-15] MEDS: METOPROLOL TARTRATE 1 MG/ML VIAL IV SCH ×5 (04:00→20:34)
[2019-05-15] MEDS ORDERED: RAPID SEQUENCE INDUCTION BAG ONE (04:11)
[2019-05-15] MEDS ORDERED: PROPOFOL IV EMULSION 10 MG/ML 100 ML VIAL IV ONE (04:22)
[2019-05-15 04:23] LABS: iSTAT Art Bld Gas pCO2 Correct 24 mmHg (35-46); iSTAT Arterial Blood Gas HCO3 17 meg/L (19-24); iSTAT Arterial Blood Gas pCO2 24 mmHg (35-46); iSTAT Arterial Blood Gas pH 7.47 (7.35-7.45); iSTAT Arterial Blood Gas pO2 58 mmHg (80-95); iSTAT Arterial Blood Gas pO2 C 58; iSTAT Carbon Dioxide 18 mmol/L (24-31); iSTAT FiO2 100 %; iSTAT Hematocrit 31 % (37-47); iSTAT Hemoglobin 10.5 g/dl (12.0-16.0); iSTAT Potassium 3.2 mmol/L (3.3-5.0); iSTAT Site L Brachial; iSTAT Sodium 136 mmol/L (135-144)
[2019-05-15] MEDS ORDERED: STAT IV Infusion **Titration per Protocol STA ×2 (04:28→07:14)
[2019-05-15] MEDS: propofoL 1,000 MG/100 ML VIAL IV SCH ×5 (04:30→23:04)
--- NOTE | 2019-05-15 04:34 | Emergency Department Note ---
ED Visit Note Endotracheal Intubation Indication: Impending Respiratory Failure Arrived to room 108 to find patient severely tachypneic, tachycardic and agitated on High Flow NC. Sats Ok though patient clearly impending respiratory failure. Lungs diffuse crackles and wet. Review recent CXR with diffuse pulmonary infiltrates. Extubated yesterday s/p influenza/pna treatment. Labs with normal K. It was felt patient required emergent intubation. Suction, airway equipment, RSI drugs, respiratory equipment, and appropriate personnel were prepared prior to the initiation of the procedure. A time out was taken. Induction was performed with Etomidate and Succinylcholine. After observing the clinical benefit of the medications, the airway was easily visualized utilizing a #4 Glidescope. A 7.0 size ETT tube was placed atraumatically to 21 cm using standard technique. The cuff inflated without signs of malfunction. There were bilateral breath sounds, positive colormetric change, no gastric sounds, a good capnography waveform, and post procedure pulse oximetry was 95%. Post intubation sedation and paralysis was administered using Propofol. There were no complications. Signed off to ICU staff for further management. Vince Whiteside MD : Sepsis Qualifiers: Sepsis type: sepsis due to unspecified organism Sepsis acute organ dysfunction status: unspecified Qualified Code(s): A41.9 - Sepsis, unspecified organism Pneumonia Qualifiers: Pneumonia type: due to unspecified organism Laterality: right Lung location: lower lobe of lung Qualified Code(s): J18.9 - Pneumonia, unspecified organism Acute respiratory failure Qualifiers: Respiratory failure complication: hypoxia Qualified Code(s): J96.01 - Acute respiratory failure with hypoxia
[2019-05-15 04:56] LABS: Hematocrit (blood only) 34.2 % (37-47); Hemoglobin 11.7 g/dL (12.0-16.0); Mean Corpuscular Hemoglobin 30.1 pg (25-34); Mean Corpuscular Hgb Conc 34.2 g/dL (32-36); Mean Corpuscular Volume 87.9 fL (80-100); Mean Platelet Volume 10.4 fL (7.4-10.4); Nucleated RBC # (auto) 0.03 K/uL (0-0); Nucleated RBC % (auto) 0.2 %; Platelet Count 373 K/uL (130-400); RDW Coefficient of Variation 14.7 % (11.5-14.5); RDW Standard Deviation 46.8 fL (36.4-46.3); Red Blood Count 3.89 M/uL (4.2-5.4); White Blood Count 16.87 K/uL (4.8-10.8)
[2019-05-15] MEDS ORDERED: OPTIRAY 320 125ml IV PRN (04:58)
--- NOTE | 2019-05-15 04:58 | Communication Note ---
Date of Service: May 15, 2019 At approximately 4 AM patient became very restless and tachycardic. At the time we are unable to read pulse ox as patient was very anxious and moving const antly. Patient was on high flow nasal cannula after being extubated yesterday and been maintaining sats with mild tachypnea throughout the night. Patient respiratory rate in the 40s and heart rate in the 160s. 5 IV metoprolol was administered and heart rate did somewhat improve patient remained tachypneic. EKG showed tachycardia with some ST segment depression, consistent with demand ischemia. ABG was obtained and patient's PO2 on on percent FiO2 with 40 L flow was 58 and was alkalotic. Emergency department physician was contacted for assistance with intubation. See Dr. Whiteside's note for procedural details. Patient now hemodynamically stable while intubated on ventilator with sedation. CTA chest ordered for PE rule out. Chest x-ray obtained to confirm tube placement and patient appears to have worsened bilateral infiltrates compared to previous study. Will reobtain ABG following intubation and adjust ventilator settings appropriately. I have personally spent 35 minutes of critical care time in the direct management of this patient. This is a life/limb threatening event. This includes time spent evaluating patient, direct bedside care, chart review, placing orders, interpretation of diagnostic studies, discussion with consultants, patient, and family members, as well as other required patient management activities. This time is exclusive of all separately billable procedures, and teaching time and separate from and in addition to any other critical care service time. Thank you for allowing us to participate in the care of this patient. Please refer to my attending physician's documentation for any further recommendations. Coding Level of Care Code Critical Care 1st 30-74 mins
[2019-05-15 05:07] LABS: Partial Thromboplastin Ratio 1.6; Partial Thromboplastin Time 42.4 Seconds (21.0-31.0)
[2019-05-15 05:20] LABS: Albumin Globulin Ratio 0.4 (0.9-2); Albumin Level 1.8 gm/dl (3.4-5.0); BUN Creatinine Ratio 15.1 (10-20); Bilirubin,Total 0.6 mg/dl (0.2-1); Calcium 7.9 mg/dl (8.5-10.1); Creatinine Clr Calc Pharmacy 70.6 ml/min; Est GFR (African American) 105.4; Globulin 5.1 gm/dl (2.5-4.0); Magnesium 1.7 mg/dl (1.8-2.4); Phosphorus 3.5 mg/dl (2.5-4.9); Potassium 3.3 mmol/L (3.5-5.1); Total Protein 6.9 gm/dl (6.4-8.2)
[2019-05-15 05:36] LABS: Basophils # (auto) 0.02 K/uL (0-0.2); Basophils % (auto) 0.1 %; Echinocytes 1+; Immature Granulocytes % (auto) 1.2 %; Lymphocytes # (auto) 2.36 K/uL (1.2-3.4); Monocytes # (auto) 1.13 K/uL (0.11-0.59); Monocytes % (auto) 6.7 %; Neutrophils # (auto) 13.16 K/uL (1.4-6.5)
[2019-05-15] MEDS ORDERED: POTASSIUM CHLORIDE 20 MEQ/15 ML UDC PO STA (06:03)
[2019-05-15] MEDS ORDERED: fentaNYL citrate 100 MCG/2 ML VIAL IV PRN ×2 (06:04→07:14)
[2019-05-15] MEDS ORDERED: HEPARIN IV BOLUS 2,000 UNITS in SYRINGE 0 ML IV STA (06:12)
[2019-05-15] MEDS ORDERED: FUROSEMIDE 40 MG in SYRINGE 0 ML IV ONE (06:20)
[2019-05-15] MEDS: MAGNESIUM SULFATE / D5W 1 GM/100 ML BAG IV SCH ×2 (06:24→07:33)
[2019-05-15 07:19] LABS: iSTAT Allen Test Pass; iSTAT Art Bld Gas pCO2 Correct 30 mmHg (35-46); iSTAT Arterial Blood Gas HCO3 24 meg/L (19-24); iSTAT Arterial Blood Gas pCO2 30 mmHg (35-46); iSTAT Arterial Blood Gas pH 7.52 (7.35-7.45); iSTAT Arterial Blood Gas pO2 100 mmHg (80-95); iSTAT Arterial Blood Gas pO2 C 100; iSTAT Carbon Dioxide 25 mmol/L (24-31); iSTAT FiO2 96 %; iSTAT Hematocrit 28 % (37-47); iSTAT Hemoglobin 9.5 g/dl (12.0-16.0); iSTAT Potassium 3.1 mmol/L (3.3-5.0); iSTAT Site L Radial; iSTAT Sodium 137 mmol/L (135-144)
--- NOTE | 2019-05-15 07:22 | XRay Report ---
XR chest 1V portable HISTORY: 68 years-old Female desaturation acute shortness of breath COMPARISON: Chest radiograph 05/14/2019, CTA of the chest 05/15/2019 TECHNIQUE: Portable AP view of the chest FINDINGS: Status post extubation. Enteric tube and right IJ central venous catheter has also been removed. Card iac silhouette is enlarged. Prior median sternotomy and CABG. Calcified plaque of the thoracic aortic arch. Multiple telemetry leads are noted coiling about the chest. The bones appear grossly intact. P rogressively worsened bilateral mixed interstitial and alveolar opacities. The left costophrenic angl e is excluded from the vengt-zx-dliu. Probable trace left pleural effusion. Unchanged right pleural e ffusion. IMPRESSION: 1. Interval extubation along with removal of the enteric tube and right IJ central venous catheter. 2. Cardiomegaly with progressively worsened mixed interstitial and alveolar opacities. 3. Small pleural effusions. ACT 112: Negative or not required by law. The above report was generated using voice recognition software. It may contain grammatical, syntax o r spelling errors. Electronically signed by: Cruzito Mccurdy M.D. 05/15/2019 7:20 AM
--- NOTE | 2019-05-15 07:27 | XRay Report ---
XR chest 1V portable HISTORY: 68 years-old Female intubation acute respiratory failure COMPARISON: CTA of the chest of same day, chest radiograph 05/15/2019 4:05 AM TECHNIQUE: Portable AP view of the chest FINDINGS: Endotracheal tube has been placed, 2.9 cm superior to the jaime. Enteric tube courses below the diap hragm, distal tip outside the zonyf-un-ohsh. Cardiomegaly with prior median sternotomy and CABG. The left lower lateral chest is excluded from the ieccu-sx-tstr. No pneumothorax. Extensive mixed bilater al interstitial and alveolar opacities with right pleural effusion and dense right lung base consolid ation. Bones appear grossly intact. IMPRESSION: 1. Endotracheal tube terminates 2.9 cm superior to the jaime. 2. Enteric tube courses below the diaphragm outside the voxtl-sy-otuv. 3. Extensive consolidation with right pleural effusion redemonstrated. 4. Cardiomegaly. ACT 112: Negative or not required by law. The above report was generated using voice recognition software. It may contain grammatical, syntax o r spelling errors. Electronically signed by: Cruzito Mccurdy M.D. 05/15/2019 7:25 AM
[2019-05-15] MEDS: fentaNYL DRIP 1,250 MCG/250 ML BAG IV SCH (07:31)
--- NOTE | 2019-05-15 08:46 | CT Scan Report ---
CT angio chest PE protocol CT DOSE: 397.94 mGy.cm HISTORY: 68 years-old Female with PE. Acute respiratory failure with pulmonary opacities TECHNIQUE: Multiple CTA images of the chest were obtained after the intravenous administration of 119 ml Optiray 320. Coronal and sagittal MIPS were obtained from the axial data set and were submitted for review. All measurements were obtained according to NASCET criteria. A dose lowering technique w as utilized adhering to the principles of ALARA. COMPARISON: Chest radiograph of same day, CTA chest 05/10/2019 FINDINGS: CTA: Moderate cardiomegaly. No pericardial effusion. Prior median sternotomy and CABG. Extensive [place] co ronary arterial calcifications. No thoracic aortic aneurysm or dissection. Extensive mixed plaque of the thoracic aorta with patency of the imaged great vessels. Dilated pulmonary artery measuring up to 3.7 cm suggests pulmonary arterial hypertension. Pulmonary artery is opacified to level of the subse gmental branches. Study is limited secondary to respiratory motion and upper extremity positioning. N o filling defects identified to suggest pulmonary thromboembolic disease. CT CHEST: Heterogeneous thyroid with left lobe calcifications. Mildly enlarged paratracheal and subcarinal lymp h nodes, likely reactive. Endotracheal tube terminates 2.7 cm superior to the jaime. Enteric tube co urses into the stomach, distal tip outside the rhany-pe-yxtr. Small bilateral pleural effusions have mildly increased in size from comparison. Respiratory motion a rtifact limits evaluation of the lung parenchyma. Intralobular septal thickening with multifocal grou ndglass and consolidative opacities, progressively worsened from the 05/10/2019 exam. Dense consolidat ion of the right lower lobe and to lesser extent within the dependent left lower lobe with air bronch ograms. Nonspecific bilateral perinephric stranding. Body wall edema of the bilateral flanks suggests volume overload. Bones appear intact. No acute fracture identified. IMPRESSION: 1. Limited exam secondary to respiratory motion and upper extremity positioning. Within the limitatio ns of the exam, there is no evidence of pulmonary thromboembolic disease. 2. Cardiomegaly with interstitial pulmonary edema. Progressively worsened bilateral groundglass and c onsolidative opacities suggests alveolar pulmonary edema versus multifocal pneumonia. 3. Dense consolidation of the right lower lobe with air bronchograms is redemonstrated and is again s uspicious for pneumonia. 4. Small pleural effusions have mildly increased in size from comparison. 5. Satisfactory positioning of the endotracheal and enteric tubes. ACT 112: Negative or not required by law. The above report was generated using voice recognition software. It may contain grammatical, syntax o r spelling errors. Electronically signed by: Cruzito Mccurdy M.D. 05/15/2019 8:44 AM
[2019-05-15] MEDS: CLOPIDOGREL BISULFATE 75 MG TAB PO SCH (09:22)
[2019-05-15] MEDS: METOPROLOL TARTRATE 25 MG TAB PO SCH ×2 (09:22→20:35)
[2019-05-15] MEDS: FAMOTIDINE 20 MG in SYRINGE 3 ML IV SCH ×2 (09:23→20:35)
[2019-05-15] MEDS: ASPIRIN 81 MG CHEW PO SCH (09:29)
[2019-05-15] MEDS: OSELTAMIVIR PHOSPHATE 75 MG CAP PO SCH ×2 (09:31→20:35)
--- NOTE | 2019-05-15 09:58 | Critical Care Progress Note ---
Date of Service May 15, 2019 Assessment & Plan (1) Sepsis: Reason Critically Ill: 68 yo F with influenza pneumonia complicated by secondary bacterial infection: MSSA with MSSA bacteremia 24 hour events: Extubated yesterday, had acute respiratory distress with severe hypoxia overnight requiring reintubation Neuro: * Encephalopathy: Was improving, patient now sedated and unable to assess - Head CT 05/11 negative for intracranial bleed - brain MRI and Head and Neck CTAs negative for acute or subacute ischemic stroke Cardiac: * A-fib with RVR -currently in sinus rhythm. Patient required electrical cardioversion x2 on admission which resulted in rate improvement, ultimately converting back to sinus rhythm. -Appeared to have reentry of A. fib RVR versus SVT last night was given 5 metoprolol, unable to capture EKG during that time due patient severe agitation and restlessness. Patient acutely decompensated from pulmonary standpoint following this and was intubated and diuresed, currently showing improvement. - troponin negative on admission - EHCO 05/09 showed mild reduced systolic function and various wall motion abnormalities, without significant change from study in 2012 - continue home dose Metoprolol 50mg BID - Heparin drip for A-fib. * Hx ASCVD - continue ASA, plavix and statin Respiratory: * Patient extubated 05/14/2019, on morning of have acute hypoxic respiratory failure following tachyarrhythmia and required reintubation * Influenza B with superimposed bacterial PNA: Improving -Chest x-ray and CT consistent with acute pulmonary edema, improving with diuresis, will repeat chest x-ray in a.m. -Continue Tamiflu -Ceftriaxone for MSSA -Bronchoscopy completed on to re-clear airways GI: * Restarting tube feeds as patient was now reintubated * Patient did pass swallow study after extubation, now reintubated * Hypoalbuminemia RENAL/LYTES: * Hyperchloremia -Patient has positive fluid balance is still receiving heparin and IV medications, holding additional IV fluids at this time, diuresing We will continue D10W for now as patient has been hypoglycemic, will likely turn off once tube feeds restarted Repeating electrolytes as indicated : * Gallgeos -strict Is/Os ENDO: * Hx of Type I diabetes mellitus, in DKA on admission -Transition to sliding scale * TSH 0.2 * Hypoglycemialikely caused by increased Lantus dose after tube feeds discontinued -Started on D10W last night, every 2 hours glucose checks, will wean as tolerated and restarting tube feeds HEME: * Heparin infusion for atrial fibrillation ID: * Sepsis: patient meet SIRS criteria on admission, suspected Influenza B with superimposed MRSA pneumonia and MSSA bacteremia. no evidence of multi-organ dysfunction at present. * MSSA bacteremia -Patient has had persistent fevers but has remained afebrile for 2 days, fevers can be attributed to bronchoscopy with lavage -Repeat blood cultures remain negative, repeat blood cultures pending -White count largely unreliable following steroid burst -Central line and A-line removed to minimize potential source of infection LINES/IV ACCESS: * L subclavian CVC discontinue 05/14/2019 * L radial Arterial line discontinue 05/14/2019 * Gallegos * OG tube * 3 PIVs CODE STATUS: Full DVT PROPHYLAXIS: heparin drip I have personally spent 60 minutes of critical care time in the direct management of this patient. This is a life/limb threatening event. This includes time spent evaluating patient, direct bedside care, chart review, placing orders, interpretation of diagnostic studies, discussion with consultants, patient, and family members, as well as other required patient management activities. This time is exclusive of all separately billable procedures, and teaching time and separate from and in addition to any other critical care service time. Thank you for allowing us to participate in the care of this patient. Please refer to my attending physician's documentation for any further recommendations. (2) Pneumonia: (3) Elevated lactic acid level: (4) Rapid atrial fibrillation: (5) MSSA (methicillin susceptible Staphylococcus aureus) septicemia: (6) MSSA (methicillin susceptible Staphylococcus aureus) pneumonia: Subjective Patient was extubated yesterday and had become tachypneic during the night and placed on high flow nasal cannula. There was a event where the patient became tachycardic, hypoxic, with severe anxiety and she required reintubation early this morning. Chest imaging was consistent with pulmonary edema and patient was diuresed. Ventilator settings have since been weaned and she has showed improvement with oxygenation throughout the day. Patient to remain intubated overnight and will try SBT in a.m. with possible extubation retrial tomorrow. Will remain in ICU for further management at this time. Review of Systems Review of Systems: Unobtainable due to cognitive status and Unobtainable due to endotracheal tube Physical Exam Eyes: PERRL, conjunctivae normal, anicteric sclerae ENMT: external ear and nose normal, oropharynx normal Neck: trachea midline, no thyromegaly Respiratory: Lungs coarse bilaterally, coarse crackles in bases, symmetrical chest wall movement, patient remains tachypneic with ventilator support Cardiovascular: RRR, no murmur, no edema Heart Sounds: normal S1 and normal S2 Vessels: no JVD Extremities: normal capillary refill Gastrointestinal (Abdomen): normal bowel sounds, soft, nontender, no hepatosplenomegaly Musculoskeletal: no cyanosis or clubbing, extremities motor strength 5/5 Skin: no rashes, warm and dry Neurologic: Unable to assess due to sedation Psychiatric: Unable to assess due to sedation Genitourinary: Indwelling Gallegos present Results & Data ([facility]) Vital Signs (Past 12 Hours) Vital Signs Temp Pulse Pulse Pulse Resp BP Pulse Ox 05/15/19 09:22 105 H 126/73 95 05/15/19 09:07 94 H 115/66 95 05/15/19 09:00 93 H 96 05/15/19 08:52 94 H 125/69 96 05/15/19 08:37 93 H 119/68 96 05/15/19 08:22 95 H 118/64 95 05/15/19 08:07 94 H 33 H 118/67 95 05/15/19 08:00 96 H 33 H 94 05/15/19 07:52 100 H 36 H 114/68 94 05/15/19 07:37 98 H 33 H 110/62 94 05/15/19 07:22 99 H 33 H 106/68 94 05/15/19 07:07 98 H 29 H 118/67 94 05/15/19 07:05 99 H 30 H 96 05/15/19 07:00 93 H 32 H 96 05/15/19 06:52 94 H 31 H 114/68 96 05/15/19 06:49 91 H 27 H 103/58 L 96 05/15/19 06:43 86 30 H 82/41 L 93 05/15/19 06:41 84 30 H 79/46 L 91 05/15/19 06:37 83 31 H 91/49 L 96 05/15/19 06:22 85 34 H 106/52 L 97 05/15/19 06:07 85 33 H 98/46 L 95 05/15/19 06:00 90 35 H 95 05/15/19 05:52 88 36 H 123/62 95 05/15/19 05:35 97 H 40 H 155/74 H 96 05/15/19 05:31 98 H 38 H 163/82 H 97 05/15/19 05:05 85 34 H 113/53 L 91 05/15/19 05:00 90 35 H 120/58 L 85 L 05/15/19 04:55 90 40 H 130/64 86 L 05/15/19 04:51 100 H 43 H 155/108 H 95 05/15/19 04:45 85 37 H 133/65 96 05/15/19 04:40 81 31 H 97 05/15/19 04:35 85 36 H 116/63 96 05/15/19 04:24 88 25 H 136/67 95 05/15/19 04:08 37 C 128 H 51 H 162/108 H 05/15/19 04:00 182 H 168/108 H 05/15/19 03:55 119 H 44 H 186/119 H 05/15/19 03:49 124 H 45 H 184/132 H 69 L 05/15/19 03:45 151 H 27 H 95/87 L 57 L 05/15/19 03:04 88 29 H 96 05/15/19 02:45 91 H 27 H 164/89 H 95 05/15/19 01:45 90 36 H 173/77 H 93 05/15/19 00:44 82 28 H 159/81 H 97 05/15/19 00:00 84 05/14/19 23:50 94 H 28 H 95 05/14/19 23:45 73 34 H 147/72 H 94 05/14/19 23:37 75 176/108 H 05/14/19 22:55 37 C 99 H 40 H 170/108 H 88 L 05/14/19 22:44 101 H 42 H 168/103 H 90 Coding Level of Care Code Critical Care 1st 30-74 mins Diagnoses Sepsis A41.9 Sepsis acute organ dysfunction status: unspecified Sepsis type: sepsis due to unspecified organism Pneumonia J18.9 Laterality: right Lung location: lower lobe of lung Pneumonia type: due to unspecified organism Elevated lactic acid level R79.89 Rapid atrial fibrillation I48.91 MSSA (methicillin susceptible Staphylococcus aureus) septicemia A41.01 MSSA (methicillin susceptible Staphylococcus aureus) pneumonia J15.211 (1) Sepsis Sepsis acute organ dysfunction status: unspecified Sepsis type: sepsis due to unspecified organism Qualified Code(s): A41.9 - Sepsis, unspecified organism (2) Pneumonia Laterality: right Lung location: lower lobe of lung Pneumonia type: due to unspecified organism Qualified Code(s): J18.9 - Pneumonia, unspecified organism
[2019-05-15] MEDS: HEPARIN SODIUM/DEXTROSE 25,000 UNITS/500 ML BAG IV SCH ×2 (11:32→21:36)
--- NOTE | 2019-05-15 12:10 | Pharmacy Report ---
Pharmacy Glycemic Short Note 2 - Date of Service May 15, 2019 - Glycemic Short BSG Results (Last 24 hours): 05/14/19 05/14/19 05/14/19 12:50 14:17 16:03 Glucose POC Glucose 97 91 65 L* 05/14/19 05/14/19 05/14/19 16:25 20:25 20:26 Glucose POC Glucose 128 H 40 L* 42 L* 05/14/19 05/14/19 05/14/19 20:43 23:32 23:33 Glucose POC Glucose 154 H 46 L* 47 L* 05/14/19 05/15/19 05/15/19 23:50 02:14 03:54 Glucose POC Glucose 164 H 119 H 188 H 05/15/19 05/15/19 05/15/19 04:20 06:01 07:36 Glucose 256 H POC Glucose 186 H 175 H 05/15/19 05/15/19 05/15/19 09:00 09:41 11:08 Glucose POC Glucose 170 H 154 H 117 H OUTPATIENT ANTIDIABETIC REGIMEN: * glimepiride 1 mg BID, metformin 500 mg BID * A1c 13.2% 05/09 ASSESSMENT: 05/14 * Patient's BSGs continued to drop overnight, down to as low as 40 mg/dL, and D10 was initiated at 125 cc/hr. This was then decreased to 50 cc/hr once BSG > 180 mg/dL. * Patient was re-intubated overnight for worsening respiratory status. Was initially going to be extubated today but now this is unlikely to occur. * She has remained on the D10 @ 50 cc/hr with BSGs not increasing above 175 mg/d L * Last doses of SQ insulin were yesterday AM. SCr stable. * Insulin drip continued throughout the night - at 4.3 units/hr this AM * Continues to be ventilated and on tube feeds as of this AM -> extubated ~ 10 this AM so tube feeds have since been discontinued * Last dose of prednisone 40 mg today * Gave higher dose of Lantus this AM since drip rates had increased overnight. The same dose of NPH was also given to cover the 40 mg of prednisone. * Since extubation and tube feed discontinuation, BSGs have continued to drop. They seem to have leveled off now (105, 97, 91) and I have been following up with nurse re: each BSG check. * Patient unlikely to eat today s/p 5 days on vent. Will need to pass swallow eval first. 05/13 * Patient continues to be ventilated, adjusting sedation to precedex, with hopeful extubation later today * Per discussion with provider, will attempt to transition off of insulin drip today, running @ 1.8 units/hr steadily overnight * 25 units of NPH (.4 units/kg) given with prednisone dose today, additional 30 units of lantus to transition off * Will give additional dose of lantus this evening if drip not able to be transitioned off * If transitioned off, would start novolog parameters 02/08 05/12 * Patient restarted on insulin infusion overnight as BSGs went back into the 300s, currently running at 8.5 units/hr, with BSGs in low 200s * Gave 25 units of NPH with prednisone today, tube feeds up to goal, will tighten CR, continues on heparin gtt * Plan to keep patient on insulin infusion today, will give supplemental lantus dose without intention of turning drip off * S. aureus identified as MSSA- antibiotics changed to ceftriaxone 05/11 * Successfully transitioned off of insulin infusion yesterday, however BSGs trending back up with tube feed increase * Uncertain plan for extubation today/tube feed holds, therefore tightened carb ratio and increased AM lantus dose * Per discussion at rounds, will wean towards extubation today, although anticipating tomorrow, plan to start insulin infusion if lunch BSG was >250. 209 at lunch with adjusted parameters, therefore will continue to utilize basal/bolus * Lantus scale for up to 8 additional units this evening (maximum overall 20% increase in basal from yesterday) * Starting prednisone 40 mg daily x 4 days, NPH insulin is used to counteract the hyperglycemic effect of intermediate acting steroids. The rationale for this approach is that the pharmacodynamics profile of NPH mirrors the pharmacodynamics of steroids. NPH should be dosed at the same time that prednisone is given but will give it now since BSGs critical high. * The dose of NPH given is dependent on the steroid dose given * For doses of prednisone 40mg/day equivalent or above NPH dose should be 0.4 units/kg (in this case utilized ~.3 units/kg) * NPH dosing above is given in addition to patients basal insulin needs * Typically, patients will also need rapid-acting insulin with meals Will continue to reassess need to restart insulin infusion. PLAN FOR INPATIENT GLYCEMIC CONTROL: * Continue to hold outpatient oral diabetes medications * Basal insulin * Continue to hold in the setting of severe hypoglycemia requiring dextrose infusion * Bolus insulin - conservative dosing in the case that BSGs would rise and dextrose is no longer running * NovoLog per scale q6h * Goal Range: 140-180 mg/dL * Correctional insulin: 40 mg/dL/unit
--- NOTE | 2019-05-15 12:54 | Electrocardiogram Report ---
Test Reason : Blood Pressure : / mmHG Vent. 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
[2019-05-15 13:18] LABS: Partial Thromboplastin Time 54.8 Seconds (21.0-31.0)
[2019-05-15] MEDS: cefTRIAXone SODIUM 2,000 MG in DEXTROSE 5% 50 ML IV SCH (15:52)
[2019-05-15] MEDS ORDERED: ETOMIDATE 2 MG/ML 20 ML VIAL IV ONE (16:36)
[2019-05-15] MEDS ORDERED: SUCCINYLCHOLINE CHLORIDE 20 MG/ML 10 ML VIAL IV ONE (16:36)
[2019-05-15] MEDS ORDERED: IMPACT LIQD 1.0 CAL 1,000 ML BAG OG SCH (17:30)
[2019-05-15] MEDS: MAGNESIUM OXIDE 400 MG TAB PO SCH (20:36)
[2019-05-15] MEDS: IMPACT LIQD 1.0 CAL 1,000 ML BAG OG SCH (20:38)
--- NOTE | 2019-05-15 22:18 | Hospitalist Progress Note ---
Date of Service May 15, 2019 Assessment & Plan (1) Sepsis: Sepsis and septicemia secondary to Staphylococcus aureus pneumonia and influenza B Patient has an elevated lactic acid level and with right lower lobe infiltrate on chest imaging She was admitted to the ICU and intubated after having significant respiratory distress with tachypnea, hypotension immediately after admission Management as per bankruptcy manager-extubated on Continue treating for pneumonia as below Growing Staphylococcus aureus, MSSA 2 out of 2 blood cultures and in bronchoalveolar lavage culture Repeat blood cultures no growth to date Influenza B positive on 05/11-added Tamiflu and will complete a course on 05/14 Changed Zosyn and vancomycin to ceftriaxone only on 05/12 and would complete a 14 day course on 05/22/19 -Continue to follow repeat blood cultures -Received copious IV fluids which have now been discontinued Blood pressures are stable and did not require vasopressors after DC cardioversion for rapid atrial fibrillation Developed fevers again on 05/12, no clear source. Fevers now resolved (2) Influenza B: With influenza B, sepsis, and Staphylococcus aureus pneumonia and septicemia -started Tamiflu 75 mg twice daily on 05/11 for 5-day course as above (3) Acute respiratory failure: As noted above, secondary to pneumonia and DKA. Also with COPD Ventilator management as per bankruptcy manager-extubated on But had acute respiratory distress with severe hypoxia overnight requiring reintubation. Remains intubated on 05/14 s/p bronchoscopy x 2 now -BAL cytology with atypical cells could be reactive but possibly malignant? Follow Chest imaging to resolution (4) DKA (diabetic ketoacidoses): Severely acidotic upon admission which has now resolved Anion gap is closed , glucose now controlled after many days on insulin gtt Now started on basal/bolus insulin as per Pharmacy Electrolytes will continue to be checked and repleted as needed Hemoglobin A1c up to 13.2% from previous of 8.1% last year (5) Rapid atrial fibrillation: Patient presented hypotensive with pulse 179 and rapid atrial fibrillation. This is a new diagnosis for her She received copious IV fluids and was DC cardioverted in the ICU x 2 Now remains in sinus rhythm with some sinus tachycardia at times -continue metoprolol 50 mg twice daily -now change to po after being extubated -Remains on heparin drip-will now need to consider converting to po anticoagulation as she is extubated--> would be good candidate for Xarelto or Eliquis Echocardiogram with mildly reduced EF at 45-50%, mild LVH, positive wall motion abnormalities which are stable from previous with hypokinesis in the inferior wall from base to the mid ventricle -follow on tele (6) Pneumonia: Staph aureus Pneumonia Dense consolidation right lower lobe as above Had bronchoscopy on 05/10 and again 05/13 to clear airways while on vent Chest x-ray on 05/11 with persistent dense consolidation, 05/13 CXR slightly progressed infiltrate and vol overload CXR with R>L lower lobe infiltrates, trace pleural effusions bilat Procalcitonin trended downward from 6 down to 3.2 Now extubated after 5 days on vent -Follow cultures-growing methicillin sensitive Staphylococcus aureus -Continue antibiotics as above with ceftriaxone -completed a 4 day burst of prednisone 40mg daily (7) Bacteremia: As above, growing MSSA -Follow repeat blood cultures -Converted now to ceftriaxone only and will need total of 14 days of IV therapy as above ECHO without valvular vegetation (8) Elevated lactic acid level: resolved, related to severe sepsis (9) Dyslipidemia: Holding home gemfibrozil and Zetia Holding home atorvastatin -Continue aspirin 81 mg daily and Plavix (10) Acid reflux: -Continue Pepcid 20 mg IV twice daily -was on tube feeds while intubated, now stopped Passed swallow study and has diet -Holding home Prilosec but can restart likely tomorrow (11) CAD (coronary artery disease): With a history of CABG, severe CAD with stents in the past also Follows with Dr. Richards of [facility] -Continue home aspirin, Plavix, metoprolol -Holding lipid drugs as above -Holding home isosorbide (12) Cardiomyopathy, ischemic: As noted in echo above with stable wall motion abnormalities, EF 45% -Continues on metoprolol tartrate but increased to 75mg bid today by ICU (13) Stenosis of right carotid artery: With known moderate stenosis Follow as an outpatient On antiplatelet and statin as an outpatient (14) Type 2 diabetes mellitus: Uncontrolled as above Holding home metformin and glimepiride -Should continue on insulin after discharge given severely uncontrolled hemoglobin A1c (15) Chronic obstructive pulmonary disease: With long history of smoking -now extubated and on OxyMask Holding home albuterol--> would recommend restarting prn albuterol nebs now that is off ventilator -completed prednisone burst 40mg daily x 4 days as per ICU (16) Hypophosphatemia: Replaced in the ICU -Follow phosphorus levels in the morning, BMP (17) Fever: Started having fevers again on 05/12 Could be secondary to medications, atelectasis Management as per bankruptcy manager No evidence of skin infections or rashes -Consider repeat UA with culture, blood cultures if spikes again but now seems to be resolved (18) Encephalopathy: Was very agitated when off sedation but now improved on Precedex gtt and now extubated CT of the head negative on 05/11 MRI/MRA brain/Head negative 05/12 Pt reports a h/o anxiety and states she takes alprazolam at home-PDMP confirms she gets regular Rxs for alprazolam 0.25mg po tid -On propofol (19) DVT prophylaxis: Heparin drip Disposition-remain in the ICU Full code Will need PT/OT consults Admission and Anticipated Discharge Date Admission Date: May 09, 2019 Subjective Patient is intubated and sedated. Review of Systems Review of Systems: Unobtainable due to endotracheal tube Physical Exam Physical Exam: Constitutional: average body habitus; intubated and sedated Eyes: + anicteric sclerae Neck: trachea midline, no thyromegaly + abnormal visual inspection (rt neck with dressing in place c/d/i over RIJ site) Respiratory: intubated Cardiovascular: Rate/Rhythm: regular rate and regular rhythm Extremities: normal capillary refill and + edema (Trace pitting edema of the feet and distal legs bilaterally) Chest (Breasts): Chest: normal inspection of chest Gastrointestinal (Abdomen): normal bowel sounds, soft, nontender, no hepatosplenomegaly Musculoskeletal: Extremities: extremities normal to inspection; no cyanosis and no clubbing Skin: no rashes, warm and dry Neurologic: unable to assess Lymphatic: no lymphedema Results & Data ([facility]) Vital Signs (Past 12 Hours) Vital Signs Pulse Resp BP Pulse Ox 05/15/19 20:35 95 H 29 H 93 05/15/19 20:34 104 H 136/71 05/15/19 18:15 88 28 H 93 05/15/19 17:23 84 131/70 94 05/15/19 17:08 83 139/74 94 05/15/19 17:00 87 94 05/15/19 16:53 87 132/82 94 05/15/19 16:38 102 H 145/86 H 93 05/15/19 16:23 102 H 152/78 H 93 05/15/19 16:08 101 H 151/82 H 93 05/15/19 16:00 96 H 93 05/15/19 15:53 94 H 144/74 H 92 05/15/19 15:38 100 H 138/77 92 05/15/19 15:23 93 H 134/73 92 05/15/19 15:08 99 H 144/75 H 93 05/15/19 15:00 98 H 94 05/15/19 14:53 98 H 147/77 H 93 05/15/19 14:38 91 H 137/75 93 05/15/19 14:24 92 H 93 05/15/19 14:23 90 138/76 93 05/15/19 14:08 90 133/69 92 05/15/19 14:00 94 H 92 05/15/19 13:53 95 H 144/98 H 93 05/15/19 13:46 92 H 31 H 92 05/15/19 13:38 99 H 144/72 H 92 05/15/19 13:23 94 H 136/74 93 05/15/19 13:08 90 138/70 93 05/15/19 13:00 92 H 93 05/15/19 12:52 91 H 140/71 93 05/15/19 12:37 90 128/75 91 05/15/19 12:22 88 129/68 91 05/15/19 12:08 89 134/71 91 05/15/19 12:00 89 92 05/15/19 11:52 92 H 145/81 H 92 05/15/19 11:38 95 H 149/74 H 93 05/15/19 11:22 88 137/76 92 05/15/19 11:20 86 28 H 92 05/15/19 11:07 85 146/72 H 91 05/15/19 11:00 96 H 93 05/15/19 10:52 97 H 154/95 H 93 05/15/19 10:37 95 H 151/81 H 95 05/15/19 10:22 96 H 147/87 H 96 PG Care Time/CCT Total # of Minutes Spent Total Time Spent with Patient: Total time spent is greater than 50% in coordination of care (as documented) at patient's floor/unit and/or counseling patient: Coding Level of Care Code 84542 Subseq Hosp Care Lvl 3 Diagnoses Sepsis A41.9 Influenza B J10.1 Acute respiratory failure J96.01 Respiratory failure complication: hypoxia DKA (diabetic ketoacidoses) E11.10 Rapid atrial fibrillation I48.91 Pneumonia J18.9 Laterality: right Lung location: lower lobe of lung Pneumonia type: due to unspecified organism Bacteremia R78.81 Elevated lactic acid level R79.89 Dyslipidemia E78.5 Acid reflux K21.9 CAD (coronary artery disease) I25.10 Cardiomyopathy, ischemic I25.5 Stenosis of right carotid artery I65.21 Type 2 diabetes mellitus E11.9 Chronic obstructive pulmonary disease J44.9 Hypophosphatemia E83.39 Fever R50.9 Encephalopathy G93.40 DVT prophylaxis Z29.9 Time Spent (min) 35 (1) Acute respiratory failure Respiratory failure complication: hypoxia Qualified Code(s): J96.01 - Acute respiratory failure with hypoxia (2) Pneumonia Laterality: right Lung location: lower lobe of lung Pneumonia type: due to unspecified organism Qualified Code(s): J18.9 - Pneumonia, unspecified organism
[2019-05-16] MEDS: METOPROLOL TARTRATE 1 MG/ML VIAL IV SCH ×3 (00:08→09:16)
[2019-05-16 00:09] LABS: Mycoplasma pneumoniae Ab, IgG 2.42 (<=0.90)
[2019-05-16] MEDS: DEXTROSE 10% 1,000 ML IV SCH (00:14)
[2019-05-16] MEDS: INSULIN ASPART 100 UNITS/ML 3 ML PEN SC SCH ×6 (00:36→20:45)
[2019-05-16] MEDS: propofoL 1,000 MG/100 ML VIAL IV SCH ×5 (04:14→23:46)
[2019-05-16 05:11] LABS: Hematocrit (blood only) 31.1 % (37-47); Hemoglobin 10.5 g/dL (12.0-16.0); Mean Corpuscular Hemoglobin 29.5 pg (25-34); Mean Corpuscular Hgb Conc 33.8 g/dL (32-36); Mean Corpuscular Volume 87.4 fL (80-100); Platelet Count 305 K/uL (130-400); RDW Coefficient of Variation 14.5 % (11.5-14.5); RDW Standard Deviation 45.3 fL (36.4-46.3); Red Blood Count 3.56 M/uL (4.2-5.4)
[2019-05-16 05:21] LABS: Partial Thromboplastin Ratio 1.7; Partial Thromboplastin Time 44.8 Seconds (21.0-31.0)
[2019-05-16 05:35] LABS: Basophils # (auto) 0.01 K/uL (0-0.2); Basophils % (auto) 0.1 %; Eosinophils # (auto) 0.07 K/uL (0-0.5); Eosinophils % (auto) 0.7 %; Immature Granulocytes # (auto) 0.05 K/uL (0.00-0.02); Immature Granulocytes % (auto) 0.5 %; Lymphocytes # (auto) 2.48 K/uL (1.2-3.4); Lymphocytes % (auto) 26.1 %; Monocytes # (auto) 0.57 K/uL (0.11-0.59); Neutrophils # (auto) 6.32 K/uL (1.4-6.5); Neutrophils % (auto) 66.6 %; Toxic Granulation Occasional
[2019-05-16 05:42] LABS: Albumin Globulin Ratio 0.3 (0.9-2); Albumin Level 1.4 gm/dl (3.4-5.0); BUN Creatinine Ratio 9.6 (10-20); Bilirubin,Total 0.4 mg/dl (0.2-1); Calcium 7.5 mg/dl (8.5-10.1); Creatinine Clr Calc Pharmacy 77.5 ml/min; Est GFR (African American) 110.5; Est GFR (Non-African American) 95.4; Globulin 4.6 gm/dl (2.5-4.0); Magnesium 1.9 mg/dl (1.8-2.4); Phosphorus 3.3 mg/dl (2.5-4.9); Potassium 2.3 mmol/L (3.5-5.1)
[2019-05-16] MEDS ORDERED: POTASSIUM CHLORIDE 20 MEQ/15 ML UDC PO STA ×3 (05:49→18:18)
[2019-05-16] MEDS ORDERED: HEPARIN IV BOLUS 2,000 UNITS in SYRINGE 0 ML IV ONE (06:00)
[2019-05-16] MEDS: POTASSIUM CHLORIDE / WTR 10 MEQ/100 ML PLCT IV SCH ×3 (06:13→08:26)
[2019-05-16] MEDS: HEPARIN SODIUM/DEXTROSE 25,000 UNITS/500 ML BAG IV SCH (07:17)
--- NOTE | 2019-05-16 07:19 | XRay Report ---
XR chest 1V portable HISTORY: 68 years-old Female resp failure acute respiratory failure COMPARISON: Chest radiograph and CTA chest 05/15/2019 TECHNIQUE: Portable AP view of the chest FINDINGS: Cardiac silhouette is mildly enlarged. Prior median sternotomy with CABG. Calcified plaque of the tho racic aortic arch. Endotracheal tube overlies the midline, 3.1 cm superior to the jaime. No pneumoth orax. Right greater than left pleural effusions redemonstrated. Dense consolidation of the right lung base has improved from comparison. Bilateral mixed interstitial and alveolar opacities also moderate ly improved. Pulmonary vascular congestion persists. Degenerative changes of the shoulders and spine. Enteric tube courses below the diaphragm, distal tip outside the [id number]. IMPRESSION: 1. Satisfactory positioning of the endotracheal tube. 2. Cardiomegaly with decreased pulmonary edema and moderately improved aeration of the bilateral lung s. 3. Persistent yet improved dense consolidation of the right lung base. 4. Right greater than left pleural effusions redemonstrated. ACT 112: Negative or not required by law. The above report was generated using voice recognition software. It may contain grammatical, syntax o r spelling errors. Electronically signed by: Cruzito Mccurdy M.D. 05/16/2019 7:17 AM
[2019-05-16] MEDS: MAGNESIUM SULFATE / D5W 1 GM/100 ML BAG IV SCH ×2 (09:14→10:14)
[2019-05-16] MEDS: ENOXAPARIN INJ 60 MG/0.6 ML SYR SQ SCH ×2 (09:15→21:17)
[2019-05-16] MEDS: METOPROLOL TARTRATE 25 MG TAB PO SCH ×2 (09:16→21:17)
[2019-05-16] MEDS: CLOPIDOGREL BISULFATE 75 MG TAB PO SCH (09:16)
[2019-05-16] MEDS: ASPIRIN 81 MG CHEW PO SCH (09:18)
[2019-05-16] MEDS: FAMOTIDINE 20 MG in SYRINGE 3 ML IV SCH ×2 (09:18→21:16)
--- NOTE | 2019-05-16 11:04 | Critical Care Progress Note ---
Date of Service May 16, 2019 Assessment & Plan (1) MSSA (methicillin susceptible Staphylococcus aureus) septicemia: Reason Critically Ill: 68 yo F with influenza pneumonia complicated by secondary bacterial infection: MSSA with MSSA bacteremia Neuro: Encephalopathy: Was improving, patient now sedated and unable to assess - Head CT 05/11 negative for intracranial bleed - brain MRI and Head and Neck CTAs negative for acute or subacute ischemic stroke Cardiac: A-fib with RVR -currently in sinus rhythm. Patient required electrical cardioversion x2 on admission which resulted in rate improvement, ultimately converting back to sinus rhythm. -Appeared to have reentry of A. fib RVR versus SVT last night was given 5 metoprolol, unable to capture EKG during that time due patient severe agitation and restlessness. - troponin negative on admission - EHCO 05/09 showed mild reduced systolic function and various wall motion abnormalities, without significant change from study in 2012 -Continue with metoprolol 75 mg twice daily -Lovenox for A. fib Hx ASCVD - continue ASA, plavix and statin Respiratory: Patient extubated 05/14/2019, on morning of 05/14 have acute hypoxic respiratory failure following tachyarrhythmia and required reintubation Influenza B with superimposed bacterial PNA: Improving -Continue Tamiflu -Ceftriaxone for MSSA -Bronc culture growing MSSA GI: Continue with tube feedings Hypoalbuminemia RENAL/LYTES: Hypokalemia--> being replaced Giving magnesium as well to keep magnesium greater than 2 : Gallegos -strict Is/Os ENDO: Hx of Type I diabetes mellitus, in DKA on admission -Transition to sliding scale TSH 0.2 No more hypoglycemic episodes continue with tube feeds along with sliding scale HEME: Change heparin to Lovenox ID: Sepsis: patient meet SIRS criteria on admission, suspected Influenza B with superimposed MRSA pneumonia and MSSA bacteremia. no evidence of multi-organ dysfunction at present. MSSA bacteremia -Repeat blood cultures remain negative, repeat blood cultures pending -WBC trending down -Central line and A-line removed to minimize potential source of infection LINES/IV ACCESS: L subclavian CVC discontinue 05/14/2019 L radial Arterial line discontinue 05/14/2019 Gallegos OG tube 3 PIVs CODE STATUS: Full DVT PROPHYLAXIS: Lovenox Plan: Given that the patient was taking alprazolam 0.25 mg 3 times daily as needed for anxiety I think the patient is withdrawing from benzodiazepine. We will add midazolam 2 mg every 6 hours as needed. Chest x-ray from today shows improvement in the infiltrate. But lower lobe infiltrate still persist. Patient is requiring a lot of sedation still breathing at the rate of 31. We will see how the patient does on midozalam. Repeat BMP at 12 to check potassium. I have personally spent 35 minutes of critical care time in the direct management of this patient. This is a life/limb threatening event. This includes time spent evaluating patient, direct bedside care, chart review, placing orders, interpretation of diagnostic studies, discussion with consultants, patient, and family members, as well as other required patient management activities. This time is exclusive of all separately billable procedures, and teaching time and separate from and in addition to any other critical care service time. Please note the above document was generated using voice recognition software. It may contain grammatical, syntax or spelling errors. (2) MSSA (methicillin susceptible Staphylococcus aureus) pneumonia: (3) Anxiety disorder: (4) Acute respiratory failure with hypoxia: Subjective Patient seen and examined at bedside. Patient is on 30 of propofol, 75 fentanyl still breathing at the rate of 30. Patient opens her eyes to voice but does not follow commands. T-max 38 in the last 24 hours. In-N-Out patient is -1.3 L Review of Systems Review of Systems: Unobtainable due to endotracheal tube Physical Exam Physical Exam: Constitutional: No acute distress HEENT: PERRLA, positive ETT Respiratory system: Decreased air entry bilaterally, positive right lower lobe crackles, no wheeze, positive rhonchi CVS: S1-S2 positive, no murmurs or gallops Abdomen: Soft, nontender, nondistended, positive bowel sounds x4 Extremities: +2 pulses bilaterally radialis/ dorsalis pedis, no cyanosis, no edema Neuro: Rass -1 Psych: Unable to assess G/U: Positive Gallegos Skin: no rashes, warm and dry Lymphatic: no cervical or axillary lymphadenopathy Results & Data ([facility]) Vital Signs (Past 12 Hours) Vital Signs Pulse Resp BP Pulse Ox 05/16/19 08:09 91 H 123/73 92 05/16/19 08:00 89 93 05/16/19 07:54 87 127/71 93 05/16/19 07:44 90 05/16/19 07:40 89 30 H 93 05/16/19 07:39 88 132/70 93 05/16/19 07:24 88 127/73 93 05/16/19 07:09 89 124/73 90 05/16/19 07:00 92 H 92 05/16/19 06:54 92 H 143/84 H 92 05/16/19 06:39 97 H 145/89 H 92 05/16/19 06:25 91 H 92 05/16/19 06:24 92 H 153/78 H 91 05/16/19 06:09 85 136/78 91 05/16/19 05:39 80 123/75 92 05/16/19 05:24 80 133/58 L 92 05/16/19 05:10 82 27 H 92 05/16/19 05:09 80 129/65 92 05/16/19 04:54 79 126/76 92 05/16/19 04:39 77 132/67 91 05/16/19 04:24 80 128/63 92 05/16/19 04:09 99 H 172/80 H 94 05/16/19 04:05 87 132/70 05/16/19 03:53 90 132/70 92 05/16/19 03:38 85 137/69 92 05/16/19 03:23 89 138/67 92 05/16/19 03:08 90 141/76 H 92 02 02:53 86 136/69 92 05/16/19 02:38 85 140/66 92 05/16/19 02:23 87 135/69 91 0302 02:08 87 133/67 93 0302 01:53 85 127/74 93 0220 01:38 86 135/69 93 0220 01:35 81 29 H 93 030220 01:23 77 131/72 94 030220 01:08 77 123/62 93 0220 00:53 76 126/69 93 030220 00:38 75 133/66 93 02 00:23 81 128/67 93 0302 00:08 89 136/68 91 02 00:00 87 03 23:53 86 133/70 92 05/15/19 23:38 85 141/78 H 92 05/15/19 23:23 98 H 138/70 93 05/15/19 23:08 94 H 144/70 H 95 05/15/19 23:00 86 29 H 95 05/16/19 04:40 05/16/19 04:40 Coding Level of Care Code Critical Care 1st 30-74 mins Diagnoses MSSA (methicillin susceptible Staphylococcus aureus) septicemia A41.01 MSSA (methicillin susceptible Staphylococcus aureus) pneumonia J15.211 Anxiety disorder F41.9 Acute respiratory failure with hypoxia J96.01 Time Spent (min) 35
[2019-05-16] MEDS ORDERED: INSULIN GLARGINE SOLOSTAR 100 UNITS/ML 3 ML PEN SC ONE (12:15)
[2019-05-16] MEDS: MIDAZOLAM HCL 1 MG/ML 2ML VIAL IV PRN (12:20)
--- NOTE | 2019-05-16 12:26 | Pharmacy Report ---
Pharmacy Glycemic Short Note 2 - Date of Service May 16, 2019 - Glycemic Short BSG Results (Last 24 hours): 05/15/19 05/15/19 05/15/19 13:36 15:35 17:16 Glucose POC Glucose 127 H 134 H 142 H 05/15/19 05/15/19 05/16/19 20:10 22:20 00:00 Glucose POC Glucose 134 H 140 H 158 H 05/16/19 05/16/19 05/16/19 02:05 04:13 04:40 Glucose 162 H POC Glucose 149 H 154 H 05/16/19 05/16/19 05/16/19 06:06 07:34 12:08 Glucose POC Glucose 159 H 148 H 197 H OUTPATIENT ANTIDIABETIC REGIMEN: * glimepiride 1 mg BID, metformin 500 mg BID * A1c 13.2% 05/09 ASSESSMENT: 05/15 * BSGs well controlled yesterday with no insulin administered despite remaining intubated. BSGs slowly climbing. * Of note, no steroids are being given at this time. D10 infusion was stopped this AM. Tube feeds (Impact) being titrate upwards. * Will resume SQ basal / bolus regimen at this time, based upon weight and "mild" stress level given recent hypoglycemic events. Novolog will be given Q 4 hrs to cover carbs in tube feeds. 05/14 * Patient's BSGs continued to drop overnight, down to as low as 40 mg/dL, and D10 was initiated at 125 cc/hr. This was then decreased to 50 cc/hr once BSG > 180 mg/dL. * Patient was re-intubated overnight for worsening respiratory status. Was initially going to be extubated today but now this is unlikely to occur. * She has remained on the D10 @ 50 cc/hr with BSGs not increasing above 175 mg/dL * Last doses of SQ insulin were yesterday AM. SCr stable. * Insulin drip continued throughout the night - at 4.3 units/hr this AM * Continues to be ventilated and on tube feeds as of this AM -> extubated ~ 10 this AM so tube feeds have since been discontinued * Last dose of prednisone 40 mg today * Gave higher dose of Lantus this AM since drip rates had increased overnight. The same dose of NPH was also given to cover the 40 mg of prednisone. * Since extubation and tube feed discontinuation, BSGs have continued to drop. They seem to have leveled off now (105, 97, 91) and I have been following up with nurse re: each BSG check. * Patient unlikely to eat today s/p 5 days on vent. Will need to pass swallow eval first. PLAN FOR INPATIENT GLYCEMIC CONTROL: * Basal insulin * Lantus 5 units SQ Q 12 hrs * Bolus insulin * NovoLog per scale Q 4 hrs * Goal Range: 120-160 mg/dL * Correctional insulin: 40mg/dL/unit * Carb ratio: 1 unit per 10gm CHO delivered in tube feeds.
[2019-05-16 12:28] LABS: Partial Thromboplastin Ratio 1.4
[2019-05-16 12:46] LABS: BUN Creatinine Ratio 13.3 (10-20); Creatinine Clr Calc Pharmacy 79.1 ml/min; Est GFR (African American) 111.8; Est GFR (Non-African American) 96.5; Potassium 3.6 mmol/L (3.5-5.1)
[2019-05-16] MEDS ORDERED: POTASSIUM CHLORIDE 20 MEQ/15 ML UDC PO SCH (13:15)
[2019-05-16] MEDS: FUROSEMIDE 40 MG in SYRINGE 0 ML IV SCH (13:53)
[2019-05-16] MEDS: cefTRIAXone SODIUM 2,000 MG in DEXTROSE 5% 50 ML IV SCH (15:38)
--- NOTE | 2019-05-16 16:26 | Hospitalist Progress Note ---
Date of Service May 16, 2019 Assessment & Plan (1) Sepsis: Sepsis secondary to Staphylococcus aureus pneumonia and influenza B (see Rx below) Remains in ICU intubated after significant respiratory distress with tachypnea, hypoxia, hypotension immediately after admission MSSA bacteriemia positive and bronchoalveolar lavage culture. Initial echo without vegetations Repeat blood cultures no growth to date 24 hours later Initial Rx with Zosyn + vanc [05/09] -> ceftriaxone [05/12]. Total Abx for 14 day course; finishes 05/22/19. (2) Acute respiratory failure with hypoxia: Secondary to PNA and influenza. Ventilator management as per depot agent-extubated on , re-intubated overnight 05/14 due to hypoxia following tachyarrhythmia Appreciate ICU management with continued intubation (3) Influenza B: Influenza B positive on 05/11- now finished 5 day course Tamiflu (4) Pneumonia: MSSA Pneumonia. Continue ceftriaxone as above. Bronchoscopy on 05/10 and again 05/13 CXR with R>L lower lobe infiltrates, trace pleural effusions b/l Procalcitonin trended downward from 6 down to 3.2 (5) Bacteremia: MSSA Management as above with ceftriaxone ECHO without valvular vegetation (6) DKA (diabetic ketoacidoses): pH 7.31 on admission. Combination of lactic and ketoacidosis, now resolved Anion gap closed, glucose now controlled with initial insulin drip while on prednisone Continues on basal/bolus insulin as per Pharmacy management with continuous tube feeds HgbA1c 13.2% from previous of 8.1% last year. (7) Rapid atrial fibrillation: Patient presented hypotensive with pulse 179 and rapid atrial fibrillation. New diagnosis this admission She received copious IV fluids and was DC cardioverted in the ICU x 2 Rate control with metoprolol 75mg BID NG (currently in NSR) Echocardiogram with mildly reduced EF at 45-50%, mild LVH, positive wall motion abnormalities which are stable from previous with hypokinesis in the inferior wall from base to the mid ventricle Anticoagulation as per ICU switched to Lovenox, consider PO Eliquis to avoid multiple injections (8) Elevated lactic acid level: resolved, related to sepsis (9) Acid reflux: -Continue Pepcid 20 mg IV BID, on omeprazole home med (10) CAD (coronary artery disease): Extensive cardiac history (information from last Dr. Richards clinic note): Inf/lateral SD 2001, PTCA and stent of RCA. Unstable angina 02/2002; [[place]] Single vessel bypass AWAD to LAD. Unstable angina 06/2002; [[place]] Stent of AWAD anastomotic site. Unstable angina 07/2002; [[facility]] atretic AWAD graft, angioplasty without stent to LAD stenosis. Subsequent In-stent LAD restenosis Rx laser arthrectomy and brachytherapy NSTEMI 2013 with mid LAD stent stenoses, re-stented. Lexiscan 12/2016 - no evidence of induced ischemia - Now requiring treatment dose anticoagulation consider discontinuing plavix. Continue metoprolol - Holding statins - Holding isosorbide due to hypotension, consider restarting as BP improves (11) Dyslipidemia: Holding home gemfibrozil and Zetia Holding home atorvastatin (12) Cardiomyopathy, ischemic: As noted in echo above with stable wall motion abnormalities, EF 45% -Continues on metoprolol tartrate - increased to 75mg bid this admission due to tachyarrhythmias (13) Stenosis of right carotid artery: With known moderate stenosis Follow as an outpatient On antiplatelets and statin as an outpatient (14) Type 2 diabetes mellitus: As above for DKA management Holding home metformin and glimepiride Will consider insulin on discharge given elevated HbA1C (15) Chronic obstructive pulmonary disease: Unclear diagnosis Chronic smoking history. [facility]. Completed prednisone burst 40mg daily x 4 days as per ICU (16) Fever: Apyrexial since ?secondary to influenza, PNA, medications, atelectasis No evidence of skin infections or rashes (17) Encephalopathy: Was very agitated when off sedation, ?benzo withdrawal ?not on paroxetine - consider restarting both CT of the head negative on 05/11 MRI/MRA brain/Head negative 05/12 Pt reported h/o anxiety and states she takes alprazolam at home - PDMP confirms she gets regular Rxs for alprazolam 0.25mg po tid Currently on propofol (18) Chronic prescription benzodiazepine use: Agree with ICU that benzodiazepine withdrawal possible. Now treated with midazolam as per ICU management (19) DVT prophylaxis: Heparin drip switched to lovenox SQ. Would consider switching to apixaban NG to help reduce injection burden. Disposition-remain in the ICU Full code Will need PT/OT consults once awake. Admission and Anticipated Discharge Date Admission Date: May 09, 2019 Subjective Patient intubated and sedated. Unable to get any history from patient. Review of Systems Review of Systems: Unobtainable due to endotracheal tube and Unobtainable due to reduced consciousness Physical Exam Constitutional: no acute distress Eyes: PERRL, conjunctivae normal, anicteric sclerae Neck: trachea midline Respiratory: Auscultation: + crackles (right base); no rhonchi Patient intubated. Good air entry b/l Cardiovascular: Rate/Rhythm: regular rate and regular rhythm Heart Sounds: no murmur Extremities: normal capillary refill; no pedal edema no peripheral stigmata of infective endocarditis Neurologic: Cranial Nerves: PERRL unable to fully assess due to sedation. patient moves non-purposefully to voice Psychiatric: Orientation: + not alert unable to assess due to sedation Results & Data ([facility]) Vital Signs (Past 12 Hours) Vital Signs Pulse Resp BP Pulse Ox 05/16/19 14:26 74 20 94 05/16/19 14:00 72 94 05/16/19 13:54 75 141/65 H 94 05/16/19 13:39 72 115/56 L 92 05/16/19 13:24 68 128/60 93 05/16/19 13:09 74 127/74 94 05/16/19 13:00 71 92 05/16/19 12:54 67 127/65 92 05/16/19 12:39 71 129/65 92 05/16/19 12:24 75 142/74 H 95 05/16/19 12:09 71 131/76 94 05/16/19 12:00 73 96 05/16/19 11:54 73 128/72 96 05/16/19 11:52 75 125/66 96 05/16/19 11:39 72 125/66 96 05/16/19 11:24 74 131/74 95 05/16/19 11:09 72 134/79 94 05/16/19 11:05 71 25 H 94 05/16/19 11:00 70 92 05/16/19 10:54 71 121/64 93 05/16/19 10:39 72 133/79 95 05/16/19 10:24 73 142/75 H 95 05/16/19 10:09 87 120/62 91 05/16/19 10:00 89 92 05/16/19 09:54 99 H 153/85 H 93 05/16/19 09:39 98 H 138/72 92 05/16/19 09:24 96 H 143/81 H 93 05/16/19 09:09 96 H 147/81 H 94 05/16/19 09:00 93 H 94 05/16/19 08:54 89 140/83 93 05/16/19 08:39 88 142/75 H 93 05/16/19 08:24 92 H 132/71 92 05/16/19 08:10 88 92 05/16/19 08:09 91 H 123/73 92 05/16/19 08:00 89 93 05/16/19 07:54 87 127/71 93 05/16/19 07:44 90 05/16/19 07:40 89 30 H 93 05/16/19 07:39 88 132/70 93 05/16/19 07:24 88 127/73 93 05/16/19 07:09 89 124/73 90 05/16/19 07:00 92 H 92 05/16/19 06:54 92 H 143/84 H 92 05/16/19 06:39 97 H 145/89 H 92 05/16/19 06:25 91 H 92 05/16/19 06:24 92 H 153/78 H 91 05/16/19 06:09 85 136/78 91 05/16/19 05:39 80 123/75 92 05/16/19 05:24 80 133/58 L 92 05/16/19 05:10 82 27 H 92 05/16/19 05:09 80 129/65 92 05/16/19 04:54 79 126/76 92 05/16/19 04:39 77 132/67 91 PG Care Time/CCT Total # of Minutes Spent Total Time Spent with Patient: Total time spent is greater than 50% in coordination of care (as documented) at patient's floor/unit and/or counseling patient: Coding Level of Care Code 83918 Subseq Hosp Care Lvl 3 Diagnoses Sepsis A41.01; R65.20; J96.01 Sepsis type: methicillin susceptible Staphylococcus aureus Sepsis acute organ dysfunction status: with acute organ dysfunction Severe sepsis acute organ dysfunction type: acute respiratory failure Acute respiratory failure type: with hypoxia Severe sepsis shock status: without septic shock Acute respiratory failure with hypoxia J96.01 Influenza B J10.1 Pneumonia J18.9 Laterality: right Lung location: lower lobe of lung Pneumonia type: due to unspecified organism Bacteremia R78.81 DKA (diabetic ketoacidoses) E11.10 Diabetes mellitus type: type 2 Diabetes mellitus complication detail: without coma Rapid atrial fibrillation I48.91 Elevated lactic acid level R79.89 Acid reflux K21.9 Esophagitis presence: esophagitis presence not specified CAD (coronary artery disease) I25.10 Dyslipidemia E78.5 Cardiomyopathy, ischemic I25.5 Stenosis of right carotid artery I65.21 Type 2 diabetes mellitus E11.51 Diabetes mellitus assisted insulin use: without assisted use Diabetes mellitus complication status: with circulatory complication Diabetes mellitus complication detail: with peripheral angiopathy without gangrene Chronic obstructive pulmonary disease J44.9 COPD type: unspecified COPD Fever R50.9 Fever type: unspecified Encephalopathy G93.40 Chronic prescription benzodiazepine use Z79.899 DVT prophylaxis Z29.9 (1) DKA (diabetic ketoacidoses) Diabetes mellitus type: type 2 Diabetes mellitus complication detail: without coma Qualified Code(s): E11.10 - Type 2 diabetes mellitus with ketoacidosis without coma (2) Fever Fever type: unspecified Qualified Code(s): R50.9 - Fever, unspecified (3) Type 2 diabetes mellitus Diabetes mellitus assisted insulin use: without assisted use Diabetes mellitus complication status: with circulatory complication Diabetes mellitus complication detail: with peripheral angiopathy without gangrene Qualified Code(s): E11.51 - Type 2 diabetes mellitus with diabetic peripheral angiopathy without gangrene (4) Sepsis Sepsis type: methicillin susceptible Staphylococcus aureus Sepsis acute organ dysfunction status: with acute organ dysfunction Severe sepsis acute organ dysfunction type: acute respiratory failure Acute respiratory failure type: with hypoxia Severe sepsis shock status: without septic shock Qualified Code(s): A41.01 - Sepsis due to Methicillin susceptible Staphylococcus aureus; R65.20 - Severe sepsis without septic shock; J96.01 - Acute respiratory failure with hypoxia (5) Chronic obstructive pulmonary disease COPD type: unspecified COPD Qualified Code(s): J44.9 - Chronic obstructive pulmonary disease, unspecified (6) Acid reflux Esophagitis presence: esophagitis presence not specified Qualified Code(s): K21.9 - Gastro-esophageal reflux disease without esophagitis (7) Pneumonia Laterality: right Lung location: lower lobe of lung Pneumonia type: due to unspecified organism Qualified Code(s): J18.9 - Pneumonia, unspecified organism
[2019-05-16] MEDS: fentaNYL DRIP 1,250 MCG/250 ML BAG IV SCH (16:48)
[2019-05-16] MEDS ORDERED: FUROSEMIDE 40 MG in SYRINGE 0 ML IV STA (19:17)
[2019-05-16] MEDS: INSULIN GLARGINE SOLOSTAR 100 UNITS/ML 3 ML PEN SC SCH (20:47)
[2019-05-16] MEDS: MAGNESIUM OXIDE 400 MG TAB PO SCH (21:18)
[2019-05-17] MEDS: INSULIN ASPART 100 UNITS/ML 3 ML PEN SC SCH ×6 (00:08→20:33)
[2019-05-17] MEDS: propofoL 1,000 MG/100 ML VIAL IV SCH ×8 (04:33→20:27)
[2019-05-17 05:04] LABS: Base Excess ABG 5.3 mEq/L (-9-1.8); HCO3 ABG 28 mmol/L (19-24); Oxygen Saturation ABG 92.6 % (90-95); PCO2 ABG 36 mmHg (35-46); PO2 ABG 64 mmHg (80-95)
[2019-05-17 05:09] LABS: Allen Test Pos (Pos)
[2019-05-17 05:10] LABS: pH ABG 7.52 (7.35-7.45)
[2019-05-17 05:12] LABS: Albumin Level 1.5 gm/dl (3.4-5.0); BUN Creatinine Ratio 22.7 (10-20); Calcium 7.9 mg/dl (8.5-10.1); Est GFR (African American) 113.2; Est GFR (Non-African American) 97.6; Magnesium 2.1 mg/dl (1.8-2.4); Potassium 3.6 mmol/L (3.5-5.1)
[2019-05-17 05:14] LABS: Basophils # (auto) 0.01 K/uL (0-0.2); Basophils % (auto) 0.1 %; Eosinophils # (auto) 0.07 K/uL (0-0.5); Eosinophils % (auto) 0.9 %; Hematocrit (blood only) 32.7 % (37-47); Hemoglobin 10.9 g/dL (12.0-16.0); Immature Granulocytes # (auto) 0.04 K/uL (0.00-0.02); Immature Granulocytes % (auto) 0.5 %; Lymphocytes % (auto) 24.4 %; Mean Corpuscular Hemoglobin 29.9 pg (25-34); Mean Corpuscular Hgb Conc 33.3 g/dL (32-36); Mean Corpuscular Volume 89.8 fL (80-100); Monocytes # (auto) 0.39 K/uL (0.11-0.59); Monocytes % (auto) 4.8 %; Neutrophils # (auto) 5.68 K/uL (1.4-6.5); Neutrophils % (auto) 69.3 %; Platelet Count 339 K/uL (130-400); RDW Coefficient of Variation 14.7 % (11.5-14.5); RDW Standard Deviation 47.8 fL (36.4-46.3); Red Blood Count 3.64 M/uL (4.2-5.4); White Blood Count 8.19 K/uL (4.8-10.8)
[2019-05-17 05:15] LABS: Albumin Globulin Ratio 0.3 (0.9-2); Bilirubin,Total 0.3 mg/dl (0.2-1); Globulin 4.9 gm/dl (2.5-4.0); Phosphorus 3.7 mg/dl (2.5-4.9); Total Protein 6.4 gm/dl (6.4-8.2)
[2019-05-17] MEDS ORDERED: POTASSIUM CHLORIDE 20 MEQ/15 ML UDC PO STA ×3 (06:37→12:11)
--- NOTE | 2019-05-17 07:35 | XRay Report ---
XR chest 1V portable HISTORY: Respiratory failure. COMPARISON: Chest 05/16/2019. FINDINGS: No pneumothorax. Small right pleural effusion and right lower lobe airspace opacities persi st. The heart remains mildly enlarged. Small patchy density within the left lung base also persists. Nasogastric tube terminates below the diaphragm. The tip is not included on this study. Endotracheal tube terminates approximately 2.4 cm from the jaime. There are poststernotomy changes. IMPRESSION: 1. Satisfactory support line placement. 2. No change in the bibasilar airspace opacities and small right pleural effusion. ACT 112: Negative or not required by law. Electronically signed by: Bhavesh Veras M.D. 05/17/2019 7:34 AM
[2019-05-17] MEDS: ASPIRIN 81 MG CHEW PO SCH (09:15)
[2019-05-17] MEDS: CLOPIDOGREL BISULFATE 75 MG TAB PO SCH (09:16)
[2019-05-17] MEDS: METOPROLOL TARTRATE 25 MG TAB PO SCH ×2 (09:16→20:36)
[2019-05-17] MEDS: ENOXAPARIN INJ 60 MG/0.6 ML SYR SQ SCH (09:17)
[2019-05-17] MEDS: INSULIN GLARGINE SOLOSTAR 100 UNITS/ML 3 ML PEN SC SCH ×2 (09:18→20:30)
[2019-05-17] MEDS: MIDAZOLAM HCL 1 MG/ML 2ML VIAL IV PRN (09:44)
[2019-05-17] MEDS ORDERED: PARoxetine HCL 20 MG TAB PO ONE (10:15)
[2019-05-17] MEDS: FUROSEMIDE 40 MG in SYRINGE 0 ML IV SCH (10:47)
[2019-05-17] MEDS: fentaNYL DRIP 1,250 MCG/250 ML BAG IV SCH (10:47)
[2019-05-17] MEDS: LANSOPRAZOLE 30 MG SOLTAB OG SCH (11:34)
--- NOTE | 2019-05-17 11:51 | XRay Report ---
SINGLE VIEW CHEST CLINICAL HISTORY: Respiratory failure. FINDINGS: An AP, portable, upright chest radiograph is compared to study performed earlier the same d ay 05/17/2019 and correlated with chest CT dated 05/15/2019. The examination is degraded by portable tech nique and patient rotation. An endotracheal tube and an enteric tube are unchanged in position. The p atient is status post midline sternotomy. The heart is enlarged noting atherosclerotic calcification of the thoracic aorta. Pulmonary vascular congestion appears improved from previous. Bibasilar airspa ce consolidation is unchanged, right greater than left. There are right larger left pleural effusions . No pneumothorax is seen. The bony thorax is grossly intact. IMPRESSION: 1. Stable lines and tubes. 2. Right greater than left bibasilar airspace consolidation is unchanged. 3. Cardiomegaly. Pulmonary vascular congestion appears modestly improved from earlier today. 4. Right larger left pleural effusion. ACT 112: Negative or not required by law. Electronically signed by: Tucker Lantigua M.D. 05/17/2019 11:50 AM
[2019-05-17] MEDS ORDERED: Nursing to Pharmacy Communication ONE (12:09)
--- NOTE | 2019-05-17 12:19 | Pharmacy Report ---
Pharmacy Glycemic Short Note 2 - Date of Service May 17, 2019 - Glycemic Short BSG Results (Last 24 hours): 05/16/19 05/16/19 05/16/19 12:00 15:32 20:42 Glucose 196 H POC Glucose 193 H 177 H 05/17/19 05/17/19 05/17/19 00:06 04:03 04:40 Glucose 152 H POC Glucose 162 H 158 H 05/17/19 09:33 Glucose POC Glucose 189 H OUTPATIENT ANTIDIABETIC REGIMEN: * glimepiride 1 mg BID, metformin 500 mg BID * A1c 13.2% 05/09 ASSESSMENT: 05/16 * BSGs acceptable over last 24 hrs, a few BSGs above 180 however all less than 200 * Will continue with Q 4 hr Novolog to cover carbs in tube feeds - same CR; however will adjust correctional insulin doses to allow for slightly higher doses * Will only increase basal insulin dose slightly at this time since there has been no recurrence of hypoglycemia - only a small increase however as pt may be extubated later today or tomorrow am 05/15 * BSGs well controlled yesterday with no insulin administered despite remaining intubated. BSGs slowly climbing. * Of note, no steroids are being given at this time. D10 infusion was stopped this AM. Tube feeds (Impact) being titrate upwards. * Will resume SQ basal / bolus regimen at this time, based upon weight and "mild" stress level given recent hypoglycemic events. Novolog will be given Q 4 hrs to cover carbs in tube feeds. 05/14 * Patient's BSGs continued to drop overnight, down to as low as 40 mg/dL, and D10 was initiated at 125 cc/hr. This was then decreased to 50 cc/hr once BSG > 180 mg/dL. * Patient was re-intubated overnight for worsening respiratory status. Was initially going to be extubated today but now this is unlikely to occur. * She has remained on the D10 @ 50 cc/hr with BSGs not increasing above 175 mg/dL * Last doses of SQ insulin were yesterday AM. SCr stable. * Insulin drip continued throughout the night - at 4.3 units/hr this AM * Continues to be ventilated and on tube feeds as of this AM -> extubated ~ 10 this AM so tube feeds have since been discontinued * Last dose of prednisone 40 mg today * Gave higher dose of Lantus this AM since drip rates had increased overnight. The same dose of NPH was also given to cover the 40 mg of prednisone. * Since extubation and tube feed discontinuation, BSGs have continued to drop. They seem to have leveled off now (105, 97, 91) and I have been following up with nurse re: each BSG check. * Patient unlikely to eat today s/p 5 days on vent. Will need to pass swallow eval first. PLAN FOR INPATIENT GLYCEMIC CONTROL: * Basal insulin - small increase * Lantus 7 units SQ Q 12 hrs - hold if BSG less than 110 * Bolus insulin * NovoLog per scale Q 4 hrs * Goal Range: 110-140 mg/dL * Correctional insulin: 30mg/dL/unit * Carb ratio: 1 unit per 10gm CHO delivered in tube feeds.
[2019-05-17] MEDS: FAMOTIDINE 20 MG in SYRINGE 3 ML IV SCH (12:30)
--- NOTE | 2019-05-17 14:34 | Critical Care Progress Note ---
Date of Service May 17, 2019 Assessment & Plan (1) MSSA (methicillin susceptible Staphylococcus aureus) septicemia: Reason Critically Ill: 68 yo F with influenza pneumonia complicated by secondary bacterial infection: MSSA with MSSA bacteremia Neuro: Encephalopathy: Was improving, patient now sedated and unable to assess - Head CT 05/11 negative for intracranial bleed - brain MRI and Head and Neck CTAs negative for acute or subacute ischemic stroke Cardiac: A-fib with RVR -currently in sinus rhythm. Patient required electrical cardioversion x2 on admission which resulted in rate improvement, ultimately converting back to sinus rhythm. -Appeared to have reentry of A. fib RVR versus SVT last night was given 5 metoprolol, unable to capture EKG during that time due patient severe agitation and restlessness. - troponin negative on admission - EHCO 05/09 showed mild reduced systolic function and various wall motion abnormalities, without significant change from study in 2012 -Continue with metoprolol 75 mg twice daily -Lovenox for A. fib Hx ASCVD - continue ASA, plavix and statin. Add PPI given that the patient is on dual antiplatelet therapy on top of Lovenox Respiratory: Patient extubated 05/14/2019, on morning of 05/14 have acute hypoxic respiratory failure following tachyarrhythmia and required reintubation Influenza B with superimposed bacterial PNA: Improving -Continue Tamiflu -Ceftriaxone for MSSA -Bronc culture growing MSSA GI: Continue with tube feedings Hypoalbuminemia RENAL/LYTES: Hypokalemia--> being replaced Giving magnesium as well to keep magnesium greater than 2 : Gallegos -strict Is/Os ENDO: Hx of Type I diabetes mellitus, in DKA on admission -Transition to sliding scale TSH 0.2 No more hypoglycemic episodes continue with tube feeds along with sliding scale HEME: Change heparin to Lovenox ID: Sepsis: patient meet SIRS criteria on admission, suspected Influenza B with superimposed MRSA pneumonia and MSSA bacteremia. no evidence of multi-organ dysfunction at present. MSSA bacteremia -Repeat blood cultures remain negative, repeat blood cultures pending -WBC trending down -Central line and A-line removed to minimize potential source of infection LINES/IV ACCESS: L subclavian CVC discontinue 05/14/2019 L radial Arterial line discontinue 05/14/2019 Gallegos OG tube 3 PIVs CODE STATUS: Full DVT PROPHYLAXIS: Lovenox Plan: Continue with midazolam 2 mg every 6 hours as needed. Chest x-ray from today shows improvement in the infiltrate. But lower lobe infiltrate still persist. Patient respiratory rate has improved compared to yesterday but patient still spiking fever 38.2. Patient has right-sided pleural effusion appreciated even on the chest x-ray. We will do a bedside ultrasound to see if the fluid is tappable. If the patient is significant fluid then we will hold the Lovenox dose for tonight and do a thoracentesis tomorrow. We will add PPI given that the patient is on dual antiplatelet therapy on top of Lovenox. Patient is also taking paroxetine 30 mg twice daily at home this could be also be a component of her being more anxious while on sedation. Will start 30 mg once daily of paroxetine. Patient does have prolonged QTC of 503 we will repeat EKG in the morning and monitor it. I have personally spent 37 minutes of critical care time in the direct management of this patient. This is a life/limb threatening event. This includes time spent evaluating patient, direct bedside care, chart review, placing orders, interpretation of diagnostic studies, discussion with consultants, patient, and family members, as well as other required patient management activities. This time is exclusive of all separately billable procedures, and teaching time and separate from and in addition to any other critical care service time. Please note the above document was generated using voice recognition software. It may contain grammatical, syntax or spelling errors. (2) MSSA (methicillin susceptible Staphylococcus aureus) pneumonia: (3) Anxiety disorder: (4) Acute respiratory failure with hypoxia: Subjective Patient seen and examined at bedside. No acute distress, no adverse events overnight. Patient has been getting midazolam as needed for anxiety. Patient is still spiking fever T-max of 38.2. Exam examination patient seemed to be more alert than yesterday but she is still not following commands. Propofol 40, fentanyl 75 Review of Systems Review of Systems: Unobtainable due to cognitive status and Unobtainable due to endotracheal tube Physical Exam Physical Exam: Constitutional: No acute distress HEENT: PERRLA, positive ETT Respiratory system: Decreased air entry bilaterally, positive right lower lobe crackles, no wheeze, positive rhonchi CVS: S1-S2 positive, no murmurs or gallops Abdomen: Soft, nontender, nondistended, positive bowel sounds x4 Extremities: +2 pulses bilaterally radialis/ dorsalis pedis, no cyanosis, no edema Neuro: Rass -1, patient more alert than yesterday but still not following commands. Breathing over the vent. Psych: Unable to assess G/U: Positive Gallegos Skin: no rashes, warm and dry Lymphatic: no cervical or axillary lymphadenopathy Results & Data ([facility]) Vital Signs (Past 12 Hours) Vital Signs Pulse Resp BP Pulse Ox 05/17/19 13:17 80 122/69 93 05/17/19 12:17 77 131/69 94 05/17/19 11:31 82 19 91 05/17/19 11:17 83 117/64 94 05/17/19 10:53 76 132/69 94 05/17/19 10:17 79 109/57 L 91 05/17/19 09:17 77 139/64 94 05/17/19 08:17 87 148/76 H 93 05/17/19 07:37 89 22 94 05/17/19 07:17 90 154/81 H 92 05/17/19 05:55 85 24 91 05/17/19 05:17 85 138/74 93 05/17/19 04:59 85 145/77 H 94 05/17/19 04:17 84 145/77 H 93 05/17/19 03:17 80 152/73 H 93 05/17/19 04:40 05/17/19 04:40 Coding Level of Care Code Critical Care 1st 30-74 mins Diagnoses MSSA (methicillin susceptible Staphylococcus aureus) septicemia A41.01 MSSA (methicillin susceptible Staphylococcus aureus) pneumonia J15.211 Anxiety disorder F41.9 Acute respiratory failure with hypoxia J96.01 Time Spent (min) 37
[2019-05-17] MEDS: ACETAMINOPHEN SOLN 160 MG/5 ML BTL PO PRN (15:14)
--- NOTE | 2019-05-17 16:21 | Hospitalist Progress Note ---
Date of Service May 17, 2019 Assessment & Plan (1) Sepsis: Sepsis secondary to Staphylococcus aureus pneumonia and influenza B (see Rx below) Remains in ICU intubated after significant respiratory distress with tachypnea, hypoxia, hypotension immediately after admission MSSA bacteriemia positive and bronchoalveolar lavage culture. Initial echo without vegetations. Repeat blood cultures no growth to date 24 hours later Initial Rx with Zosyn + vanc [05/09] -> ceftriaxone [05/12]. Total Abx for 14 day course; finishes 05/22/19. (2) Acute respiratory failure with hypoxia: Secondary to PNA and influenza. Ventilator management as per iron guardrail installer-extubated on , re-intubated overnight 05/14 due to hypoxia following tachyarrhythmia Appreciate ICU management with continued intubation (3) Influenza B: Influenza B positive on 05/11- now finished 5 day course Tamiflu (4) Pneumonia: MSSA Pneumonia. Continue ceftriaxone as above. Legionella still pending. Bronchoscopy on 05/10 and again 05/13 CXR with R>L lower lobe infiltrates, trace pleural effusions b/l Procalcitonin trended downward from 6 down to 3.2 (5) Bacteremia: MSSA Management as above with ceftriaxone ECHO without valvular vegetation (6) Serotonin withdrawal syndrome: Discussed with ICU team as patient on paroxetine 30mg BID at home. Suspect agitation after extubation in part from withdrawal. QTc 508ms, will continue to monitor. Will restart paroxetine 30mg daily. (7) Chronic prescription benzodiazepine use: Possible withdrawal with agitation after extubation. Continue midazolam as per ICU management. (8) CAD (coronary artery disease): Extensive cardiac history (information from last Dr. Richards clinic note): Inf/lateral [place] 2001, PTCA and stent of RCA. Unstable angina 02/2002; [[place]] Single vessel bypass AWAD to LAD. Unstable angina 06/2002; [[place]] Stent of AWAD anastomotic site. Unstable angina 07/2002; [[facility]] atretic AWAD graft, angioplasty without stent to LAD stenosis. Subsequent In-stent LAD restenosis Rx laser arthrectomy and brachytherapy NSTEMI 2013 with mid LAD stent stenoses, re-stented. Lexiscan 12/2016 - no evidence of induced ischemia - Now requiring treatment dose anticoagulation consider discontinuing plavix (discussed with ICU team and will continue triple therapy currently). Continue metoprolol - Holding statin, consider restarting via OG tube - Holding isosorbide due to hypotension, consider restarting as BP improves (9) Dyslipidemia: Holding home gemfibrozil and Zetia Holding home atorvastatin, consider restarting via OG. (10) Cardiomyopathy, ischemic: As noted in echo above with stable wall motion abnormalities, EF 45% -Continues on metoprolol tartrate - increased to 75mg bid this admission due to tachyarrhythmias (11) Fever: Continued fevers. Unclear etiology given bacteremia cleared and WBC and procalcitonin reassuring. Possible serotonin withdrawal, although usually causes flu-like symptoms without true fever. Continue to monitor now restarting paroxetine. No evidence of skin infections or rashes (12) Encephalopathy: Was very agitated when off sedation, ?benzo/serotonin withdrawal (see above) CT of the head negative on 05/11 MRI/MRA brain/Head negative 05/12 Currently on propofol/fentanyl therefore unable to assess at present (13) Chronic obstructive pulmonary disease: Unclear diagnosis as no [facility] No CO2 retention. Albuterol only prescribed as outpatient. Chronic smoking history. Completed prednisone burst 40mg daily x 4 days as per ICU (14) Type 2 diabetes mellitus: As above for DKA management Holding home metformin and glimepiride Will consider insulin on discharge given elevated HbA1C (15) DKA (diabetic ketoacidoses): pH 7.31 on admission. Combination of lactic and ketoacidosis, now resolved Anion gap closed, glucose now controlled with initial insulin drip while on prednisone Continues on basal/bolus insulin as per Pharmacy management with continuous tube feeds HgbA1c 13.2% from previous of 8.1% last year. (16) Rapid atrial fibrillation: Now resolved in NSR Paroxysmal, new diagnosis this admission. Present on admission with HR 179 in atrial fibrillation. Had to be DC cardioverted in the ICU x 2 Rate control with metoprolol 75mg BID OG (currently in NSR) Echocardiogram with mildly reduced EF at 45-50%, mild LVH, positive wall motion abnormalities which are stable from previous with hypokinesis in the inferior wall from base to the mid ventricle Anticoagulation as per ICU continues on Lovenox, consider OG Eliquis to avoid multiple injections (17) Elevated lactic acid level: resolved, related to sepsis (18) Acid reflux: Discussed with ICU and patient will be switch to PO lansoprazole via OG for GI protection, on omeprazole home med (19) Stenosis of right carotid artery: With known moderate stenosis Follow as an outpatient On antiplatelets and statin as an outpatient (20) DVT prophylaxis: Heparin drip switched to lovenox SQ. Consider switching to apixaban via OG to reduce injection burden. Disposition-remain in the ICU Full code Will need PT/OT consults once awake. Admission and Anticipated Discharge Date Admission Date: May 09, 2019 Subjective Patient intubated and sedated. Unable to get any history from patient. Review of Systems Review of Systems: Unobtainable due to endotracheal tube and Unobtainable due to reduced consciousness Physical Exam Constitutional: no acute distress Eyes: PERRL, conjunctivae normal, anicteric sclerae Neck: trachea midline Respiratory: Auscultation: + crackles (right base) and + rhonchi Cardiovascular: Rate/Rhythm: regular rate and regular rhythm Heart Sounds: no murmur Extremities: normal capillary refill; no pedal edema Gastrointestinal (Abdomen): Percussion/Palpation: abdomen soft; abdomen not rigid Skin: no rashes, warm and dry Neurologic: + not awake (sedated) Cranial Nerves: PERRL Not following commands Psychiatric: Orientation: + not alert Results & Data ([facility]) Vital Signs (Past 12 Hours) Vital Signs Pulse Resp BP Pulse Ox 05/17/19 15:17 85 105/62 94 05/17/19 14:40 78 17 95 05/17/19 14:18 82 119/66 94 05/17/19 13:17 80 122/69 93 05/17/19 12:17 77 131/69 94 05/17/19 11:31 82 19 91 05/17/19 11:17 83 117/64 94 05/17/19 10:53 76 132/69 94 05/17/19 10:17 79 109/57 L 91 05/17/19 09:17 77 139/64 94 05/17/19 08:17 87 148/76 H 93 05/17/19 07:37 89 22 94 05/17/19 07:17 90 154/81 H 92 05/17/19 05:55 85 24 91 05/17/19 05:17 85 138/74 93 05/17/19 04:59 85 145/77 H 94 PG Care Time/CCT Total # of Minutes Spent Total Time Spent with Patient: Total time spent is greater than 50% in coordination of care (as documented) at patient's floor/unit and/or counseling patient: Coding Level of Care Code 07811 Subseq Hosp Care Lvl 3 Diagnoses Sepsis A41.01; R65.20; J96.01 Sepsis type: methicillin susceptible Staphylococcus aureus Sepsis acute organ dysfunction status: with acute organ dysfunction Severe sepsis acute organ dysfunction type: acute respiratory failure Acute respiratory failure type: with hypoxia Severe sepsis shock status: without septic shock Acute respiratory failure with hypoxia J96.01 Influenza B J10.1 Pneumonia J18.9 Laterality: right Lung location: lower lobe of lung Pneumonia type: due to unspecified organism Bacteremia R78.81 Serotonin withdrawal syndrome T43.205A Encounter type: initial encounter Chronic prescription benzodiazepine use Z79.899 CAD (coronary artery disease) I25.10 Coronary Disease-Associated Artery/Lesion type: [place] artery [place] vs. transplanted heart: [place] heart Associated angina: without angina Dyslipidemia E78.5 Cardiomyopathy, ischemic I25.5 Fever R50.9 Fever type: unspecified Encephalopathy G93.40 Chronic obstructive pulmonary disease J44.9 COPD type: unspecified COPD Type 2 diabetes mellitus E11.51 Diabetes mellitus shelter insulin use: without superintendent terminal use Diabetes mellitus complication status: with circulatory complication Diabetes mellitus complication detail: with peripheral angiopathy without gangrene DKA (diabetic ketoacidoses) E11.10 Diabetes mellitus type: type 2 Diabetes mellitus complication detail: without coma Rapid atrial fibrillation I48.91 Elevated lactic acid level R79.89 Acid reflux K21.9 Esophagitis presence: esophagitis presence not specified Stenosis of right carotid artery I65.21 DVT prophylaxis Z29.9 (1) Sepsis Sepsis type: methicillin susceptible Staphylococcus aureus Sepsis acute organ dysfunction status: with acute organ dysfunction Severe sepsis acute organ dysfunction type: acute respiratory failure Acute respiratory failure type: with hypoxia Severe sepsis shock status: without septic shock Qualified Code(s): A41.01 - Sepsis due to Methicillin susceptible Staphylococcus aureus; R65.20 - Severe sepsis without septic shock; J96.01 - Acute respiratory failure with hypoxia (2) Pneumonia Laterality: right Lung location: lower lobe of lung Pneumonia type: due to unspecified organism Qualified Code(s): J18.9 - Pneumonia, unspecified organism (3) DKA (diabetic ketoacidoses) Diabetes mellitus type: type 2 Diabetes mellitus complication detail: without coma Qualified Code(s): E11.10 - Type 2 diabetes mellitus with ketoacidosis without coma (4) Acid reflux Esophagitis presence: esophagitis presence not specified Qualified Code(s): K21.9 - Gastro-esophageal reflux disease without esophagitis (5) CAD (coronary artery disease) Coronary Disease-Associated Artery/Lesion type: [place] artery [place] vs. transplanted heart: [place] heart Associated angina: without angina Qualified Code(s): I25.10 - Atherosclerotic heart disease of [place] coronary artery without angina pectoris (6) Type 2 diabetes mellitus Diabetes mellitus superintendent terminal insulin use: without shelter use Diabetes mellitus complication status: with circulatory complication Diabetes mellitus complication detail: with peripheral angiopathy without gangrene Qualified Code(s): E11.51 - Type 2 diabetes mellitus with diabetic peripheral angiopathy without gangrene (7) Chronic obstructive pulmonary disease COPD type: unspecified COPD Qualified Code(s): J44.9 - Chronic obstructive pulmonary disease, unspecified (8) Fever Fever type: unspecified Qualified Code(s): R50.9 - Fever, unspecified (9) Serotonin withdrawal syndrome Encounter type: initial encounter Qualified Code(s): T43.205A - Adverse effect of unspecified antidepressants, initial encounter
[2019-05-17] MEDS: IMPACT LIQD 1.0 CAL 1,000 ML BAG OG SCH (16:22)
[2019-05-17] MEDS: cefTRIAXone SODIUM 2,000 MG in DEXTROSE 5% 50 ML IV SCH (16:46)
[2019-05-17] MEDS: MAGNESIUM OXIDE 400 MG TAB PO SCH (20:36)
[2019-05-18] MEDS: INSULIN ASPART 100 UNITS/ML 3 ML PEN SC SCH ×6 (00:11→20:29)
[2019-05-18 04:55] LABS: Basophils # (auto) 0.02 K/uL (0-0.2); Basophils % (auto) 0.2 %; Eosinophils # (auto) 0.08 K/uL (0-0.5); Eosinophils % (auto) 0.9 %; Hematocrit (blood only) 29.1 % (37-47); Hemoglobin 9.6 g/dL (12.0-16.0); Immature Granulocytes # (auto) 0.04 K/uL (0.00-0.02); Immature Granulocytes % (auto) 0.5 %; Lymphocytes # (auto) 1.79 K/uL (1.2-3.4); Lymphocytes % (auto) 20.3 %; Mean Corpuscular Volume 90.9 fL (80-100); Mean Platelet Volume 9.8 fL (7.4-10.4); Monocytes # (auto) 0.47 K/uL (0.11-0.59); Monocytes % (auto) 5.3 %; Neutrophils # (auto) 6.41 K/uL (1.4-6.5); Neutrophils % (auto) 72.8 %; Platelet Count 353 K/uL (130-400); RDW Coefficient of Variation 14.8 % (11.5-14.5); RDW Standard Deviation 48.7 fL (36.4-46.3); White Blood Count 8.81 K/uL (4.8-10.8)
[2019-05-18 05:23] LABS: Albumin Globulin Ratio 0.3 (0.9-2); Albumin Level 1.5 gm/dl (3.4-5.0); BUN Creatinine Ratio 36.9 (10-20); Bilirubin,Total 0.2 mg/dl (0.2-1); Calcium 8.3 mg/dl (8.5-10.1); Creatinine Clr Calc Pharmacy 82.1 ml/min; Est GFR (African American) 113.2; Est GFR (Non-African American) 97.6; Globulin 5.1 gm/dl (2.5-4.0); Magnesium 2.1 mg/dl (1.8-2.4); Phosphorus 3.4 mg/dl (2.5-4.9); Potassium 4.4 mmol/L (3.5-5.1); Total Protein 6.6 gm/dl (6.4-8.2)
[2019-05-18] MEDS ORDERED: STAT IV Infusion **Titration per Protocol STA ×2 (05:24→13:10)
[2019-05-18] MEDS ORDERED: PROPOFOL BOLUS FROM BAG IV PRN ×3 (05:24→13:54)
[2019-05-18] MEDS: ACETAMINOPHEN SOLN 160 MG/5 ML BTL PO PRN (05:25)
[2019-05-18] MEDS ORDERED: propofoL 1,000 MG/100 ML VIAL IV SCH (05:30)
[2019-05-18 05:33] LABS: iSTAT Allen Test Pass; iSTAT Art Bld Gas pCO2 Correct 38 mmHg (35-46); iSTAT Art Bld Gas pH Corrected 7.489 (7.35-7.45); iSTAT Arterial Blood Gas HCO3 29 meg/L (19-24); iSTAT Arterial Blood Gas pCO2 36 mmHg (35-46); iSTAT Arterial Blood Gas pH 7.51 (7.35-7.45); iSTAT Arterial Blood Gas pO2 81 mmHg (80-95); iSTAT Arterial Blood Gas pO2 C 88; iSTAT Carbon Dioxide 30 mmol/L (24-31); iSTAT FiO2 50 %; iSTAT Hematocrit 27 % (37-47); iSTAT Hemoglobin 9.2 g/dl (12.0-16.0); iSTAT Site R Radial; iSTAT Sodium 138 mmol/L (135-144)
--- NOTE | 2019-05-18 07:23 | XRay Report ---
XR chest 1V portable CLINICAL HISTORY: Respiratory failure. COMPARISON STUDY: Chest CT May 15, 2019. Chest radiograph May 17, 2019. FINDINGS: Tip of endotracheal tube is 3.7 cm above the jaime. Tip of nasogastric tube is below the l ower aspect of this image but at least within the body of the stomach. There are median sternotomy wi res and mediastinal surgical clip. Cardiomegaly is noted. There is no evidence for overt pulmonary ed kari. Bilateral airspace opacities have slightly improved since prior exam. Significant improvement is noted with comparison study May 15, 2019. IMPRESSION: 1. Satisfactory positioning of lines and tubes. 2. Persistent, but mildly improved, airspace opacities which favors improving pneumonia. ACT 112: Negative or not required by law. Electronically signed by: Gabriele Britton M.D. 05/18/2019 7:21 AM
[2019-05-18] MEDS: FUROSEMIDE 40 MG in SYRINGE 0 ML IV SCH (08:51)
[2019-05-18] MEDS: PARoxetine HCL 20 MG TAB PO SCH (08:52)
[2019-05-18] MEDS: CLOPIDOGREL BISULFATE 75 MG TAB PO SCH (08:53)
[2019-05-18] MEDS: METOPROLOL TARTRATE 25 MG TAB PO SCH ×2 (08:53→20:34)
[2019-05-18] MEDS: INSULIN GLARGINE SOLOSTAR 100 UNITS/ML 3 ML PEN SC SCH ×2 (08:56→20:28)
[2019-05-18] MEDS: ASPIRIN 81 MG CHEW PO SCH (09:02)
[2019-05-18] MEDS: ENOXAPARIN INJ 60 MG/0.6 ML SYR SQ SCH ×2 (09:03→20:34)
[2019-05-18] MEDS: fentaNYL DRIP 1,250 MCG/250 ML BAG IV SCH ×2 (09:04→13:45)
[2019-05-18] MEDS: LANSOPRAZOLE 30 MG SOLTAB OG SCH (09:04)
--- NOTE | 2019-05-18 11:28 | Critical Care Progress Note ---
Date of Service May 18, 2019 Assessment & Plan (1) MSSA (methicillin susceptible Staphylococcus aureus) septicemia: Reason Critically Ill: 68 yo F with influenza pneumonia complicated by secondary bacterial infection: MSSA with MSSA bacteremia Neuro: Encephalopathy: Was improving, patient now sedated and unable to assess - Head CT 05/11 negative for intracranial bleed - brain MRI and Head and Neck CTAs negative for acute or subacute ischemic stroke Cardiac: A-fib with RVR -currently in sinus rhythm. Patient required electrical cardioversion x2 on admission which resulted in rate improvement, ultimately converting back to sinus rhythm. -Appeared to have reentry of A. fib RVR versus SVT last night was given 5 metoprolol, unable to capture EKG during that time due patient severe agitation and restlessness. - troponin negative on admission - EHCO 05/09 showed mild reduced systolic function and various wall motion abnormalities, without significant change from study in 2012 -Continue with metoprolol 75 mg twice daily -Lovenox for A. fib Hx ASCVD - continue ASA, plavix and statin. Add PPI given that the patient is on dual antiplatelet therapy on top of Lovenox Respiratory: Patient extubated 05/14/2019, on morning of 05/14 have acute hypoxic respiratory failure following tachyarrhythmia and required reintubation Influenza B with superimposed bacterial PNA: Improving -Continue Tamiflu -Ceftriaxone for MSSA -Bronc culture growing MSSA GI: Continue with tube feedings Hypoalbuminemia RENAL/LYTES: Hypokalemia--> being replaced Giving magnesium as well to keep magnesium greater than 2 : Gallegos -strict Is/Os ENDO: Hx of Type I diabetes mellitus, in DKA on admission -Transition to sliding scale TSH 0.2 No more hypoglycemic episodes continue with tube feeds along with sliding scale HEME: Change heparin to Lovenox ID: Sepsis: patient meet SIRS criteria on admission, suspected Influenza B with superimposed MRSA pneumonia and MSSA bacteremia. no evidence of multi-organ dysfunction at present. MSSA bacteremia -Repeat blood cultures remain negative, repeat blood cultures pending -WBC trending down -Central line and A-line removed to minimize potential source of infection LINES/IV ACCESS: L subclavian CVC discontinue 05/14/2019 L radial Arterial line discontinue 05/14/2019 Gallegos OG tube 3 PIVs CODE STATUS: Full DVT PROPHYLAXIS: Lovenox Plan: Trial of extubation today. With BiPAP on standby. DC midazolam which she was getting as needed. Patient was on 75 mg of metoprolol twice daily given that she had NG tube will be removed will change it to metoprolol 5 mg every 8 hours to she is able to swallow and take p.o. intake. Bedside ultrasound done today. Shows there is minimal right-sided pleural effusion with consolidation appreciated. Not significant enough to be tapped. Continue with diuresis. Repeat blood culture from 05/15/2019 is negative. Will need 14 days of antibiotics Rocephin since the first blood culture as patient had MSSA bacteremia. I have personally spent 38 minutes of critical care time in the direct management of this patient. This is a life/limb threatening event. This includes time spent evaluating patient, direct bedside care, chart review, placing orders, interpretation of diagnostic studies, discussion with consultants, patient, and family members, as well as other required patient management activities. This time is exclusive of all separately billable procedures, and teaching time and separate from and in addition to any other critical care service time. Please note the above document was generated using voice recognition software. It may contain grammatical, syntax or spelling errors. (2) MSSA (methicillin susceptible Staphylococcus aureus) pneumonia: (3) Anxiety disorder: (4) Acute respiratory failure with hypoxia: Subjective Patient seen and examined at bedside. No acute distress, no adverse events overnight. Patient was on fentanyl 50, propofol 30 the time of examination. RA SS -1. Patient following commands. Asking to take the tube out. Patient is still spiking fever T-max of 38.1. Review of Systems Review of Systems: All systems reviewed & are unremarkable except as noted in HPI & below Physical Exam Physical Exam: Constitutional: No acute distress HEENT: PERRLA, positive ETT Respiratory system: Decreased air entry bilaterally, positive right lower lobe crackles, no wheeze, positive rhonchi CVS: S1-S2 positive, no murmurs or gallops Abdomen: Soft, nontender, nondistended, positive bowel sounds x4 Extremities: +2 pulses bilaterally radialis/ dorsalis pedis, no cyanosis, no edema Neuro: Rass -1, following commands Psych: Unable to assess G/U: Positive Gallegos Skin: no rashes, warm and dry Lymphatic: no cervical or axillary lymphadenopathy Results & Data ([facility]) Vital Signs (Past 12 Hours) Vital Signs Pulse Resp BP Pulse Ox 05/18/19 11:00 71 14 92 05/18/19 09:18 89 179/92 H 95 05/18/19 08:17 73 111/56 L 94 05/18/19 07:37 14 05/18/19 07:17 78 107/51 L 95 05/18/19 06:17 83 137/58 L 90 05/18/19 06:11 107 H 155/129 H 95 05/18/19 05:17 83 127/59 L 95 05/18/19 04:50 78 14 96 05/18/19 04:17 76 126/57 L 92 05/18/19 03:17 71 122/59 L 94 05/18/19 02:17 72 124/62 94 05/18/19 01:17 70 129/54 L 94 05/18/19 01:10 65 14 95 05/18/19 00:17 65 105/60 93 05/18/19 00:00 63 05/17/19 23:45 64 14 95 05/18/19 04:20 05/18/19 04:20 Intake & Output 05/16/19 05/17/19 05/18/19 05/19/19 06:59 06:59 06:59 06:59 Intake Total 3193.801 / 3193.801 2134.146 / 2134.146 2278.395 / 2278.395 226.980 / 226.980 Output Total 4477 / 4477 5231 / 5231 2770 / 2770 1260 / 1260 Balance -1283.199 / -1283.199 -3096.854 / -3096.854 -491.605 / -491.605 - 1033.020 / -1033.020 Weight 60.2 kg 60.4 kg 59.4 kg 59.4 kg Coding Level of Care Code Critical Care 1st 30-74 mins Diagnoses MSSA (methicillin susceptible Staphylococcus aureus) septicemia A41.01 MSSA (methicillin susceptible Staphylococcus aureus) pneumonia J15.211 Anxiety disorder F41.9 Acute respiratory failure with hypoxia J96.01 CPT Codes Pulmonary/Thoracic - Pulmonary and Thoracic: 85521 US, Chest, real time with imaging documentation ([id number]) Time Spent (min) 38
--- NOTE | 2019-05-18 12:10 | Pharmacy Report ---
Pharmacy Glycemic Short Note 2 - Date of Service May 18, 2019 - Glycemic Short BSG Results (Last 24 hours): 05/17/19 05/17/19 05/17/19 13:07 16:48 20:29 Glucose POC Glucose 264 H 227 H 212 H 05/18/19 05/18/19 05/18/19 00:09 04:12 04:20 Glucose 172 H POC Glucose 206 H 189 H 05/18/19 05/18/19 07:40 10:14 Glucose POC Glucose 163 H 181 H OUTPATIENT ANTIDIABETIC REGIMEN: * glimepiride 1 mg BID, metformin 500 mg BID * A1c 13.2% 05/09 ASSESSMENT: 05/17 * Hyperglycemia modestly better with changes made to insulin regimen yesterday to combat increasing BSGs from upwards titration of tube feeds * Pt is now extubated, tube feeds d/c'd. Will change Lantus BID dosing to scaled dosing given uncertain PO intake over next 24 hrs. Will also lessen Novolog dosing parameters as cont tube feeds often lead to exaggerated needs. 05/16 * BSGs acceptable over last 24 hrs, a few BSGs above 180 however all less than 200 * Will continue with Q 4 hr Novolog to cover carbs in tube feeds - same CR; however will adjust correctional insulin doses to allow for slightly higher doses * Will only increase basal insulin dose slightly at this time since there has been no recurrence of hypoglycemia - only a small increase however as pt may be extubated later today or tomorrow am 05/15 * BSGs well controlled yesterday with no insulin administered despite remaining intubated. BSGs slowly climbing. * Of note, no steroids are being given at this time. D10 infusion was stopped this AM. Tube feeds (Impact) being titrate upwards. * Will resume SQ basal / bolus regimen at this time, based upon weight and "mild" stress level given recent hypoglycemic events. Novolog will be given Q 4 hrs to cover carbs in tube feeds. 05/14 * Patient's BSGs continued to drop overnight, down to as low as 40 mg/dL, and D10 was initiated at 125 cc/hr. This was then decreased to 50 cc/hr once BSG > 180 mg/dL. * Patient was re-intubated overnight for worsening respiratory status. Was initially going to be extubated today but now this is unlikely to occur. * She has remained on the D10 @ 50 cc/hr with BSGs not increasing above 175 mg /dL * Last doses of SQ insulin were yesterday AM. SCr stable. PLAN FOR INPATIENT GLYCEMIC CONTROL: * Basal insulin - small increase * Lantus SQ Q 12 hrs - per the following scale * 0 units if BSG less than 110 * 5 units if BSG 110-150 * 10 units if BSG above 150 * Bolus insulin * NovoLog per scale Q 4 hrs * Goal Range: 110-140 mg/dL * Correctional insulin: 25mg/dL/unit * Carb ratio: 1 unit per 10gm CHO delivered in tube feeds.
[2019-05-18] MEDS ORDERED: methylPREDNISolone 40 MG in SYRINGE 0 ML IV STA (12:37)
[2019-05-18] MEDS ORDERED: ETOMIDATE 2 MG/ML 20 ML VIAL IV ONE ×2 (12:49→13:46)
[2019-05-18] MEDS ORDERED: RAPID SEQUENCE INDUCTION BAG ONE (12:49)
[2019-05-18] MEDS ORDERED: MIDAZOLAM HCL 1 MG/ML 2ML VIAL ONE (12:53)
[2019-05-18] MEDS ORDERED: FENTANYL BOLUS FROM BAG IV PRN (13:10)
--- NOTE | 2019-05-18 13:16 | Procedure Note ---
Procedure Note Date of Service May 18, 2019 INTUBATION PROCEDURE NOTE: Attending: Dr Sadi Damon MD Patient was evaluated and plan to intubate was made for respiratory distress. Sedative agent used: Etomidate 30, midazolam 4 Paralysis agent used: None Emergent consent was implied given patients rapidly declining clinical status and need for airway protection. The patient was prepared in the appropriate fashion. The patient was easily pre-oxygenated by using [id number] ventilation. With help of DL grade 3 vocal cords were visualized and 7 [place] ETT was introduced on second attempt to 24 cm at the lip. Significant edema of the oropharynx was appreciated. The stylette was removed and balloon was inflated with 10mL of air. Appropriate Colorimetric change was appreciated for at least 10 breaths. Bilateral chest rise and breath sounds were appreciated without air sounds in the epigastrium. Patient tolerated the procedure well and there were no immediate complications. Chest Xray to follow for confirming placement. Coding CPT Codes Resuscitation - Resuscitation: 36752 Endotracheal Intubation, emergency ([id number]) [facility] Procedure Codes (Charges) Resuscitation Resuscitation: 83489 Endotracheal Intubation, emergency
[2019-05-18] MEDS: propofoL 1,000 MG/100 ML VIAL IV SCH ×2 (13:41→20:27)
--- NOTE | 2019-05-18 13:47 | XRay Report ---
XR chest 1V portable CLINICAL HISTORY: 68 years-old Female presenting with s/p intubation. TECHNIQUE: Portable upright AP view of the chest was obtained. COMPARISON: 05/18/2019 at 6:58 AM. FINDINGS: Endotracheal tube again terminates in the midthoracic trachea approximately 4 cm from the jaime. Silvano ogastric tube descends below the diaphragm with sidehole also within the gastric lumen. Median sterno estephania wires and mediastinal surgical clips noted. Ordering artery stents suspected. Atherosclerosis of the aortic arch. Cardiac silhouette mildly enlarged. Mild pulmonary vascular and bilateral hilar pro minence. Patchy dense opacity in the right lower lung notably asymmetric to the left. Underlying righ t pleural effusion not excluded. No pneumothorax. Osseous structures normal. Upper abdomen normal. IMPRESSION: 1. Appropriately positioned tubes. 2. Right basilar infiltrate consistent with pneumonia, stable from prior. ACT 112: Negative or not required by law. Electronically signed by: Wenceslao Davidson M.D. 05/18/2019 1:46 PM
[2019-05-18] MEDS ORDERED: MIDAZOLAM HCL 5 MG/ML VIAL IV STA (13:48)
[2019-05-18 14:02] LABS: iSTAT Allen Test Pass; iSTAT Art Bld Gas pCO2 Correct 44 mmHg (35-46); iSTAT Art Bld Gas pH Corrected 7.457 (7.35-7.45); iSTAT Arterial Blood Gas HCO3 31 meg/L (19-24); iSTAT Arterial Blood Gas pCO2 45 mmHg (35-46); iSTAT Arterial Blood Gas pH 7.45 (7.35-7.45); iSTAT Arterial Blood Gas pO2 263 mmHg (80-95); iSTAT Arterial Blood Gas pO2 C 260; iSTAT Carbon Dioxide 32 mmol/L (24-31); iSTAT Hematocrit 31 % (37-47); iSTAT Hemoglobin 10.5 g/dl (12.0-16.0); iSTAT Potassium 3.6 mmol/L (3.3-5.0); iSTAT Site R Radial; iSTAT Sodium 140 mmol/L (135-144)
[2019-05-18] MEDS: IMPACT LIQD 1.0 CAL 1,000 ML BAG OG SCH (15:16)
[2019-05-18] MEDS: cefTRIAXone SODIUM 2,000 MG in DEXTROSE 5% 50 ML IV SCH (15:24)
[2019-05-18 15:46] LABS: BUN Creatinine Ratio 33.5 (10-20); Calcium 8.6 mg/dl (8.5-10.1); Creatinine Clr Calc Pharmacy 72.1 ml/min; Est GFR (African American) 108.7; Est GFR (Non-African American) 93.8; Potassium 3.9 mmol/L (3.5-5.1)
--- NOTE | 2019-05-18 16:01 | Electrocardiogram Report ---
Test Reason : Blood Pressure : / mmHG Vent. 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 rate has decreased BY 47 BPM T wave inversion more evident in Anterior leads Confirmed by Roscoe Hernandez ([id number]) on 05/18/2019 4:00:58 PM Referred By: REFERRED SELF Confirmed By:Roscoe Hernandez
--- NOTE | 2019-05-18 16:05 | Electrocardiogram Report ---
Test Reason : Blood Pressure : / mmHG Vent. Rate : 078 BPM Atrial Rate : 078 BPM P-R Int : 150 ms QRS Dur : 086 ms QT Int : 470 ms P-R-T Axes : 041 051 164 degrees QTc Int : 535 ms Sinus rhythm with Premature atrial complexes Inferior infarct (cited on or before 23-JUN-2001) Prolonged QT Abnormal ECG When compared with ECG of 18-MAY-2019 07:07, (unconfirmed) Premature atrial complexes are now Present Confirmed by Roscoe Hernandez ([id number]) on 05/18/2019 4:05:08 PM Referred By: REFERRED SELF Confirmed By:Roscoe Hernandez
--- NOTE | 2019-05-18 17:24 | Communication Note ---
Date of Service: May 18, 2019 Critical CARE addendum: Was called to evaluate the patient as she was complaining of mild shortness of breath. At the time of examination patient was breathing at the rate of 16-18. Saturating 93% on 2 L nasal cannula. However she was having stridor on inspiration. Plan was made to give her 40 mg of Solu-Medrol stat. By the time patient received Solu-Medrol her clinical status deteriorated she was tachypneic and diaphoretic with saturations going down to low 80s. Plan was made to intubate the patient. On intubation there was edema appreciated in the upper airway like laryngeal edema secondary to prior intubations already twice on this admission. This was her third intubation. She will be high risk for intubation when she is ready for extubation trial next. Would give her 40 mg of steroids prior to next trial of extubation along with cough leak test. Coding Level of Care Code Critical Care dwayne moralest'l 30 min Time Spent (min) 29
[2019-05-18] MEDS: ATORVASTATIN 40 MG TAB PO SCH (20:34)
[2019-05-18] MEDS: MAGNESIUM OXIDE 400 MG TAB PO SCH (20:37)
--- NOTE | 2019-05-18 20:38 | Hospitalist Progress Note ---
Date of Service May 18, 2019 Assessment & Plan (1) Sepsis: Sepsis secondary to Staphylococcus aureus pneumonia and influenza B (see Rx below) Remains in ICU intubated after significant respiratory distress with tachypnea, hypoxia, hypotension immediately after admission MSSA bacteriemia positive and bronchoalveolar lavage culture. Initial echo without vegetations. Consider Repeat blood cultures no growth to date 24 hours later Initial Rx with Zosyn + vanc [05/09] -> ceftriaxone [05/12]. Total Abx for 14 day course; finishes 05/22/19. (2) Acute respiratory failure with hypoxia: Secondary to PNA and influenza. Ventilator management as per ICU - extubated on , re-intubated overnight 05/14 due to hypoxia following tachyarrhythmia, again extubated/intubated 05/17 stridor and wheezing prior to needing re-intubation. Appreciate ICU management with continued intubation (3) Influenza B: Influenza B positive on 05/11- now finished 5 day course Tamiflu (4) Pneumonia: MSSA Pneumonia. Continue ceftriaxone as above. Legionella still pending. Bronchoscopy on 05/10 and again 05/13 CXR with R>L lower lobe infiltrates, trace pleural effusions b/l Procalcitonin trended downward from 6 down to 3.2 (5) Bacteremia: MSSA Management as above with ceftriaxone ECHO without valvular vegetation on admission, consider TTE or COY given ongoing fevers. (6) Serotonin withdrawal syndrome: Discussed with ICU team as patient on paroxetine 30mg BID at home. Suspect agitation after extubation in part from withdrawal. QTc 508ms, will continue to monitor. Restart paroxetine 30mg daily on 05/16 (7) Chronic prescription benzodiazepine use: Possible withdrawal with agitation after extubation. Continue midazolam as per ICU management. (8) CAD (coronary artery disease): Extensive cardiac history (information from last Dr. Richards clinic note): Inf/lateral CA 2001, PTCA and stent of RCA. Unstable angina 02/2002; [[place]] Single vessel bypass AWAD to LAD. Unstable angina 06/2002; [[place]] Stent of AWAD anastomotic site. Unstable angina 07/2002; [[facility]] atretic AWAD graft, angioplasty without stent to LAD stenosis. Subsequent In-stent LAD restenosis Rx laser arthrectomy and brachytherapy NSTEMI 2013 with mid LAD stent stenoses, re-stented. Lexiscan 12/2016 - no evidence of induced ischemia - Now requiring treatment dose anticoagulation consider discontinuing plavix (discussed with ICU team and will continue triple therapy currently). Continue metoprolol - Restarted on statin via OG tube - Holding isosorbide due to hypotension, consider restarting as BP improves (9) Dyslipidemia: Holding home gemfibrozil and Zetia Holding home atorvastatin, consider restarting via OG. (10) Cardiomyopathy, ischemic: As noted in echo above with stable wall motion abnormalities, EF 45% -Continues on metoprolol tartrate - increased to 75mg bid this admission due to tachyarrhythmias (11) Fever: Continued fevers. Unclear etiology given bacteremia cleared and WBC and procalcitonin reassuring. Possible serotonin withdrawal, although usually causes flu-like symptoms without true fever. Consider repeating TTE or COY to r/o endocarditis. Continue to monitor now restarting paroxetine. No evidence of skin infections or rashes (12) Encephalopathy: Was very agitated when off sedation, ?benzo/serotonin withdrawal (see above) CT of the head negative on 05/11 MRI/MRA brain/Head negative 05/12 Currently on propofol/fentanyl therefore unable to assess at present (13) Chronic obstructive pulmonary disease: Unclear diagnosis as no prior PFTs [facility]. No CO2 retention. Albuterol only prescribed as outpatient. Chronic smoking history. Completed prednisone burst 40mg daily x 4 days as per ICU Wheezing/stridor heard prior to needing reintubation on 05/17, ?restart on steroids, albuterol/ipratropium (14) DKA (diabetic ketoacidoses): Now resolved pH 7.31 on admission. Combination of lactic and ketoacidosis, now resolved Anion gap closed, glucose now controlled with initial insulin drip while on prednisone Continues on basal/bolus insulin as per Pharmacy management with continuous tube feeds HgbA1c 13.2% from previous of 8.1% last year. (15) Type 2 diabetes mellitus: As above for DKA management Holding home metformin and glimepiride Will consider insulin on discharge given elevated HbA1C (16) Rapid atrial fibrillation: Now resolved in NSR Paroxysmal, new diagnosis this admission. Present on admission with HR 179 in atrial fibrillation. Had to be DC cardioverted in the ICU x 2 Rate control with metoprolol 75mg BID OG (currently in NSR) Echocardiogram with mildly reduced EF at 45-50%, mild LVH, positive wall motion abnormalities which are stable from previous with hypokinesis in the inferior wall from base to the mid ventricle Anticoagulation as per ICU continues on Lovenox, consider OG Eliquis to avoid multiple injections (17) Elevated lactic acid level: resolved, related to sepsis (18) Acid reflux: Continue lansoprazole via OG for GI protection, on omeprazole home med (19) Stenosis of right carotid artery: With known moderate stenosis Follow as an outpatient On antiplatelets and statin as an outpatient (20) DVT prophylaxis: Heparin drip switched to lovenox SQ. Consider switching to apixaban via OG to reduce injection burden. Disposition-remain in the ICU Full code Will need PT/OT consults once awake. Admission and Anticipated Discharge Date Admission Date: May 09, 2019 Subjective Patient intubated and sedated. Unable to get any history from patient. Review of Systems Review of Systems: Unobtainable due to endotracheal tube and Unobtainable due to reduced consciousness Physical Exam Constitutional: no acute distress Eyes: PERRL, conjunctivae normal, anicteric sclerae Neck: trachea midline Respiratory: Auscultation: + crackles (right base) and + rhonchi (b/l) Cardiovascular: Rate/Rhythm: regular rate and regular rhythm Heart Sounds: no murmur Extremities: normal capillary refill and + pedal edema (trace b/l) Gastrointestinal (Abdomen): Percussion/Palpation: abdomen soft; abdomen not rigid Skin: no rashes, warm and dry (no cellulitis) Neurologic: + not awake (sedated) Cranial Nerves: PERRL Psychiatric: Orientation: + not alert Results & Data ([facility]) Vital Signs (Past 12 Hours) Vital Signs Pulse Resp BP Pulse Ox 05/18/19 17:41 80 126/62 97 05/18/19 17:00 82 12 98 05/18/19 16:41 80 120/59 L 98 05/18/19 15:41 77 123/61 97 05/18/19 15:15 80 107/57 L 95 05/18/19 14:36 88 102/60 95 05/18/19 14:31 85 106/56 L 92 05/18/19 14:26 86 108/59 L 92 05/18/19 14:21 84 96/54 L 95 05/18/19 14:16 82 89/49 L 95 05/18/19 14:11 86 130/62 96 05/18/19 14:07 103 H 162/93 H 95 05/18/19 14:01 90 107/60 94 05/18/19 14:00 91 H 93 05/18/19 13:58 18 05/18/19 13:56 94 H 103/63 94 05/18/19 13:51 93 H 113/63 98 05/18/19 13:46 90 103/58 L 100 05/18/19 13:41 89 89/52 L 100 05/18/19 13:31 86 100/64 100 05/18/19 13:26 87 113/58 L 100 05/18/19 13:16 84 141/67 H 100 05/18/19 13:13 84 18 98 05/18/19 13:12 92 H 166/80 H 98 05/18/19 13:07 84 106/45 L 98 05/18/19 13:01 103 H 14 164/70 H 98 05/18/19 12:18 74 20 168/63 H 91 05/18/19 11:18 70 17 118/64 91 05/18/19 11:00 71 14 92 05/18/19 09:18 89 179/92 H 95 PG Care Time/CCT Total # of Minutes Spent Total Time Spent with Patient: Total time spent is greater than 50% in coordination of care (as documented) at patient's floor/unit and/or counseling patient: Coding Level of Care Code 02719 Subseq Hosp Care Lvl 3 Diagnoses Sepsis A41.01; R65.20; J96.01 Acute respiratory failure type: with hypoxia Sepsis acute organ dysfunction status: with acute organ dysfunction Sepsis type: methicillin susceptible Staphylococcus aureus Severe sepsis acute organ dysfunction type: acute respiratory failure Severe sepsis shock status: without septic shock Acute respiratory failure with hypoxia J96.01 Influenza B J10.1 Pneumonia J18.9 Laterality: right Lung location: lower lobe of lung Pneumonia type: due to unspecified organism Bacteremia R78.81 Serotonin withdrawal syndrome T43.205A Encounter type: initial encounter Chronic prescription benzodiazepine use Z79.899 CAD (coronary artery disease) I25.10 Associated angina: without angina Coronary Disease-Associated Artery/Lesion type: [place] artery [place] vs. transplanted heart: [place] heart Dyslipidemia E78.5 Cardiomyopathy, ischemic I25.5 Fever R50.9 Fever type: unspecified Encephalopathy G93.40 Chronic obstructive pulmonary disease J44.9 COPD type: unspecified COPD DKA (diabetic ketoacidoses) E11.10 Diabetes mellitus complication detail: without coma Diabetes mellitus type: type 2 Type 2 diabetes mellitus E11.51 Diabetes mellitus complication detail: with peripheral angiopathy without gangrene Diabetes mellitus complication status: with circulatory complication Diabetes mellitus fci insulin use: without fci use Rapid atrial fibrillation I48.91 Elevated lactic acid level R79.89 Acid reflux K21.9 Esophagitis presence: esophagitis presence not specified Stenosis of right carotid artery I65.21 DVT prophylaxis Z29.9 (1) Serotonin withdrawal syndrome Encounter type: initial encounter Qualified Code(s): T43.205A - Adverse effect of unspecified antidepressants, initial encounter (2) DKA (diabetic ketoacidoses) Diabetes mellitus complication detail: without coma Diabetes mellitus type: type 2 Qualified Code(s): E11.10 - Type 2 diabetes mellitus with ketoacidosis without coma (3) Fever Fever type: unspecified Qualified Code(s): R50.9 - Fever, unspecified (4) Type 2 diabetes mellitus Diabetes mellitus complication detail: with peripheral angiopathy without gangrene Diabetes mellitus complication status: with circulatory complication Diabetes mellitus fci insulin use: without intermediate designer use Qualified Code (s): E11.51 - Type 2 diabetes mellitus with diabetic peripheral angiopathy without gangrene (5) CAD (coronary artery disease) Associated angina: without angina Coronary Disease-Associated Artery/Lesion type: [place] artery [place] vs. transplanted heart: [place] heart Qualified Code(s): I25.10 - Atherosclerotic heart disease of [place] coronary artery without angina pectoris (6) Sepsis Acute respiratory failure type: with hypoxia Sepsis acute organ dysfunction status: with acute organ dysfunction Sepsis type: methicillin susceptible Staphylococcus aureus Severe sepsis acute organ dysfunction type: acute respiratory failure Severe sepsis shock status: without septic shock Qualified Code(s): A41.01 - Sepsis due to Methicillin susceptible Staphylococcus aureus; R65.20 - Severe sepsis without septic shock; J96.01 - Acute respiratory failure with hypoxia (7) Chronic obstructive pulmonary disease COPD type: unspecified COPD Qualified Code(s): J44.9 - Chronic obstructive pulmonary disease, unspecified (8) Acid reflux Esophagitis presence: esophagitis presence not specified Qualified Code(s): K21.9 - Gastro-esophageal reflux disease without esophagitis (9) Pneumonia Laterality: right Lung location: lower lobe of lung Pneumonia type: due to unspecified organism Qualified Code(s): J18.9 - Pneumonia, unspecified organism
[2019-05-19] MEDS: INSULIN ASPART 100 UNITS/ML 3 ML PEN SC SCH ×6 (00:01→21:27)
[2019-05-19 05:25] LABS: Basophils # (auto) 0.01 K/uL (0-0.2); Basophils % (auto) 0.1 %; Eosinophils # (auto) 0.01 K/uL (0-0.5); Eosinophils % (auto) 0.1 %; Hematocrit (blood only) 29.8 % (37-47); Hemoglobin 9.6 g/dL (12.0-16.0); Immature Granulocytes # (auto) 0.03 K/uL (0.00-0.02); Immature Granulocytes % (auto) 0.3 %; Lymphocytes # (auto) 2.18 K/uL (1.2-3.4); Lymphocytes % (auto) 24.7 %; Mean Corpuscular Hemoglobin 29.5 pg (25-34); Mean Corpuscular Hgb Conc 32.2 g/dL (32-36); Mean Corpuscular Volume 91.7 fL (80-100); Monocytes # (auto) 0.77 K/uL (0.11-0.59); Monocytes % (auto) 8.7 %; Neutrophils # (auto) 5.83 K/uL (1.4-6.5); Neutrophils % (auto) 66.1 %; Platelet Count 380 K/uL (130-400); RDW Coefficient of Variation 14.6 % (11.5-14.5); RDW Standard Deviation 49.4 fL (36.4-46.3); Red Blood Count 3.25 M/uL (4.2-5.4); White Blood Count 8.83 K/uL (4.8-10.8)
[2019-05-19 05:39] LABS: iSTAT Allen Test Pass; iSTAT Art Bld Gas pCO2 Correct 35 mmHg (35-46); iSTAT Art Bld Gas pH Corrected 7.536 (7.35-7.45); iSTAT Arterial Blood Gas HCO3 29 meg/L (19-24); iSTAT Arterial Blood Gas pCO2 34 mmHg (35-46); iSTAT Arterial Blood Gas pH 7.55 (7.35-7.45); iSTAT Arterial Blood Gas pO2 66 mmHg (80-95); iSTAT Arterial Blood Gas pO2 C 70; iSTAT Carbon Dioxide 30 mmol/L (24-31); iSTAT FiO2 40 %; iSTAT Hematocrit 25 % (37-47); iSTAT Hemoglobin 8.5 g/dl (12.0-16.0); iSTAT Potassium 3.4 mmol/L (3.3-5.0); iSTAT Site R Radial; iSTAT Sodium 140 mmol/L (135-144)
[2019-05-19 05:41] LABS: Albumin Level 1.7 gm/dl (3.4-5.0); BUN Creatinine Ratio 41.1 (10-20); Calcium 8.7 mg/dl (8.5-10.1); Creatinine Clr Calc Pharmacy 64.7 ml/min; Est GFR (African American) 104.9; Est GFR (Non-African American) 90.5; Magnesium 2.1 mg/dl (1.8-2.4); Potassium 3.7 mmol/L (3.5-5.1)
[2019-05-19 05:44] LABS: Albumin Globulin Ratio 0.3 (0.9-2); Bilirubin,Total 0.2 mg/dl (0.2-1); Globulin 5.3 gm/dl (2.5-4.0); Phosphorus 3.1 mg/dl (2.5-4.9)
[2019-05-19] MEDS ORDERED: POTASSIUM CHLORIDE 20 MEQ/15 ML UDC PO STA (06:03)
[2019-05-19] MEDS ORDERED: POTASSIUM CHLORIDE 20 MEQ/15 ML UDC PO SCH (06:03)
[2019-05-19] MEDS: LANSOPRAZOLE 30 MG SOLTAB OG SCH (09:16)
[2019-05-19] MEDS: PARoxetine HCL 20 MG TAB PO SCH (09:16)
[2019-05-19] MEDS: ASPIRIN 81 MG CHEW PO SCH (09:16)
[2019-05-19] MEDS: CLOPIDOGREL BISULFATE 75 MG TAB PO SCH (09:16)
[2019-05-19] MEDS: ENOXAPARIN INJ 60 MG/0.6 ML SYR SQ SCH ×2 (09:17→19:45)
[2019-05-19] MEDS: INSULIN GLARGINE SOLOSTAR 100 UNITS/ML 3 ML PEN SC SCH ×2 (09:17→21:26)
[2019-05-19] MEDS: METOPROLOL TARTRATE 25 MG TAB PO SCH ×2 (09:17→20:50)
[2019-05-19] MEDS: FUROSEMIDE 40 MG in SYRINGE 0 ML IV SCH (09:17)
[2019-05-19] MEDS ORDERED: methylPREDNISolone 40 MG in SYRINGE 0 ML IV ONE (10:11)
[2019-05-19] MEDS: IMPACT LIQD 1.0 CAL 1,000 ML BAG OG SCH (10:17)
[2019-05-19 11:59] LABS: Basophils # (auto) 0.01 K/uL (0-0.2); Basophils % (auto) 0.1 %; Eosinophils # (auto) 0.05 K/uL (0-0.5); Eosinophils % (auto) 0.5 %; Hematocrit (blood only) 30.4 % (37-47); Hemoglobin 9.9 g/dL (12.0-16.0); Immature Granulocytes # (auto) 0.02 K/uL (0.00-0.02); Immature Granulocytes % (auto) 0.2 %; Lymphocytes # (auto) 3.16 K/uL (1.2-3.4); Lymphocytes % (auto) 33.5 %; Mean Corpuscular Hgb Conc 32.6 g/dL (32-36); Mean Corpuscular Volume 92.1 fL (80-100); Mean Platelet Volume 9.5 fL (7.4-10.4); Monocytes # (auto) 0.72 K/uL (0.11-0.59); Monocytes % (auto) 7.6 %; Neutrophils # (auto) 5.46 K/uL (1.4-6.5); Neutrophils % (auto) 58.1 %; Platelet Count 372 K/uL (130-400); RDW Coefficient of Variation 14.8 % (11.5-14.5); RDW Standard Deviation 49.7 fL (36.4-46.3); White Blood Count 9.42 K/uL (4.8-10.8)
--- NOTE | 2019-05-19 11:59 | Critical Care Progress Note ---
Date of Service May 19, 2019 Assessment & Plan (1) MSSA (methicillin susceptible Staphylococcus aureus) septicemia: Reason Critically Ill: 68 yo F with influenza pneumonia complicated by secondary bacterial infection: MSSA with MSSA bacteremia Neuro: Encephalopathy: Was improving, patient now sedated and unable to assess - Head CT 05/11 negative for intracranial bleed - brain MRI and Head and Neck CTAs negative for acute or subacute ischemic stroke Cardiac: A-fib with RVR -currently in sinus rhythm. Patient required electrical cardioversion x2 on admission which resulted in rate improvement, ultimately converting back to sinus rhythm. -Appeared to have reentry of A. fib RVR versus SVT last night was given 5 metoprolol, unable to capture EKG during that time due patient severe agitation and restlessness. - troponin negative on admission - EHCO 05/09 showed mild reduced systolic function and various wall motion abnormalities, without significant change from study in 2012 -Continue with metoprolol 75 mg twice daily -Lovenox for A. fib Hx ASCVD - continue ASA, plavix and statin. Add PPI given that the patient is on dual antiplatelet therapy on top of Lovenox Respiratory: Patient extubated 05/14/2019, on morning of 05/14 have acute hypoxic respiratory failure following tachyarrhythmia and required reintubation Patient extubated again on 05/18/19, required reintubation in couple of hours for stridor and SOB likely laryngeal edema Influenza B with superimposed bacterial PNA: Improving -Continue Tamiflu -Ceftriaxone for MSSA -Bronc culture growing MSSA GI: Continue with tube feedings Hypoalbuminemia RENAL/LYTES: Kepp magnesium > 2 : Shin -strict Is/Os ENDO: Hx of Type I diabetes mellitus, in DKA on admission -Transition to sliding scale TSH 0.2 No more hypoglycemic episodes continue with tube feeds along with sliding scale HEME: on Lovenox ID: Sepsis: patient meet SIRS criteria on admission, suspected Influenza B with superimposed MRSA pneumonia and MSSA bacteremia. no evidence of multi-organ dysfunction at present. MSSA bacteremia -Repeat blood cultures remain negative, repeat blood cultures pending -WBC trending down -Central line and A-line removed to minimize potential source of infection LINES/IV ACCESS: L subclavian CVC discontinue 05/14/2019 L radial Arterial line discontinue 05/14/2019 Shin OG tube 3 PIVs CODE STATUS: Full DVT PROPHYLAXIS: Lovenox Plan: Patient extubated on 05/18/19 but reintubated in couple of hours later for SOB with stridor likely Laryngeal edema. Patient was given 40mg of solumedrol. Will give one more dose today. Given this is patient's 3rd intubation this admission there is high likely grubbs patient will need trach. Patient's son was made aware by palliative care about it. Patient herself never wanted to have to have trach but as it was laryngeal edema which was reversible trach might not be permanent. Family might think about it and let us know. [facility] cuff leak and see if patient can be extubated. Drop in Hb. Repeat H&H and hold lovenox till repeat H&H is back. F/u FOBT Repeat blood culture from 05/15/2019 is negative. Will need 14 days of antibiotics Rocephin since the first blood culture as patient had MSSA bacteremia. I have personally spent 37 minutes of critical care time in the direct management of this patient. This is a life/limb threatening event. This includes time spent evaluating patient, direct bedside care, chart review, placing orders, interpretation of diagnostic studies, discussion with consultants, patient, and family members, as well as other required patient management activities. This time is exclusive of all separately billable procedures, and teaching time and separate from and in addition to any other critical care service time. YANIRA shin by the end of shift today. Please note the above document was generated using voice recognition software. It may contain grammatical, syntax or spelling errors. (2) MSSA (methicillin susceptible Staphylococcus aureus) pneumonia: (3) Anxiety disorder: (4) Acute respiratory failure with hypoxia: Subjective Patient seen and examined. Intubated sedated. RASS -2 Patient was extubated on 05/18/19 but needed intubation again as she developed strider likely sec to laryngeal edema. Still spiking fever 38.1 C Review of Systems Review of Systems: Unobtainable due to endotracheal tube Physical Exam Physical Exam: Constitutional: No acute distress HEENT: PERRLA, positive ETT Respiratory system: Decreased air entry bilaterally, positive right lower lobe crackles, no wheeze CVS: S1-S2 positive, no murmurs or gallops Abdomen: Soft, nontender, nondistended, positive bowel sounds x4 Extremities: +2 pulses bilaterally radialis/ dorsalis pedis, no cyanosis, no edema Neuro: Rass -1, following commands Psych: Unable to assess G/U: Positive Shin Skin: no rashes, warm and dry Lymphatic: no cervical or axillary lymphadenopathy Results & Data ([facility]) Vital Signs (Past 12 Hours) Vital Signs Temp Pulse Resp BP Pulse Ox 05/19/19 11:24 58 L 17 94 05/19/19 07:32 76 17 94 05/19/19 06:00 73 17 108/48 L 94 05/19/19 05:31 78 12 93 05/19/19 05:00 75 16 108/48 L 93 05/19/19 04:00 78 21 120/56 L 93 05/19/19 03:00 80 20 120/56 L 93 05/19/19 02:35 73 14 92 05/19/19 02:00 38.1 C H 71 19 110/58 L 90 05/19/19 01:00 92 H 20 110/58 L 94 05/19/19 00:00 71 19 115/64 96 05/18/19 23:51 94 H 15 96 05/19/19 04:31 05/19/19 04:31 Coding Level of Care Code Critical Care 1st 30-74 mins Diagnoses MSSA (methicillin susceptible Staphylococcus aureus) septicemia A41.01 MSSA (methicillin susceptible Staphylococcus aureus) pneumonia J15.211 Anxiety disorder F41.9 Acute respiratory failure with hypoxia J96.01 Time Spent (min) 37
--- NOTE | 2019-05-19 14:35 | Palliative Care Consultation ---
Date of Consultation May 19, 2019 Assessment & Plan (1) Goals of care, counseling/discussion: -68 year old female patient with PMH anemia, anxiety, CAD, carotid artery disease, diabetes and ongoing tobacco abuse, presented to the hospital 10 days ago with DKA, acute respiratory failure requiring intubation, Influenza A, and pneumonia. Patient was extubated, but quickly failed and required reintubation. She was extubated a second time after successful weaning from the ventilator, but then patient developed laryngeal edema and stridor, and needed to be reintubated again last evening 05/17. Patient has MSSA pneumonia and MSSA septicemia. CXR remains with patchy infiltrates suggestive of ongoing pneumonia. Given patient's multiple reintubations and long ICU stay, palliative care is consulted to discuss with patient's family about the possibility of trach and whether or not patient would ever want that. -Met with patient, but she is intubated and sedated in ICU. -Called patient's son, Forrest. Patient has several children, her is . Forrest has been our main contact, refer to case management note from admission regarding other children. -I gave Forrest an update as was discussed during ICU rounds: that patient has now had three intubations and we are looking towards needing tracheostomy for prolonged vent weaning process. I reiterated that patient is likely weanable from the ventilator considering we have done so several times, but now with the laryngeal edema, it will be difficult to extubate her safely without a secured airway. I also explained that patient has pneumonia, is still recovering from the flu, and per the branch specialist this morning, she could also have some underlying COPD given her smoking history that further complications liberation from ventilator. Forrest verbalizes understanding. -Forrest admits that patient has said that she never wanted to live long-term on a ventilator, and if there is a good chance that this would be permanent, that he is hesitant to agree to it. However, I again stated that we do not have any evidence thus far that this would be a permanent intervention, but that is difficult to say since she does likely have some underlying lung damage that cannot be reversed. I also discussed the possibility of patient needing LTACH for prolonged vent weaning process and possible trach depending on what is decided. -Forrest has many specific questions about the trach process. I answered his questions to the best of my ability, but I encouraged him to discuss with the branch specialist when he arrives this afternoon. Forrest indicated that if there is a possibility that patient could still recover and this may not be a permanent in tervention, he would consider moving forward with trach. However, that is to be decided. -We will conitnue to follow and support family with medical decision making. (2) Acute respiratory failure with hypoxia: (3) MSSA (methicillin susceptible Staphylococcus aureus) pneumonia: (4) Influenza B: (5) MSSA (methicillin susceptible Staphylococcus aureus) septicemia: (6) Tracheomalacia, acquired: Supervising Physician Co-Signing Physician Notes Chart reviewed, patient seen and examined. Collaborated with EUGENE Hamlin Patient son, Forrest, at bedside. On exam patient was less sedated-able to nod yes or no to simple questions. Patient is in agreement with plan for trach placement-this is given her 2 sons comfort that they are following her wishes. PE: Patient awake, alert, able to answer a few simple questions by nodding HEENT: EOMI, hearing within normal limits Respirations: Intubated, unlabored CV: Regular rate Abdomen: Not distended Neuro: Alert and oriented Agree with above note, assessment and plan as per EUGENE Hamlin -will continue to follow and provide support to patient and family. History of Present Illness Attending Physician: Mati Hamm MD History of Present Illness This 68 year old female patient with PMH anemia, anxiety, CAD, carotid artery disease, diabetes and ongoing tobacco abuse, presented to the hospital 10 days ago with DKA, acute respiratory failure requiring intubation, Influenza A, and pneumonia. Patient was extubated, but quickly failed and required reintubation. She was extubated a second time after successful weaning from the ventilator, but then patient developed laryngeal edema and stridor, and needed to be reintubated again last evening 3/4. Patient has MSSA pneumonia and MSSA septicemia. CXR remains with patchy infiltrates suggestive of ongoing pneumonia. Given patient's multiple reintubations and long ICU stay, palliative care is consulted to discuss with patient's family about the possibility of trach and wh ether or not patient would ever want that. Thank you kindly for this consult. Palliative care team will follow as needed. Allergies Allergy/AdvReac Type Severity Reaction Status Date / Time GEORGE Inhibitors Allergy Mild COUGH TO Verified 05/09/19 11:38 LISINOPRIL losartan Allergy Unknown URTICARIA Verified 05/09/19 11:38 Home Medications Home Medications Medication Instructions Recorded Confirmed Type clopidogrel 75 mg tablet 75 mg PO DAILY 09/20/18 05/09/19 History metoprolol tartrate 50 mg tablet 50 mg PO BID #270 tab 09/20/18 05/09/19 History omeprazole 20 mg capsule,delayed 20 mg PO BID PRN #90 cap 10/22/18 05/09/19 Rx release albuterol sulfate 90 mcg/actuation 2 puffs INHALATION Q4H #1 gm 10/29/18 05/09/19 History aerosol inhaler blood sugar diagnostic #10 ea 10/29/18 12/20/18 History cholecalciferol (vitamin D3) 10 400 units PO DAILY 10/29/18 05/09/19 History mcg (400 unit) tablet ezetimibe 10 mg tablet 10 mg PO HS #90 tab 10/29/18 05/09/19 History lancets 33 gauge #100 ea 10/29/18 10/29/18 History loratadine 10 mg tablet 10 mg PO DAILY #90 tab 10/29/18 05/09/19 History nitroglycerin 0.4 mg sublingual 0.4 mg SL UD #25 tab 10/29/18 05/09/19 History tablet atorvastatin 80 mg tablet 80 mg PO QPM #90 tab 11/16/18 05/09/19 Rx gemfibrozil 600 mg tablet 600 mg PO BID #180 tab 11/23/18 05/09/19 Rx paroxetine HCl 30 mg tablet 30 mg PO BID #180 tab 12/07/18 05/09/19 Rx glimepiride 1 mg tablet 1 mg PO BID #180 tab 01/04/19 05/09/19 Rx amlodipine 5 mg tablet 5 mg PO BID #180 tab 01/11/19 05/09/19 Rx potassium chloride 20 mEq See Rx Instructions .ROUTE 02/08/19 05/09/19 Rx tablet,extended release(part/cryst) .COMPLEX #270 tablet alprazolam 0.25 mg tablet 0.25 mg PO TID PRN #90 tab 03/14/19 05/09/19 Rx furosemide 40 mg tablet 60 mg PO DAILY #135 tab 04/27/19 05/09/19 Rx isosorbide mononitrate 120 mg 120 mg PO DAILY #180 tab 04/27/19 05/09/19 Rx tablet,extended release 24 hr metformin 500 mg tablet 500 mg PO BID #180 tab 04/27/19 05/09/19 Rx aspirin [Aspir-81] 81 mg PO DAILY 05/09/19 05/09/19 History Patient History Medical History Acid reflux (Acute) Anemia (Acute) Anxiety disorder (Acute) Arteriosclerosis of carotid artery (Acute) Arteriosclerotic cardiovascular disease (ASCVD) (Acute) CAD (coronary artery disease) (Acute) Cardiomyopathy, ischemic (Acute) Essential hypertriglyceridemia (Acute) Hyperlipidemia (Acute) Stenosis of right carotid artery (Acute) Type 2 diabetes mellitus (Acute) Vitamin D deficiency (Acute) Surgical History Hx of CABG S/P hysterectomy Family History Mother Coronary heart disease Social History Preferred Language: Croatian Communication Ability: Unable Biological Chemist Required: No Beliefs That Will Affect Care: None marital status: / Current Living Situation: Other Current Living Situation Comment: a non-related family lives in her basement current occupational status: retired Other Information That Helps Us Care for You: No Feels Safe at Home: Yes Safety Concerns: Feels Safe At This Time Smoking Status: Current every day smoker Tobacco Type: cigarettes ; Cigarettes Per Day: unknown ; Do You Dip or Chew Tobacco: No ; Second Hand Exposure: Yes ; Tobacco Cessation Education Requested by Patient: No Hx Alcohol Use: Yes (quit past few years) Hx Substance Use: No Dental Care, Regularly: Yes Seatbelt Use: always Review of Systems Review of Systems: Unobtainable due to endotracheal tube Physical Exam Constitutional: + ill appearing; no acute distress ENMT: external ear and nose normal, oropharynx normal (ETT present) Respiratory: normal respiratory effort; no labored breathing Auscultation: + diminished lung sounds Cardiovascular: Rate/Rhythm: regular rate and regular rhythm Neurologic: + not awake (sedated on ventilator) Results & Data Vital Signs (Past 12 Hours) Vital Signs Pulse Resp BP Pulse Ox 05/19/19 14:12 17 05/19/19 12:31 60 93 05/19/19 12:30 62 105/44 L 93 05/19/19 12:15 64 111/48 L 94 05/19/19 12:01 66 94 05/19/19 12:00 66 118/52 L 94 05/19/19 11:45 66 106/48 L 95 05/19/19 11:31 58 L 95 05/19/19 11:30 59 L 113/50 L 95 05/19/19 11:24 58 L 17 94 05/19/19 11:15 58 L 110/49 L 94 05/19/19 11:01 60 94 05/19/19 11:00 58 L 113/48 L 93 05/19/19 10:45 59 L 101/48 L 93 05/19/19 10:31 59 L 91 05/19/19 10:30 60 108/52 L 91 05/19/19 10:15 64 107/45 L 89 L 05/19/19 10:00 67 86 L 05/19/19 09:42 79 147/61 H 92 05/19/19 09:30 72 111/52 L 92 05/19/19 09:00 76 96 05/19/19 08:41 68 103/51 L 94 05/19/19 08:30 66 93 05/19/19 08:00 71 94 05/19/19 07:41 70 112/47 L 94 05/19/19 07:32 76 17 94 05/19/19 07:30 70 94 05/19/19 07:00 70 94 05/19/19 06:45 70 94 05/19/19 06:00 73 17 108/48 L 94 05/19/19 05:31 78 12 93 05/19/19 05:00 75 16 108/48 L 93 05/19/19 04:00 78 21 120/56 L 93 05/19/19 03:00 80 20 120/56 L 93 05/19/19 02:35 73 14 92 PG Care Time/CCT Prolonged Care Time Prolonged Care Time: Yes Total Prolonged Care Time: 30 100 Coding Level of Care Code 47466 Inpt Consult Level 3 Diagnoses Goals of care, counseling/discussion Z71.89 Acute respiratory failure with hypoxia J96.01 MSSA (methicillin susceptible Staphylococcus aureus) pneumonia J15.211 Influenza B J10.1 MSSA (methicillin susceptible Staphylococcus aureus) septicemia A41.01 Tracheomalacia, acquired J39.8 Additional Codes Prolonged Care Time - Prolonged Care Time: Yes ([id number]) Time Spent (min) 70 Time Spent Midlevel 70 minutes with >50% of the time spent at bedside with patient, ICU team and on phone with family discussing condition and GOC. Attending Spent 30 minutes in addition to this 70 minutes spent by EUGENE Hamlin for total of 100 minutes with greater than 50% of the time spent at bedside reviewing goals of care with patient and son.
--- NOTE | 2019-05-19 14:49 | XRay Report ---
XR chest 1V portable HISTORY: Intubation. Pneumonia. Shortness of breath. COMPARISON: Chest 05/18/2019. FINDINGS: No pneumothorax. The heart is normal in size. There are poststernotomy changes. Nasogastric tube terminates below the diaphragm. The tip is not included on this study. Endotracheal tube termin ates 1.8 cm in the jaime. Patchy bibasilar densities, right greater than left persist. No evidence f or pulmonary edema. IMPRESSION: 1. Satisfactory support line placement. 2. Patchy bibasilar densities, unchanged. This likely represents a pneumonia. ACT 112: Negative or not required by law. Results electronically sent 05/19/2019 2:48 PM to: Sadi Damon MD Electronically signed by: Bhavesh Veras M.D. 05/19/2019 2:48 PM
[2019-05-19] MEDS: propofoL 1,000 MG/100 ML VIAL IV SCH ×2 (15:00→15:26)
[2019-05-19] MEDS: fentaNYL DRIP 1,250 MCG/250 ML BAG IV SCH (15:26)
[2019-05-19] MEDS: cefTRIAXone SODIUM 2,000 MG in DEXTROSE 5% 50 ML IV SCH (17:13)
--- NOTE | 2019-05-19 17:56 | Electrocardiogram Report ---
Test Reason : Blood Pressure : / mmHG Vent. 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
--- NOTE | 2019-05-19 19:25 | Hospitalist Progress Note ---
Date of Service May 19, 2019 Assessment & Plan (1) Sepsis: Sepsis secondary to Staphylococcus aureus pneumonia and influenza B (see Rx below) Remains in ICU intubated after significant respiratory distress with tachypnea, hypoxia, hypotension immediately after admission MSSA bacteriemia positive and bronchoalveolar lavage culture. Initial echo without vegetations. Consider repeating. Repeat blood cultures no growth to date Initial Rx with Zosyn + vanc [05/09] -> ceftriaxone [05/12]. Total Abx for 14 day course; finishes 05/22/19. (2) Acute respiratory failure with hypoxia: Secondary to PNA and influenza. Ventilator management as per ICU - extubated on , re-intubated overnight 05/14 due to hypoxia following tachyarrhythmia and high amounts of agitation (off of paxil at that time), again extubated/intubated 05/17 stridor and wheezing prior to needing re-intubation. Appreciate ICU management with continued intubation. Consulting thoracics and GI for tracheostomy and PEG. Discussed care with Dr Virgen and holding lovenox and plavix for potential procedure tomorrow. (3) Influenza B: Influenza B positive on 05/11- now finished 5 day course Tamiflu (4) Pneumonia: MSSA Pneumonia. Continue ceftriaxone as above. Legionella negative. Mycoplasma IgG +ve but IgM neg. Bronchoscopy on 05/10 and again 05/13 CXR daily appears to be improving but certainly a lot of consolidation on CT on 05/14 - suspected cause of continued fevers. Bedside US by ICU shows not enough pleural effusion (?empyema) to aspirate. Procalcitonin trended downward from 6 down to 0.5 on [05/15] (5) Bacteremia: MSSA. Not cleared. Management as above with ceftriaxone ECHO without valvular vegetation on admission, consider TTE or COY given ongoing fevers. (6) Serotonin withdrawal syndrome: Discussed with ICU team 05/16 as patient on paroxetine 30mg BID at home. Suspect agitation after extubation in part from withdrawal. QTc 516ms, will continue to monitor. Restart paroxetine 30mg daily on 05/16 (7) Chronic prescription benzodiazepine use: Possible withdrawal with agitation after first extubation. Continue midazolam as per ICU management. (8) CAD (coronary artery disease): Extensive cardiac history (information from last Dr. Richards clinic note): Inf/lateral ID [id number], PTCA and stent of RCA. Unstable angina 02/2002; [[place]] Single vessel bypass AWAD to LAD. Unstable angina 06/2002; [[place]] Stent of AWAD anastomotic site. Unstable angina 07/2002; [[facility]] atretic AWAD graft, angioplasty without stent to LAD stenosis. Subsequent In-stent LAD restenosis Rx laser arthrectomy and brachytherapy NSTEMI 2013 with mid LAD stent stenoses, re-stented. Lexiscan 12/2016 - no evidence of induced ischemia - Now requiring treatment dose anticoagulation consider discontinuing plavix (discussed with ICU team and will continue triple therapy currently). Continue metoprolol - Restarted on statin via OG tube - Holding isosorbide due to hypotension, consider restarting as BP improves (9) Dyslipidemia: Holding home gemfibrozil and Zetia Restarted atorvastatin via OG. (10) Cardiomyopathy, ischemic: As noted in echo above with stable wall motion abnormalities, EF 45% -Continues on metoprolol tartrate - increased to 75mg bid this admission due to tachyarrhythmias (11) Fever: Continued fevers. Unclear etiology given bacteremia cleared and WBC and procalcitonin reassuring. Possible serotonin withdrawal, although usually causes flu-like symptoms without true fever. Consider repeating TTE or COY to r/o endocarditis, discussed with resident in ICU. Continue to monitor now restarting paroxetine. No evidence of skin infections or rashes (12) Encephalopathy: Was very agitated when off sedation, ?benzo/serotonin withdrawal (see above) CT of the head negative on 05/11 MRI/MRA brain/Head negative 05/12 Currently on propofol/fentanyl therefore unable to assess at present (13) Chronic obstructive pulmonary disease: Unclear diagnosis as no prior PFTs in [facility] or [facility]. No CO2 retention. Albuterol only prescribed as outpatient. Chronic smoking history. Completed prednisone burst 40mg daily x 4 days as per ICU Wheezing/stridor heard prior to needing reintubation on 05/17, ?consider albutero l/ipratropium Restarted on steroids mainly for vocal cord edema with stridor after most recent extubation (14) DKA (diabetic ketoacidoses): Now resolved pH 7.31 on admission. Combination of lactic and ketoacidosis, now resolved Anion gap closed, glucose now controlled with initial insulin drip while on prednisone Continues on basal/bolus insulin as per Pharmacy management with continuous tube feeds HgbA1c 13.2% from previous of 8.1% last year. (15) Type 2 diabetes mellitus: As above for DKA management Holding home metformin and glimepiride Will consider insulin on discharge given elevated HbA1C (16) Rapid atrial fibrillation: Now resolved in NSR Paroxysmal, new diagnosis this admission. Present on admission with HR 179 in atrial fibrillation. Had to be DC cardioverted in the ICU x 2 Rate control with metoprolol 75mg BID OG (currently in NSR) Echocardiogram with mildly reduced EF at 45-50%, mild LVH, positive wall motion abnormalities which are stable from previous with hypokinesis in the inferior wall from base to the mid ventricle Anticoagulation as per ICU continues on Lovenox, consider OG Eliquis to avoid multiple injections (17) Elevated lactic acid level: resolved, related to sepsis (18) Acid reflux: Continue lansoprazole via OG for GI protection, on omeprazole home med (19) Stenosis of right carotid artery: With known moderate stenosis Follow as an outpatient On antiplatelets and statin as an outpatient (20) DVT prophylaxis: Heparin drip switched to lovenox SQ. Consider switching to apixaban via OG to reduce injection burden. Disposition-remain in the ICU Full code Will need PT/OT consults once awake. Admission and Anticipated Discharge Date Admission Date: May 09, 2019 Prognosis guarded given lack of improvement. Would consider palliative care referral. Subjective Patient remains intubated and sedated. But more awake and alert today. Apparently following commands with nurses and nodding and shaking head to answer s although I am unclear how much she is truly understanding. She is calm and shakes her head to pain. Review of Systems Review of Systems: Unobtainable due to endotracheal tube Physical Exam Constitutional: no acute distress Eyes: PERRL, conjunctivae normal, anicteric sclerae EOM intact bilaterally (occasionally following fingers appropriately) Neck: trachea midline Respiratory: Auscultation: + crackles (right base) and + rhonchi (b/l) Cardiovascular: Rate/Rhythm: regular rate and regular rhythm Heart Sounds: no murmur Extremities: normal capillary refill and + pedal edema (trace b/l) Gastrointestinal (Abdomen): Inspection/Auscultation: normal bowel sounds Percussion/Palpation: abdomen soft; abdomen nontender and abdomen not rigid Skin: no rashes, warm and dry (no cellulitis) Neurologic: awake (still sedated on propofol and fentanyl) Cranial Nerves: PERRL Psychiatric: Orientation: alert Results & Data ([facility]) Vital Signs (Past 12 Hours) Vital Signs Pulse Resp BP Pulse Ox 05/19/19 19:00 81 16 126/62 94 05/19/19 18:15 65 113/54 L 93 05/19/19 18:01 64 94 05/19/19 18:00 65 114/54 L 94 05/19/19 17:46 74 93 05/19/19 17:45 70 114/54 L 93 05/19/19 17:31 67 94 05/19/19 17:30 64 108/51 L 92 05/19/19 17:15 66 120/54 L 90 05/19/19 17:01 65 91 05/19/19 17:00 62 114/50 L 90 05/19/19 16:45 67 110/50 L 93 05/19/19 16:40 59 L 12 91 05/19/19 16:31 67 92 05/19/19 16:30 66 117/55 L 92 05/19/19 16:16 60 91 05/19/19 16:15 59 L 107/49 L 91 05/19/19 16:01 61 91 05/19/19 16:00 64 104/44 L 91 05/19/19 15:45 69 112/55 L 94 05/19/19 15:31 66 94 05/19/19 15:30 66 121/63 94 05/19/19 15:16 63 94 05/19/19 15:15 63 113/57 L 94 05/19/19 15:01 65 92 05/19/19 15:00 64 110/51 L 92 05/19/19 14:45 66 115/52 L 92 05/19/19 14:31 82 94 05/19/19 14:30 65 111/50 L 93 05/19/19 14:15 63 110/49 L 94 05/19/19 14:12 17 05/19/19 14:01 65 94 05/19/19 14:00 66 114/51 L 94 05/19/19 13:45 69 105/54 L 94 05/19/19 13:31 63 93 05/19/19 13:30 62 111/53 L 93 05/19/19 13:15 64 109/50 L 92 05/19/19 13:01 64 91 05/19/19 13:00 63 107/47 L 91 05/19/19 12:45 61 107/44 L 92 05/19/19 12:31 60 93 05/19/19 12:30 62 105/44 L 93 05/19/19 12:15 64 111/48 L 94 05/19/19 12:01 66 94 05/19/19 12:00 66 118/52 L 94 05/19/19 11:45 66 106/48 L 95 05/19/19 11:31 58 L 95 05/19/19 11:30 59 L 113/50 L 95 05/19/19 11:24 58 L 17 94 05/19/19 11:15 58 L 110/49 L 94 05/19/19 11:01 60 94 05/19/19 11:00 58 L 113/48 L 93 05/19/19 10:45 59 L 101/48 L 93 05/19/19 10:31 59 L 91 05/19/19 10:30 60 108/52 L 91 05/19/19 10:15 64 107/45 L 89 L 05/19/19 10:00 67 86 L 05/19/19 09:42 79 147/61 H 92 05/19/19 09:30 72 111/52 L 92 05/19/19 09:00 76 96 05/19/19 08:41 68 103/51 L 94 05/19/19 08:30 66 93 05/19/19 08:00 71 94 05/19/19 07:41 70 112/47 L 94 05/19/19 07:32 76 17 94 05/19/19 07:30 70 94 PG Care Time/CCT Total # of Minutes Spent Total Time Spent with Patient: Total time spent is greater than 50% in coordination of care (as documented) at patient's floor/unit and/or counseling patient: Coding Level of Care Code 49186 Subseq Hosp Care Lvl 3 Diagnoses Sepsis A41.01; R65.20; J96.01 Acute respiratory failure type: with hypoxia Sepsis acute organ dysfunction status: with acute organ dysfunction Sepsis type: methicillin susceptible Staphylococcus aureus Severe sepsis acute organ dysfunction type: acute respiratory failure Severe sepsis shock status: without septic shock Acute respiratory failure with hypoxia J96.01 Influenza B J10.1 Pneumonia J18.9 Laterality: right Lung location: lower lobe of lung Pneumonia type: due to unspecified organism Bacteremia R78.81 Serotonin withdrawal syndrome T43.205A Encounter type: initial encounter Chronic prescription benzodiazepine use Z79.899 CAD (coronary artery disease) I25.10 Associated angina: without angina Coronary Disease-Associated Artery/Lesion type: [place] artery [place] vs. transplanted heart: [place] heart Dyslipidemia E78.5 Cardiomyopathy, ischemic I25.5 Fever R50.9 Fever type: unspecified Encephalopathy G93.40 Chronic obstructive pulmonary disease J44.9 COPD type: unspecified COPD DKA (diabetic ketoacidoses) E11.10 Diabetes mellitus complication detail: without coma Diabetes mellitus type: type 2 Type 2 diabetes mellitus E11.51 Diabetes mellitus complication detail: with peripheral angiopathy without gangrene Diabetes mellitus complication status: with circulatory complication Diabetes mellitus terminal system operator insulin use: without terminal system operator use Rapid atrial fibrillation I48.91 Elevated lactic acid level R79.89 Acid reflux K21.9 Esophagitis presence: esophagitis presence not specified Stenosis of right carotid artery I65.21 DVT prophylaxis Z29.9 (1) Serotonin withdrawal syndrome Encounter type: initial encounter Qualified Code(s): T43.205A - Adverse effect of unspecified antidepressants, initial encounter (2) DKA (diabetic ketoacidoses) Diabetes mellitus complication detail: without coma Diabetes mellitus type: type 2 Qualified Code(s): E11.10 - Type 2 diabetes mellitus with ketoacidosis without coma (3) Fever Fever type: unspecified Qualified Code(s): R50.9 - Fever, unspecified (4) Type 2 diabetes mellitus Diabetes mellitus complication detail: with peripheral angiopathy without gangrene Diabetes mellitus complication status: with circulatory complication Diabetes mellitus terminal system operator insulin use: without terminal system operator use Qualified Code(s): E11.51 - Type 2 diabetes mellitus with diabetic peripheral angiopathy without gangrene (5) CAD (coronary artery disease) Associated angina: without angina Coronary Disease-Associated Artery/Lesion type: [place] artery [place] vs. transplanted heart: [place] heart Qualified Code(s): I25.10 - Atherosclerotic heart disease of [place] coronary artery without angina pectoris (6) Sepsis Acute respiratory failure type: with hypoxia Sepsis acute organ dysfunction status: with acute organ dysfunction Sepsis type: methicillin susceptible Staphylococcus aureus Severe sepsis acute organ dysfunction type: acute respiratory failure Severe sepsis shock status: without septic shock Qualified Code(s): A41.01 - Sepsis due to Methicillin susceptible Staphylococcus aureus; R65.20 - Severe sepsis without septic shock; J96.01 - Acute respiratory failure with hypoxia (7) Chronic obstructive pulmonary disease COPD type: unspecified COPD Qualified Code(s): J44.9 - Chronic obstructive pulmonary disease, unspecified (8) Acid reflux Esophagitis presence: esophagitis presence not specified Qualified Code(s): K21.9 - Gastro-esophageal reflux disease without esophagitis (9) Pneumonia Laterality: right Lung location: lower lobe of lung Pneumonia type: due to unspecified organism Qualified Code(s): J18.9 - Pneumonia, unspecified organism
--- NOTE | 2019-05-19 19:26 | Consultation Report ---
DATE OF CONSULTATION: 05/19/2019 REASON FOR CONSULTATION: Prolonged ventilation and need of tracheostomy. HISTORY OF PRESENT ILLNESS: Nilsa Delaney is a 68-year-old female who has been admitted for 9 days, has respiratory collapse and apparent influenza viral infection with a secondary bacterial infection with methicillin-sensitive Staph, which has resulted in severe pneumonic process. The patient is quite ill and has failed 3 attempts at extubation. She has had a long talk with the patient's son at the bedside today. I have been asked to see the patient so that a bedside percutaneous tracheostomy could be performed for facilitating weaning and for patient comfort. PAST MEDICAL HISTORY: 1. Coronary artery disease. 2. Carotid artery disease. 3. Anemia. 4. Active cigarette smoking. 5. Diabetes mellitus (presented with diabetic ketoacidosis). 6. Hyperlipidemia. 7. Cardiomyopathy. PAST SURGICAL HISTORY: 1. History of coronary artery bypass grafting. 2. Hysterectomy. FAMILY MEDICAL HISTORY: Mother had coronary artery disease. SOCIAL HISTORY: The patient is an active cigarette smoker. She lives essentially alone. REVIEW OF SYSTEMS: Please see chart. MEDICATIONS: Please see chart. ALLERGIES: 1. GEORGE INHIBITORS. 2. LOSARTAN. PHYSICAL EXAMINATION: GENERAL: This is a smallish 5 feet, 120-pound female who is sedated on a ventilator and not following commands. HEENT: Her sclerae are pale. They are anicteric. She is orally intubated. Oral mucosa appears moist. NECK: Supple. I am easily able to palpate her tracheal rings. LUNGS: She has decreased breath sounds with some rales in the right base, but I detect no wheezing. She does have a few rhonchi in the upper airway. HEART: She has a regular rate and rhythm of her heart, and I really do not detect much of a murmur. ABDOMEN: Soft. She has a nasogastric tube in place and is getting tube feeds. She is moving her extremities to stimulation. She has a Gallegos catheter. She does have a pressure wound in her sacral area. ASSESSMENT AND PLAN: Prolonged ventilation. I discussed this in detail with the patient's son including risks such as bleeding and loss of airway with even . He understands. We will proceed tomorrow at the bedside. Dr. Damon will perform the bronchoscopy while I insert the [place] percutaneous tracheostomy.
[2019-05-19] MEDS: MAGNESIUM OXIDE 400 MG TAB PO SCH (20:50)
[2019-05-19] MEDS: ATORVASTATIN 40 MG TAB PO SCH (20:50)
[2019-05-20] MEDS: INSULIN ASPART 100 UNITS/ML 3 ML PEN SC SCH ×6 (00:08→20:11)
[2019-05-20] MEDS: propofoL 1,000 MG/100 ML VIAL IV SCH ×2 (02:22→09:26)
[2019-05-20] MEDS: fentaNYL DRIP 1,250 MCG/250 ML BAG IV SCH (04:44)
[2019-05-20 04:55] LABS: Basophils # (auto) 0.01 K/uL (0-0.2); Basophils % (auto) 0.1 %; Eosinophils # (auto) 0.06 K/uL (0-0.5); Eosinophils % (auto) 0.8 %; Hematocrit (blood only) 27.7 % (37-47); Immature Granulocytes # (auto) 0.01 K/uL (0.00-0.02); Immature Granulocytes % (auto) 0.1 %; Lymphocytes # (auto) 2.94 K/uL (1.2-3.4); Lymphocytes % (auto) 41.3 %; Mean Corpuscular Hemoglobin 29.9 pg (25-34); Mean Corpuscular Hgb Conc 32.5 g/dL (32-36); Mean Platelet Volume 9.4 fL (7.4-10.4); Monocytes % (auto) 8.4 %; Neutrophils % (auto) 49.3 %; Platelet Count 365 K/uL (130-400); RDW Coefficient of Variation 14.7 % (11.5-14.5); RDW Standard Deviation 49.1 fL (36.4-46.3); Red Blood Count 3.01 M/uL (4.2-5.4); White Blood Count 7.12 K/uL (4.8-10.8)
[2019-05-20 04:58] LABS: HCO3 ABG 29 mmol/L (19-24); Oxygen Saturation ABG 86.2 % (90-95); PCO2 ABG 37 mmHg (35-46); PO2 ABG 52 mmHg (80-95)
[2019-05-20 04:59] LABS: Allen Test Pos (Pos)
[2019-05-20 05:00] LABS: pH ABG 7.52 (7.35-7.45)
[2019-05-20 05:05] LABS: Partial Thromboplastin Ratio 0.9; Partial Thromboplastin Time 23.9 Seconds (21.0-31.0)
[2019-05-20 05:15] LABS: Calcium 8.4 mg/dl (8.5-10.1); Creatinine Clr Calc Pharmacy 85.2 ml/min; Est GFR (African American) 116.1; Est GFR (Non-African American) 100.2; Magnesium 2.1 mg/dl (1.8-2.4); Phosphorus 3.5 mg/dl (2.5-4.9); Potassium 3.3 mmol/L (3.5-5.1)
--- NOTE | 2019-05-20 06:12 | Communication Note ---
Date of Service: May 20, 2019 Patient's son, Forrest, called and spoke with nursing staff in the wee hours of the morning. He was concerned that he made the wrong decision to proceed with tracheostomy and PEG tube placement today. He reports that he has not been able to sleep secondary to this decision. He is aware that previously his mother did not wish to have prolonged measures in place, and he feels as though this would go against her wishes. After lengthy conversation, I did discuss that at this point, she is reaching the point where we would need to proceed with tracheos estephania placement as she is failed extubation on 3 separate attempts. Most recently, the patient had described upper airway stridor with laryngeal edema which was noted with intubation procedure. He was educated that as this is hopefully mostly an upper airway issue, that tracheostomy placement could hopefully be a temporary measure. I did discuss with him that she does carry a longstanding history of smoking as well as likely un/under diagnosed smoking- related lung disease, however he certainly cannot fully assess this well patient is intubated. I did offer that we could perform extubation with the intent of not performing reintubation, however he was not comfortable proceeding with this as well. He states that he has spoken with his other family members and at this time, they would wish to perform 1 more attempt at extubation with hopes that she will not require reintubation. He states that after this point, if she were to require intubation, that they would immediately proceed with continued measures including tracheostomy placement. While I did express to him that I do feel that we may be prolonging the inevitable, this is certainly his decision making and if he is having second thoughts, that I will certainly signed this out to my team today regarding family wishes at this point. He was comfortable with this and states that he will be in in the morning to have further discussion with interdisciplinary staff. Coding Level of Care Code None
--- NOTE | 2019-05-20 07:24 | XRay Report ---
XR chest 1V portable CLINICAL HISTORY: f/u COMPARISON STUDY: Chest CT May 15, 2019. Chest radiograph May 19, 2019. FINDINGS: The tip of the nasogastric tube is below the lower aspect of this image but at least within the proximal stomach. Tip of endotracheal tube is 2.7 cm above the jaime. There are median sternoto my wires and mediastinal surgical clips. There is no pneumothorax. Small right pleural effusion is no josiah. Cardiomediastinal silhouette is stable. Bibasilar opacities persist. There is no evidence for pu lmonary edema. IMPRESSION: 1. Satisfactory positioning of lines and tubes. 2. Persistent bibasilar opacities which favor pneumonia. Small right pleural effusion. ACT 112: Negative or not required by law. Results electronically sent 05/20/2019 7:22 AM to: Ryan Bae PA-C Electronically signed by: Gabriele Britton M.D. 05/20/2019 7:22 AM
[2019-05-20] MEDS: INSULIN GLARGINE SOLOSTAR 100 UNITS/ML 3 ML PEN SC SCH (08:56)
[2019-05-20] MEDS ORDERED: POTASSIUM CHLORIDE 20 MEQ/15 ML UDC PO STA (08:58)
[2019-05-20] MEDS: DEXAMETHASONE SOD PHOSPHATE 6 MG in SYRINGE 0 ML IV SCH ×2 (08:59→16:04)
[2019-05-20] MEDS: FUROSEMIDE 40 MG in SYRINGE 0 ML IV SCH ×2 (09:02→09:25)
[2019-05-20] MEDS: ENOXAPARIN INJ 60 MG/0.6 ML SYR SQ SCH ×2 (09:04→20:19)
[2019-05-20] MEDS: PARoxetine HCL 20 MG TAB PO SCH (09:05)
[2019-05-20] MEDS: CLOPIDOGREL BISULFATE 75 MG TAB PO SCH (09:06)
[2019-05-20] MEDS: ASPIRIN 81 MG CHEW PO SCH (09:16)
[2019-05-20] MEDS ORDERED: ALPRAZolam 0.25 MG TABLET PO PRN (09:21)
[2019-05-20] MEDS: METOPROLOL TARTRATE 25 MG TAB PO SCH (09:29)
--- NOTE | 2019-05-20 09:34 | Critical Care Progress Note ---
Date of Service May 20, 2019 Assessment & Plan (1) Acute respiratory failure with hypoxia: Patient is much improved today. We are continuing steroids for possible laryngeal spasm and vocal cord edema. I suspect that we may be able to extubate her to BiPAP tomorrow. I do not think that we need to proceed with a tracheostomy or PEG tube at this point. Continue with antibiotics for her bacteremia which has cleared. TTE was reportedly negative. I had a lengthy discussion with the son at bedside. I think she is doing quite well currently. Continue tube feeds. Continue DVT prophylaxis. She has some swelling of her right upper extremity that we can obtain an ultrasound of if the swelling continues. CRITICAL CARE TIME - I have personally spent 35 minutes of critical care time in the direct management of this patient. This is a life/limb threatening event. This includes time spent evaluating patient, direct bedside care, chart review, placing orders, interpretation of diagnostic studies, discussion with consultants, patient, and family members, as well as other required patient management activities. This time is exclusive of all separately billable procedures, and teaching time and separate from and in addition to any other critical care service time. (2) Chronic prescription benzodiazepine use: (3) Fever: (4) Bacteremia: (5) Rapid atrial fibrillation: Subjective Patient is off sedation today. I have her on a spontaneous breathing trial of 5/5. She is doing quite well. She had a fever 100.6 today. I did discuss patient's care with the son at bedside. At this point we are not going to move ahead with a tracheostomy or PEG tube that she is doing very well. We are continuing on with steroids. She has a cuff leak present. Physical Exam Physical Exam: Constitutional: No acute distress HEENT: PERRLA, positive ETT Respiratory system: Decreased air entry bilaterally, positive right lower lobe crackles, no wheeze CVS: S1-S2 positive, no murmurs or gallops Abdomen: Soft, nontender, nondistended, positive bowel sounds x4 Extremities: +2 pulses bilaterally radialis/ dorsalis pedis, no cyanosis, no edema Neuro: following commands Psych: Unable to assess G/U: Positive Gallegos Skin: no rashes, warm and dry Lymphatic: no cervical or axillary lymphadenopathy Results & Data ([facility]) Vital Signs (Past 12 Hours) Vital Signs Pulse Resp BP Pulse Ox 05/20/19 09:21 57 L 18 90 05/20/19 07:52 59 L 13 92 05/20/19 05:28 57 L 12 91 05/20/19 05:00 54 L 14 118/51 L 93 05/20/19 04:00 56 L 16 129/62 93 05/20/19 03:23 58 L 14 89 L 05/20/19 03:00 19 99/58 L 91 05/20/19 02:00 52 L 16 99/48 L 92 05/20/19 01:00 67 16 103/52 L 95 05/20/19 00:00 60 16 125/61 93 05/19/19 23:10 55 L 12 94 05/19/19 23:00 54 L 16 109/48 L 94 05/19/19 22:00 59 L 16 120/50 L 93 Coding Level of Care Code Critical Care 1st 30-74 mins Diagnoses Acute respiratory failure with hypoxia J96.01 Chronic prescription benzodiazepine use Z79.899 Fever R50.9 Fever type: unspecified Bacteremia R78.81 Rapid atrial fibrillation I48.91 Time Spent (min) 35 (1) Fever Fever type: unspecified Qualified Code(s): R50.9 - Fever, unspecified
[2019-05-20] MEDS: METOPROLOL TARTRATE 50 MG TAB PO SCH ×2 (09:35→20:19)
[2019-05-20] MEDS ORDERED: IMPACT LIQD 1.0 CAL 1,000 ML BAG OG SCH (10:30)
[2019-05-20] MEDS ORDERED: DEXMEDETOMIDINE HCL 200 MCG in SODIUM CHLORIDE 0.9% 48 ML IV SCH ×2 (11:45→20:45)
[2019-05-20] MEDS: LANSOPRAZOLE 30 MG SOLTAB OG SCH (11:51)
[2019-05-20] MEDS ORDERED: INSULIN PROTOCOL GOAL RANGE ONE (12:00)
[2019-05-20] MEDS ORDERED: NovoLIN-R BOLUS FROM BAG IV ONE (12:01)
--- NOTE | 2019-05-20 12:22 | Pharmacy Report ---
Pharmacy Glycemic Short Note 2 - Date of Service May 20, 2019 - Glycemic Short BSG Results (Last 24 hours): 05/19/19 05/19/19 05/19/19 12:12 16:41 20:52 Glucose POC Glucose 208 H 273 H 204 H 05/19/19 05/20/19 05/20/19 23:54 04:42 04:46 Glucose 82 POC Glucose 200 H 86 05/20/19 05/20/19 08:30 11:53 Glucose POC Glucose 106 H 240 H OUTPATIENT ANTIDIABETIC REGIMEN: * glimepiride 1 mg BID, metformin 500 mg BID * A1c 13.2% 05/09 ASSESSMENT: 05/18 * Hyperglycemia worsened yesterday following IV Solu-Medrol administration * Although BSGs did drop overnight secondary to holding tube feeds, they have been resumed this AM (Impact @65cc/hr) and IV dexamethasone scheduled at this time. BSG has climbed to > 220, therefore will initiate IV insulin drip at this time per ICU protocol 05/17 * Hyperglycemia modestly better with changes made to insulin regimen yesterday to combat increasing BSGs from upwards titration of tube feeds * Pt is now extubated, tube feeds d/c'd. Will change Lantus BID dosing to scaled dosing given uncertain PO intake over next 24 hrs. Will also lessen Novolog dosing parameters as cont tube feeds often lead to exaggerated needs. 05/16 * BSGs acceptable over last 24 hrs, a few BSGs above 180 however all less than 200 * Will continue with Q 4 hr Novolog to cover carbs in tube feeds - same CR; however will adjust correctional insulin doses to allow for slightly higher doses * Will only increase basal insulin dose slightly at this time since there has been no recurrence of hypoglycemia - only a small increase however as pt may be extubated later today or tomorrow am 05/15 * BSGs well controlled yesterday with no insulin administered despite remaining intubated. BSGs slowly climbing. * Of note, no steroids are being given at this time. D10 infusion was stopped this AM. Tube feeds (Impact) being titrate upwards. * Will resume SQ basal / bolus regimen at this time, based upon weight and "mild" stress level given recent hypoglycemic events. Novolog will be given Q 4 hrs to cover carbs in tube feeds. PLAN FOR INPATIENT GLYCEMIC CONTROL: * IV insulin drip per protocol, goal range 110-180mg/dL * Bolus insulin * NovoLog SQ Q 4 hrs to cover tube feeding CHO delivery * Carb ratio: 1 unit per 5gm CHO delivered in tube feeds.
[2019-05-20] MEDS: INSULIN REGULAR 250 UNITS in SODIUM CHLORIDE 0.9% 247.5 ML IV SCH (12:31)
[2019-05-20] MEDS ORDERED: POTASSIUM CHLORIDE 20 MEQ/15 ML UDC PO SCH (14:00)
--- NOTE | 2019-05-20 14:21 | Palliative Care Progress Note ---
Date of Service May 20, 2019 Subjective Discussed with stave and bolt equalizer. Patient is improving. No need for trach and/or PEG at this time. Palliative care will sign off. Results & Data Vital Signs (Past 12 Hours) Coding Level of Care Code None
[2019-05-20] MEDS: cefTRIAXone SODIUM 2,000 MG in DEXTROSE 5% 50 ML IV SCH (16:03)
--- NOTE | 2019-05-20 19:45 | Hospitalist Progress Note ---
Date of Service May 20, 2019 Assessment & Plan (1) Sepsis: Sepsis secondary to Staphylococcus aureus pneumonia and influenza B (see Rx below) Remains in ICU intubated after significant respiratory distress with tachypnea, hypoxia, hypotension immediately after admission Initial Rx with Zosyn + vanc [05/09] -> ceftriaxone [05/12]. Total Abx duration to be determined; will need prolonged course given defervescence on 05/18 ?28 days total (2) Acute respiratory failure with hypoxia: Secondary to PNA and influenza. Ventilator management as per ICU - extubated on , re-intubated overnight 05/14 due to hypoxia following tachyarrhythmia and high amounts of agitation (off of paxil/benzodiazepines), again extubated/intubated 05/17 stridor and wheezing prior to needing re-intubation. Appreciate ICU management with continued intubation. Given improvement with steroids no plans for tracheostomy at present. (3) Influenza B: Influenza B positive on 05/11- now finished 5 day course Tamiflu (4) Pneumonia: MSSA Pneumonia. Continue ceftriaxone as above. Legionella negative. Mycoplasma IgG +ve but IgM neg. Bronchoscopy on 05/10, 05/13 CXR daily improving and no wheezing for the first time on exam today and appears much more clear to auscultation. Procalcitonin trended downward from 6 down to 0.5 on [05/15] (5) Bacteremia: MSSA. Now cleared. Management as above with ceftriaxone. Now no fevers since 05/17. (6) Serotonin withdrawal syndrome: Discussed with ICU team 05/16 as patient on paroxetine 30mg BID at home. Suspect agitation after extubation in part from withdrawal. QTc 515ms, will continue to monitor. Restart paroxetine 30mg daily on 05/16 (7) Chronic prescription benzodiazepine use: Possible withdrawal with agitation after first extubation. Currently not requiring any midazolam with no anxiety. (8) CAD (coronary artery disease): Extensive cardiac history (information from last Dr. Richards clinic note): Inf/lateral VT 2001, PTCA and stent of RCA. Unstable angina 02/2002; [[facility]] Single vessel bypass AWAD to LAD. Unstable angina 06/2002; [[facility]] Stent of AWAD anastomotic site. Unstable angina 07/2002; [[facility]] atretic AWAD graft, angioplasty without stent to LAD stenosis. Subsequent In-stent LAD restenosis Rx laser arthrectomy and brachytherapy NSTEMI 2013 with mid LAD stent stenoses, re-stented. Lexiscan 12/2016 - no evidence of induced ischemia - Now requiring treatment dose anticoagulation consider discontinuing plavix (discussed with ICU team on 05/16 and will continue triple therapy currently). Continue metoprolol. - Continue atorvastatin via OG tube - Holding isosorbide due to hypotension, consider restarting as BP improves (9) Dyslipidemia: Holding home gemfibrozil and Zetia Continue atorvastatin via OG. (10) Cardiomyopathy, ischemic: As noted in echo above with stable wall motion abnormalities, EF 45% -Continues on metoprolol tartrate - reduced back to 50mg BID (11) Fever: Now apyrexial since 05/17 - suspected prolonged just due to severity of PNA (12) Encephalopathy: Was very agitated when off sedation, ?benzo/serotonin withdrawal (see above) CT of the head negative on 05/11 MRI/MRA brain/Head negative 05/12 Appears much more calm than previous now back on Paxil therefore suspect somewhat due to withdrawal from this. No anxiety seen even while ventilated (13) Chronic obstructive pulmonary disease: Unclear diagnosis as no prior PFTs in [facility] or [facility]. No CO2 retention. Albuterol only prescribed as outpatient. Chronic smoking history. Completed prednisone burst 40mg daily x 4 days. Restarted on dexamethasone 6mg Q8H on 05/19 due to vocal cord edema from prolonged intubation. Much improved air entry and no longer wheezing with steroids. ?improved vocal cord edema and reactive airway disease (14) DKA (diabetic ketoacidoses): Now resolved pH 7.31 on admission. Combination of lactic and ketoacidosis, now resolved Anion gap closed, glucose now controlled with initial insulin drip while on prednisone Continues on basal/bolus insulin as per Pharmacy management with continuous tube feeds HgbA1c 13.2% from previous of 8.1% last year. (15) Type 2 diabetes mellitus: As above for DKA management Holding home metformin and glimepiride Will consider insulin on discharge given elevated HbA1C (16) Rapid atrial fibrillation: Now resolved in NSR Paroxysmal, new diagnosis this admission. Present on admission with HR 179 in atrial fibrillation. Had to be DC cardioverted in the ICU x 2 Rate control with metoprolol 50mg BID OG (currently in NSR) Echocardiogram with mildly reduced EF at 45-50%, mild LVH, positive wall motion abnormalities which are stable from previous with hypokinesis in the inferior wall from base to the mid ventricle Anticoagulation as per ICU continues on Lovenox, consider OG Eliquis to avoid multiple injections (17) Elevated lactic acid level: resolved, related to sepsis (18) Acid reflux: Continue lansoprazole via OG for GI protection, on omeprazole home med (19) Stenosis of right carotid artery: With known moderate stenosis Follow as an outpatient On antiplatelets and statin as an outpatient (20) DVT prophylaxis: Lovenox 60mg q12H. Consider switching to apixaban via OG to reduce injection burden. Disposition-remain in the ICU Full code Will need PT/OT consults once extubated. Admission and Anticipated Discharge Date Admission Date: May 09, 2019 Subjective Patient intubated but currently off sedation and doing well on CPAP trial all day today. Much more alert and can follow commands. Limited conversation due to endotracheal tube and patient resting. Family/son at bedside updated. Review of Systems Review of Systems: All systems reviewed & are unremarkable except as noted in HPI & below Physical Exam Constitutional: no acute distress Eyes: + anicteric sclerae and EOM intact bilaterally (following fingers appropriately); normal pupil size ENMT: external ear and nose normal, oropharynx normal Neck: trachea midline Respiratory: normal respiratory effort, lungs clear to auscultation (much improved air entry/rhonchi/wheezing since starting steroids back) Cardiovascular: Rate/Rhythm: regular rate and regular rhythm Heart Sounds: no murmur Extremities: normal capillary refill and + pedal edema (trace b/l) Gastrointestinal (Abdomen): Inspection/Auscultation: normal bowel sounds Percussion/Palpation: abdomen soft; abdomen nontender and abdomen not rigid Skin: no rashes, warm and dry (no cellulitis) Neurologic: awake (tired but on no sedatives) Cranial Nerves: PERRL Psychiatric: Orientation: alert Results & Data ([facility]) Vital Signs (Past 12 Hours) Vital Signs Pulse Resp BP Pulse Ox 05/20/19 18:01 62 148/61 H 95 05/20/19 18:00 60 94 05/20/19 17:03 58 L 18 95 05/20/19 17:01 60 132/70 96 05/20/19 16:01 57 L 135/66 94 05/20/19 15:00 61 147/71 H 97 05/20/19 14:44 59 L 05/20/19 14:00 60 154/65 H 97 05/20/19 13:14 59 L 18 93 05/20/19 13:00 56 L 145/71 H 91 05/20/19 12:00 59 L 149/70 H 92 05/20/19 11:26 57 L 13 91 05/20/19 11:00 56 L 152/70 H 89 L 05/20/19 10:00 62 162/73 H 90 05/20/19 09:21 57 L 18 90 05/20/19 09:00 56 L 150/65 H 92 05/20/19 08:00 55 L 128/64 91 05/20/19 07:52 59 L 13 92 PG Care Time/CCT Total # of Minutes Spent Total Time Spent with Patient: Total time spent is greater than 50% in coordination of care (as documented) at patient's floor/unit and/or counseling patient: Coding Level of Care Code 54752 Subseq Hosp Care Lvl 2 Diagnoses Sepsis A41.01; R65.20; J96.01 Acute respiratory failure type: with hypoxia Sepsis acute organ dysfunction status: with acute organ dysfunction Sepsis type: methicillin susceptible Staphylococcus aureus Severe sepsis acute organ dysfunction type: acute respiratory failure Severe sepsis shock status: without septic shock Acute respiratory failure with hypoxia J96.01 Influenza B J10.1 Pneumonia J18.9 Laterality: right Lung location: lower lobe of lung Pneumonia type: due to unspecified organism Bacteremia R78.81 Serotonin withdrawal syndrome T43.205A Encounter type: initial encounter Chronic prescription benzodiazepine use Z79.899 CAD (coronary artery disease) I25.10 Associated angina: without angina Coronary Disease-Associated Artery/Lesion type: [place] artery [place] vs. transplanted heart: soboba heart Dyslipidemia E78.5 Cardiomyopathy, ischemic I25.5 Fever R50.9 Fever type: unspecified Encephalopathy G93.40 Chronic obstructive pulmonary disease J44.9 COPD type: unspecified COPD DKA (diabetic ketoacidoses) E11.10 Diabetes mellitus complication detail: without coma Diabetes mellitus type: type 2 Type 2 diabetes mellitus E11.51 Diabetes mellitus complication detail: with peripheral angiopathy without gangrene Diabetes mellitus complication status: with circulatory complication Diabetes mellitus care home insulin use: without care home use Rapid atrial fibrillation I48.91 Elevated lactic acid level R79.89 Acid reflux K21.9 Esophagitis presence: esophagitis presence not specified Stenosis of right carotid artery I65.21 DVT prophylaxis Z29.9 (1) Serotonin withdrawal syndrome Encounter type: initial encounter Qualified Code(s): T43.205A - Adverse effect of unspecified antidepressants, initial encounter (2) DKA (diabetic ketoacidoses) Diabetes mellitus complication detail: without coma Diabetes mellitus type: type 2 Qualified Code(s): E11.10 - Type 2 diabetes mellitus with ketoacidosis without coma (3) Fever Fever type: unspecified Qualified Code(s): R50.9 - Fever, unspecified (4) Type 2 diabetes mellitus Diabetes mellitus complication detail: with peripheral angiopathy without gangrene Diabetes mellitus complication status: with circulatory complication Diabetes mellitus care home insulin use: without care home use Qualified Code(s): E11.51 - Type 2 diabetes mellitus with diabetic peripheral angiopathy without gangrene (5) CAD (coronary artery disease) Associated angina: without angina Coronary Disease-Associated Artery/Lesion type: [place] artery [place] vs. transplanted heart: [place] heart Qualified Code(s): I25.10 - Atherosclerotic heart disease of [place] coronary artery without angina pectoris (6) Sepsis Acute respiratory failure type: with hypoxia Sepsis acute organ dysfunction status: with acute organ dysfunction Sepsis type: methicillin susceptible Staphylococcus aureus Severe sepsis acute organ dysfunction type: acute respiratory failure Severe sepsis shock status: without septic shock Qualified Code(s): A41.01 - Sepsis due to Methicillin susceptible Staphylococcus aureus; R65.20 - Severe sepsis without septic shock; J96.01 - Acute respiratory failure with hypoxia (7) Chronic obstructive pulmonary disease COPD type: unspecified COPD Qualified Code(s): J44.9 - Chronic obstructive pulmonary disease, unspecified (8) Acid reflux Esophagitis presence: esophagitis presence not specified Qualified Code(s): K21.9 - Gastro-esophageal reflux disease without esophagitis (9) Pneumonia Laterality: right Lung location: lower lobe of lung Pneumonia type: due to unspecified organism Qualified Code(s): J18.9 - Pneumonia, unspecified organism
[2019-05-20] MEDS: ATORVASTATIN 40 MG TAB PO SCH (20:16)
[2019-05-20] MEDS: MAGNESIUM OXIDE 400 MG TAB PO SCH (20:21)
[2019-05-20] MEDS ORDERED: STAT IV Infusion **Titration per Protocol STA (20:34)
[2019-05-20] MEDS ORDERED: METOPROLOL TARTRATE 50 MG TAB PO SCH (21:00)
[2019-05-21] MEDS: INSULIN ASPART 100 UNITS/ML 3 ML PEN SC SCH ×6 (00:26→23:47)
[2019-05-21] MEDS: DEXAMETHASONE SOD PHOSPHATE 6 MG in SYRINGE 0 ML IV SCH ×4 (00:26→23:46)
[2019-05-21 04:58] LABS: Hematocrit (blood only) 28.5 % (37-47); Hemoglobin 9.3 g/dL (12.0-16.0); Immature Granulocytes # (auto) 0.01 K/uL (0.00-0.02); Immature Granulocytes % (auto) 0.2 %; Lymphocytes # (auto) 1.12 K/uL (1.2-3.4); Lymphocytes % (auto) 18.9 %; Mean Corpuscular Hemoglobin 29.9 pg (25-34); Mean Corpuscular Hgb Conc 32.6 g/dL (32-36); Mean Corpuscular Volume 91.6 fL (80-100); Mean Platelet Volume 9.6 fL (7.4-10.4); Monocytes # (auto) 0.38 K/uL (0.11-0.59); Monocytes % (auto) 6.4 %; Neutrophils # (auto) 4.43 K/uL (1.4-6.5); Neutrophils % (auto) 74.5 %; Platelet Count 392 K/uL (130-400); RDW Coefficient of Variation 14.6 % (11.5-14.5); RDW Standard Deviation 48.5 fL (36.4-46.3); Red Blood Count 3.11 M/uL (4.2-5.4); White Blood Count 5.94 K/uL (4.8-10.8)
[2019-05-21 05:02] LABS: Base Excess ABG 2.5 mEq/L (-9-1.8); HCO3 ABG 25 mmol/L (19-24); PCO2 ABG 31 mmHg (35-46); PO2 ABG 68 mmHg (80-95)
[2019-05-21 05:04] LABS: Allen Test Pos (Pos)
[2019-05-21 05:05] LABS: pH ABG 7.52 (7.35-7.45)
[2019-05-21 05:31] LABS: BUN Creatinine Ratio 57.4 (10-20); Calcium 8.5 mg/dl (8.5-10.1); Creatinine Clr Calc Pharmacy 88.7 ml/min; Est GFR (African American) 117.6; Est GFR (Non-African American) 101.5; Magnesium 2.1 mg/dl (1.8-2.4); Phosphorus 3.8 mg/dl (2.5-4.9); Potassium 4.1 mmol/L (3.5-5.1)
--- NOTE | 2019-05-21 07:38 | XRay Report ---
XR chest 1V portable CLINICAL HISTORY: 68 years-old Female presenting with f/u. TECHNIQUE: Portable upright AP view of the chest was obtained. COMPARISON: 05/20/2019. FINDINGS: Endotracheal tube terminates in the lower thoracic trachea 1.7 cm from the jaime. A nasogastric tube descends below the diaphragm, terminus not visualized. Numerous overlying external leads and support devices. This degrades image quality. Median sternotomy wires and mediastinal surgical clips noted. Atherosclerosis of the aortic arch. Cardiac silhouette mildly enlarged. No significant pulmonary engo rgement. Slight interval decrease in right basilar opacity. Suspected associated small right pleural effusion. Left lung with paramediastinal bandlike opacity at the lung base. Osseous structures normal . Upper abdomen normal. IMPRESSION: 1. Currently acceptable positioning of the endotracheal tube and nasogastric tube. The endotracheal tube is now borderline low. 2. Slight interval decrease in right basilar infiltrate suspicious for pneumonia. 3. Associated small right parapneumonic effusion. 4. Mild cardiomegaly without volume overload or congestive change. 5. Left paramediastinal atelectasis suspected. This may be new from prior. ACT 112: Negative or not required by law. Electronically signed by: Wenceslao Davidson M.D. 05/21/2019 7:36 AM
[2019-05-21] MEDS: PARoxetine HCL 20 MG TAB PO SCH (08:47)
[2019-05-21] MEDS: CLOPIDOGREL BISULFATE 75 MG TAB PO SCH (08:47)
[2019-05-21] MEDS: LANSOPRAZOLE 30 MG SOLTAB OG SCH (08:47)
[2019-05-21] MEDS: METOPROLOL TARTRATE 50 MG TAB PO SCH ×2 (08:47→19:48)
[2019-05-21] MEDS: ENOXAPARIN INJ 60 MG/0.6 ML SYR SQ SCH ×2 (08:48→22:07)
[2019-05-21] MEDS: ASPIRIN 81 MG CHEW PO SCH (08:50)
--- NOTE | 2019-05-21 09:35 | Critical Care Progress Note ---
Date of Service May 21, 2019 Assessment & Plan (1) Sepsis: Reason Critically Ill: 68 yo F with PMHx of type I diabetes and tobacco abuse admitted to hospital 05/09 with sepsis secondary to a pulmonary source, diabetic ketoacidosis and A-fib with RVR. Patient was intubated and placed on mechanical ventilation. Required electrical cardioversion x 2. Patient was extubated x2 with need for reintubation secondary to increased work of breathing initially and stridor and laryngeal edema the second time. Patient was set for possible trach, but POA son decided that they would prefer another attempt at extubation after steroid use prior. Patient today appears well, passing a cuff leak test. Plan for extubation later this morning/afternoon. Neuro: [facility] ICU-Negative AMS -Significantly improved at this time, patient able to follow commands appropriately. -Sedation of propofol and fentanyl removed in expectations for extubation later this morning. Anxiety -Patient continued on home Xanax 0.25mg TID PRN -On Precedex for expectant extubation Cardiac: * A-fib with RVR - resolved, converted back to sinus rhythm. Patient required electrical cardioversion x2 on admission which resulted in rate improvement, ultimately converting back to sinus rhythm on Cardizem drip. Recurrent episode on 05/12 converted with IV metoprolol. - troponin negative on admission - EHCO 05/09 showed mild reduced systolic function and various wall motion abnormalities, without significant change from study in 2012 - continue home dose Metoprolol 50mg BID * Hx ASCVD - continue ASA, plavix and statin Respiratory: * Plan for extubation later today to BiPAP. Patient passed leak test. Tube feeds turned off in anticipation. * Patient will have received 40mg solumedrol 05/18, 6mg decadron x2 05/19, 6mg decadron x1 05/20 * Influenza B with superimposed bacterial PNA - CXR on admission showing infiltrate in R lower lobe. Chest CTA 05/10 showing consolidation of right lower and middle lobes, and left lower lobe. - Differential consists of multi-focal PNA vs malignancy (possible given history of significant tobacco abuse) vs. multifactorial. -ABX narrowed to Rocephin, expect at least 6 week treatment due to MSSA bacteremia as well. -Last documented fever of 38.1C on the morning of 05/19/19 GI: * Tube feeds discontinued in anticipation for extubation. * Lansoprazole 30mg QD for gastroprotection * Will hold on placement of a PEG at this time as patient not receiving a trach. RENAL/LYTES: * Held lasix 40mg QD * Patient making good urine at 1.24ml/kg/hr : * Gallegos -strict Is/Os. * UA on admission +4 for ketones, repeat UA showing reduction in ketones; urine culture with pin-point growth, re-incubating. Low suspicion for infection ENDO: * Hx of Type I diabetes mellitus, in DKA on admission which has since resolved * Management per protocol * TSH 0.2 HEME: * hgb at 9.3. platelets stable. * continue to monitor ID: * Sepsis: patient met SIRS criteria on admission, suspected Influenza B with superimposed MRSA pneumonia and MSSA bacteremia. - WBC mildly elevated at 12 on admission, has been normal since. Lactate elevated to 3.2, reduced to 2.2. procal elevated to 6.7 on admission - CXR on admission showing infiltrate in R lower lobe. Chest CTA 05/10 showing consolidation of right lower and middle lobes, and left lower lobe. Differential consists of multi-focal PNA vs malignancy - 2 of 2 blood cultures showing gram + cocci in clusters. surveillance cultures drawn 05/10 grew MSSA - bronch cultures 05/10 growing staph aureas. - completed course of tamiflu - Abx therapy with Rocephin, plan for 6 week therapy due to bacteremia. * Nasal MRSA swab negative LINES/IV ACCESS: * Gallegos * OG tube * 3 PIVs CODE STATUS: Conditional code, no compressions. DVT PROPHYLAXIS: Lovenox Thank you for allowing us to participate in the care of this patient. Please refer to my attending physician's documentation for any further recommendations. (2) Pneumonia: (3) Elevated lactic acid level: (4) Rapid atrial fibrillation: Admission and Anticipated Discharge Date Admission Date: May 09, 2019 Supervising Physician Co-Signing Physician Notes Patient seen and examined this morning. EMR reviewed. Images were independently reviewed. Discussed with family practice resident on rounds. Agree with assessment and plan as noted. The patient is done well overnight with Precedex. She was on SBT. She has a cuff leak present. Her rapid shallow breathing index has been below 60. She was extubated to humidified face tent and has been doing well. She is somewhat hoarse but is able to phonate and vocalize appropriately. Will discontinue steroids after today. She is mildly hypertensive. We will see how she does as we wean the Precedex off. Continue supportive care. Speech therapy evaluation. Out of bed to chair as tolerated. Will need aggressive physical therapy and Occupational Therapy. Continue to follow her anemia. She does not warrant transfusion currently. She is completed a course of Tamiflu for influenza. Patient and son were updated at bedside. Case discussed with ICU bedside nurse. Subjective Patient seen at the bedside this morning. Although patient is unable to talk due to intubation, she is able to respond appropriately with head nods and thumbs- ups and downs. Notes that she is not having chest or abdominal pain. Patient shows notable excitement towards extubation. Review of Systems Review of Systems: Limited ROS as patient is intubated, but is able to respond by nodding or shaking her head yes and no. Patient denies any chest pain, nausea, abdominal pain, headache, visual changes. Respiratory: + cough; no pain on inspiration Cardiovascular: no chest pain and no lightheadedness Gastrointestinal: no abdominal pain and no nausea Physical Exam Constitutional: cooperative and comfortable; no acute distress Eyes: PERRL, conjunctivae normal, anicteric sclerae ENMT: ETT secured in place Neck: normal visual inspection Respiratory: no stridor Auscultation: lungs clear to auscultation bilaterally and + crackles (slight crackles in RLL, but otherwise CTA b/l ); breath sounds present Cardiovascular: Rate/Rhythm: regular rate and regular rhythm Heart Sounds: no murmur Gastrointestinal (Abdomen): normal bowel sounds, soft, nontender, no hepatosplenomegaly Skin: no rashes, warm and dry Neurologic: Cranial Nerves: PERRL, normal accommodation and EOM intact bilaterally Patient able to follow commands. Lymphatic: no cervical or axillary lymphadenopathy Results & Data ([facility]) Vital Signs (Past 12 Hours) Vital Signs Temp Pulse Resp BP Pulse Ox 05/21/19 09:01 66 158/78 H 94 05/21/19 08:42 67 150/71 H 93 05/21/19 08:02 70 162/69 H 94 05/21/19 08:00 69 93 05/21/19 07:01 68 119/72 92 05/21/19 07:00 67 92 05/21/19 06:45 83 94 05/21/19 06:01 70 165/74 H 89 L 05/21/19 05:30 57 L 14 94 05/21/19 05:01 57 L 132/62 93 05/21/19 04:01 62 115/59 L 93 05/21/19 03:01 69 146/65 H 92 05/21/19 02:40 68 23 95 05/21/19 02:01 36.7 C 59 L 146/59 H 93 05/21/19 01:01 58 L 135/68 91 05/21/19 00:13 61 16 94 05/21/19 00:01 36.6 C 62 115/55 L 91 05/20/19 23:01 60 141/65 H 94 05/20/19 22:01 68 159/73 H 96 Resident Activity Tracking Resident Involvement: Resident Care Provided Care Provided: Adult Hospital Medicine (1) Sepsis Sepsis acute organ dysfunction status: unspecified Sepsis type: sepsis due to unspecified organism Qualified Code(s): A41.9 - Sepsis, unspecified organism (2) Pneumonia Laterality: right Lung location: lower lobe of lung Pneumonia type: due to unspecified organism Qualified Code(s): J18.9 - Pneumonia, unspecified organism
--- NOTE | 2019-05-21 11:42 | Billing Data ---
Date of Service May 21, 2019 Patient seen and examined. EMR reviewed. Agree with assessment and plan as noted by family practice resident. Coding Level of Care Code 98571 Subseq Hosp Care Lvl 3
[2019-05-21] MEDS: INSULIN REGULAR 250 UNITS in SODIUM CHLORIDE 0.9% 247.5 ML IV SCH (12:06)
[2019-05-21] MEDS ORDERED: INSULIN ASPART 100 UNITS/ML 3 ML PEN SC SCH (16:00)
[2019-05-21] MEDS: cefTRIAXone SODIUM 2,000 MG in DEXTROSE 5% 50 ML IV SCH (16:49)
--- NOTE | 2019-05-21 18:41 | Hospitalist Progress Note ---
Date of Service May 21, 2019 Assessment & Plan (1) Sepsis: Now resolved. Sepsis secondary to MSSA pneumonia and influenza B (see Rx below) Remains in ICU after extubated today and weaning off Precedex. (2) Bacteremia due to methicillin susceptible Staphylococcus aureus (MSSA): Blood cultures negative within 72 hours. Continue ceftriaxone, noted ICU treatment course recommended for 6 weeks. Given severity, worsening consolidation till peak around 05/14 with continued fevers she certainly requires at least 28 days. Given parapneumonic effusion in addition she may need more than this. Consider ID consult to assist in duration. Now no fevers since 05/17. Initial Rx with Zosyn + vanc [05/09] -> ceftriaxone [05/12]. US guided peripheral line to be placed tomorrow once blood cultures negative after 48 hours from 05/19 (first blood cultures taken after defervescence) (3) Acute respiratory failure with hypoxia: Secondary to PNA and influenza. Intubated [05/09], Extubated [], re-intubated overnight [05/14] due to hypoxia following tachyarrhythmia and high amounts of agitation (off of paxil/benzodiazepines at that time) Extubated/intubated [05/17] stridor and wheezing prior to needing re-intubation suspected due to vocal cord edema +/- laryngeal spasm. Extubated [05/20]; doing well so far using Decadron and Precedex to assist with extubation. Appreciate ICU management. (4) Influenza B: Influenza B positive on 05/11- now finished 5 day course Tamiflu. (5) Pneumonia: MSSA PNA. Continue ceftriaxone as above. Legionella negative. Mycoplasma IgG +ve but IgM neg. Bronchoscopy on 05/10, 05/13 CXR daily - generally trending with improved consolidation. Procalcitonin trended downward from 6 down to 0.5 on [05/15] (6) Serotonin withdrawal syndrome: Discussed with ICU team 05/16 as patient on paroxetine 30mg BID at home. Suspect agitation after intial extubation in part from withdrawal. QTc 469ms, will continue to monitor. Restarted paroxetine 30mg daily on 05/16, will consider increasing if QTc remains normal. (7) Chronic prescription benzodiazepine use: Possible withdrawal with agitation after first extubation. Currently not requiring any benzodiazepines with no anxiety, she appears calm at present. (8) CAD (coronary artery disease): Extensive cardiac history (information from last Dr. Richards clinic note): Inf/lateral ID [id number], PTCA and stent of RCA. Unstable angina 02/2002; [[place]] Single vessel bypass AWAD to LAD. Unstable angina 06/2002; [[place]] Stent of AWAD anastomotic site. Unstable angina 07/2002; [[facility]] atretic AWAD graft, angioplasty without stent to LAD stenosis. Subsequent In-stent LAD restenosis Rx laser arthrectomy and brachytherapy NSTEMI 2013 with mid LAD stent stenoses, re-stented. Lexiscan 12/2016 - no evidence of induced ischemia - Now requiring treatment dose anticoagulation consider discontinuing plavix (discussed with ICU team on 05/16 and will continue triple therapy currently). Continue metoprolol. - Continue atorvastatin PO - Holding isosorbide due to hypotension, recommend restart as blood pressure now improved (9) Dyslipidemia: Holding home gemfibrozil and Zetia Continue atorvastatin (10) Cardiomyopathy, ischemic: As noted in echo above with stable wall motion abnormalities, EF 45% -Continues on metoprolol tartrate - reduced back to 50mg BID since she remains in NSR. (11) Fever: Now apyrexial since 05/17 - suspected prolonged just due to severity of PNA (12) Encephalopathy: Was very agitated when off sedation, ?benzo/serotonin withdrawal (see above) CT of the head negative on 05/11 MRI/MRA brain/Head negative 05/12 Appears much more calm than previous now back on Paxil therefore suspect somewhat due to withdrawal from this. Unclear baseline but patient appears much improved today (13) Chronic obstructive pulmonary disease: Unclear diagnosis as no prior PFTs in [facility] or [facility]. No CO2 retention. Albuterol only prescribed as outpatient. Chronic smoking history. Completed prednisone burst 40mg daily x 4 days. Restarted on dexamethasone 6mg Q8H on 05/19 due to vocal cord edema from prolonged intubation. Much improved air entry and no longer wheezing with steroids. ?improved vocal cord edema and reactive airway disease. Plan to [place] [facility] [place] on discharge. (14) Vocal cord edema: Decadron as per ICU management. Once off steroids will monitor for worsening stridor and wheezing not present on today's exam. (15) DKA (diabetic ketoacidoses): Now resolved. pH 7.31 on admission. Combination of lactic and ketoacidosis, now resolved. Discontinued on insulin drip. HgbA1c 13.2% from previous of 8.1% last year. (16) Type 2 diabetes mellitus: As above for DKA management Holding home metformin and glimepiride Will consider insulin on discharge given elevated HbA1C (17) Rapid atrial fibrillation: Now resolved in NSR Paroxysmal, new diagnosis this admission. Present on admission with HR 179 in atrial fibrillation. Had to be DC cardioverted in the ICU x 2 Rate control with metoprolol 50mg BID OG (currently in NSR) Echocardiogram with mildly reduced EF at 45-50%, mild LVH, positive wall motion abnormalities which are stable from previous with hypokinesis in the inferior wall from base to the mid ventricle Anticoagulation as per ICU continues on Lovenox, consider OG Eliquis to avoid multiple injections (18) Elevated lactic acid level: resolved, related to sepsis (19) Acid reflux: Continue lansoprazole via OG for GI protection, on omeprazole home med (20) Stenosis of right carotid artery: With known moderate stenosis Follow as an outpatient On antiplatelets and statin as an outpatient (21) DVT prophylaxis: Lovenox 60mg q12H. Consider switching to apixaban via OG to reduce injection burden. Disposition-remain in the ICU Full code Will need PT/OT consults once extubated. Admission and Anticipated Discharge Date Admission Date: May 09, 2019 Subjective Patient seen in afternoon, extubated. Doing very well on face tent. Expected hoarse/muted voice with vocal cord edema. Reports no chest or abdominal pain. Eating well. Understands she had a severe pneumonia that will require prolonged IV antibiotics. Continued shortness of breath but feeling much improved after extubation. Review of Systems Review of Systems: All systems reviewed & are unremarkable except as noted in HPI & below Physical Exam Constitutional: well developed and + ill appearing; + not well nourished and no acute distress Eyes: + anicteric sclerae; normal pupil size ENMT: external ear and nose normal, oropharynx normal Neck: trachea midline Respiratory: normal respiratory effort, lungs clear to auscultation (much improved air entry/rhonchi/wheezing since starting steroids back) Auscultation: + crackles (right base) and + rhonchi (b/l) Cardiovascular: Rate/Rhythm: regular rate and regular rhythm Heart Sounds: no murmur Extremities: normal capillary refill and + pedal edema (trace b/l) Gastrointestinal (Abdomen): Inspection/Auscultation: normal bowel sounds Percussion/Palpation: abdomen soft; abdomen nontender and abdomen not rigid Skin: no rashes, warm and dry (no cellulitis) Neurologic: awake (tired but on no sedatives) Cranial Nerves: PERRL Psychiatric: Orientation: alert and oriented x 3 Results & Data ([facility]) Vital Signs (Past 12 Hours) Vital Signs Pulse Resp BP Pulse Ox 05/21/19 18:00 64 23 141/88 H 90 05/21/19 17:01 67 24 151/92 H 92 05/21/19 16:01 66 26 H 158/70 H 91 05/21/19 16:00 64 26 H 92 05/21/19 15:40 69 26 H 159/64 H 90 05/21/19 15:02 61 21 91 05/21/19 15:01 60 22 159/64 H 90 05/21/19 14:01 64 23 138/73 91 05/21/19 14:00 66 21 93 05/21/19 13:01 56 L 17 155/72 H 94 05/21/19 12:01 59 L 20 159/61 H 92 05/21/19 12:00 58 L 21 90 05/21/19 11:01 56 L 16 156/63 H 93 05/21/19 10:01 60 19 153/82 H 93 05/21/19 10:00 60 17 95 05/21/19 09:02 68 94 05/21/19 09:01 66 158/78 H 94 05/21/19 08:42 67 150/71 H 93 05/21/19 08:02 70 162/69 H 94 05/21/19 08:00 69 93 05/21/19 07:01 68 119/72 92 05/21/19 07:00 67 92 05/21/19 06:45 83 94 PG Care Time/CCT Total # of Minutes Spent Total Time Spent with Patient: Total time spent is greater than 50% in coordination of care (as documented) at patient's floor/unit and/or counseling patient: Coding Level of Care Code 13775 Subseq Hosp Care Lvl 3 Diagnoses Sepsis A41.01; R65.20; J96.01 Acute respiratory failure type: with hypoxia Sepsis acute organ dysfunction status: with acute organ dysfunction Sepsis type: methicillin susceptible Staphylococcus aureus Severe sepsis acute organ dysfunction type: acute respiratory failure Severe sepsis shock status: without septic shock Bacteremia due to methicillin susceptible Staphylococcus aureus (MSSA) R78.81; B95.61 Acute respiratory failure with hypoxia J96.01 Influenza B J10.1 Pneumonia J18.9 Laterality: right Lung location: lower lobe of lung Pneumonia type: due to unspecified organism Serotonin withdrawal syndrome T43.205A Encounter type: initial encounter Chronic prescription benzodiazepine use Z79.899 CAD (coronary artery disease) I25.10 Associated angina: without angina Coronary Disease-Associated Artery/Lesion type: [place] artery [place] vs. 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 insulin use: without assisted use Rapid atrial fibrillation I48.91 Elevated lactic acid level R79.89 Acid reflux K21.9 Esophagitis presence: esophagitis presence not specified Stenosis of right carotid artery I65.21 DVT prophylaxis Z29.9 (1) Serotonin withdrawal syndrome Encounter type: initial encounter Qualified Code(s): T43.205A - Adverse effect of unspecified antidepressants, initial encounter (2) DKA (diabetic ketoacidoses) Diabetes mellitus complication detail: without coma Diabetes mellitus type: type 2 Qualified Code(s): E11.10 - Type 2 diabetes mellitus with ketoacidosis without coma (3) Fever Fever type: unspecified Qualified Code(s): R50.9 - Fever, unspecified (4) Type 2 diabetes mellitus Diabetes mellitus complication detail: with peripheral angiopathy without gangrene Diabetes mellitus complication status: with circulatory complication Diabetes mellitus long wall mining machine helper insulin use: without assisted use Qualified Code(s): E11.51 - Type 2 diabetes mellitus with diabetic peripheral angiopathy without gangrene (5) CAD (coronary artery disease) Associated angina: without angina Coronary Disease-Associated Artery/Lesion type: [place] artery [place] vs. transplanted heart: [place] heart Qualified Code(s): I25.10 - Atherosclerotic heart disease of [place] coronary artery without angina pectoris (6) Sepsis Acute respiratory failure type: with hypoxia Sepsis acute organ dysfunction status: with acute organ dysfunction Sepsis type: methicillin susceptible Staphylococcus aureus Severe sepsis acute organ dysfunction type: acute respiratory failure Severe sepsis shock status: without septic shock Qualified Code(s): A41.01 - Sepsis due to Methicillin susceptible Staphylococcus aureus; R65.20 - Severe sepsis without septic shock; J96.01 - Acute respiratory failure with hypoxia (7) Chronic obstructive pulmonary disease COPD type: unspecified COPD Qualified Code(s): J44.9 - Chronic obstructive pulmonary disease, unspecified (8) Acid reflux Esophagitis presence: esophagitis presence not specified Qualified Code(s): K21.9 - Gastro-esophageal reflux disease without esophagitis (9) Pneumonia Laterality: right Lung location: lower lobe of lung Pneumonia type: due to unspecified organism Qualified Code(s): J18.9 - Pneumonia, unspecified organism
[2019-05-21] MEDS: ATORVASTATIN 40 MG TAB PO SCH (19:48)
[2019-05-21] MEDS: MAGNESIUM OXIDE 400 MG TAB PO SCH (19:48)
[2019-05-22 06:00] LABS: BUN Creatinine Ratio 51.5 (10-20); Calcium 8.8 mg/dl (8.5-10.1); Creatinine Clr Calc Pharmacy 72.6 ml/min; Est GFR (African American) 113.2; Est GFR (Non-African American) 97.6; Magnesium 1.9 mg/dl (1.8-2.4); Potassium 3.9 mmol/L (3.5-5.1)
[2019-05-22 06:03] LABS: Phosphorus 4.3 mg/dl (2.5-4.9)
[2019-05-22] MEDS: INSULIN ASPART 100 UNITS/ML 3 ML PEN SC SCH ×4 (06:28→21:01)
--- NOTE | 2019-05-22 08:03 | Critical Care Progress Note ---
Date of Service May 22, 2019 Assessment & Plan (1) Sepsis: Reason Critically Ill: 68 yo F with PMHx of type I diabetes and tobacco abuse admitted to hospital 05/09 with sepsis secondary Influenza B and MSSA, diabetic ketoacidosis and A-fib with RVR. Patient was intubated and placed on mechanical ventilation. Required electrical cardioversion x 2. Patient was extubated x2 with need for reintubation secondary to increased work of breathing initially and stridor and laryngeal edema the second time. 24-hour events: Patient was extubated yesterday and did well with transition to nasal cannula. She was out of bed to chair. She is remained hemodynamically stable. Tolerating ice chips. Swallow eval pending. Plan: Neuro: No current issues. Continue supportive care. Xanax as needed for anxiety. Continue prozac. Cardiac: Prior atrial fibrillation with rapid ventricular response status post cardioversion x2 now in sinus rhythm. Continue metoprolol 25 twice daily. Patient is on aspirin and Plavix. No need for therapeutic anticoagulation and will decrease Lovenox to DVT prophylactic doses. Continue Lipitor Respiratory: Extubated and doing well. Prior episode of vocal cord edema resolved. Discontinue steroids. Continue as needed bronchodilators. Outpatient PFTs may be appropriate. Will need follow-up chest x-ray in 2 to 4 weeks. GI: No current issues. Await speech therapy evaluation to see if we can advance her diet. If tolerating a diet can discontinue IV fluids. Can discontinue PPI once taking adequate oral intake RENAL/LYTES: No current issues : No current issues ENDO: History of diabetes: Continue glycemic control. HEME: Mild anemia with no evidence of acute blood loss. No indication for transfusion. ID: Influenza B with superimposed methicillin sensitive staph aureus pneumonia and bacteremia. Has completed course of Tamiflu. Will require 6 weeks of Rocephin. Surface echocardiogram negative. Blood cultures have cleared. LINES/IV ACCESS: Discontinue Gallegos catheter. Peripheral IVs adequate currently. CODE STATUS: Conditional code, no compressions. DVT PROPHYLAXIS: Lovenox Patient is stable to transfer out of the ICU under the care of the hospitalist. Will sign off when she leaves the ICU. Feel free to contact us if we can be of additional assistance. (2) Pneumonia: (3) Elevated lactic acid level: (4) Rapid atrial fibrillation: Subjective Patient seen and examined. She offers no complaints. Her hoarseness is improving. She is doing well with ice chips. She is pending a speech therapy evaluation. She was out of bed to chair and did well. She denies chest pain palpitations or significant shortness of breath. She is not having any cough. No significant sputum production. Review of Systems Review of Systems: Negative except as noted in HPI Physical Exam Constitutional: WD/WN, vitals as above Neck: trachea midline, no thyromegaly Respiratory: normal respiratory effort, lungs clear to auscultation Cardiovascular: RRR, no murmur, no edema Gastrointestinal (Abdomen): normal bowel sounds, soft, nontender, no hepatosplenomegaly Musculoskeletal: Extremities: extremities normal to inspection Skin: no rashes, warm and dry Neurologic: Nonfocal exam Lymphatic: no cervical lymphadenopathy Results & Data ([facility]) Vital Signs (Past 12 Hours) Vital Signs Temp Pulse Resp BP Pulse Ox 05/22/19 06:01 36.7 C 63 21 169/68 H 89 L 05/22/19 05:01 66 18 162/74 H 92 05/22/19 04:01 36.9 C 58 L 16 169/78 H 92 05/22/19 04:00 55 L 05/22/19 03:02 57 L 19 150/57 H 90 05/22/19 01:01 63 19 159/84 H 91 05/22/19 00:01 37.1 C 62 25 H 157/72 H 91 05/21/19 23:02 65 16 149/66 H 93 05/21/19 22:02 65 19 161/65 H 91 05/21/19 21:01 61 20 160/66 H 94 05/21/19 20:01 36.6 C 58 L 23 153/61 H 93 05/21/19 19:02 65 25 H 153/78 H 94 Laboratory Results 05/21/19 04:49 05/22/19 04:53 Diagnostic Findings No new imaging Coding Level of Care Code 76238 Subs Hosp Care Lv 3 Diagnoses Sepsis A41.9 Sepsis acute organ dysfunction status: unspecified Sepsis type: sepsis due to unspecified organism Pneumonia J18.9 Laterality: right Lung location: lower lobe of lung Pneumonia type: due to unspecified organism Elevated lactic acid level R79.89 Rapid atrial fibrillation I48.91 (1) Sepsis Sepsis acute organ dysfunction status: unspecified Sepsis type: sepsis due to unspecified organism Qualified Code(s): A41.9 - Sepsis, unspecified organism (2) Pneumonia Laterality: right Lung location: lower lobe of lung Pneumonia type: due to unspecified organism Qualified Code(s): J18.9 - Pneumonia, unspecified organism
[2019-05-22] MEDS ORDERED: ENOXAPARIN INJ 40 MG/0.4 ML SYR SQ SCH (09:00)
[2019-05-22] MEDS: CLOPIDOGREL BISULFATE 75 MG TAB PO SCH (10:40)
[2019-05-22] MEDS: LANSOPRAZOLE 30 MG SOLTAB OG SCH (10:40)
[2019-05-22] MEDS: METOPROLOL TARTRATE 50 MG TAB PO SCH ×2 (10:40→21:00)
[2019-05-22] MEDS: ASPIRIN 81 MG ECTAB PO SCH (10:40)
[2019-05-22] MEDS: PARoxetine HCL 20 MG TAB PO SCH (10:41)
[2019-05-22] MEDS ORDERED: INSULIN GLARGINE SOLOSTAR 100 UNITS/ML 3 ML PEN SC STA (13:07)
--- NOTE | 2019-05-22 13:09 | Pharmacy Report ---
Pharmacy Glycemic Short Note 2 - Date of Service May 22, 2019 - Glycemic Short BSG Results (Last 24 hours): 05/21/19 05/21/19 05/22/19 16:47 23:43 04:53 Glucose 178 H POC Glucose 178 H 194 H 05/22/19 05/22/19 06:17 10:51 Glucose POC Glucose 191 H 167 H OUTPATIENT ANTIDIABETIC REGIMEN: * glimepiride 1 mg BID, metformin 500 mg BID * A1c 13.2% 05/09 ASSESSMENT/Plan: Pt is ordered a diet. We will order a one time lantus 10u for this afternoon. Continue ACHS correctional insulin, see MAR for further details.
--- NOTE | 2019-05-22 14:55 | Hospitalist Progress Note ---
Date of Service May 22, 2019 Assessment & Plan (1) Sepsis: Now resolved. Sepsis secondary to MSSA pneumonia and influenza B (see Rx below) Can be transferred to PCU. Discussed care with Dr Galvez. (2) Bacteremia due to methicillin susceptible Staphylococcus aureus (MSSA): Blood cultures cleared within 72 hours of admission. Continue ceftriaxone, consider switching to nafcillin if this can be set up at home given improved outcomes. Patient will need at least 28 days of antibiotics (defervescence on 05/18). Consider ID consult to assist in duration. Possible need for extended duration given severity of illness and not Rx with nafcillin. Initial Rx with Zosyn + vanc [05/09] -> ceftriaxone [05/12] Blood cultures after defervescence negative after [address] US guided peripheral line for prolonged antibiotics. (3) Acute respiratory failure with hypoxia: Now resolved on room air. Secondary to PNA and influenza. Intubated [05/09], Extubated [], re-intubated overnight [05/14] due to hypoxia following tachyarrhythmia and high amounts of agitation (off of paxil/benzodiazepines at that time) Extubated/intubated [05/17] stridor and wheezing prior to needing re-intubation suspected due to vocal cord edema +/- laryngeal spasm. Extubated [05/20]; doing well so far but will have to observe for worsening COPD/wheezing now off steroids. (4) Influenza B: Influenza B positive on 05/11 - now finished 5 day course Tamiflu. (5) Pneumonia: MSSA PNA. Continue ceftriaxone as above for bacteremia; consider switching to nafcillin if this can be set up at home. Legionella negative. Mycoplasma IgG +ve but IgM neg. Bronchoscopy on 05/10, 05/13 Can stop daily CXRs now coming out of ICU. Procalcitonin trended downward from 6 down to 0.5 on [05/15]. (6) Serotonin withdrawal syndrome: Suspected this contributed towards initial re-intubation given agitation and anxiety being high. Restarted on paroxetine 30mg on 05/16, now need to increase back to home dose unless patient feels anxiety not under control. QTc 469ms [05/20]. (7) Chronic prescription benzodiazepine use: Possible withdrawal with agitation after first extubation. Xanax PRN ordered (if taking regularly will increase her paroxetine) (8) CAD (coronary artery disease): Extensive cardiac history (information from last Dr. Richards clinic note): Inf/lateral [place] 2001, PTCA and stent of RCA. Unstable angina 02/2002; [[place]] Single vessel bypass AWAD to LAD. Unstable angina 06/2002; [[place]] Stent of AWAD anastomotic site. Unstable angina 07/2002; [[facility]] atretic AWAD graft, angioplasty without stent to LAD stenosis. Subsequent In-stent LAD restenosis Rx laser arthrectomy and brachytherapy NSTEMI 2013 with mid LAD stent stenoses, re-stented. Lexiscan 12/2016 - no evidence of induced ischemia - ASA + Eliquis (will discontinue clopidogrel while on Eliquis). Will need Eliquis for at least 4 weeks following atrial fibrillation then will follow up with cardiology to determine ongoing therapy. - Atorvastatin PO - Restarted ISMN XL 30 mg, up titrate as able back to 120mg outpatient dose. (9) Dyslipidemia: Holding home gemfibrozil Continue Atorvastatin and Zetia (10) Cardiomyopathy, ischemic: As noted in echo above with stable wall motion abnormalities, EF 45% Switch to metoprolol tatrate to succinate XL 100mg in AM. (11) Fever: Now apyrexial since 05/17 - suspected prolonged just due to severity of PNA (12) Encephalopathy: Now resolved Secondary to benzo/serotonin withdrawal (see above) CT of the head negative on 05/11 MRI/MRA brain/Head negative 05/12 (13) Chronic obstructive pulmonary disease: Unclear diagnosis as [facility] No CO2 retention. Albuterol only prescribed as outpatient. Chronic smoking history. Completed prednisone burst 40mg daily x 4 days initially. Wheezing since I came on service on Thursday until she had steroids for vocal cord edema. Finished 2 day course of Decadron for vocal cord edema 05/19-05/20. Continues to have no wheezing on exam. Order for [facility] placed. (14) Vocal cord edema: Resolving after Decadron given, finished [05/20] (15) DKA (diabetic ketoacidoses): Now resolved. pH 7.31 on admission. Combination of lactic and ketoacidosis, now resolved. HgbA1c 13.2% from previous of 8.1% last year. (16) Type 2 diabetes mellitus: As above for DKA management Holding home metformin and glimepiride Appreciate pharmacy management with basal bolus regimen Unclear what outpatient regimen she'll require at this stage (17) Rapid atrial fibrillation: Now resolved in NSR Present on admission with HR 179 in atrial fibrillation. DC cardioverted in the ICU x 2. Echocardiogram with mildly reduced EF at 45-50%, mild LVH, positive wall motion abnormalities which are stable from previous with hypokinesis in the inferior wall from base to the mid ventricle Secondary to acute illness therefore unclear need for chronic anticoagulation at present but will need for at least 4 weeks following this episode; follow up with cardiology as outpatient to determine full course. (18) Elevated lactic acid level: resolved, related to sepsis (19) Acid reflux: Switch to pantoprazole 40mg PO daily, (on omeprazole as outpatient) (20) Oropharyngeal dysphagia: Suspect somewhat due to lack of dentures (apparently one's she has are ill fitting). Appreciate speech management. Planned video swallow for tomorrow. (21) Stenosis of right carotid artery: With known moderate stenosis Follow as an outpatient On antiplatelets and statin as an outpatient (22) DVT prophylaxis: Apixaban 5mg PO BID Continue PT/OT will likely need acute rehab on discharge Admission and Anticipated Discharge Date Admission Date: May 09, 2019 Subjective Patient now off O2 and feeling well. No wheezing. Mild shortness of breath. She reports anxiety under control on half her dose of paroxetine and no need to increase at present. She is relieved about never getting a trach. Denies any chest or abdominal pain. Currently awaiting swallowing assessment. Review of Systems Review of Systems: All systems reviewed & are unremarkable except as noted in HPI & below Physical Exam Constitutional: well developed and + ill appearing; + not well nourished and no acute distress Eyes: + anicteric sclerae; normal pupil size ENMT: external ear and nose normal, oropharynx normal Neck: trachea midline Respiratory: normal respiratory effort Auscultation: + diminished lung sounds (right base) and + crackles (right base, mild scattered elsewhere); no rhonchi Cardiovascular: Rate/Rhythm: regular rate and regular rhythm Heart Sounds: no murmur Extremities: normal capillary refill and + pedal edema (trace b/l) Gastrointestinal (Abdomen): Inspection/Auscultation: normal bowel sounds Percussion/Palpation: abdomen soft; abdomen nontender and abdomen not rigid Skin: no rashes, warm and dry (no cellulitis) Neurologic: moves all extremities and awake; not confused Speech / Cognition: + abnormal speech (improving hoarseness of voice) Psychiatric: A+Ox3, euthymic affect Results & Data ([facility]) Vital Signs (Past 12 Hours) Vital Signs Temp Pulse Resp BP Pulse Ox 05/22/19 14:00 52 L 19 05/22/19 12:00 60 17 91 05/22/19 11:06 36.6 C 05/22/19 11:02 60 14 142/53 H 92 05/22/19 10:02 63 18 168/69 H 90 05/22/19 10:00 61 18 91 05/22/19 09:02 66 18 170/73 H 90 05/22/19 08:02 36.7 C 65 18 159/62 H 92 05/22/19 08:00 60 22 91 05/22/19 07:02 81 21 130/101 H 93 05/22/19 06:01 36.7 C 63 21 169/68 H 89 L 05/22/19 05:01 66 18 162/74 H 92 05/22/19 04:01 36.9 C 58 L 16 169/78 H 92 05/22/19 04:00 55 L 05/22/19 03:02 57 L 19 150/57 H 90 PG Care Time/CCT Total # of Minutes Spent Total Time Spent with Patient: Total time spent is greater than 50% in coordination of care (as documented) at patient's floor/unit and/or counseling patient: Prolonged Care Time Prolonged Care Time: Yes Total Prolonged Care Time: 45 Coding Level of Care Code 35532 Subseq Hosp Care Lvl 3 Diagnoses Sepsis A41.01; R65.20; J96.01 Acute respiratory failure type: with hypoxia Sepsis acute organ dysfunction status: with acute organ dysfunction Sepsis type: methicillin susceptible Staphylococcus aureus Severe sepsis acute organ dysfunction type: acute respiratory failure Severe sepsis shock status: without septic shock Bacteremia due to methicillin susceptible Staphylococcus aureus (MSSA) R78.81; B95.61 Acute respiratory failure with hypoxia J96.01 Influenza B J10.1 Pneumonia J18.9 Laterality: right Lung location: lower lobe of lung Pneumonia type: due to unspecified organism Serotonin withdrawal syndrome T43.205A Encounter type: initial encounter Chronic prescription benzodiazepine use Z79.899 CAD (coronary artery disease) I25.10 Associated angina: without angina Coronary Disease-Associated Artery/Lesion type: redding artery [place] vs. transplanted heart: redding heart Dyslipidemia E78.5 Cardiomyopathy, ischemic I25.5 Fever R50.9 Fever type: unspecified Encephalopathy G93.40 Chronic obstructive pulmonary disease J44.9 COPD type: unspecified COPD Vocal cord edema J38.4 DKA (diabetic ketoacidoses) E11.10 Diabetes mellitus complication detail: without coma Diabetes mellitus type: type 2 Type 2 diabetes mellitus E11.51 Diabetes mellitus complication detail: with peripheral angiopathy without gangrene Diabetes mellitus complication status: with circulatory complication Diabetes mellitus longterm insulin use: without longterm use Rapid atrial fibrillation I48.91 Elevated lactic acid level R79.89 Acid reflux K21.9 Esophagitis presence: esophagitis presence not specified Oropharyngeal dysphagia R13.12 Stenosis of right carotid artery I65.21 DVT prophylaxis Z29.9 Additional Codes Prolonged Care Time - Prolonged Care Time: Yes ([id number]) (1) Serotonin withdrawal syndrome Encounter type: initial encounter Qualified Code(s): T43.205A - Adverse effect of unspecified antidepressants, initial encounter (2) DKA (diabetic ketoacidoses) Diabetes mellitus complication detail: without coma Diabetes mellitus type: type 2 Qualified Code(s): E11.10 - Type 2 diabetes mellitus with ketoacidosis without coma (3) Fever Fever type: unspecified Qualified Code(s): R50.9 - Fever, unspecified (4) Type 2 diabetes mellitus Diabetes mellitus complication detail: with peripheral angiopathy without gangrene Diabetes mellitus complication status: with circulatory complication Diabetes mellitus buttermaker insulin use: without longterm use Qualified Code(s): E11.51 - Type 2 diabetes mellitus with diabetic peripheral angiopathy without gangrene (5) CAD (coronary artery disease) Associated angina: without angina Coronary Disease-Associated Artery/Lesion type: redding artery [place] vs. transplanted heart: redding heart Qualified Code(s): I25.10 - Atherosclerotic heart disease of redding coronary artery without angina pectoris (6) Sepsis Acute respiratory failure type: with hypoxia Sepsis acute organ dysfunction status: with acute organ dysfunction Sepsis type: methicillin susceptible Staphylococcus aureus Severe sepsis acute organ dysfunction type: acute respiratory failure Severe sepsis shock status: without septic shock Qualified Code(s): A41.01 - Sepsis due to Methicillin susceptible Staphylococcus aureus; R65.20 - Severe sepsis without septic shock; J96.01 - Acute respiratory failure with hypoxia (7) Chronic obstructive pulmonary disease COPD type: unspecified COPD Qualified Code(s): J44.9 - Chronic obstructive pulmonary disease, unspecified (8) Acid reflux Esophagitis presence: esophagitis presence not specified Qualified Code(s): K21.9 - Gastro-esophageal reflux disease without esophagitis (9) Pneumonia Laterality: right Lung location: lower lobe of lung Pneumonia type: due to unspecified organism Qualified Code(s): J18.9 - Pneumonia, unspecified organism
[2019-05-22] MEDS ORDERED: ISOSORBIDE MONO EXTENDED REL 30 MG TABCR PO ONE (15:32)
[2019-05-22] MEDS: cefTRIAXone SODIUM 2,000 MG in DEXTROSE 5% 50 ML IV SCH (16:08)
[2019-05-22] MEDS: APIXABAN 5 MG TABLET PO SCH (21:00)
[2019-05-22] MEDS: EZETIMIBE 10 MG TABLET PO SCH (21:00)
[2019-05-22] MEDS: ATORVASTATIN 40 MG TAB PO SCH (21:00)
[2019-05-22] MEDS: MAGNESIUM OXIDE 400 MG TAB PO SCH (21:01)
[2019-05-23 06:26] LABS: Hematocrit (blood only) 30.4 % (37-47); Mean Corpuscular Hemoglobin 30.3 pg (25-34); Mean Corpuscular Hgb Conc 32.9 g/dL (32-36); Mean Corpuscular Volume 92.1 fL (80-100); Mean Platelet Volume 9.7 fL (7.4-10.4); Platelet Count 389 K/uL (130-400); RDW Coefficient of Variation 14.9 % (11.5-14.5); RDW Standard Deviation 48.2 fL (36.4-46.3); Reticulocyte % 2.6 % (0.5-2.0); Reticulocytes # 0.09 10^6/uL (0.02-0.10); White Blood Count 6.05 K/uL (4.8-10.8)
[2019-05-23 07:01] LABS: BUN Creatinine Ratio 42.3 (10-20); Calcium 8.6 mg/dl (8.5-10.1); Creatinine Clr Calc Pharmacy 78.4 ml/min; Est GFR (African American) 116.1; Est GFR (Non-African American) 100.2; Potassium 3.2 mmol/L (3.5-5.1)
[2019-05-23 08:07] LABS: Folate (Folic Acid) 18.97 ng/ml (>5.38)
[2019-05-23] MEDS: INSULIN ASPART 100 UNITS/ML 3 ML PEN SC SCH ×4 (09:08→21:15)
[2019-05-23] MEDS: APIXABAN 5 MG TABLET PO SCH ×2 (09:15→21:14)
[2019-05-23] MEDS: ISOSORBIDE MONO EXTENDED REL 30 MG TABCR PO SCH (09:16)
[2019-05-23] MEDS: PARoxetine HCL 20 MG TAB PO SCH (09:16)
[2019-05-23] MEDS: PANTOprazole 40 MG TAB PO SCH (09:16)
[2019-05-23] MEDS: METOPROLOL SUCC 50MG EXT REL TAB PO SCH (09:17)
[2019-05-23] MEDS: ASPIRIN 81 MG ECTAB PO SCH (09:17)
[2019-05-23] MEDS: POTASSIUM CHLORIDE 20 MEQ TABCR PO SCH ×3 (10:53→21:13)
[2019-05-23] MEDS: INSULIN GLARGINE SOLOSTAR 100 UNITS/ML 3 ML PEN SC SCH ×2 (10:53→21:13)
--- NOTE | 2019-05-23 12:06 | Fluoroscopy Report ---
FL video swallow HISTORY: Dysphagia r/o aspiration TECHNIQUE: Video fluoroscopic evaluation of swallowing was performed in the AP and lateral projection s by the speech pathology staff. The patient is fed nectar-thick and thin liquid barium, a barium coa josiah wafer, and barium pudding. FLUOROSCOPY TIME: 1.2 minutes NUMBER OF FLUOROSCOPIC IMAGES: 467 COMPARISON STUDY: None. FINDINGS: There is normal hyoid excursion and epiglottic deflection. No significant penetration or as piration identified. Swallowing function is within normal limits. Moderate distal esophageal dysmotil ity IMPRESSION: 1. No aspiration identified. Moderate esophageal dysmotility 2. Please see the speech pathologist report for detailed findings and recommendations. ACT 112: Negative or not required by law. The above report was generated using voice recognition software. It may contain grammatical, syntax or spelling errors. Electronically signed by: Rosendo Regalado M.D. 05/23/2019 12:04 PM
--- NOTE | 2019-05-23 12:16 | Electrocardiogram Report ---
Test Reason : Blood Pressure : / mmHG Vent. Rate : 068 BPM Atrial Rate : 068 BPM P-R Int : 144 ms QRS Dur : 086 ms QT Int : 442 ms P-R-T Axes : 071 054 196 degrees QTc Int : 469 ms Sinus rhythm with premature atrial complexes Possible Inferior infarct (cited on or before 23-JUN-2001) Abnormal ECG When compared with ECG of 19-MAY-2019 06:28, No significant change was found Confirmed by Nasir Rashid ([id number]) on 05/23/2019 12:16:10 PM Referred By: REFERRED SELF Confirmed By:Nasir Rashid
--- NOTE | 2019-05-23 15:06 | Pharmacy Report ---
Pharmacy Glycemic Short Note 2 - Date of Service May 23, 2019 - Glycemic Short BSG Results (Last 24 hours): 05/22/19 05/22/19 05/23/19 16:02 20:54 05:47 Glucose 108 H POC Glucose 152 H 142 H 05/23/19 05/23/19 05/23/19 07:38 11:14 12:04 Glucose POC Glucose 123 H 151 H 143 H OUTPATIENT ANTIDIABETIC REGIMEN: * glimepiride 1 mg BID, metformin 500 mg BID * A1c 13.2% 05/09 ASSESSMENT: Patient received 10 units of basal insulin, 4 units of prandial/correctional yesterday BSgs ranged from 142-191, BSGs continue to improve, fasting 123 this morning, will continue 10 units of basal, split BID for now Will continue current novolog parameters. Plan * Basal insulin: Lantus 5 units every 12 hours * Correctional Insulin: Novolog Correction per scale ACHS Goal Range: Low 120 mg/dL - High 160 mg/dL Correction Factor: 40 mg/dL/unit * Prandial insulin: Per carb ratio of 1 unit per 12 grams CHO consumed
[2019-05-23] MEDS: cefTRIAXone SODIUM 2,000 MG in DEXTROSE 5% 50 ML IV SCH (17:05)
--- NOTE | 2019-05-23 17:05 | Hospitalist Progress Note ---
Date of Service May 23, 2019 Assessment & Plan (1) Sepsis: Now resolved. Sepsis secondary to MSSA pneumonia and influenza B (see Rx below) Improving (2) Bacteremia due to methicillin susceptible Staphylococcus aureus (MSSA): Blood cultures cleared within 72 hours of admission. Continue ceftriaxone, consider switching to nafcillin if this can be set up for discharge. Patient will likely need at least 28 days of antibiotics (defervescence on 05/18). Possible need for extended duration given severity of illness and not Rx with nafcillin. Initial Rx with Zosyn + vanc [05/09] -> ceftriaxone [05/12] Blood cultures after defervescence negative after 48 hoursworking on long-term antibiotic plan (3) Acute respiratory failure with hypoxia: Now resolved on room air. Secondary to PNA and influenza. Intubated [05/09], Extubated [], re-intubated overnight [05/14] due to hypoxia following tachyarrhythmia and high amounts of agitation (off of paxil/benzodiazepines at that time) Extubated/intubated [05/17] stridor and wheezing prior to needing re-intubation suspected due to vocal cord edema +/- laryngeal spasm. Extubated [05/20]; doing well so far and lungs sound surprisingly clear (4) Influenza B: Influenza B positive on 05/11 - now finished 5 day course Tamiflu. Appears to have been a major culprit in her illness (5) Pneumonia: MSSA PNA. Continue ceftriaxone as above for bacteremia; consider switching to nafcillin if this can be set up at home. Legionella negative. Mycoplasma IgG +ve but IgM neg. Bronchoscopy on 05/10, 05/13 Otherwise as above (6) Serotonin withdrawal syndrome: Suspected this contributed towards initial re-intubation given agitation and anxiety being high. Back on paroxetine, appears to be doing well. (7) Chronic prescription benzodiazepine use: Possible withdrawal with agitation after first extubation. Xanax PRN orderedfollow. Right now anxiety seems to be doing well. (8) CAD (coronary artery disease): Extensive cardiac history (information from last Dr. Richards clinic note): Inf/lateral [place] 2001, PTCA and stent of RCA. Unstable angina 02/2002; [[place]] Single vessel bypass AWAD to LAD. Unstable angina 06/2002; [[place]] Stent of AWAD anastomotic site. Unstable angina 07/2002; [place] at[place] AWAD graft, angioplasty without stent to LAD stenosis. Subsequent In-stent LAD restenosis Rx laser arthrectomy and brachytherapy NSTEMI 2013 with mid LAD stent stenoses, re-stented. Lexiscan 12/2016 - no evidence of induced ischemia - ASA + Eliquis (will discontinue clopidogrel while on Eliquis). Will need Eliquis for at least 4 weeks following atrial fibrillation then will follow up with cardiology to determine ongoing therapy. Given that her coronary disease appears to be chronic and stable for almost a decade, newer data would suggest that it also could be possible to stop the aspirin and have her on Eliquis alone. - Atorvastatin PO -Continue Imdur, titrate as needed (9) Dyslipidemia: Holding home gemfibrozil Continue Atorvastatin and Zetia (10) Cardiomyopathy, ischemic: As noted in echo above with stable wall motion abnormalities, EF 45% Continue metoprolol succinate. (11) Fever: Now apyrexial since 05/17 - suspected prolonged just due to severity of PNA (12) Encephalopathy: Now resolved Secondary to benzo/serotonin withdrawal (see above) CT of the head negative on 05/11 MRI/MRA brain/Head negative 05/12 (13) Chronic obstructive pulmonary disease: Unclear diagnosis as no prior PFTs in [facility] or [facility]. No CO2 retention. Albuterol only prescribed as outpatient. Chronic smoking history. Completed prednisone burst 40mg daily x 4 days initially. No wheeze now, continue to follow closely, outpatient pulmonary follow-up (14) Vocal cord edema: Resolving after Decadron given, finished [05/20] (15) DKA (diabetic ketoacidoses): Now resolved. pH 7.31 on admission. Combination of lactic and ketoacidosis, now resolved. HgbA1c 13.2% from previous of 8.1% last year. Continue to titrate insulins (16) Type 2 diabetes mellitus: As above for DKA management, continue to titrate insulins Holding home metformin and glimepiride Appreciate pharmacy management with basal bolus regimen Unclear what outpatient regimen she'll require at this stage (17) Rapid atrial fibrillation: Now resolved in NSR Present on admission with HR 179 in atrial fibrillation. DC cardioverted in the ICU x 2. Echocardiogram with mildly reduced EF at 45-50%, mild LVH, positive wall motion abnormalities which are stable from previous with hypokinesis in the inferior wall from base to the mid ventricle Secondary to acute illness therefore unclear need for chronic anticoagulation at present but will need for at least 4 weeks following this episode; follow up with cardiology as outpatient to determine full course. (18) Elevated lactic acid level: resolved, related to sepsis (19) Acid reflux: Continue pantoprazole 40mg PO daily, (on omeprazole as outpatient) (20) Oropharyngeal dysphagia: Video swallow reassuring (21) Stenosis of right carotid artery: With known moderate stenosis Follow as an outpatient On antiplatelets and statin as an outpatient (22) DVT prophylaxis: Apixaban 5mg PO BID Continue PT/OT will likely need acute rehab on discharge (23) DVT prophylaxis: Anticoagulation (24) Discharge planning issues: Ongoing PT/OT input. Admission and Anticipated Discharge Date Admission Date: May 09, 2019 Subjective Feeling better overall. Happy about swallow eval, happy that she believes her voice will improve over the next few weeks. Breathing feeling respectable. Trying to get up and around and work with therapy. Would like to be able to go home if possible but seems to have a loose understanding that she might need to go to rehab. Review of Systems Review of Systems: All systems reviewed & are unremarkable except as noted in HPI & below Physical Exam Physical Exam: General she is awake and alert pleasant no distress. HEENT normocephalic atraumatic mucous membranes moist. Lungs ar surprisingly clear to auscultation bilaterally no rales rhonchi or wheezes good effort. Extremities show no cyanosis. Neuro shows no focal deficits, cranial nerves II through XII are grossly intact gross motor and sensory are intact. Results & Data ([facility]) Vital Signs (Past 12 Hours) Vital Signs Temp Pulse Pulse Pulse Resp BP BP 05/23/19 16:55 56 L 05/23/19 16:20 98.2 F 56 L 23 148/71 H 05/23/19 11:38 97.9 F 46 L 20 135/58 L 05/23/19 10:00 52 L 05/23/19 08:05 97.7 F 49 L 18 155/59 H Pulse Ox 05/23/19 16:55 05/23/19 16:20 95 05/23/19 11:38 97 05/23/19 10:00 05/23/19 08:05 96 PG Care Time/CCT Total # of Minutes Spent Total Time Spent with Patient: Total time spent is greater than 50% in coordination of care (as documented) at patient's floor/unit and/or counseling patient: Coding Level of Care Code 29837 Subseq Hosp Care Lvl 3 Diagnoses Sepsis A41.01; R65.20; J96.01 Sepsis type: methicillin susceptible Staphylococcus aureus Sepsis acute organ dysfunction status: with acute organ dysfunction Severe sepsis acute organ dysfunction type: acute respiratory failure Acute respiratory failure type: with hypoxia Severe sepsis shock status: without septic shock Bacteremia due to methicillin susceptible Staphylococcus aureus (MSSA) R78.81; B95.61 Acute respiratory failure with hypoxia J96.01 Influenza B J10.1 Pneumonia J18.9 Laterality: right Lung location: lower lobe of lung Pneumonia type: due to unspecified organism Serotonin withdrawal syndrome T43.205A Encounter type: initial encounter Chronic prescription benzodiazepine use Z79.899 CAD (coronary artery disease) I25.10 Coronary Disease-Associated Artery/Lesion type: [place] artery [place] vs. transplanted heart: [place] heart Associated angina: without angina Dyslipidemia E78.5 Cardiomyopathy, ischemic I25.5 Fever R50.9 Fever type: unspecified Encephalopathy G93.40 Chronic obstructive pulmonary disease J44.9 COPD type: unspecified COPD Vocal cord edema J38.4 DKA (diabetic ketoacidoses) E11.10 Diabetes mellitus type: type 2 Diabetes mellitus complication detail: without coma Type 2 diabetes mellitus E11.51 Diabetes mellitus intermediate manager insulin use: without custodial use Diabetes mellitus complication status: with circulatory complication Diabetes mellitus complication detail: with peripheral angiopathy without gangrene Rapid atrial fibrillation I48.91 Elevated lactic acid level R79.89 Acid reflux K21.9 Esophagitis presence: esophagitis presence not specified Oropharyngeal dysphagia R13.12 Stenosis of right carotid artery I65.21 DVT prophylaxis Z29.9 DVT prophylaxis Z29.9 Discharge planning issues Z02.9 (1) Sepsis Sepsis type: methicillin susceptible Staphylococcus aureus Sepsis acute organ dysfunction status: with acute organ dysfunction Severe sepsis acute organ dysfunction type: acute respiratory failure Acute respiratory failure type: with hypoxia Severe sepsis shock status: without septic shock Qualified Code(s): A41.01 - Sepsis due to Methicillin susceptible Staphylococcus aureus; R65.20 - Severe sepsis without septic shock; J96.01 - Acute respiratory failure with hypoxia (2) Pneumonia Laterality: right Lung location: lower lobe of lung Pneumonia type: due to unspecified organism Qualified Code(s): J18.9 - Pneumonia, unspecified organism (3) Serotonin withdrawal syndrome Encounter type: initial encounter Qualified Code(s): T43.205A - Adverse effect of unspecified antidepressants, initial encounter (4) CAD (coronary artery disease) Coronary Disease-Associated Artery/Lesion type: [place] artery [place] vs. transplanted heart: [place] heart Associated angina: without angina Qualified Code(s): I25.10 - Atherosclerotic heart disease of [place] coronary artery without angina pectoris (5) Fever Fever type: unspecified Qualified Code(s): R50.9 - Fever, unspecified (6) Chronic obstructive pulmonary disease COPD type: unspecified COPD Qualified Code(s): J44.9 - Chronic obstructive pulmonary disease, unspecified (7) DKA (diabetic ketoacidoses) Diabetes mellitus type: type 2 Diabetes mellitus complication detail: without coma Qualified Code(s): E11.10 - Type 2 diabetes mellitus with ketoacidosis without coma (8) Type 2 diabetes mellitus Diabetes mellitus intermediate manager insulin use: without intermediate manager use Diabetes mellitus complication status: with circulatory complication Diabetes mellitus complication detail: with peripheral angiopathy without gangrene Qualified Code (s): E11.51 - Type 2 diabetes mellitus with diabetic peripheral angiopathy without gangrene (9) Acid reflux Esophagitis presence: esophagitis presence not specified Qualified Code(s): K21.9 - Gastro-esophageal reflux disease without esophagitis
[2019-05-23] MEDS: EZETIMIBE 10 MG TABLET PO SCH (21:13)
[2019-05-23] MEDS: MAGNESIUM OXIDE 400 MG TAB PO SCH (21:14)
[2019-05-23] MEDS: ATORVASTATIN 40 MG TAB PO SCH (21:14)
[2019-05-24 07:17] LABS: Hematocrit (blood only) 31.3 % (37-47); Mean Corpuscular Hemoglobin 29.8 pg (25-34); Mean Corpuscular Hgb Conc 31.9 g/dL (32-36); Mean Corpuscular Volume 93.2 fL (80-100); Mean Platelet Volume 9.6 fL (7.4-10.4); Platelet Count 385 K/uL (130-400); RDW Coefficient of Variation 15.1 % (11.5-14.5); RDW Standard Deviation 48.6 fL (36.4-46.3); Red Blood Count 3.36 M/uL (4.2-5.4)
[2019-05-24 08:00] LABS: Calcium 8.7 mg/dl (8.5-10.1); Est GFR (African American) 116.8; Est GFR (Non-African American) 100.8; Potassium 4.7 mmol/L (3.5-5.1)
[2019-05-24] MEDS: INSULIN ASPART 100 UNITS/ML 3 ML PEN SC SCH ×4 (08:18→20:25)
[2019-05-24] MEDS: METOPROLOL SUCC 50MG EXT REL TAB PO SCH (08:20)
[2019-05-24] MEDS: PANTOprazole 40 MG TAB PO SCH (08:20)
[2019-05-24] MEDS: APIXABAN 5 MG TABLET PO SCH ×2 (08:21→20:25)
[2019-05-24] MEDS: ISOSORBIDE MONO EXTENDED REL 30 MG TABCR PO SCH (08:21)
[2019-05-24] MEDS: ASPIRIN 81 MG ECTAB PO SCH (08:21)
[2019-05-24] MEDS: PARoxetine HCL 20 MG TAB PO SCH (08:22)
[2019-05-24] MEDS: POTASSIUM CHLORIDE 20 MEQ TABCR PO SCH (08:22)
[2019-05-24] MEDS: INSULIN GLARGINE SOLOSTAR 100 UNITS/ML 3 ML PEN SC SCH ×2 (08:23→20:25)
[2019-05-24] MEDS: cefTRIAXone SODIUM 2,000 MG in DEXTROSE 5% 50 ML IV SCH (16:38)
--- NOTE | 2019-05-24 17:52 | Hospitalist Progress Note ---
Date of Service May 24, 2019 Assessment & Plan (1) Sepsis: Now resolved. Sepsis secondary to MSSA pneumonia and influenza B (see Rx below) Improving (2) Bacteremia due to methicillin susceptible Staphylococcus aureus (MSSA): Blood cultures cleared within 72 hours of admission. Continue ceftriaxone, tolerating well - and with going home this will likely allow for easier administration at discharge. initial plans were for 28 days since blood cultures cleared, which would run ceftriaxone through last dose on 06/11. Initial Rx with Zosyn + vanc [05/09] -> ceftriaxone [05/12] Blood cultures after defervescence negative after 48 hoursworking on long-term antibiotic plan as above; has US guided peripheral - ?possibly ok for dc w this vs if she'll need a true PICC (anticipate that this will be worked out with case management and home health companies) (3) Acute respiratory failure with hypoxia: Now resolved on room air. Secondary to PNA and influenza. Intubated [05/09], Extubated [], re-intubated overnight [05/14] due to hypoxia following tachyarrhythmia and high amounts of agitation (off of paxil/benzodiazepines at that time) Extubated/intubated [05/17] stridor and wheezing prior to needing re-intubation suspected due to vocal cord edema +/- laryngeal spasm. Extubated [05/20]; doing well so far and lungs sound surprisingly clear - stable for transfer to medical. -likely will need O2 at home for a time - as she gets closer to dc then anticipate ordering 2step (4) Influenza B: Influenza B positive on 05/11 - now finished 5 day course Tamiflu. Appears to have been a major culprit in her illness (5) Pneumonia: MSSA PNA. Continue ceftriaxone as above for bacteremia; consider switching to nafcillin if this can be set up at home. Legionella negative. Mycoplasma IgG +ve but IgM neg. Bronchoscopy on 05/10, 05/13 Otherwise as above (6) Serotonin withdrawal syndrome: Suspected this contributed towards initial re-intubation given agitation and anxiety being high. Back on paroxetine, appears to be doing well. (7) Chronic prescription benzodiazepine use: Possible withdrawal with agitation after first extubation. Xanax PRN orderedfollow. Right now anxiety seems to be doing well. (8) CAD (coronary artery disease): Extensive cardiac history (information from last Dr. Richards clinic note): Inf/lateral [place] 2001, PTCA and stent of RCA. Unstable angina 02/2002; [[place]] Single vessel bypass AWAD to LAD. Unstable angina 06/2002; [[place]] Stent of AWAD anastomotic site. Unstable angina 07/2002; [[place]] atretic AWAD graft, angioplasty without stent to LAD stenosis. Subsequent In-stent LAD restenosis Rx laser arthrectomy and brachytherapy NSTEMI 2013 with mid LAD stent stenoses, re-stented. Lexiscan 12/2016 - no evidence of induced ischemia - ASA + Eliquis (will discontinue clopidogrel while on Eliquis). Will need Eliquis for at least 4 weeks following atrial fibrillation then will follow up with cardiology to determine ongoing therapy. Given that her coronary disease appears to be chronic and stable for almost a decade, newer data would suggest that it also could be possible to stop the aspirin and have her on Eliquis alone. - Atorvastatin PO -Continue Imdur, titrate as needed (9) Dyslipidemia: Holding home gemfibrozil Continue Atorvastatin and Zetia (10) Cardiomyopathy, ischemic: As noted in echo above with stable wall motion abnormalities, EF 45% Continue metoprolol succinate. (11) Fever: Now apyrexial since 05/17 - suspected prolonged just due to severity of PNA (12) Encephalopathy: Now resolved Secondary to benzo/serotonin withdrawal (see above) CT of the head negative on 05/11 MRI/MRA brain/Head negative 05/12 (13) Chronic obstructive pulmonary disease: Unclear diagnosis as [facility] No CO2 reten tion. Albuterol only prescribed as outpatient. Chronic smoking history. Completed prednisone burst 40mg daily x 4 days initially. No wheeze now, continue to follow closely, outpatient pulmonary follow-up (14) Vocal cord edema: Resolving after Decadron given, finished [05/20] (15) DKA (diabetic ketoacidoses): Now resolved. pH 7.31 on admission. Combination of lactic and ketoacidosis, now resolved. HgbA1c 13.2% from previous of 8.1% last year. Continue to titrate insulins (16) Type 2 diabetes mellitus: As above for DKA management, continue to titrate insulins per pharmacy consult Holding home metformin and glimepiride Appreciate pharmacy management with basal bolus regimen Unclear what outpatient regimen she'll require at this stage (17) Rapid atrial fibrillation: Now resolved in NSR Present on admission with HR 179 in atrial fibrillation. DC cardioverted in the ICU x 2. Echocardiogram with mildly reduced EF at 45-50%, mild LVH, positive wall motion abnormalities which are stable from previous with hypokinesis in the inferior wall from base to the mid ventricle Secondary to acute illness therefore unclear need for chronic anticoagulation (probably will) at present but will need for at least 4 weeks following this episode; follow up with cardiology as outpatient to determine full course (although anticipate managing this as a chronic state, ojhn given her CHADS- Vasc). (18) Elevated lactic acid level: resolved, related to sepsis (19) Acid reflux: Continue pantoprazole 40mg PO daily, (on omeprazole as outpatient) (20) Oropharyngeal dysphagia: Video swallow reassuring (21) Stenosis of right carotid artery: With known moderate stenosis Follow as an outpatient On antiplatelets and statin as an outpatient (22) DVT prophylaxis: Apixaban 5mg PO BID Continue PT/OT will likely need acute rehab on discharge (23) Discharge planning issues: Ongoing PT/OT input. stable for transfer to medical now working on goal (realistic) of home -will need home nursing, outpt PT, IV abx, likely O2, close f/u. possibly home in ?48hrs if ongoing progress? Admission and Anticipated Discharge Date Admission Date: May 09, 2019 Subjective feeling better wants to go home instead of rehab - not ready yet but notes that as she gets better that is what she would prefer to do - family will be able to be home with her at least a few days and notes that she has everything already set up with grab bars etc "we did that a few years ago because we knew we were getting old" breathing better swallowing better walking around in room with walker reasonably well Review of Systems Review of Systems: All systems reviewed & are unremarkable except as noted in HPI & below Physical Exam Physical Exam: gen aao pleasant nad heent nc at mmm lungs cta b/l no rrw good effort skin no rashes no pallor or icterus neuro cn 2-12 grossly intact gross motor/sensory intact, gait slow but steady w walker, able to transfer out of bed, stand, and navigate the room with the walker by herself. Results & Data ([facility]) Vital Signs (Past 12 Hours) Vital Signs Temp Pulse Resp BP Pulse Ox 05/24/19 15:20 97.5 F L 51 L 17 133/66 97 05/24/19 12:13 97.7 F 55 L 22 116/41 L 98 05/24/19 07:30 97.7 F 51 L 16 139/55 L 93 PG Care Time/CCT Total # of Minutes Spent Total Time Spent with Patient: Total time spent is greater than 50% in coordination of care (as documented) at patient's floor/unit and/or counseling patient: Coding Level of Care Code 44733 Subseq Hosp Care Lvl 3 Diagnoses Sepsis A41.01; R65.20; J96.01 Sepsis type: methicillin susceptible Staphylococcus aureus Sepsis acute organ dysfunction status: with acute organ dysfunction Severe sepsis acute organ dysfunction type: acute respiratory failure Acute respiratory failure type: with hypoxia Severe sepsis shock status: without septic shock Bacteremia due to methicillin susceptible Staphylococcus aureus (MSSA) R78.81; B95.61 Acute respiratory failure with hypoxia J96.01 Influenza B J10.1 Pneumonia J18.9 Laterality: right Lung location: lower lobe of lung Pneumonia type: due to unspecified organism Serotonin withdrawal syndrome T43.205A Encounter type: initial encounter Chronic prescription benzodiazepine use Z79.899 CAD (coronary artery disease) I25.10 Coronary Disease-Associated Artery/Lesion type: [place] artery [place] vs. 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 insulin use: without half-way use Diabetes mellitus complication status: with circulatory complication Diabetes mellitus complication detail: with peripheral angiopathy without gangrene Rapid atrial fibrillation I48.91 Elevated lactic acid level R79.89 Acid reflux K21.9 Esophagitis presence: esophagitis presence not specified Oropharyngeal dysphagia R13.12 Stenosis of right carotid artery I65.21 DVT prophylaxis Z29.9 Discharge planning issues Z02.9 (1) Sepsis Sepsis type: methicillin susceptible Staphylococcus aureus Sepsis acute organ dysfunction status: with acute organ dysfunction Severe sepsis acute organ dysfunction type: acute respiratory failure Acute respiratory failure type: with hypoxia Severe sepsis shock status: without septic shock Qualified Code(s): A41.01 - Sepsis due to Methicillin susceptible Staphylococcus aureus; R65.20 - Severe sepsis without septic shock; J96.01 - Acute respiratory failure with hypoxia (2) Pneumonia Laterality: right Lung location: lower lobe of lung Pneumonia type: due to unspecified organism Qualified Code(s): J18.9 - Pneumonia, unspecified organism (3) Serotonin withdrawal syndrome Encounter type: initial encounter Qualified Code(s): T43.205A - Adverse effect of unspecified antidepressants, initial encounter (4) CAD (coronary artery disease) Coronary Disease-Associated Artery/Lesion type: [place] artery [place] vs. transplanted heart: [place] heart Associated angina: without angina Qualified Code(s): I25.10 - Atherosclerotic heart disease of [place] coronary artery without angina pectoris (5) Fever Fever type: unspecified Qualified Code(s): R50.9 - Fever, unspecified (6) Chronic obstructive pulmonary disease COPD type: unspecified COPD Qualified Code(s): J44.9 - Chronic obstructive pulmonary disease, unspecified (7) DKA (diabetic ketoacidoses) Diabetes mellitus type: type 2 Diabetes mellitus complication detail: without coma Qualified Code(s): E11.10 - Type 2 diabetes mellitus with ketoacidosis without coma (8) Type 2 diabetes mellitus Diabetes mellitus half-way insulin use: without watermelon harvesting supervisor use Diabetes mellitus complication status: with circulatory complication Diabetes mellitus complication detail: with peripheral angiopathy without gangrene Qualified Code(s): E11.51 - Type 2 diabetes mellitus with diabetic peripheral angiopathy without gangrene (9) Acid reflux Esophagitis presence: esophagitis presence not specified Qualified Code(s): K21.9 - Gastro-esophageal reflux disease without esophagitis
[2019-05-24] MEDS: ATORVASTATIN 40 MG TAB PO SCH (20:24)
[2019-05-24] MEDS: EZETIMIBE 10 MG TABLET PO SCH (20:24)
[2019-05-24] MEDS: MAGNESIUM OXIDE 400 MG TAB PO SCH (20:25)
[2019-05-25] MEDS: PARoxetine HCL 20 MG TAB PO SCH (08:26)
[2019-05-25] MEDS: METOPROLOL SUCC 50MG EXT REL TAB PO SCH (08:26)
[2019-05-25] MEDS: PANTOprazole 40 MG TAB PO SCH (08:26)
[2019-05-25] MEDS: APIXABAN 5 MG TABLET PO SCH ×2 (08:26→20:12)
[2019-05-25] MEDS: INSULIN GLARGINE SOLOSTAR 100 UNITS/ML 3 ML PEN SC SCH ×2 (08:26→20:13)
[2019-05-25] MEDS: ISOSORBIDE MONO EXTENDED REL 30 MG TABCR PO SCH (08:27)
[2019-05-25] MEDS: ASPIRIN 81 MG ECTAB PO SCH (08:27)
[2019-05-25] MEDS: INSULIN ASPART 100 UNITS/ML 3 ML PEN SC SCH ×4 (08:32→20:13)
--- NOTE | 2019-05-25 14:18 | Pharmacy Report ---
Pharmacy Glycemic Short Note 2 - Date of Service May 25, 2019 - Glycemic Short BSG Results (Last 24 hours): 05/24/19 05/24/19 05/25/19 16:55 20:09 08:01 POC Glucose 154 H 182 H 151 H 05/25/19 11:54 POC Glucose 135 H ASSESSMENT: 05/24: * Patient received total of 16 units of insulin yesterday, of which 10 were basal insulin * Fasting BSG 151 mg/dL - will continue same basal insulin for now * BSGs trending up yesterday as diet increasing - will tighten CR * As diet improves/advances may need to titrate insulin up further PLAN: * Basal insulin: Lantus 5 units every 12 hours * Correctional Insulin: Novolog Correction per scale ACHS Goal Range: Low 120 mg/dL - High 160 mg/dL Correction Factor: 40 mg/dL/unit * Prandial insulin: Per carb ratio of 1 unit per 10 grams CHO consumed
[2019-05-25] MEDS: cefTRIAXone SODIUM 2,000 MG in DEXTROSE 5% 50 ML IV SCH (16:11)
--- NOTE | 2019-05-25 18:09 | Hospitalist Progress Note ---
Date of Service May 25, 2019 Assessment & Plan (1) Sepsis: Now resolved. Sepsis secondary to MSSA pneumonia and influenza B (see Rx below) Improving (2) Bacteremia due to methicillin susceptible Staphylococcus aureus (MSSA): Blood cultures cleared within 72 hours of admission. Continue ceftriaxone, tolerating well - and with going home this will likely allow for easier administration at discharge. initial plans were for 28 days since blood cultures cleared, which would run ceftriaxone through last dose on 06/11. Initial Rx with Zosyn + vanc [05/09] -> ceftriaxone [05/12] Blood cultures after defervescence negative after 48 hoursworking on long-term antibiotic plan as above; has US guided peripheral - these last for about 28 days. Should be enough to complete antibiotics. (3) Acute respiratory failure with hypoxia: Now resolved on room air. Secondary to PNA and influenza. Intubated [05/09], Extubated [], re-intubated overnight [05/14] due to hypoxia following tachyarrhythmia and high amounts of agitation (off of paxil/benzodiazepines at that time) Extubated/intubated [05/17] stridor and wheezing prior to needing re-intubation suspected due to vocal cord edema +/- laryngeal spasm. Extubated [05/20]; doing well so far and lungs sound surprisingly clear - stable for transfer to medical. -likely will need O2 at home for a time - as she gets closer to dc then anticipate ordering 2step (4) Influenza B: Influenza B positive on 05/11 - now finished 5 day course Tamiflu. Appears to have been a major culprit in her illness (5) Pneumonia: MSSA PNA. Continue ceftriaxone as above for bacteremia; consider switching to nafcillin if this can be set up at home. Legionella negative. Mycoplasma IgG +ve but IgM neg. Bronchoscopy on 05/10, 05/13 Otherwise as above (6) Serotonin withdrawal syndrome: Suspected this contributed towards initial re-intubation given agitation and anxiety being high. Back on paroxetine, appears to be doing well. (7) Chronic prescription benzodiazepine use: Possible withdrawal with agitation after first extubation. Xanax PRN orderedfollow. Right now anxiety seems to be doing well. (8) CAD (coronary artery disease): Extensive cardiac history (information from last Dr. Richards clinic note): Inf/lateral VT 2001, PTCA and stent of RCA. Unstable angina 02/2002; [[facility]] Single vessel bypass AWAD to LAD. Unstable angina 06/2002; [[facility]] Stent of AWAD anastomotic site. Unstable angina 07/2002; [[facility]] atretic AWAD graft, angioplasty without stent to LAD stenosis. Subsequent In-stent LAD restenosis Rx laser arthrectomy and brachytherapy NSTEMI 2013 with mid LAD stent stenoses, re-stented. Lexiscan 12/2016 - no evidence of induced ischemia - ASA + Eliquis (will discontinue clopidogrel while on Eliquis). Will need Eliquis for at least 4 weeks following atrial fibrillation then will follow up with cardiology to determine ongoing therapy. Given that her coronary disease appears to be chronic and stable for almost a decade, newer data would suggest that it also could be possible to stop the aspirin and have her on Eliquis alone. - Atorvastatin PO -Continue Imdur, titrate as needed (9) Dyslipidemia: Holding home gemfibrozil Continue Atorvastatin and Zetia (10) Cardiomyopathy, ischemic: As noted in echo above with stable wall motion abnormalities, EF 45% Continue metoprolol succinate. (11) Fever: Now apyrexial since 05/17 - suspected prolonged just due to severity of PNA (12) Encephalopathy: Now resolved Secondary to benzo/serotonin withdrawal (see above) CT of the head negative on 05/11 MRI/MRA brain/Head negative 05/12 (13) Chronic obstructive pulmonary disease: Unclear diagnosis as no prior P[facility]. No CO2 retention. Albuterol only prescribed as outpatient. Chronic smoking history. Completed prednisone burst 40mg daily x 4 days initially. No wheeze now, continue to follow closely, outpatient pulmonary follow-up (14) Vocal cord edema: Resolving after Decadron given, finished [05/20] (15) DKA (diabetic ketoacidoses): Now resolved. pH 7.31 on admission. Combination of lactic and ketoacidosis, now resolved. HgbA1c 13.2% from previous of 8.1% last year. Continue to titrate insulins (16) Type 2 diabetes mellitus: As above for DKA management, continue to titrate insulins per pharmacy consult Holding home metformin and glimepiride Appreciate pharmacy management with basal bolus regimen Unclear what outpatient regimen she'll require at this stage (17) Rapid atrial fibrillation: Now resolved in NSR Present on admission with HR 179 in atrial fibrillation. DC cardioverted in the ICU x 2. Echocardiogram with mildly reduced EF at 45-50%, mild LVH, positive wall motion abnormalities which are stable from previous with hypokinesis in the inferior wall from base to the mid ventricle Secondary to acute illness therefore unclear need for chronic anticoagulation (probably will) at present but will need for at least 4 weeks following this episode; follow up with cardiology as outpatient to determine full course (although anticipate managing this as a chronic state, john given her CHADS- Vasc). (18) Elevated lactic acid level: resolved, related to sepsis (19) Acid reflux: Continue pantoprazole 40mg PO daily, (on omeprazole as outpatient) (20) Oropharyngeal dysphagia: Video swallow reassuring (21) Stenosis of right carotid artery: With known moderate stenosis Follow as an outpatient On antiplatelets and statin as an outpatient (22) DVT prophylaxis: Apixaban 5mg PO BID (23) Discharge planning issues: Ongoing PT/OT input. stable for transfer to medical now working on goal (realistic) of home Likely discharged on 05/25 Admission and Anticipated Discharge Date Admission Date: May 09, 2019 Subjective 68 yo female reports doing better. She states she is breathing better. She reports now tolerating room air. She denies any fever, chills, nausea, vomiting. Review of Systems Review of Systems: All systems reviewed & are unremarkable except as noted in HPI & below Physical Exam Physical Exam: Constitutional: well developed + not well nourished and no acute distress Eyes: + anicteric sclerae; normal pupil size ENMT: external ear and nose normal, oropharynx normal Neck: trachea midline Respiratory: normal respiratory effort Auscultation: + improved breath sounds.; no rhonchi Cardiovascular: Rate/Rhythm: regular rate and regular rhythm Heart Sounds: no murmur Extremities: normal capillary refill and + pedal edema (trace b/l) Gastrointestinal (Abdomen): Inspection/Auscultation: normal bowel sounds Percussion/Palpation: abdomen soft; abdomen nontender and abdomen not rigid Skin: no rashes, warm and dry (no cellulitis) Neurologic: moves all extremities and awake; not confused Psychiatric: A+Ox3, euthymic affect Results & Data ([facility]) Vital Signs (Past 12 Hours) Vital Signs Temp Pulse Pulse Resp BP Pulse Ox 05/25/19 15:15 36.5 C 62 18 124/69 95 05/25/19 08:30 63 05/25/19 07:26 36.7 C 51 L 18 119/48 L 96 PG Care Time/CCT Total # of Minutes Spent Total Time Spent with Patient: Total time spent is greater than 50% in coordination of care (as documented) at patient's floor/unit and/or counseling patient: Coding Level of Care Code 81855 Subseq Hosp Care Lvl 3 Diagnoses Sepsis A41.01; R65.20; J96.01 Sepsis type: methicillin susceptible Staphylococcus aureus Sepsis acute organ dysfunction status: with acute organ dysfunction Severe sepsis acute organ dysfunction type: acute respiratory failure Acute respiratory failure type: with hypoxia Severe sepsis shock status: without septic shock Bacteremia due to methicillin susceptible Staphylococcus aureus (MSSA) R78.81; B95.61 Acute respiratory failure with hypoxia J96.01 Influenza B J10.1 Pneumonia J18.9 Laterality: right Lung location: lower lobe of lung Pneumonia type: due to unspecified organism Serotonin withdrawal syndrome T43.205A Encounter type: initial encounter Chronic prescription benzodiazepine use Z79.899 CAD (coronary artery disease) I25.10 Coronary Disease-Associated Artery/Lesion type: [place] artery [place] vs. transplanted heart: [place] heart Associated angina: without angina Dyslipidemia E78.5 Cardiomyopathy, ischemic I25.5 Fever R50.9 Fever type: unspecified Encephalopathy G93.40 Chronic obstructive pulmonary disease J44.9 COPD type: unspecified COPD Vocal cord edema J38.4 DKA (diabetic ketoacidoses) E11.10 Diabetes mellitus type: type 2 Diabetes mellitus complication detail: without coma Type 2 diabetes mellitus E11.51 Diabetes mellitus tank terminal gauger insulin use: without tank terminal gauger use Diabetes mellitus complication status: with circulatory complication Diabetes mellitus complication detail: with peripheral angiopathy without gangrene Rapid atrial fibrillation I48.91 Elevated lactic acid level R79.89 Acid reflux K21.9 Esophagitis presence: esophagitis presence not specified Oropharyngeal dysphagia R13.12 Stenosis of right carotid artery I65.21 DVT prophylaxis Z29.9 Discharge planning issues Z02.9 Time Spent (min) 35 (1) Sepsis Sepsis type: methicillin susceptible Staphylococcus aureus Sepsis acute organ dysfunction status: with acute organ dysfunction Severe sepsis acute organ dysfunction type: acute respiratory failure Acute respiratory failure type: with hypoxia Severe sepsis shock status: without septic shock Qualified Co de(s): A41.01 - Sepsis due to Methicillin susceptible Staphylococcus aureus; R65.20 - Severe sepsis without septic shock; J96.01 - Acute respiratory failure with hypoxia (2) Pneumonia Laterality: right Lung location: lower lobe of lung Pneumonia type: due to unspecified organism Qualified Code(s): J18.9 - Pneumonia, unspecified organism (3) Serotonin withdrawal syndrome Encounter type: initial encounter Qualified Code(s): T43.205A - Adverse effect of unspecified antidepressants, initial encounter (4) CAD (coronary artery disease) Coronary Disease-Associated Artery/Lesion type: [place] artery [place] vs. transplanted heart: [place] heart Associated angina: without angina Qualified Code(s): I25.10 - Atherosclerotic heart disease of [place] coronary artery without angina pectoris (5) Fever Fever type: unspecified Qualified Code(s): R50.9 - Fever, unspecified (6) Chronic obstructive pulmonary disease COPD type: unspecified COPD Qualified Code(s): J44.9 - Chronic obstructive pulmonary disease, unspecified (7) DKA (diabetic ketoacidoses) Diabetes mellitus type: type 2 Diabetes mellitus complication detail: without coma Qualified Code(s): E11.10 - Type 2 diabetes mellitus with ketoacidosis without coma (8) Type 2 diabetes mellitus Diabetes mellitus custodial insulin use: without custodial use Diabetes mellitus complication status: with circulatory complication Diabetes mellitus complication detail: with peripheral angiopathy without gangrene Qualified Code(s): E11.51 - Type 2 diabetes mellitus with diabetic peripheral angiopathy without gangrene (9) Acid reflux Esophagitis presence: esophagitis presence not specified Qualified Code(s): K21.9 - Gastro-esophageal reflux disease without esophagitis
[2019-05-25] MEDS: EZETIMIBE 10 MG TABLET PO SCH (20:12)
[2019-05-25] MEDS: ATORVASTATIN 40 MG TAB PO SCH (20:12)
[2019-05-25] MEDS: MAGNESIUM OXIDE 400 MG TAB PO SCH (20:13)
[2019-05-26 05:57] LABS: Hemoglobin 10.4 g/dL (12.0-16.0); Mean Corpuscular Hemoglobin 30.3 pg (25-34); Mean Corpuscular Hgb Conc 33.5 g/dL (32-36); Mean Corpuscular Volume 90.4 fL (80-100); Platelet Count 307 K/uL (130-400); RDW Coefficient of Variation 15.4 % (11.5-14.5); RDW Standard Deviation 48.5 fL (36.4-46.3); Red Blood Count 3.43 M/uL (4.2-5.4); White Blood Count 7.42 K/uL (4.8-10.8)
[2019-05-26 06:30] LABS: BUN Creatinine Ratio 28.5 (10-20); Calcium 8.9 mg/dl (8.5-10.1); Creatinine Clr Calc Pharmacy 76.9 ml/min; Est GFR (African American) 115.3; Est GFR (Non-African American) 99.5; Potassium 3.4 mmol/L (3.5-5.1)
[2019-05-26] MEDS: ASPIRIN 81 MG ECTAB PO SCH (08:16)
[2019-05-26] MEDS: METOPROLOL SUCC 50MG EXT REL TAB PO SCH (08:18)
[2019-05-26] MEDS: PARoxetine HCL 20 MG TAB PO SCH (08:18)
[2019-05-26] MEDS: PANTOprazole 40 MG TAB PO SCH (08:19)
[2019-05-26] MEDS: ISOSORBIDE MONO EXTENDED REL 30 MG TABCR PO SCH (08:19)
[2019-05-26] MEDS: APIXABAN 5 MG TABLET PO SCH (08:19)
[2019-05-26] MEDS ORDERED: INSULIN GLARGINE SOLOSTAR 100 UNITS/ML 3 ML PEN SC SCH (09:00)
[2019-05-26] MEDS: INSULIN ASPART 100 UNITS/ML 3 ML PEN SC SCH ×2 (09:28→13:20)
--- NOTE | 2019-05-26 10:24 | Pharmacy Report ---
Pharmacy Glycemic Short Note 2 - Date of Service May 26, 2019 - Glycemic Short BSG Results (Last 24 hours): 05/25/19 05/25/19 05/25/19 11:54 16:43 20:08 Glucose POC Glucose 135 H 160 H 170 H 05/26/19 05/26/19 05:24 07:50 Glucose 163 H POC Glucose 160 H ASSESSMENT: 05/25: * Nilsa received 21 units of SQ insulin yesterday * 10 units of basal * 11 units of bolus * BSGs ranged from 135 - 170 mg/dL * Fasting BSG of 160 mg/dL is slightly above goal. I will increase Lantus by 20%. * Post prandial BSGs are acceptable. No change to Novolog at this time. 05/24: * Patient received total of 16 units of insulin yesterday, of which 10 were basal insulin * Fasting BSG 151 mg/dL - will continue same basal insulin for now * BSGs trending up yesterday as diet increasing - will tighten CR * As diet improves/advances may need to titrate insulin up further PLAN: * Basal insulin: Lantus 6 units every 12 hours * Correctional Insulin: Novolog Correction per scale ACHS Goal Range: Low 120 mg/dL - High 160 mg/dL Correction Factor: 40 mg/dL/unit * Prandial insulin: Per carb ratio of 1 unit per 10 grams CHO consumed
[2019-05-26] MEDS ORDERED: Nursing to Pharmacy Communication ONE (11:27)
[2019-05-26] MEDS: cefTRIAXone SODIUM 2,000 MG in DEXTROSE 5% 50 ML IV SCH (13:51)
[2019-05-26] MEDS ORDERED: INSULIN GLARGINE SOLOSTAR 100 UNITS/ML 3 ML PEN SC ONE (14:30)
[2019-05-27] MEDS ORDERED: INSULIN GLARGINE SOLOSTAR 100 UNITS/ML 3 ML PEN SC SCH (09:00)
--- NOTE | 2019-05-31 16:10 | Discharge Summary ---
Date of Service May 26, 2019 Admission HPI Per Admitting Provider This is a 68-year-old female with past medical history of coronary artery disease, type 2 diabetes, triglyceridemia, cardiomyopathy presents today with acute shortness of breath. Patient is an extremely poor historian. Granddaughter is at bedside is able to fill in some of the blanks. Patient apparently lives in a split-level house with some other people. Patient states that they take care of her but is unclear what that consists of. Granddaughter found that the patient had stopped her medication sometime ago. There may have been 1 or 2 events with the patient had lost consciousness and explained a seizure-like activity although the history on this is unclear. Patient herself presented to the emergency room after she woke up with significant shortness of breath earlier this morning at time of presentation to the emergency room, her blood pressure was elevated along with her heart rate into the 170s. She was given some Lopressor. She is respiratory distress with significant tachypnea. She was on oxygen as with sats in the low 90s. When I arrived, patient was at 87-88% on oxygen mask. She was more tachypneic and was complaining of anxiety. BiPAP was ordered at 10/5 at 70% FiO2. Repeat sats are at 95%. Patient seems to be more calm and comfortable with this. At this time, patient will be admitted to the ICU for further treatment of rapid atrial fibrillation along with possible diabetic ketoacidosis. Principal Diagnosis bacteremia with mssa Discharge Exam Constitutional: well developed + not well nourished and no acute distress Eyes: + anicteric sclerae; normal pupil size ENMT: external ear and nose normal, oropharynx normal Neck: trachea midline Respiratory: normal respiratory effort Auscultation: + improved breath sounds.; no rhonchi Cardiovascular: Rate/Rhythm: regular rate and regular rhythm Heart Sounds: no murmur Extremities: normal capillary refill and + pedal edema (trace b/l) Gastrointestinal (Abdomen): Inspection/Auscultation: normal bowel sounds Percussion/Palpation: abdomen soft; abdomen nontender and abdomen not rigid Skin: no rashes, warm and dry (no cellulitis) Neurologic: moves all extremities and awake; not confused Psychiatric: A+Ox3, euthymic affect Discharge Data Allergies Allergy/AdvReac Type Severity Reaction Status Date / Time GEORGE Inhibitors Allergy Mild COUGH TO Verified 05/31/19 11:11 LISINOPRIL losartan Allergy Unknown URTICARIA Verified 05/31/19 11:11 Consultations 05/09/19 15:11 Consult Case Management - Discharge Planning Routine Consult Clinical Assessment Manager Routine 05/19/19 10:11 Consult Palliative Care Routine 05/22/19 16:03 [facility] COPD/Pnx Program Referral Routine Ordered Studies 05/09/19 11:28 CT head/brain wo con Stat 05/09/19 16:03 US point of care ultrasound Routine 05/09/19 17:14 US point of care ultrasound Routine 05/09/19 17:23 US venous doppler LE BI Routine 05/10/19 03:46 CT angio chest PE protocol Urgent 05/11/19 17:13 CT head/brain wo con Routine 05/12/19 10:16 MR angio head wo con Routine MR angio neck wo/w con Routine MR brain wo/w con Routine 05/15/19 04:27 CT angio chest PE protocol Urgent 05/17/19 10:09 US point of care ultrasound Urgent 05/23/19 10:40 FL video swallow Routine Hospital Course (1) Sepsis: Now resolved. Sepsis secondary to MSSA pneumonia and influenza B (see Rx below) (2) Bacteremia due to methicillin susceptible Staphylococcus aureus (MSSA): Blood cultures cleared within 72 hours of admission. Continue ceftriaxone, tolerating well - and with going home this will likely allow for easier administration at discharge. initial plans were for 28 days since blood cultures cleared, which would run ceftriaxone through last dose on 06/11. Initial Rx with Zosyn + vanc [05/09] -> ceftriaxone [05/12] Blood cultures after defervescence negative after 48 hoursworking on long-term antibiotic plan as above; has US guided peripheral - these last for about 28 days. Should be enough to complete antibiotics. (3) Acute respiratory failure with hypoxia: Now resolved on room air. Secondary to PNA and influenza. Intubated [05/09], Extubated [], re-intubated overnight [05/14] due to hypoxia following tachyarrhythmia and high amounts of agitation (off of paxil/benzodiazepines at that time) Extubated/intubated [3] stridor and wheezing prior to needing re-intubation suspected due to vocal cord edema +/- laryngeal spasm. Extubated [05/20]; doing well so far and lungs sound surprisingly clear - stable for transfer to medical. (4) Influenza B: Influenza B positive on 05/11 - now finished 5 day course Tamiflu. Appears to have been a major culprit in her illness (5) Pneumonia: MSSA PNA. Continue ceftriaxone as above for bacteremia; consider switching to nafcillin if this can be set up at home. Legionella negative. Mycoplasma IgG +ve but IgM neg. Bronchoscopy on 05/10, 05/13 Otherwise as above (6) Serotonin withdrawal syndrome: Suspected this contributed towards initial re-intubation given agitation and anxiety being high. Back on paroxetine, appears to be doing well. (7) Chronic prescription benzodiazepine use: Possible withdrawal with agitation after first extubation. Xanax PRN orderedfollow. Right now anxiety seems to be doing well. (8) CAD (coronary artery disease): Extensive cardiac history (information from last Dr. Richards clinic note): Inf/lateral ME 2001, PTCA and stent of RCA. Unstable angina 02/2002; [[place]] Single vessel bypass AWAD to LAD. Unstable angina 06/2002; [[place]] Stent of AWAD anastomotic site. Unstable angina 07/2002; [[facility]] atretic AWAD graft, angioplasty without stent to LAD stenosis. Subsequent In-stent LAD restenosis Rx laser arthrectomy and brachytherapy NSTEMI 2013 with mid LAD stent stenoses, re-stented. Lexiscan 12/2016 - no evidence of induced ischemia - ASA + Eliquis (will discontinue clopidogrel while on Eliquis). Will need Eliquis for at least 4 weeks following atrial fibrillation then will follow up with cardiology to determine ongoing therapy. Given that her coronary disease appears to be chronic and stable for almost a decade, newer data would suggest that it also could be possible to stop the aspirin and have her on Eliquis alone. - Atorvastatin PO -Continue Imdur, titrate as needed (9) Dyslipidemia: Holding home gemfibrozil Continue Atorvastatin and Zetia (10) Cardiomyopathy, ischemic: As noted in echo above with stable wall motion abnormalities, EF 45% Continue metoprolol succinate. (11) Fever: Now apyrexial since 05/17 - suspected prolonged just due to severity of PNA (12) Encephalopathy: Now resolved Secondary to benzo/serotonin withdrawal (see above) CT of the head negative on 05/11 MRI/MRA brain/Head negative 05/12 (13) Chronic obstructive pulmonary disease: Unclear diagnosis as [facility]. No CO2 retention. Albuterol only prescribed as outpatient. Chronic smoking history. Completed prednisone burst 40mg daily x 4 days initially. No wheeze now, continue to follow closely, outpatient pulmonary follow-up (14) Vocal cord edema: Resolving after Decadron given, finished [05/20] (15) DKA (diabetic ketoacidoses): Now resolved. pH 7.31 on admission. Combination of lactic and ketoacidosis, now resolved. HgbA1c 13.2% from previous of 8.1% last year. Continue to titrate insulins (16) Type 2 diabetes mellitus: As above for DKA management, continue to titrate insulins per pharmacy con sult Holding home metformin and glimepiride Appreciate pharmacy management with basal bolus regimen Unclear what outpatient regimen she'll require at this stage (17) Rapid atrial fibrillation: Now resolved in NSR Present on admission with HR 179 in atrial fibrillation. DC cardioverted in the ICU x 2. Echocardiogram with mildly reduced EF at 45-50%, mild LVH, positive wall motion abnormalities which are stable from previous with hypokinesis in the inferior wall from base to the mid ventricle Secondary to acute illness therefore unclear need for chronic anticoagulation (probably will) at present but will need for at least 4 weeks following this episode; follow up with cardiology as outpatient to determine full course (although anticipate managing this as a chronic state, john given her CHADS- Vasc). (18) Elevated lactic acid level: resolved, related to sepsis (19) Acid reflux: Continue pantoprazole 40mg PO daily, (on omeprazole as outpatient) (20) Oropharyngeal dysphagia: Video swallow reassuring (21) Stenosis of right carotid artery: With known moderate stenosis Follow as an outpatient On antiplatelets and statin as an outpatient (22) DVT prophylaxis: Apixaban 5mg PO BID (23) Discharge planning issues: Ongoing PT/OT input. ok for discharge Total Time Total Time Spent Total Time Spent (In Minutes): 35 Total Time Includes: Examination of the Patient, Discharge Planning and Medication Reconciliation Discharge Plan Discharge Items Patient Disposition: Home - Home Health Services Reason For Visit: DKA,SEPSIS,RAPID AF Discharge Diagnosis: sepsis Activity: Resume your previous activity Non-emergency contact: Primary Care Provider Call non-emergency contact if: you have any medication questions Follow-up/Referrals: Roscoe Cano MD [Primary Care Provider] - 06/02/19 10:30 am (Your hospital follow up appointment is scheduled with Barbi on 06/02/19 at 10:30am) Dwaine Galvez MD [Physician] - 05/31/19 11:15 am (Please, follow up at [facility] Pulmonology Office with Dr. Galvez on ThursdayMay 30 at 11:15 am. *The office is located in [address] of [facility] [place], next to this hospital. If you need to change this appointment, call the office at [phone].) Diet: Carb Consistent or DM2 Diet Texture: Easy to Chew Addtl Attending Provider Instructions: You have been hospitalized for an acute medical problem. During your stay at [facility], we have made an effort to correct the problem that brought you to the hospital while keeping you as comfortable as possible. Medications were used to bring your condition under control and your discharge instructions will include directions for any medications you should take after leaving the hospital. Please make sure you see your Primary Care Provider as part of your follow up plan. Will be discharged on antibiotics for 17 more doses. Pending Studies at Discharge: No Stand-Alone Forms: My [facility], Smoking Cessation Medications and DC Order Prescriptions: New Eliquis 5 mg Tablet 5 mg PO BID Qty: 60 RF: 0 metoprolol succinate 50 mg Tablet Extended Release 24 Hr 100 mg PO QAM Qty: 30 RF: 0 isosorbide mononitrate 30 mg Tablet Extended Release 24 Hr 30 mg PO QAM Qty: 30 RF: 0 Lantus Solostar U-100 Insulin 100 unit/mL (3 mL) Insulin Pen 12 units SC DAILY Qty: 15 RF: 0 (DME) blood-glucose meter [OneTouch Ultra2 Meter] [facility] See Rx Instructions .ROUTE .MEDSUPPLY Qty: 1 RF: 0 (DME) pen needle, diabetic [Pen Needle] 31 gauge x 5/16" needle See Rx Instructions .ROUTE .MEDSUPPLY Qty: 1,200 RF: 0 (DME) pen needle, diabetic [Pen Needle] 31 gauge x 5/16" needle See Rx Instructions .ROUTE .MEDSUPPLY Qty: 100 RF: 0 Continued omeprazole 20 mg capsule,delayed release(DR/EC) 20 mg PO BID PRN (Reason: acid reflux) Qty: 90 RF: 0 atorvastatin 80 mg tablet 80 mg PO QPM Qty: 90 RF: 1 potassium chloride 20 mEq tablet,ER particles/crystals See Rx Instructions .ROUTE .COMPLEX Qty: 270 RF: 4 furosemide 40 mg tablet 60 mg PO DAILY Qty: 135 RF: 3 metformin 500 mg tablet 500 mg PO BID Qty: 180 RF: 3 ezetimibe 10 mg tablet 10 mg PO HS Qty: 90 RF: 0 loratadine 10 mg tablet 10 mg PO DAILY Qty: 90 RF: 0 nitroglycerin 0.4 mg tablet, sublingual 0.4 mg SL UD Qty: 25 RF: 0 (DME) lancets [OneTouch Delica Lancets] 33 gauge misc See Dose Instructions .ROUTE .MEDSUPPLY Qty: 100 RF: 0 (DME) OneTouch Ultra Blue Test Strip strip See Dose Instructions .ROUTE .MEDSUPPLY Qty: 10 RF: 0 aspirin [Aspir-81] 81 mg Tablet,Delayed Release (Dr/Ec) 81 mg PO DAILY RF: 0 Changed paroxetine HCl 30 mg tablet 30 mg PO DAILY Qty: 180 RF: 4 Discontinued gemfibrozil 600 mg tablet 600 mg PO BID Qty: 180 RF: 3 glimepiride 1 mg tablet 1 mg PO BID Qty: 180 RF: 3 amlodipine 5 mg tablet 5 mg PO BID Qty: 180 RF: 3 isosorbide mononitrate 120 mg tablet extended release 24 hr 120 mg PO DAILY Qty: 180 RF: 3 clopidogrel 75 mg tablet 75 mg PO DAILY RF: 0 metoprolol tartrate 50 mg tablet 50 mg PO BID Qty: 270 RF: 0 No Action alprazolam 0.25 mg tablet 0.25 mg PO TID PRN (Reason: anxiety) Qty: 90 RF: 0 ceftriaxone 2 gram recon soln 2 gm IV DAILY Qty: 17 RF: 0 levalbuterol tartrate 45 mcg/actuation HFA aerosol inhaler 2 puffs INH Q6H Qty: 15 RF: 3 Discharge Orders: Discharge Order (Routine); Ordered 05/26/19 Ordered By: Joe Key Admission Data Admit Date/Time: 05/09/19 13:28 Attending Provider: Joe Key Admit Provider: Ochoa Kunz Primary Care Provider: Roscoe Cano Other Providers: Neftali,Specialty [place] ; Mati Hamm ; Fred Hutchins ; Elisabeth Freeman ; [facility] Other Interventions: Discharge Summary Assessment (RN) Last Done: 05/26/19 12:19 DC Date/Time DO NOT enter until pt leaves facility: 05/26/19 15:49 Coding Level of Care Code D/C Day Management >30 mins Diagnoses Sepsis A41.01; R65.20; J96.01 Sepsis type: methicillin susceptible Staphylococcus aureus Sepsis acute organ dysfunction status: with acute organ dysfunction Severe sepsis acute organ dysfunction type: acute respiratory failure Acute respiratory failure type: with hypoxia Severe sepsis shock status: without septic shock Bacteremia due to methicillin susceptible Staphylococcus aureus (MSSA) R78.81; B95.61 Acute respiratory failure with hypoxia J96.01 Influenza B J10.1 Pneumonia J18.9 Laterality: right Lung location: lower lobe of lung Pneumonia type: due to unspecified organism Serotonin withdrawal syndrome T43.205A Encounter type: initial encounter Chronic prescription benzodiazepine use Z79.899 CAD (coronary artery disease) I25.10 Coronary Disease-Associated Artery/Lesion type: [place] artery [place] vs. 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
== END 2019-05-26 15:49 | disposition home health service (06) | DRG 870 ==
LOC: ED 11:06 → 1E 13:28 → SUATTDRO 13:28 → 1E 15:37 → 2E 05-22 17:49 → 4W 05-24 14:42
DX: R13.12 Dysphagia, oropharyngeal phase; Z91.14 Patient's other noncompliance with medication regimen; F13.239 Sedative, hypnotic or anxiolytic dependence with withdrawal, unspecified; A41.89 Other specified sepsis; F41.9 Anxiety disorder, unspecified; R65.20 Severe sepsis without septic shock; E87.6 Hypokalemia; F15.23 Other stimulant dependence with withdrawal; E87.4 Mixed disorder of acid-base balance; Z99.11 Dependence on respirator [ventilator] status; T43.205A Adverse effect of unspecified antidepressants, initial encounter; G93.40 Encephalopathy, unspecified; Z79.84 Long term (current) use of oral hypoglycemic drugs; I65.21 Occlusion and stenosis of right carotid artery; J39.8 Other specified diseases of upper respiratory tract; I25.5 Ischemic cardiomyopathy; F19.239 Other psychoactive substance dependence with withdrawal, unspecified; E78.5 Hyperlipidemia, unspecified; Y92.239 Unspecified place in hospital as the place of occurrence of the external cause; J96.01 Acute respiratory failure with hypoxia; Z79.02 Long term (current) use of antithrombotics/antiplatelets; J38.3 Other diseases of vocal cords; E11.51 Type 2 diabetes mellitus with diabetic peripheral angiopathy without gangrene; I25.10 Atherosclerotic heart disease of native coronary artery without angina pectoris; E43 Unspecified severe protein-calorie malnutrition; Y92.009 Unspecified place in unspecified non-institutional (private) residence as the place of occurrence of the external cause; E11.10 Type 2 diabetes mellitus with ketoacidosis without coma; J38.5 Laryngeal spasm; J15.211 Pneumonia due to Methicillin susceptible Staphylococcus aureus; E83.39 Other disorders of phosphorus metabolism; Z95.1 Presence of aortocoronary bypass graft; I48.0 Paroxysmal atrial fibrillation; F17.210 Nicotine dependence, cigarettes, uncomplicated; A41.01 Sepsis due to Methicillin susceptible Staphylococcus aureus; J38.4 Edema of larynx; J10.08 Influenza due to other identified influenza virus with other specified pneumonia; L89.153 Pressure ulcer of sacral region, stage 3

== ENCOUNTER 2024-10-05 17:02 | Inpatient (IN) ==
--- NOTE | 2024-10-05 17:51 | Emergency Department Note ---
Impression & Plan Acute hyponatremia ED Provider Note Diagnosis: Hyponatremia Disposition: Admission CHIEF COMPLAINT: Abnormal outpatient lab work HPI: Patient is a 74-year-old female presenting after abnormal outpatient lab work today. Patient was found to have sodium of 125. Patient's most recent sodium was 135. Patient has been having generalized weakness nausea vomiting diarrhea. Patient has reportedly had some intermittent abdominal pain. Patient was to get an outpatient CT scan tomorrow. Patient was called by her primary with the result of low sodium and instructed to come to the hospital for IV saline and admission to the hospital. Patient denies any active headache or lightheadedness. Patient denies any active chest pain or shortness of breath. Patient believes she has not been drinking enough water lately. PAST MEDICAL HISTORY: See Below PAST SURGICAL HISTORY: See Below SOCIAL HISTORY: See Below HOME MEDICATIONS: See Below ALLERGIES: See Below VITALS: See Below PHYSICAL EXAMINATION: GENERAL: Well appearing, well nourished, NAD, non-toxic. EYE EXAM: Normal conjunctiva. OROPHARYNX: Moist mucus membranes. Grossly normal dentition. NECK: Supple, LUNGS: Clear to auscultation. Normal chest wall mechanics. HEART: NSR ABDOMEN: Abdomen soft, non-tender, normo-active bowel sounds, no masses, no rebound or guarding BACK: No CVA TTP. SKIN: No rashes and no bruising. UPPER EXTREMITIES: Upper extremities are grossly normal LOWER EXTREMITIES: Grossly normal, no edema. NEURO EXAM: A&O x3,, normal speech, moves all 4 extremities PSYCH: Cooperative MEDICAL DECISION MAKING: Reviewed external documents: History obtained from: Patient, ER Course: Patient is a 74-year-old female presenting with complaint of abnormal outpatient lab work. Patient has been having some GI symptoms for the past 2 days time. Patient went to primary care physician due to generalized weakness loss of weight and increased stress. Patient was found to have a sodium level of 125. Patient's baseline is closer to 135. Patient denies any active headaches dizziness blurred vision. Patient has not had any seizure activity. Patient not have any active chest pain or shortness of breath. Patient states that she has not been drinking as much liquids over the past 2 to [address] scan abdomen pelvis abnormalities of the stomach wall which was present in 2019. Patient was made aware of this finding and that if she continues to have GI symptoms she would need potential EGD in the future with gastroenterology. Patient started on slow rate of normal saline at 80 cc/h. Patient had orders placed for urine sodium and creatinine so that a FEN could be determined. Labs (independently interpreted) are significant for: Hyponatremia Medications given: Normal saline at 80 cc/h Consultants: Hospitalist Triage Nursing notes reviewed and agree them. Vital Signs: reviewed and remarkable for: no significant abnormalities Past Med/Surg History Problem List (Updated 10/06/24 @ 01:02 by Krishna Cline DO) Acute hyponatremia (Acute) Hyponatremia Intractable nausea Abnormal skin growth ISMA (cerebral atherosclerosis) Overactive bladder Cough Paroxysmal atrial fibrillation Carotid stenosis Current use of proton pump inhibitor Nicotine dependence Traumatic wound Antiplatelet or antithrombotic long-term use Chronic anticoagulation Former smoker Sepsis (Acute) Dyslipidemia (Chronic) Acid reflux (Acute) Anemia (Acute) Anxiety disorder (Acute) Arteriosclerosis of carotid artery (Chronic) CAD (coronary artery disease) (Acute) Cardiomyopathy, ischemic (Acute) Essential hypertriglyceridemia (Acute) Hyperlipidemia (Acute) Stenosis of right carotid artery (Acute) Type 2 diabetes mellitus (Acute) Vitamin D deficiency (Acute) Chronic obstructive pulmonary disease (Acute) Medical History Open wound of buttock with complication History of COPD Oropharyngeal dysphagia Bacteremia due to methicillin susceptible Staphylococcus aureus (MSSA) Serotonin withdrawal syndrome Acute respiratory failure with hypoxia Encephalopathy acute MSSA (methicillin susceptible Staphylococcus aureus) pneumonia MSSA (methicillin susceptible Staphylococcus aureus) septicemia Encephalopathy Tracheomalacia, acquired DKA (diabetic ketoacidoses) Surgical History S/P hysterectomy Hx of CABG Family History Mother Coronary heart disease Myocardial infarction Denies family history of Ovarian cancer Prostate cancer Breast cancer Colorectal cancer Social History Smoking Status: Current every day smoker Tobacco Type: Cigarettes Age Started Using Tobacco: 23; packs per day: 1; Cigarettes Per Day: 1.5 ppd; Second Hand Exposure: Yes; Do You Dip or Chew Tobacco: No; Hx Alcohol Use: No Hx Substance Use: No Preferred Language: Lao Communication Ability: Effective Visual Impairment: No Limitations Hearing Ability: Normal Licensed Esthetician Required: No Beliefs That Will Affect Care: None marital status: / Current Living Situation: Other Current Living Situation Comment: Lives in own with boarders current occupational status: retired Other Information That Helps Us Care for You: No Feels Safe at Home: Yes Safety Concerns: Feels Safe At This Time Childhood Exposure to Second-Hand Smoke: Yes Diet: diabetic caffeine: Yes during the past year weight has: increased > 10 lbs Dental Care, Regularly: Yes Physical Activity Frequency: 1-2 Times per Week Seatbelt Use: never Sunscreen Use: No Assistive Devices: None Allergies Allergies Allergy/AdvReac Type Severity Reaction Status Date / Time GEORGE Inhibitors Allergy Mild COUGH TO Verified 10/05/24 19:25 LISINOPRIL losartan Allergy Unknown URTICARIA Verified 10/05/24 19:25 Home Meds Home Medications Medication Instructions Recorded Confirmed blood sugar diagnostic (OneTouch #10 ea 10/29/18 10/05/24 Ultra Blue Test Strip) aspirin 81 mg tablet,delayed 81 mg PO QAM 12/20/19 10/05/24 release furosemide 40 mg tablet 40 mg PO QAM 10/05/24 10/05/24 insulin glargine 100 unit/mL (3 30 unit subcut HS 10/05/24 10/05/24 mL) subcutaneous pen (Lantus Solostar U-100 Insulin) isosorbide mononitrate 120 mg 240 mg PO QAM 10/05/24 10/05/24 tablet,extended release 24 hr Previous Rx's Medication Instructions Recorded blood-glucose meter (ZarfoTouch #1 ea 05/26/19 Ultra2 Meter) lancets 33 gauge (OneTouch Delica #100 ea 01/31/20 Lancets) ondansetron HCl 4 mg tablet 4 mg PO Q8H PRN nausea and 03/28/22 vomiting 4 days #10 tabs nitroglycerin 0.4 mg sublingual 0.4 mg sublingual UD #25 tabs 11/18/23 tablet potassium chloride 20 mEq 20 meq PO QAM #90 tabs 12/18/23 tablet,extended release(part/cryst) metformin 500 mg tablet 1,000 mg (2 x 500 mg) PO BID #360 01/04/24 tabs pen needle, diabetic 32 gauge x #100 ea 03/17/24" (BD Ultra-Fine Sharon Pen Needle) apixaban 5 mg tablet (Eliquis) 5 mg PO BID #180 tabs 06/07/24 ezetimibe 10 mg tablet 10 mg PO HS #90 tabs 06/07/24 metoprolol succinate 100 mg 100 mg PO QAM #90 tabs 06/07/24 tablet,extended release 24 hr paroxetine HCl 30 mg tablet 30 mg PO QAM #90 tabs 06/13/24 atorvastatin 80 mg tablet 80 mg PO HS #90 tabs 08/22/24 alprazolam 0.25 mg tablet 0.25 mg PO TID PRN anxiety #90 tabs 10/05/24 pantoprazole 40 mg tablet,delayed 40 mg PO DAILY #90 tabs 10/05/24 release (Protonix) Results & Data (ED) Vital Signs Vital Signs - 24 hr 10/05/24 17:17 10/05/24 17:50 10/05/24 19:03 Temperature 36.3 C L Temperature Source Temporal Artery Scan Pulse Rate 68 60 Pulse Rate [Apical] 59 L Respiratory Rate 18 18 Blood Pressure 121/63 Blood Pressure [Right Arm] 138/65 Blood Pressure Mean 82 Blood Pressure Mean [Right Arm] 89 Pulse Oximetry 93 96 Oxygen Delivery Method Room Air Sepsis Recent Fever Within 48 Hours No Sepsis New/Unexplained Change in Mental Status N/A Sepsis Action Taken by Nursing No Action Required 10/05/24 21:00 Temperature Temperature Source Pulse Rate Pulse Rate [Apical] 63 Respiratory Rate 18 Blood Pressure Blood Pressure [Right Arm] 156/70 H Blood Pressure Mean Blood Pressure Mean [Right Arm] 98 Pulse Oximetry 95 Oxygen Delivery Method Sepsis Recent Fever Within 48 Hours Sepsis New/Unexplained Change in Mental Status Sepsis Action Taken by Nursing Laboratory Data 10/05/24 21:52 Administered Medications Alprazolam (Alprazolam 0.25 Mg Tablet) 0.25 mg PO TID PRN PRN Reason: anxiety Stop: 11/04/24 22:52 Last Admin: 10/05/24 23:34 Dose: 0.25 mg Documented By: craig Apixaban (Apixaban 5 Mg Tablet) 5 mg PO BID JUSTIN Stop: 11/04/24 22:59 Last Admin: 10/05/24 23:35 Dose: 5 mg Documented By: craig Sodium Chloride (Nss) 1,000 mls @ 80 mls/hr IV .[id number] JUSTIN Stop: 10/08/24 17:44 Last Admin: 10/05/24 18:46 Dose: 80 mls/hr Documented By: BENNY Melatonin (Melatonin 3 Mg Tab) 3 mg PO HS PRN PRN Reason: Sleep Stop: 11/04/24 21:23 Last Admin: 10/05/24 23:34 Dose: 3 mg Documented By: craig Nicotine (Nicotine 14 Mg/24 Hr Patch) 1 patch TD QAM JUSTIN Stop: 11/04/24 20:04 Last Admin: 10/05/24 20:09 Dose: 1 patch Documented By: GRISELDA Discontinued Medications Thiamine HCl 500 mg/ Sodium (Chloride) 55 mls @ 210 mls/hr IV NOW STA Stop: 10/05/24 21:32 Last Infusion: 10/05/24 21:58 Dose: Infused Documented By: Admin: 10/05/24 21:42 Dose: 210 mls/hr Documented By: GRISELDA Insulin Glargine (Lantus Per Unit Charge) 10 units SC ONE ONE Stop: 10/05/24 23:16 Last Admin: 10/05/24 23:35 Dose: 10 units Documented By: craig Co-signed By: KERRI Ioversol (Optiray 320 100ml) 90 ml IV ONCE ONE Stop: 10/05/24 18:38 Last Admin: 10/05/24 18:37 Dose: 90 ml Documented By: KENY Imaging Data Radiologist's Impression: Abdomen/Pelvis CT 10/05/24 17:37 CT ABDOMEN and PELVIS with INTRAVENOUS CONTRAST HISTORY: Abdominal pain TECHNIQUE: CT abdomen and pelvis with contrast. IV CONTRAST: 100 mL of OMNIPAQUE 300 ENTERIC CONTRAST: Not Given COMPARISON: CT abdomen pelvis August 05, 2019 FINDINGS: LOWER CHEST: Mild cardiomegaly. Coronary calcifications LIVER: Calcified granulomas. Hepatic steatosis and hepatomegaly. GALLBLADDER/BILIARY: Unremarkable gallbladder. No abnormal biliary dilatation. SPLEEN: Unremarkable. PANCREAS: Small cystic change in the head of the pancreas measuring approximately 7 mm is not appreciably changed from previous.. ADRENALS: Unremarkable. KIDNEYS: Atrophic kidneys with scarring. No stones or hydronephrosis identified. PERITONEUM/RETROPERITONEUM. No significant change in the mildly prominent mavis hepatic lymph nodes. No aortic aneurysm. Extensive atherosclerosis with stenoses of the celiac trunk, severe stenosis of the proximal SMA, stenoses of the the renal arteries and the ADNIELITO. GASTROINTESTINAL: No obstruction. There is an eccentric and somewhat irregular wall thickening in the cardia region of the stomach that appears overall similar to the previous examination. In addition, there is a small gas containing outpouching arising from the stomach/distal esophagus in this area (series 2, image 10, likely representing diverticulum. No evidence of bowel obstruction this examination with no appreciable distention of the hollow viscus. However, there is a pronounced the swirling of the mesentery and twisting of the bowel loops in the mid abdomen likely representing adhesive changes. Normal appendix. REPRODUCTIVE: Status post hysterectomy. BONES: No acute findings. IMPRESSION: Irregular and eccentric wall thickening in the cardia region of the stomach near the GE junction. This appears similar to the previous examination from 2019 however given weight loss, endoscopic examination may be pursued to exclude a malignant process. Otherwise, no specific evidence of malignancy in this examination. No evidence of bowel obstruction however there is moderate swirling of the mesentery with twisting the bowel in the mid abdomen suggesting adhesive changes. Electronically signed by Jono Au 10-05-2024 7:49 PM Discharge Plan Visit Data Chief Complaint: Referred by Doctor Stated Complaint: DOC REFERRAL, SODIUM DRIP ED Provider: Krishna Cline Discharge Problem: Acute hyponatremia Patient Disposition: Admitted As Inpatient Condition: Serious Discharge Instructions Interventions: ED Discharge Assessment Last Done: 10/05/24 22:14
[2024-10-05] MEDS: OPTIRAY 320 100ml IV ONE (18:37)
[2024-10-05] MEDS: SODIUM CHLORIDE 0.9% 1,000 ML IV SCH (18:46)
--- NOTE | 2024-10-05 19:49 | CT Scan Report ---
CT ABDOMEN and PELVIS with INTRAVENOUS CONTRAST HISTORY: Abdominal pain TECHNIQUE: CT abdomen and pelvis with contrast. IV CONTRAST: 100 mL of OMNIPAQUE 300 ENTERIC CONTRAST: Not Given COMPARISON: CT abdomen pelvis August 05, 2019 FINDINGS: LOWER CHEST: Mild cardiomegaly. Coronary calcifications LIVER: Calcified granulomas. Hepatic steatosis and hepatomegaly. GALLBLADDER/BILIARY: Unremarkable gallbladder. No abnormal biliary dilatation. SPLEEN: Unremarkable. PANCREAS: Small cystic change in the head of the pancreas measuring approximately 7 mm is not appreciably changed from previous.. ADRENALS: Unremarkable. KIDNEYS: Atrophic kidneys with scarring. No stones or hydronephrosis identified. PERITONEUM/RETROPERITONEUM. No significant change in the mildly prominent mavis hepatic lymph nodes. No aortic aneurysm. Extensive atherosclerosis with stenoses of the celiac trunk, severe stenosis of the proximal SMA, stenoses of the the renal arteries and the DANIELITO. GASTROINTESTINAL: No obstruction. There is an eccentric and somewhat irregular wall thickening in the cardia region of the stomach that appears overall similar to the previous examination. In addition, there is a small gas containing outpouching arising from the stomach/distal esophagus in this area (series 2, image 10, likely representing diverticulum. No evidence of bowel obstruction this examination with no appreciable distention of the hollow viscus. However, there is a pronounced the swirling of the mesentery and twisting of the bowel loops in the mid abdomen likely representing adhesive changes. Normal appendix. REPRODUCTIVE: Status post hysterectomy. BONES: No acute findings. IMPRESSION: Irregular and eccentric wall thickening in the cardia region of the stomach near the GE junction. This appears similar to the previous examination from 2019 however given weight loss, endoscopic examination may be pursued to exclude a malignant process. Otherwise, no specific evidence of malignancy in this examination. No evidence of bowel obstruction however there is moderate swirling of the mesentery with twisting the bowel in the mid abdomen suggesting adhesive changes. Electronically signed by Jono Au 10-05-2024 7:49 PM
[2024-10-05] MEDS: NICOTINE 14 MG/24 HR PATCH TD SCH (20:09)
--- NOTE | 2024-10-05 20:26 | History & Physical Report ---
Date of Service October 05, 2024 Assessment & Plan (1) Intractable nausea: (2) Hyponatremia: (3) History of COPD: (4) Type 2 diabetes mellitus: (5) Paroxysmal atrial fibrillation: (6) Anxiety disorder: Plan Pt is a 74 yo female with PMH of paroxysmal a-fib, carotid stenosis, GERD, HLD, CAD s/p CABG, DMT2, COPD, and overactive bladder who presented to ED due to intractable nausea, recent dry heaving and diarrhea. Pt's vitals are stable, labs show normal WBC and RBC, low Na at 125 and magnesium at 1.6. Pt's kidney and liver function is within normal limits. CT abdomen showed "Irregular and eccentric wall thickening in the cardia region of the stomach near the GE junction. This appears similar to the previous examination from 2019"- which maybe related to previous surgical procedure for hiatal hernia. Pt admitted to replete sodium and monitor electrolytes in setting of malnutrition. #Intractable nausea Does not appear to be infectious or obstructive in nature. Pt denies current GERD symptoms and is long time user of PPI. Reports hiatal hernia repair that sounds to be a Brittney repair, but unconfirmed as this was performed 40 years ago in [place]. No hx of EGD. - Ordered phos level - Ordered IV thiamine 500mg - IV Zofran 4mg prn for nausea - Consider Gastro in outpatient for EGD - Ordered carb constant/heart healthy diet per pt tolerance #Hyponatremia Maybe related to malnutrition due to chronic nausea and decreased appetite. Pt has hx of COPD, current tobacco user with a 60 year pack history. Last chest x- ray found was from 2022 without any noted significant findings. Plan to rule out pulmonary causes for low Na. - Continue IV NSS at 80mls - Serial BMP q6h - Ordered CXR # DMT2 A1c from 09/08/24 was 7.3, today it is 6.9. Pt is using Lantus 30 units qhs and metformin 1000mg BID. - Continue Glargine 10 units BID - Ordered aspart on sliding scale - Hold Metformin # Paroxysmal A-fib Currently in sinus rhythm and anticoagulated with apixaban BID. Last Echo in 2019 with EF of 45-50%, grade 1 diastolic dysfunction and no wall motion abnormalities. - Continue metoprolol 100mg qd - Continue apixaban 5mg BID - Holding lasix and KCl Consider resuming if pt appear hypervolumic with IVF Chronic conditions: HLD/hypertriglyceridemia- Continue atorvastatin 80mg and ezetimibe 10mg qd CAD with hx of CABG- Continue aspirin 81mg and isosorbide 240mg GERD- Continue pantoprazole 40mg Anxiety disorder- Continue paroxetine 30mg qd and alprazolam 0.5 mg PRN TID Dispo: Med/surg Diet: Carb counting/heart healthy DVT prophylaxis: continue Apixaban 5mg BID Code: Full History of Present Illness Chief Complaint: Nausea/abdominal pain/ hyponatremia Primary Care Provider: Roscoe Cano MD Pt is a 74 yo female with PMH of paroxysmal a-fib, carotid stenosis, GERD, HLD, HTN, CAD s/p CABG, DMT2, COPD, and overactive bladder who presented to ED due to intractable nausea that started 2 months ago which progressed to dry heaving and diarrhea yesterday. Pt reports decreased appetite and has stopped eating meat products due to progressive nausea. Pt denies frequent vomiting, only dry heaving in the last couple days. She denies chronic diarrhea, again only noted to have 2 episodes in the last day. Pt reports she has been feeling weaker in the last several days and has had an unintentional 11 lbs weight loss, but does not know in what time frame. Pt reports hx of hiatal hernia with surgical repair more than 40 yrs ago. Pt described surgical procedure as wrapping upper part of stomach on itself- likely Brittney procedure. Pt also endorses history of hysterectomy. Pt states that she does not recall any history of an EGD or colonoscopy. Pt denies abdominal pain, hematemesis, melena or changes in her stools. She denies fever/chills, chest pain, SOB, dizziness, headaches, new arthralgias/myalgias, dysuria or hematuria. Pt says that she attributes her nausea and recent GI upset to stressful situations in her life that have been ongoing for the last several years. Allergies Allergy/AdvReac Type Severity Reaction Status Date / Time GEORGE Inhibitors Allergy Mild COUGH TO Verified 10/05/24 19:25 LISINOPRIL losartan Allergy Unknown URTICARIA Verified 10/05/24 19:25 Home Medications Medication Instructions Recorded Confirmed Type blood sugar diagnostic ([facility] #10 ea 10/29/18 10/05/24 History Ultra Blue Test Strip) blood-glucose meter ([facility] #1 ea 05/26/19 10/05/24 Rx Ultra2 Meter) aspirin 81 mg tablet,delayed 81 mg PO QAM 12/20/19 10/05/24 History release lancets 33 gauge (One[facility] #100 ea 01/31/20 10/05/24 Rx Lancets) ondansetron HCl 4 mg tablet 4 mg PO Q8H PRN nausea and 03/28/22 10/05/24 Rx vomiting 4 days #10 tabs nitroglycerin 0.4 mg sublingual 0.4 mg sublingual UD #25 tabs 11/18/23 10/05/24 Rx tablet potassium chloride 20 mEq 20 meq PO QAM #90 tabs 12/18/23 10/05/24 Rx tablet,extended release(part/cryst) metformin 500 mg tablet 1,000 mg (2 x 500 mg) PO BID #360 01/04/24 10/05/24 Rx tabs pen needle, diabetic 32 gauge x #100 ea 03/17/24 10/05/24 Rx 5/32" (BD Ultra-Fine Sharon Pen Needle) apixaban 5 mg tablet (Eliquis) 5 mg PO BID #180 tabs 06/07/24 10/05/24 Rx ezetimibe 10 mg tablet 10 mg PO HS #90 tabs 06/07/24 10/05/24 Rx metoprolol succinate 100 mg 100 mg PO QAM #90 tabs 06/07/24 10/05/24 Rx tablet,extended release 24 hr paroxetine HCl 30 mg tablet 30 mg PO QAM #90 tabs 06/13/24 10/05/24 Rx atorvastatin 80 mg tablet 80 mg PO HS #90 tabs 08/22/24 10/05/24 Rx alprazolam 0.25 mg tablet 0.25 mg PO TID PRN anxiety #90 tabs 10/05/24 10/05/24 Rx furosemide 40 mg tablet 40 mg PO QAM 10/05/24 10/05/24 History insulin glargine 100 unit/mL (3 30 unit subcut HS 10/05/24 10/05/24 History mL) subcutaneous pen (Lantus Solostar U-100 Insulin) isosorbide mononitrate 120 mg 240 mg PO QAM 10/05/24 10/05/24 History tablet,extended release 24 hr pantoprazole 40 mg tablet,delayed 40 mg PO DAILY #90 tabs 10/05/24 10/05/24 Rx release (Protonix) Past Med/Surg History Problem List Acute hyponatremia (Acute) Hyponatremia Intractable nausea Abnormal skin growth ISMA (cerebral atherosclerosis) Overactive bladder Cough Paroxysmal atrial fibrillation Carotid stenosis Current use of proton pump inhibitor Nicotine dependence Traumatic wound Antiplatelet or antithrombotic long-term use Chronic anticoagulation Former smoker Sepsis (Acute) Dyslipidemia (Chronic) Acid reflux (Acute) Anemia (Acute) Anxiety disorder (Acute) Arteriosclerosis of carotid artery (Chronic) CAD (coronary artery disease) (Acute) Cardiomyopathy, ischemic (Acute) Essential hypertriglyceridemia (Acute) Hyperlipidemia (Acute) Stenosis of right carotid artery (Acute) Type 2 diabetes mellitus (Acute) Vitamin D deficiency (Acute) Chronic obstructive pulmonary disease (Acute) Medical History Open wound of buttock with complication History of COPD Oropharyngeal dysphagia Bacteremia due to methicillin susceptible Staphylococcus aureus (MSSA) Serotonin withdrawal syndrome Acute respiratory failure with hypoxia Encephalopathy acute MSSA (methicillin susceptible Staphylococcus aureus) pneumonia MSSA (methicillin susceptible Staphylococcus aureus) septicemia Encephalopathy Tracheomalacia, acquired DKA (diabetic ketoacidoses) Surgical History S/P hysterectomy Hx of CABG Family History Mother Coronary heart disease Myocardial infarction Denies family history of Ovarian cancer Prostate cancer Breast cancer Colorectal cancer Social History Smoking Status: Current every day smoker Tobacco Type: Cigarettes Age Started Using Tobacco: 23; packs per day: 1; Cigarettes Per Day: 1.5 ppd; Second Hand Exposure: Yes; Do You Dip or Chew Tobacco: No; Hx Alcohol Use: No Hx Substance Use: No Preferred Language: Kazakh Communication Ability: Effective Visual Impairment: No Limitations Hearing Ability: Normal Business Communications Instructor Required: No Beliefs That Will Affect Care: None marital status: / Current Living Situation: Other Current Living Situation Comment: Lives in own with boarders current occupational status: retired Feels Safe at Home: Yes Childhood Exposure to Second-Hand Smoke: Yes Diet: diabetic caffeine: Yes during the past year weight has: increased > 10 lbs Dental Care, Regularly: Yes Physical Activity Frequency: 1-2 Times per Week Seatbelt Use: never Sunscreen Use: No Assistive Devices: None Review of Systems Review of Systems: As per HPI Physical Exam Physical Exam: Gen: NAD HENT: Normocephalic, atraumatic. External ear without deformities. Trachea midline, no thyromegaly Cardio: RRR, no murmurs or clicks. No JVD or extremity edema noted Resp: Scattered expiratory wheezing throughout upper lung darby, Equal bilateral chest rise, no increased work of breathing GI: Nondistended, soft, non tender, normoactive bowel sounds MSK: Moving all 4 extremities independently Skin: Dry, of normal skin tone, Neuro: A& O x 3, normal affect Results & Data Results & Data Vital Signs (Past 12 Hours) Vital Signs Temp Pulse Pulse Resp BP BP Pulse Ox 10/05/24 19:03 59 L 18 138/65 96 10/05/24 17:50 60 10/05/24 17:17 36.3 C L 68 18 121/63 93 O2 Del Method 10/05/24 19:03 10/05/24 17:50 10/05/24 17:17 Room Air Laboratory Results Laboratory Results Sodium 124 mmol/L (136-145) L 10/05/24 21:52 Potassium 4.0 mmol/L (3.5-5.1) 10/05/24 21:52 Chloride 91 mmol/L (98-107) L 10/05/24 21:52 Carbon Dioxide 23 mmol/L (21-32) 10/05/24 21:52 Anion Gap 10 (3-11) 10/05/24 21:52 BUN 6 mg/dl (6-23) 10/05/24 21:52 Creatinine 0.72 mg/dl (0.6-1.2) 10/05/24 21:52 Est Cr Clr Drug Dosing 59.1 ml/min 10/05/24 21:52 eGFR 88.23 10/05/24 21:52 BUN/Creatinine Ratio 8.3 (10-20) L 10/05/24 21:52 Glucose 138 mg/dl (70-99(Fasting)) H 10/05/24 21:52 POC Glucose 169 mg/dl (70-99) H 10/05/24 23:03 Calcium 8.9 mg/dl (8.6-10.3) 10/05/24 21:52 Phosphorus 3.2 mg/dl (2.5-4.9) 10/05/24 21:52 Ur Random Creatinine 18.1 mg/dl 10/05/24 21:39 Ur Random Sodium 15 mmol/L 10/05/24 21:39 Impressions Abdomen/Pelvis CT 10/05/24 17:37 CT ABDOMEN and PELVIS with INTRAVENOUS CONTRAST HISTORY: Abdominal pain TECHNIQUE: CT abdomen and pelvis with contrast. IV CONTRAST: 100 mL of OMNIPAQUE 300 ENTERIC CONTRAST: Not Given COMPARISON: CT abdomen pelvis August 05, 2019 FINDINGS: LOWER CHEST: Mild cardiomegaly. Coronary calcifications LIVER: Calcified granulomas. Hepatic steatosis and hepatomegaly. GALLBLADDER/BILIARY: Unremarkable gallbladder. No abnormal biliary dilatation. SPLEEN: Unremarkable. PANCREAS: Small cystic change in the head of the pancreas measuring approximately 7 mm is not appreciably changed from previous.. ADRENALS: Unremarkable. KIDNEYS: Atrophic kidneys with scarring. No stones or hydronephrosis identified. PERITONEUM/RETROPERITONEUM. No significant change in the mildly prominent mavis hepatic lymph nodes. No aortic aneurysm. Extensive atherosclerosis with stenoses of the celiac trunk, severe stenosis of the proximal SMA, stenoses of the the renal arteries and the DANIELITO. GASTROINTESTINAL: No obstruction. There is an eccentric and somewhat irregular wall thickening in the cardia region of the stomach that appears overall similar to the previous examination. In addition, there is a small gas containing outpouching arising from the stomach/distal esophagus in this area (series 2, image 10, likely representing diverticulum. No evidence of bowel obstruction this examination with no appreciable distention of the hollow viscus. However, there is a pronounced the swirling of the mesentery and twisting of the bowel loops in the mid abdomen likely representing adhesive changes. Normal appendix. REPRODUCTIVE: Status post hysterectomy. BONES: No acute findings. IMPRESSION: Irregular and eccentric wall thickening in the cardia region of the stomach near the GE junction. This appears similar to the previous examination from 2019 however given weight loss, endoscopic examination may be pursued to exclude a malignant process. Otherwise, no specific evidence of malignancy in this examination. No evidence of bowel obstruction however there is moderate swirling of the mesentery with twisting the bowel in the mid abdomen suggesting adhesive changes. Electronically signed by Tuanpavithrasada Jono 10-05-2024 7:49 PM Chest X-Ray 10/05/24 21:32 Exam(s): XR CXR 1 VIEW EXAM: XR Chest, 1 View CLINICAL HISTORY: Reason for exam: COPD with hyponatremia. TECHNIQUE: Frontal view of the chest. COMPARISON: 04/02/2022 FINDINGS: Lungs: Lungs are well inflated. There is a small amount of linear density in the left lung base consistent with scarring or atelectasis. No edema or acute focal infiltrate is identified. Pleural space: Unremarkable. No pneumothorax. Heart: See below. Mediastinum: Unremarkable. Normal mediastinal contour. Bones/joints: There are multiple sternal wires. The cardiac silhouette is mildly enlarged, similar to previous. No acute fracture. Vasculature: The aortic arch is moderately calcified. Upper abdomen: Unremarkable as visualized. No pneumoperitoneum under the diaphragm. IMPRESSION: 1. There are multiple sternal wires. The cardiac silhouette is mildly enlarged, similar to previous. 2. Lungs are well inflated. There is a small amount of linear density in the left lung base consistent with scarring or atelectasis. No edema or acute focal infiltrate is identified. Electronically signed by: Nemesio Casillas MD 10/05/24 23:45 PM Diagnostic Findings Abdomen/Pelvis CT 10/05/24 17:37 CT ABDOMEN and PELVIS with INTRAVENOUS CONTRAST HISTORY: Abdominal pain TECHNIQUE: CT abdomen and pelvis with contrast. IV CONTRAST: 100 mL of OMNIPAQUE 300 ENTERIC CONTRAST: Not Given COMPARISON: CT abdomen pelvis August 05, 2019 FINDINGS: LOWER CHEST: Mild cardiomegaly. Coronary calcifications LIVER: Calcified granulomas. Hepatic steatosis and hepatomegaly. GALLBLADDER/BILIARY: Unremarkable gallbladder. No abnormal biliary dilatation. SPLEEN: Unremarkable. PANCREAS: Small cystic change in the head of the pancreas measuring approximately 7 mm is not appreciably changed from previous.. ADRENALS: Unremarkable. KIDNEYS: Atrophic kidneys with scarring. No stones or hydronephrosis identified. PERITONEUM/RETROPERITONEUM. No significant change in the mildly prominent mavis hepatic lymph nodes. No aortic aneurysm. Extensive atherosclerosis with stenoses of the celiac trunk, severe stenosis of the proximal SMA, stenoses of the the renal arteries and the DANIELITO. GASTROINTESTINAL: No obstruction. There is an eccentric and somewhat irregular wall thickening in the cardia region of the stomach that appears overall similar to the previous examination. In addition, there is a small gas containing outpouching arising from the stomach/distal esophagus in this area (series 2, image 10, likely representing diverticulum. No evidence of bowel obstruction this examination with no appreciable distention of the hollow viscus. However, there is a pronounced the swirling of the mesentery and twisting of the bowel loops in the mid abdomen likely representing adhesive changes. Normal appendix. REPRODUCTIVE: Status post hysterectomy. BONES: No acute findings. IMPRESSION: Irregular and eccentric wall thickening in the cardia region of the stomach near the GE junction. This appears similar to the previous examination from 2019 however given weight loss, endoscopic examination may be pursued to exclude a malignant process. Otherwise, no specific evidence of malignancy in this examination. No evidence of bowel obstruction however there is moderate swirling of the mesentery with twisting the bowel in the mid abdomen suggesting adhesive changes. Electronically signed by Jono Au 10-05-2024 7:49 PM Supervising Physician Co-Signing Physician Notes Patient seen examined, chart reviewed, case discussed with Dr. Varela and I agree with the assessment and plan as document above. In brief, patient is a 74-year-old female presenting with nausea, vomiting and poor oral intake as well as a 10 pound unintentional weight loss over the last month. Patient had labs which revealed a sodium of 125 (baseline of approximately 135) therefore was sent to the ER. Patient takes Paxil for history of anxiety/depression. She recently ran out of this medication was off of it for approximately 1 month. She has since restarted this at her prior dose of 30 mg daily. No fevers, chills, chest pain, palpitations, shortness of breath, myalgias. No dysphagia or odynophagia. She did have an episode of looser stools yesterday. No additional complaints at this time On physical exam patient is anxious in appearance, no acute distress Skinwarm, dry, intact, no rashes or lesions HEENTslightly dry mucous membranes, neck supple Heart+ S1, S2, regular, no murmur/rub/gallops LungsCTA, no rales/rhonchi/wheezes Abdomensoft, nontender, nondistended Labs and images reviewed. Fraction excretion of sodium= 0.5% suggestive of prerenal etiology Assessment/plan will provide Zofran as needed for nausea Patient should have outpatient gastroenterology consultation and possible EGD to assess for prior Brittney Continue IV fluids Repeat BMP every 6 hours Remainder as above Resident Activity Tracking Resident Involvement: Resident Care Provided Care Provided: Adult Hospital Medicine (4) Type 2 diabetes mellitus Diabetes mellitus complication detail: with peripheral angiopathy without gangrene Diabetes mellitus complication status: with circulatory complication Diabetes mellitus mcc insulin use: without terminal clerk use Qualified Code(s): E11.51 - Type 2 diabetes mellitus with diabetic peripheral angiopathy without gangrene
[2024-10-05] MEDS ORDERED: ONDANSETRON INJ 2 MG/ML 2 ML VIAL IV PRN (21:24)
[2024-10-05] MEDS ORDERED: ACETAMINOPHEN 325 MG TAB PO PRN (21:24)
[2024-10-05] MEDS: THIAMINE HCL 500 MG in SODIUM CHLORIDE 0.9% 50 ML IV STA (21:42)
[2024-10-05 22:39] LABS: Anion Gap 10.0 (3-11); Blood Urea Nitrogen 6.0 mg/dl (6-23); Calcium 8.9 mg/dl (8.6-10.3); Carbon Dioxide 23.0 mmol/L (21-32); Chloride 91.0 mmol/L (98-107); Creatinine Clr Calc Pharmacy 59.1 ml/min; Glucose 138.0 mg/dl (70-99(Fasting)); Potassium 4.0 mmol/L (3.5-5.1); Sodium 124.0 mmol/L (136-145)
[2024-10-05] MEDS ORDERED: NITROGLYCERIN SL 0.4 MG/TAB TAB SL PRN (22:53)
[2024-10-05] MEDS ORDERED: GLUCOSE 40% GEL 15 GM TUBE PO PRN (23:15)
[2024-10-05] MEDS ORDERED: CARBOHYDRATES FOR HYPOGLYCEMIA PO PRN (23:15)
[2024-10-05] MEDS ORDERED: GLUCOSE 10 TAB/TUBE PO PRN (23:15)
[2024-10-05] MEDS ORDERED: GLUCAGON FOR INJ 1 MG VIAL SQ PRN (23:15)
[2024-10-05] MEDS ORDERED: DEXTROSE 50% 50 ML SYRINGE IV PRN (23:15)
[2024-10-05] MEDS: MELATONIN 3 MG TAB PO PRN (23:34)
[2024-10-05] MEDS: APIXABAN 5 MG TABLET PO SCH (23:35)
[2024-10-05] MEDS: LANTUS PER UNIT CHARGE SC ONE (23:35)
--- NOTE | 2024-10-05 23:45 | XRay Report ---
Exam(s): XR CXR 1 VIEW EXAM: XR Chest, 1 View CLINICAL HISTORY: Reason for exam: COPD with hyponatremia. TECHNIQUE: Frontal view of the chest. COMPARISON: 04/02/2022 FINDINGS: Lungs: Lungs are well inflated. There is a small amount of linear density in the left lung base consistent with scarring or atelectasis. No edema or acute focal infiltrate is identified. Pleural space: Unremarkable. No pneumothorax. Heart: See below. Mediastinum: Unremarkable. Normal mediastinal contour. Bones/joints: There are multiple sternal wires. The cardiac silhouette is mildly enlarged, similar to previous. No acute fracture. Vasculature: The aortic arch is moderately calcified. Upper abdomen: Unremarkable as visualized. No pneumoperitoneum under the diaphragm. IMPRESSION: 1. There are multiple sternal wires. The cardiac silhouette is mildly enlarged, similar to previous. 2. Lungs are well inflated. There is a small amount of linear density in the left lung base consistent with scarring or atelectasis. No edema or acute focal infiltrate is identified. Electronically signed by: Nemesio Casillas MD 10/05/24 23:45 PM
--- NOTE | 2024-10-06 02:27 | Billing Data ---
Date of Service October 05, 2024 Coding Level of Care Code 40992 INT INP/OBS CARE
[2024-10-06] MEDS: ISOSORBIDE MONO EXTENDED REL 60 MG TABCR PO SCH (08:23)
[2024-10-06] MEDS: METOPROLOL SUCC 50MG EXT REL TAB PO SCH (08:23)
[2024-10-06] MEDS: ASPIRIN 81 MG ECTAB PO SCH (08:23)
[2024-10-06] MEDS: REMOVE NICODERM PATCH SCH (08:24)
[2024-10-06] MEDS ORDERED: DEXTROSE 50% 50 ML SYRINGE IV PRN (08:29)
[2024-10-06] MEDS ORDERED: GLUCOSE 10 TAB/TUBE PO PRN (08:29)
[2024-10-06] MEDS ORDERED: CARBOHYDRATES FOR HYPOGLYCEMIA PO PRN (08:29)
[2024-10-06] MEDS ORDERED: GLUCAGON FOR INJ 1 MG VIAL SQ PRN (08:29)
[2024-10-06] MEDS ORDERED: GLUCOSE 40% GEL 15 GM TUBE PO PRN (08:29)
[2024-10-06] MEDS: INSULIN ASPART PER UNIT CHARGE SC SCH ×2 (08:30→12:39)
[2024-10-06] MEDS: LANTUS PER UNIT CHARGE SQ SCH (08:32)
[2024-10-06 09:15] LABS: Anion Gap 6.0 (3-11); Blood Urea Nitrogen 5.0 mg/dl (6-23); Calcium 8.7 mg/dl (8.6-10.3); Carbon Dioxide 27.0 mmol/L (21-32); Chloride 96.0 mmol/L (98-107); Creatinine Clr Calc Pharmacy 68.5 ml/min; Glucose 159.0 mg/dl (70-99(Fasting)); Potassium 4.3 mmol/L (3.5-5.1); Sodium 129.0 mmol/L (136-145)
[2024-10-06 10:39] LABS: Magnesium 1.5 mg/dl (1.7-2.4)
--- NOTE | 2024-10-06 11:48 | Hospitalist Progress Note ---
Date of Service October 06, 2024 Assessment & Plan (1) Intractable nausea: Plan: Suspect viral etiology causing viral gastroenteritis which resulted in nausea vomiting and diarrhea. Now much improved. Symptomatic care. Advance diet as tolerated (2) Hyponatremia: Plan: Mild on admission and improving. Serum osmolarity is slightly low. Doubt SIADH. Probably associated with nausea vomiting and diarrhea and the volume depletion (3) Hypomagnesemia: Plan: Parenteral replacement. Serial labs (4) History of COPD: Plan: Stable. Continue current medical management (5) Type 2 diabetes mellitus: Plan: Advance to ADA diet as tolerated. Sliding scale coverage. Basal insulin therapy (6) Paroxysmal atrial fibrillation: Plan: Telemetry. Continue current medications. Rate controlled. Eliquis therapy. Plan Hopeful discharge to home tomorrow, October 07 Admission and Anticipated Discharge Date Admission Date: October 05, 2024 Subjective Alert and oriented. She is feeling better. I suspect she had a viral gastroenteritis producing the nausea and vomiting and diarrhea. Sodium has improved from 124 on admission up to 129. Serum osmolarity is mildly low at 271. Magnesium replacement ordered. IV fluids have been tapered down. Lasix and potassium remain on hold. Hopefully she can go home tomorrow, October 07 Review of Systems 2 Review of Systems: Constitutionalno fever or chills ENTno blurred vision, no double vision, no epistaxis, no sore throat Respiratoryno cough, no wheezing, no shortness of breath Cardiacno palpitations, no chest pain, no syncope GInausea vomiting and diarrhea have resolved. No melena. No hematochezia GUno urinary retention, no urinary incontinence, no dysuria, no hematuria Musculoskeletalno joint pain, no muscle tenderness Skinno bruising, no rashes, no pruritus Neurono isolated weakness, no paresthesia, no weakness Psychno depression, no anxiety Physical Exam 2 Physical Exam: General-alert and oriented x3, no fever, no chills HEENT-head atraumatic and normocephalic, pupils equal and reactive to light, extraocular muscles intact Neck-no lymphadenopathy or thyromegaly, trachea midline Chest-clear to auscultation. No rales, wheezing or rhonchi Cardiac-regular rate and rhythm, normal S1 and S2 Abdomen-normal bowel sounds, no hepatosplenomegaly Extremities-no cyanosis, clubbing, or edema Neuro-cranial nerves II through XII intact, motor and sensory function within normal limits, strength symmetrical, no focal deficits Psych-normal affect, normal mood Results & Data Results & Data Vital Signs (Past 12 Hours) Vital Signs Temp Pulse Resp BP Pulse Ox O2 Del Method 10/06/24 09:42 Room Air 10/06/24 07:28 36.8 C 60 16 135/64 93 Room Air Laboratory Results 10/06/24 08:35 PG Care Time/CCT Total # of Minutes Spent Total Time Spent with Patient: Total time spent is greater than 50% in coordination of care (as documented) at patient's floor/unit and/or counseling patient: Coding Level of Care Code 43720 SUB INP/OBS CARE 3/50MIN Diagnoses Intractable nausea R11.0 Hyponatremia E87.1 Hypomagnesemia E83.42 History of COPD Z87.09 Type 2 diabetes mellitus with diabetic peripheral angiopathy without gangrene, without long-term current use of insulin E11.51 Diabetes mellitus senior care insulin use: without senior care use Diabetes mellitus complication status: with circulatory complication Diabetes mellitus complication detail: with peripheral angiopathy without gangrene Paroxysmal atrial fibrillation I48.0 (5) Type 2 diabetes mellitus Diabetes mellitus can striper insulin use: without can striper use Diabetes mellitus complication status: with circulatory complication Diabetes mellitus complication detail: with peripheral angiopathy without gangrene Qualified Code(s): E11.51 - Type 2 diabetes mellitus with diabetic peripheral angiopathy without gangrene
[2024-10-06] MEDS: MAGNESIUM SULFATE / D5W 1 GM/100 ML BAG IV SCH (12:39)
[2024-10-06] MEDS: ATORVASTATIN 40 MG TAB PO SCH (21:07)
[2024-10-07 07:47] VITALS: O2SAT 95
[2024-10-07 07:56] LABS: Anion Gap 6.0 (3-11); Blood Urea Nitrogen 5.0 mg/dl (6-23); Calcium 8.5 mg/dl (8.6-10.3); Carbon Dioxide 25.0 mmol/L (21-32); Chloride 103.0 mmol/L (98-107); Creatinine Clr Calc Pharmacy 66.5 ml/min; Glucose 85.0 mg/dl (70-99(Fasting)); Magnesium 2.0 mg/dl (1.7-2.4); Potassium 3.7 mmol/L (3.5-5.1); Sodium 134.0 mmol/L (136-145)
[2024-10-07 11:57] VITALS: BP 150/70; PULSE 49; RESP 17; TEMP 98.1
--- NOTE | 2024-10-07 13:36 | Discharge Summary ---
Discharge Summary Date of Service October 07, 2024 Principal Dx & Hospital Course #1 = Principal Diagnosis (1) Intractable nausea: Suspect viral etiology causing viral gastroenteritis which resulted in nausea vomiting and diarrhea. The patient is now asymptomatic. Diet has been advanced. (2) Hyponatremia: Mild on admission and now normal at 134. Serum osmolarity is slightly low. This does not appear to be SIADH. Probably caused by nausea, vomiting, diarrhea and the volume depletion on admission (3) Hypomagnesemia: Corrected with parenteral replacement. Serial labs while hospitalized (4) History of COPD: Stable. Continue current medical management (5) Type 2 diabetes mellitus: She has been advanced to ADA diet. Treated with sliding scale coverage and basal insulin therapy while hospitalized. (6) Paroxysmal atrial fibrillation: Telemetry. Continue current medications. Rate controlled. Eliquis therapy. Plan Home today, October 07 Admission HPI Per Admitting Provider Pt is a 74 yo female with PMH of paroxysmal a-fib, carotid stenosis, GERD, HLD, HTN, CAD s/p CABG, DMT2, COPD, and overactive bladder who presented to ED due to intractable nausea that started 2 months ago which progressed to dry heaving and diarrhea yesterday. Pt reports decreased appetite and has stopped eating meat products due to progressive nausea. Pt denies frequent vomiting, only dry heaving in the last couple days. She denies chronic diarrhea, again only noted to have 2 episodes in the last day. Pt reports she has been feeling weaker in the last several days and has had an unintentional 11 lbs weight loss, but does not know in what time frame. Pt reports hx of hiatal hernia with surgical repair more than 40 yrs ago. Pt described surgical procedure as wrapping upper part of stomach on itself- likely Brittney procedure. Pt also endorses history of hysterectomy. Pt states that she does not recall any history of an EGD or colonoscopy. Pt denies abdominal pain, hematemesis, melena or changes in her s tools. She denies fever/chills, chest pain, SOB, dizziness, headaches, new arthralgias/myalgias, dysuria or hematuria. Pt says that she attributes her nausea and recent GI upset to stressful situatio ns in her life that have been ongoing for the last several years. Discharge Exam General-alert and oriented x3, no fever, no chills HEENT-head atraumatic and normocephalic, pupils equal and reactive to light, extraocular muscles intact Neck-no lymphadenopathy or thyromegaly, trachea midline Chest-clear to auscultation. No rales, wheezing or rhonchi Cardiac-regular rate and rhythm, normal S1 and S2 Abdomen-normal bowel sounds, no hepatosplenomegaly Extremities-no cyanosis, clubbing, or edema Neuro-cranial nerves II through XII intact, motor and sensory function within normal limits, strength symmetrical, no focal deficits Psych-normal affect, normal mood Discharge Plan Discharge Items Patient Disposition: Home - Self-Care Reason For Visit: INTRACTABLE NAUSEA/HYPONATREMIA Discharge Diagnosis: Suspected viral gastroenteritis, hyponatremia, hypomagnesemia Condition on Discharge: Good Activity: Resume your previous activity Non-emergency contact: Primary Care Provider Call non-emergency contact if: your symptoms worsen Follow-up/Referrals: Barbi Olvera PA-C [Physician Mail Truck Driver] - 10/14/24 10:30 am (Barbi Olvera is a Physician Mail Truck Driver that works with Dr. Cano. She will see you for your hospital follow up appointment. Please arrive 15 min. before your scheduled time. Thank you!) Diet: Carb Consistent or DM2 and Heart Healthy Addtl Attending Provider Instructions: All medications remain the same. Follow-up with your primary care provider soon as possible. Pending Studies at Discharge: No Stand-Alone Forms: My [facility] RF Biocidics, Smoking Cessation Medications and DC Order Prescriptions: Continued (DME) lancets [OneTouch Delica Lancets] 33 gauge misc See Rx Instructions .ROUTE .MEDSUPPLY Qty: 100 3RF Rx Instructions: TEST ONCE DAILY ondansetron HCl 4 mg tablet 4 mg PO Q8H PRN (Reason: nausea and vomiting) 4 Days Qty: 10 0RF potassium chloride 20 mEq tablet,ER particles/crystals 20 meq PO QAM Qty: 90 3RF metformin 500 mg tablet 1,000 mg PO BID Qty: 360 3RF (DME) pen needle, diabetic [BD Ultra-Fine Sharon Pen Needle] 32 gauge x 5/32" needle See Rx Instructions .ROUTE .MEDSUPPLY Qty: 100 3RF Rx Instructions: Use one needle to inject insulin one daily Eliquis 5 mg tablet 5 mg PO BID Qty: 180 3RF metoprolol succinate 100 mg tablet extended release 24 hr 100 mg PO QAM Qty: 90 3RF ezetimibe 10 mg tablet 10 mg PO HS Qty: 90 3RF paroxetine HCl 30 mg tablet 30 mg PO QAM Qty: 90 3RF atorvastatin 80 mg tablet 80 mg PO HS Qty: 90 1RF alprazolam 0.25 mg tablet 0.25 mg PO TID PRN (Reason: anxiety) Qty: 90 0RF (DME) OneTouch Ultra Blue Test Strip strip See Dose Instructions .ROUTE .MEDSUPPLY Qty: 10 Rx Instructions: As directed furosemide 40 mg tablet 40 mg PO QAM pantoprazole [Protonix] 40 mg tablet,delayed release (DR/EC) 40 mg PO DAILY Qty: 90 3RF Rx Instructions: New Medication Prescribed 10/05/2024 nitroglycerin 0.4 mg tablet, sublingual 0.4 mg SL UD Qty: 25 3RF (DME) blood-glucose meter [TMATTouch Ultra2 Meter] [facility] [place] See Rx Instructions .ROUTE .MEDSUPPLY Qty: 1 0RF Rx Instructions: As directed aspirin [Aspir-81] 81 mg Tablet,Delayed Release (Dr/Ec) 81 mg PO QAM isosorbide mononitrate 120 mg tablet extended release 24 hr 240 mg PO QAM insulin glargine [Lantus Solostar U-100 Insulin] 100 unit/mL (3 mL) insulin pen 30 unit subcut HS Discharge Orders: Discharge Order (Routine); Ordered 10/07/24 Ordered By: Bob Leija Admission Data Admit Date/Time: 10/05/24 21:24 Attending Provider: Bob Leija Admit Provider: Halley Varela Primary Care Provider: Roscoe Cano Other Providers: Daniela Casillas Hospital Stay Data Consultations 10/05/24 20:03 ED Decision to Admit Stat Diagnostic Imagining Performed 10/05/24 17:37 CT abd pelvis IV con only Stat Pending Results Patient Have Any Pending Studies at Discharge: No Discharge Instructions Given to Patient (Per Discharging Provider) All medications remain the same. Follow-up with your primary care provider soon as possible. Total Time Total Time Spent Total Time Spent (In Minutes): 45 minutes Coding Level of Care Code 57206 INP/OBS DISCH >30 MIN Diagnoses Intractable nausea R11.0 Hyponatremia E87.1 Hypomagnesemia E83.42 History of COPD Z87.09 Type 2 diabetes mellitus with diabetic peripheral angiopathy without gangrene, without long-term current use of insulin E11.51 Diabetes mellitus chcf insulin use: without chcf use Diabetes mellitus complication status: with circulatory complication Diabetes mellitus complication detail: with peripheral angiopathy without gangrene Paroxysmal atrial fibrillation I48.0
== END 2024-10-07 14:32 | disposition home or self-care (01) | DRG 641 ==
LOC: ED 17:02 → 3N 21:24 → SUATTDRO 21:24 → 3N 22:14